=== PATIENT | female | born 1985 | race Caucasian/White ===

== ENCOUNTER 2016-08-28 12:32 | Emergency (ER) | payer OTHER ==
[~2016-08-28] VITALS: Ht 165.1 cm; Wt 65.0 kg
[~2016-08-28 12:32] MED LIST: HYDR-5688 PO; HYDR1CAP85 PO
[2016-08-28 12:34] VITALS: TEMP 37.1; Ht 165.1 cm; Wt 65.0 kg
[2016-08-28] MEDS ORDERED: AMOX875T PO (13:22)
[2016-08-28 13:55] VITALS: BP 122/87; PULSE 74; O2SAT 98
--- NOTE | 2016-08-30 17:00 | EMERGENCY ROOM VISIT NOTE ---
ED Visit Note First contact with patient: 12:41 Chief Complaint: Sinus pain, sore throat and cough. History of Present Illness: Ms. Pepper is a 30-year-old white female who ambulates into the ED accompanied by male friend complaining of a history for 1 week of increasing sinus pressure, sore throat and cough. Patient reports initially her symptoms started gradually approximately one week ago and has gradually increased in intensity. Currently she describes her sinus pain as a pressure sensation. He is located over the frontal sinuses. Her pain is constant and worsens with palpation. She rates her discomfort 4/ 10. Her pain is nonradiating. She has been taking [id number] ibuprofen and acetaminophen without relief of her discomfort. She also report she has a feeling of something dripping in the back of her throat giving her a sore throat. She describes this as a burning-like sensation. She rates this discomfort 4/10. The pain is nonradiating. Her pain worsens with swallowing. She has not identified any alleviating factors related to the pain. As previously noted and she has been using over-the- counter ibuprofen and acetaminophen without relief. Lastly she reports of a nonproductive cough that is associated with her symptoms. She also reports she has been having intermittent sensations of feeling hot and chills but has not checked her temperature. She denies sweats, skin eruptions, skin color changes, headache, dizziness, lightheadedness, recent head trauma, visual changes, hearing changes, eye drainage, ear drainage, bloody nose, voice changes, inability to swallow, painful talking, drooling, neck pain/stiffness, hemoptysis, wheezing, shortness of breath, chest pain, palpitations, previous clots, claudication, abdominal pain, nausea/vomiting. of Systems: As noted above in history of present illness. All body systems were reviewed and found to be negative as noted above. Past Medical History: Diabetes, hypertension, bronchitis, pneumonia, kidney stones, status post tonsillectomy and adenoidectomy. Current Medications: control, Vistaril, citalopram, Excedrin migraine. Allergies to Medications: Benzocaine, procaine, bupivacaine. Social History: Patient is currently employed; she feels safe in her home environment; she admits to tobacco use and denies alcohol use Physical Examination: Vital Signs: Date Time Temp Pulse Resp B/P Pulse Ox O2 Delivery O2 Flow Rate FiO2 2/25/17 13:55 74 14 122/87 98 08/28/16 12:34 37.1 76 16 117/76 100 GENERAL: 30-year-old female in moderate distress due to pain, nontoxic-appearing , afebrile and hemodynamically stable. NEUROLOGICAL: Awake, alert and oriented to person, place and time. Answering questions appropriately and following commands. Normal gait. Good hand eye coordination. No focal motor sensory deficits. SKIN: Warm, dry and pink. No soft tissue eruptions or trauma noted. HEENT: Atraumatic and normocephalic. Moderate tenderness over the frontal sinuses without erythema. Tympanic membranes are not erythematous or edematous. PERRLA. EOMI without nystagmus. Sclera white and conjunctiva pink. No drainage from naris but audible congestion. No intraoral trauma. Uvula is midline and no abscesses are seen. Posterior pharyngeal area is moderately erythematous and mildly edematous without exudative material. Airway is patent. Speech normal and clear. No lymphadenopathy. Trachea midline. No jugular venous distention. BACK: No tenderness over the bony spine. No nuchal rigidity or meningeal Ms. THORAX: Lungs sounds are clear to auscultation and equal bilaterally with symmetrical chest wall. No wheezing, rales or rhonchi. HEART: Regular rate and rhythm. No gallops, rubs or murmurs are appreciated. ABDOMEN: Flat, soft and nontender. Positive bowel sounds in all quadrants. No guarding, rigidity or organomegaly. ED Course: Patient is assessed as noted above. Rapid Strep Screen: Negative. Cultures pending. Patient is educated about tonight's findings and instructed on her treatment plan; she verbalizes understanding and agreement with this plan. Clinical Impression: Acute sinusitis. Acute pharyngitis. Disposition: Patient discharged home in stable condition accompanied by male friend; prior to departure she was reassessed and subjectively reported she was feeling the same. Plan: Patient was prescribed Augmentin 875 mg 2 times a day for 10 days; diarrhea precautions were discussed with the patient. Patient was encouraged use [id number] pseudoephedrine for congestion and follow packaging and dosing. Patient was encouraged to alternate ibuprofen and acetaminophen as needed for pain every 3 hours. Patient was encouraged to stay well hydrated. Patient was encouraged to avoid tobacco use. Patient was encouraged to follow-up with primary care provider for recheck in 3- 5 days if no better. Patient was encouraged return the ED for worsening/uncontrolled pain, worsening/ uncontrolled fevers, visual changes, vomiting or any new/concerning symptoms.
[2016-11-02] MEDS ORDERED: LEVOIUD INT UTER (09:14)
[2016-11-02] MEDS ORDERED: HYDR50CA2 PO (12:00)
[2016-11-02] MEDS ORDERED: CLX20 PO (12:00)
[2016-11-02] MEDS ORDERED: IBUP-103 PO (17:28)
== END 2016-08-28 13:57 | disposition home or self-care (01) ==
LOC: C.EDB 12:33 → C.EDD 13:57
DX: J01.90 Acute sinusitis, unspecified (principal); J02.9 Acute pharyngitis, unspecified; E11.9 Type 2 diabetes mellitus without complications; Z87.01 Personal history of pneumonia (recurrent); Z87.442 Personal history of urinary calculi; Z90.89 Acquired absence of other organs

== ENCOUNTER 2016-11-02 15:44 | Emergency (ER) | payer OTHER ==
[~2016-11-02] VITALS: Ht 165.1 cm; Wt 62.8 kg
[~2016-11-02 15:44] MED LIST changes: +CLX20 PO; -HYDR-5688 PO; +HYDR50CA2 PO
[2016-11-02 15:47] VITALS: BP 118/77; TEMP 36.5; O2SAT 98; Ht 165.1 cm; Wt 62.8 kg
[2016-11-02] MEDS ORDERED: HYDR-5688 PO ×2 (16:04→16:09)
--- NOTE | 2016-11-02 16:09 | EMERGENCY ROOM VISIT NOTE ---
History First contact with patient: 15:51 Chief Complaint: PAIN (GENERALIZED) Stated Complaint: BURSITIS History of Present Illness The patient is a 30 year old female who presents to the Emergency Room via private vehicle with complaints of "bursitis". The patient states that she has a history of bursitis, and has right shoulder pain. She states that she has been treated for this in the past by Dr. Connolly, and is to begin physical therapy. She states that she been trying to perform the range of motion exercises that she was instructed upon. She states that Tuesday she tripped and fell onto the right shoulder. She rates the pain as a 9/10 in the shoulder, and superior trapezius muscle. She denies any loss of consciousness or striking her head. Review of Systems A complete 6-point Review of Systems was discussed with the patient, with pertinent positives and negatives listed in the History of Present Illness. All remaining Review of Systems questions can be considered negative unless otherwise specified. Past Medical/Surgical History Medical Problems: (1) Anxiety State Nos (2) Cannabis Depend-Contin (3) Depress Disorder-Severe (4) Drug Withdrawal (5) Kidney stone (6) Lyme disease (7) Tobacco Use Disorder (8) Tonsillectomy and adenoidectomy (9) [place] Teeth Removal Family History Diabetes mellitus FH: heart disease FHx: cancer FHx: gallbladder disease Hypertension Kidney disease Kidney stones Social History Smoking Status: Current Every Day Smoker Alcohol Use: occasionally Marital Status: Occupation Status: employed Current/Historical Medications Scheduled Citalopram (Citalopram Hydrobromide), 20 MG PO DAILY Hydroxyzine Pamoate (Vistaril), 50 MG PO QAM Levonorgestrel (Iud) (Mirena), 20 MCG INT UTER UD Scheduled PRN [place]-Poirooxvcllcc-Zdajqfby (Excedrin Migraine), 1 TAB PO UD PRN for Migraine Hydrocodone/Acetaminophen 5MG/325MG ([place] 5MG/325MG), 1-2 TABLET PO Q6 PRN for Pain Ibuprofen Tab (Advil), 400-600 MG PO Q6H PRN for Pain Allergies Coded Allergies: Benzocaine (Verified Adverse Reaction, Intermediate, GI SYMPTOMS, 08/28/16) Bupivacaine (Verified Adverse Reaction, Intermediate, GI SYMPTOMS, 08/28/16 ) Procaine (Verified Adverse Reaction, Unknown, NOVOCAINE-GI SYMPTOMS, ) Physical Exam Vital Signs Date Time Temp Pulse Resp B/P Pulse Ox O2 Delivery O2 Flow Rate FiO2 11/02/16 15:47 36.5 20 118/77 98 Room Air Physical Exam VITAL SIGNS - Vital signs and nursing notes were reviewed. Afebrile, normotensive, and is saturating well on room air 98%. GENERAL -30-year-old female appearing her stated age who is in no acute distress. Communicates well with provider and answers questions appropriately. SKIN - Without rashes. Skin overlying the right shoulder is unremarkable. HEAD - NC/AT. NECK - Neck with FROM. Supple to palpation. No C-spine tenderness. LUNGS - Chest wall symmetric without accessory muscle use, intercostals retractions, or central cyanosis. Normal vesicular breath sounds CTA B/L. No wheezes, rales, or rhonchi appreciated. CARDIAC - RRR with S1/S2. No murmur, rubs, or gallops appreciated. MUSCULOSKELETAL: There is tenderness to palpation overlying the right shoulder and right superior trapezius muscle. There is pain with range of motion of this region. She is neurovascularly intact in right lower extremity. Medical Decision & Procedures Medical Decision Patient was seen and evaluated as above. Previous visit was reviewed, and it does appear that she's been here for previous in the past. She has a history of bursitis, and physical examination she appears to have minimal pain of the right shoulder but most of his pronounced overlying the superior trapezius muscle. I suspect that she has a history of bursitis, and has been decompensating over this past weekend while using the plastic maker, straining her right superior trapezius muscle. I do not suspect any emergent cause at this time. She respectfully declined imaging, and I agree that it is likely not of any benefit. She'll be provided with a short-term prescription for [place] , and is been educated upon worrisome symptoms which to return. She is to follow up Dr. Connolly or orthopedics as discussed. She was fitted with a right shoulder sling. She was educated upon worrisome symptoms which to return, had questions prior to discharge and was discharged home in good condition. In the evaluation and treatment of this patient, the following differential diagnoses were considered: Shoulder Contusion, Shoulder Fracture, Shoulder Dislocation, Thoracic Outlet Syndrome, Adhesive Capsulitis, Rotator Cuff Tear, Proximal Clavicle Head Fracture, Apical Pneumonia, Pneumothorax, Hemothorax, or TB. [place] Drug Monitoring Program Search Results: patient reviewed within database, no issues identified Impression Primary Impression: Right shoulder pain Additional Impression: Strain of right trapezius muscle Departure Information Dispostion Home / Self-Care Condition GOOD Prescriptions Hydrocodone/Acetaminophen 5MG/325MG ([place] 5MG/325MG) Tab 1-2 TABLET PO Q6 Y for Pain, #15 TAB For Initial Treatment Prov: Solis Chisholm PA-C 11/02/16 Referrals No Doctor, Assigned (PCP) Brice Campoverde MD Patient Instructions [facility] Additional Instructions You have been treated in the Emergency Department for Shoulder Pain. You have been prescribed NORCO to be used for pain control. This is a narcotic medication. You cannot drive or consume alcohol while on this medicine. This medicine should only be used for pain that cannot be controlled with over-the- counter pain medicines. For pain control, you can use the following pknt-enf-tdttren medicines (if >12 yo): - Regular strength (325mg/tab) Tylenol (acetaminophen) 2 tabs every 4-6 hours as needed. Do not exceed 12 tablets in a 24 hour period. Avoid taking more than 3 grams (3000 mg) of Tylenol per day. This includes any other sources of acetaminophen you may take on a regular basis. Please do not take this with the [place] tablets as it already contains Tylenol. - Regular strength (200 mg/tab) Advil (ibuprofen) 1-2 tabs every 4-6 hours as needed. Do not exceed a dose of 3200 mg per day. If this is a recent injury (<24 hrs), ice can be applied to the area of pain for the first 3 days to help decrease pain and inflammation. As we discussed please follow up with your family doctor who is currently managing your shoulder pain. Please call him first thing tomorrow morning. You have also been provided the number for orthopedic surgeon. It is recommended you also call them first thing tomorrow morning and schedule follow- up. (Dr. Campoverde) Keep the shoulder brace/sling in place until pain subsides. Continue to perform range of motion exercises several times per day to help prevent the development of a "frozen shoulder". Return to the Emergency Department if your current symptoms worsen despite treatment course outlined above, or if you develop any of the following symptoms : intractable pain despite aforementioned treatment course or new onset of numbness or tingling of the arm. Please return to the emergency department with any new/concerning symptoms. Problem Qualifiers
[2016-11-02] MEDS ORDERED: ASPI-390 PO (17:28)
[2017-04-11] MEDS ORDERED: LEVOIUD INT UTER (09:14)
[2017-04-11] MEDS ORDERED: IBUP-103 PO (17:28)
== END 2016-11-02 16:18 | disposition home or self-care (01) ==
LOC: C.EDB 15:46 → C.EDD 16:18
DX: M25.511 Pain in right shoulder (principal); S46.911A Strain of unspecified muscle, fascia and tendon at shoulder and upper arm level, right arm, initial encounter; W19.XXXA Unspecified fall, initial encounter; J45.909 Unspecified asthma, uncomplicated; Z83.3 Family history of diabetes mellitus; Z82.49 Family history of ischemic heart disease and other diseases of the circulatory system; F17.200 Nicotine dependence, unspecified, uncomplicated

== ENCOUNTER 2017-01-20 06:42 | Emergency (ER) | payer OTHER ==
[~2017-01-20] VITALS: Ht 165.1 cm; Wt 63.5 kg
[~2017-01-20 06:42] MED LIST changes: +ASPI-390 PO; +HYDR-5688 PO; -HYDR1CAP85 PO
[2017-01-20 06:47] VITALS: TEMP 36.6; Ht 165.1 cm; Wt 63.5 kg
[2017-01-20] MEDS ORDERED: DEXT1CAP9 PO (07:02)
[2017-01-20] MEDS ORDERED: METH4PAK PO (07:02)
[2017-01-20] MEDS ORDERED: AMOX875T PO (07:02)
[2017-01-20] MEDS ORDERED: KETOROLAC TROMETHAMINE 30 MG/ML VIAL IV STA (07:09)
[2017-01-20] MEDS ORDERED: PSEUDOEPHEDRINE HCL 30 MG TAB PO STA (07:09)
[2017-01-20] MEDS ORDERED: SODIUM CHLORIDE 0.9% 1000ML 1,000 ML IV STA (07:09)
[2017-01-20] MEDS ORDERED: HYDROCODONE/HOMATROPINE SYRUP 5MG/1.5MG 5ML UDP PO STA (07:09)
[2017-01-20] MEDS ORDERED: ALBUT/IPRATROP 3MG/0.5MG NEB 3 ML VIAL INH STA (07:09)
[2017-01-20 07:46] LABS: BASO % 0.1 %; BASO ABS # 0.01 K/uL (0-0.2); COMPLETE YES; EOS % 0.1 %; HEMATOCRIT 43.3 % (37-47); IG% 0.2 %; LYMPH % 8.2 %; LYMPH ABS # 1.11 K/uL (1.2-3.4); MEAN CELL VOLUME 93.7 fL (80-100); MEAN CORPUSCULAR HGB CONC 34.2 g/dl (32-36); MEAN PLATELET VOLUME 9.9 fL (7.4-10.4); MONO % 5.7 %; NEUT % 85.7 %; PLATELET COUNT 277 K/uL (130-400); RED BLOOD COUNT 4.62 M/uL (4.2-5.4); WHITE BLOOD COUNT 13.61 K/uL (4.8-10.8)
[2017-01-20 08:00] LABS: POINT OF CARE TROPONIN I < 0.030 ng/ml (0-0.045)
[2017-01-20 08:03] LABS: PREG INTERNAL NEGATIVE QC NEG CLEAR BACKGROUND; PREG INTERNAL POSITIVE QC POS CONTROL LINE
[2017-01-20 08:10] LABS: BUN/CREATININE RATIO 12.6 (10-20); CALCIUM 9.1 mg/dl (8.5-10.1); CREATININE 0.7 mg/dl (0.60-1.20); POTASSIUM 3.5 mmol/L (3.5-5.1)
[2017-01-20 08:14] LABS: CKMB/CK RATIO 1.3 (0-3.0)
--- NOTE | 2017-01-20 08:16 | DIAGNOSTIC IMAGING REPORT ---
CHEST 2 VIEWS ROUTINE CLINICAL HISTORY: 31 years-old Female presenting with EVALUATE RESPIRATORY DISTRESS.DYSPNEA. TECHNIQUE: PA and lateral views of the chest were obtained. COMPARISON: 09/03/2015. FINDINGS: Cardiomediastinal silhouette normal. Lungs and pleural spaces clear. Osseous structures and upper abdomen normal. IMPRESSION: 1. No acute cardiopulmonary disease. Electronically signed by: Dennis Llanes M.D. 01/20/2017 8:15 AM Dictated Date/Time: 01/20/2017 8:12 AM
[2017-01-20 08:39] VITALS: BP 154/66; PULSE 54; O2SAT 96
[2017-01-20] MEDS ORDERED: VNTHFA/IN INH (08:41)
[2017-01-20] MEDS ORDERED: HYDR5SYP11 PO (08:41)
--- NOTE | 2017-01-22 10:18 | EMERGENCY ROOM VISIT NOTE ---
ED Visit Note First contact with patient: 06:57 Chief Complaint: Shortness of breath and cough. History of Present Illness: Ms. Pepper is a 31-year-old white female who ambulates into the ED complaining of shortness of breath and cough. Historically patient reports she has a history of bronchitis and pneumonia. Patient reports her symptoms started on Tuesday, 4 days ago, shortly after waking with a productive cough of green and yellowish sputum and sinus congestion. That evening she was seen at the [facility] ED and was diagnosed with sinusitis. On discharged she was prescribed a Medrol Dosepak and Augmentin. She reports since being discharged her cough has worsened, her congestion has worsened and now she is short of breath and has chest tightness. Currently she is complaining of midsternal chest tightness. She rates her discomfort 5/10. Her pain is nonradiating. Her pain worsens with cough and deep inspiration. She has not identified any alleviating factors related to the pain. She has taken pvof-cum-omvmlzc cough suppressants without relief of her cough or pain. Her cough remains productive but it is now a clear sputum and she has not seen any blood. Associated with her symptoms she reports she has been having dyspnea on exertion, intermittent palpitations, continued chest ingestion, sensations of dripping in the back of her throat and difficulty sleeping. Additionally she does have an estrogen infused IUD and she does smoke tobacco. She denies fevers, chills, sweats, skin eruptions, skin color changes, headaches , dizziness, lightheadedness, sore throat, difficulty swallowing, hemoptysis, previous clots, claudication, cramping, recent surgery/inactivity/extended travel, abdominal pain, nausea, vomiting, dependent edema, calf tenderness. Review of Systems: As noted above in history of present illness. All body systems were reviewed and found to be negative as noted above. Past Medical History: As previously noted, kidney stones, status post tonsillectomy and adenoidectomy. Current Medications: As previously noted, Tequila Kwok. Allergies to Medications: Benzocaine, procaine, bupivacaine. Social History: Patient is currently employed; she feels safe in her home environment; she admits to smoking cigarettes and denies tobacco use. Physical Examination: Vital Signs: Date Time Temp Pulse Resp B/P (MAP) Pulse Ox O2 Delivery O2 Flow Rate FiO2 01/20/17 08:39 54 16 154/66 96 Room Air 01/20/17 06:47 36.6 91 18 129/82 95 Room Air GENERAL: 31-year-old female in mild distress due to symptoms, nontoxic-appearing , afebrile and hemodynamically stable. NEUROLOGICAL: Awake, alert and oriented to person, place and time. Answering questions appropriately and following commands. Normal gait. Good hand eye coordination. No focal motor sensory deficits. SKIN: Warm, dry and pink. No soft tissue eruptions or trauma noted. HEENT: Atraumatic and normocephalic. PERRLA. Sclera white and conjunctiva pink. No drainage from naris, but audible congestion. Oral cavity moist and pink. Mild drainage in the back of the throat. Pharynx is nonerythematous or edematous. Airway is patent. Speech normal. No lymphadenopathy. Trachea midline. No jugular venous distention. BACK: No tenderness over the bony spine. No CVA tenderness. THORAX: Lungs sounds are decreased in all lung burkett with intermittent inspiratory wheezing. Equal bilaterally with symmetrical chest wall. No rales or rhonchi. No increased respiratory effort or rate. Mild tenderness of the chest wall with AP and lateral compression. I do not appreciate any bony crepitus, deformity or subcutaneous air. HEART: Regular rate and rhythm. No gallops, rubs or murmurs are appreciated. ABDOMEN: Flat, soft and nontender. Positive bowel sounds in all quadrants. No guarding, rigidity or organomegaly. EXTREMITIES: Moves all extremities well on command and with purpose. All distal neurovascular statuses are intact and equal bilaterally. No calf tenderness or cords. ED Course: Patient is assessed as noted above. Patient's medication list was reviewed. Laboratory Testing: Test 01/20/17 07:35 01/20/17 07:41 Range/Units White Blood Count 13.61 4.8-10.8 K/uL Red Blood Count 4.62 4.2-5.4 M/uL Hemoglobin 14.8 12.0-16.0 g/dL Hematocrit 43.3 37-47 % Mean Corpuscular Volume 93.7 80-100 fL Mean Corpuscular Hemoglobin 32.0 25-34 pg Mean Corpuscular Hemoglobin Concent 34.2 32-36 g/dl Platelet Count 277 130-400 K/uL Mean Platelet Volume 9.9 7.4-10.4 fL Neutrophils (%) (Auto) 85.7 % Lymphocytes (%) (Auto) 8.2 % Monocytes (%) (Auto) 5.7 % Eosinophils (%) (Auto) 0.1 % Basophils (%) (Auto) 0.1 % Neutrophils # (Auto) 11.68 1.4-6.5 K/uL Lymphocytes # (Auto) 1.11 1.2-3.4 K/uL Monocytes # (Auto) 0.77 0.11-0.59 K/uL Eosinophils # (Auto) 0.01 0-0.5 K/uL Basophils # (Auto) 0.01 0-0.2 K/uL RDW Standard Deviation 44.0 36.4-46.3 fL RDW Coefficient of Variation 12.8 11.5-14.5 % Immature Granulocyte % (Auto) 0.2 % Immature Granulocyte # (Auto) 0.03 0.00-0.02 K/uL Sodium Level 140 136-145 mmol/L Potassium Level 3.5 3.5-5.1 mmol/L Chloride Level 109 98-107 mmol/L Carbon Dioxide Level 23 21-32 mmol/L Anion Gap 8.0 3-11 mmol/L Blood Urea Nitrogen 9 7-18 mg/dl Creatinine 0.70 0.60-1.20 mg/dl Est Creatinine Clear Calc Drug Dose 103.8 ml/min Estimated GFR () 132.9 Estimated GFR (Non- 114.6 BUN/Creatinine Ratio 12.6 10-20 Random Glucose 139 70-99 mg/dl Calcium Level 9.1 8.5-10.1 mg/dl Total Bilirubin 0.2 0.2-1 mg/dl Aspartate Amino Transf (AST/SGOT) 11 15-37 U/L Alanine Aminotransferase (ALT/SGPT) 20 12-78 U/L Alkaline Phosphatase 93 45-117 U/L Total Creatine Kinase 68 26-192 U/L Creatine Kinase MB 0.9 0.5-3.6 ng/ml Creatine Kinase MB Ratio 1.3 0-3.0 Total Protein 6.6 6.4-8.2 gm/dl Albumin 3.3 3.4-5.0 gm/dl Globulin 3.3 2.5-4.0 gm/dl Albumin/Globulin Ratio 1.0 0.9-2 Human Chorionic Gonadotropin, Qual NEG NEG Bedside D-Dimer 144 0-450 ng/mlFEU Bedside Troponin I < 0.030 0-0.045 ng/ml Chest X-Rays: Were read by myself and the radiologist showing no acute infiltrates, effusions or pneumothorax. Normal heart silhouette and bony anatomy. EKG: Was read by myself and reviewed with Dr. Schafer; shows sinus bradycardia with sinus arrhythmia. Ventricular rate 53 bpm. No acute ischemic changes indicating infarction or injury. This was compared to a previous from August 2015 and no acute changes were noted. Patient was hydrated with normal saline, she received an albuterol/Atrovent nebulizer breathing treatment, 60 mg a pseudoephedrine by mouth, 10 mL of Hycodan cough syrup by mouth and 30 mg of Toradol IV for pain. Patient was reassessed multiple times during her stay in the emergency department; the first reassessment after her breathing treatment show improved air movement in all burkett and all resolution of wheezing. Patient's case was reviewed with Dr. Schafer; we agreed on diagnostic approach, treatment, disposition and plan. Patient was educated about today's findings and instructed on her treatment plan ; she verbalizes understanding and agreement with this plan. Clinical Impression: Acute bronchitis. Decision-Making: Initially my differential diagnosis I considered bronchitis, exacerbation of her sinusitis, pneumonia, pulmonary embolism, costochondritis, pulmonary embolism, and other causes. Disposition: Patient discharged home in stable condition; prior to departure she was reassessed and subjectively reported she was feeling much better. Plan: Patient was encouraged to continue her current medications as prescribed. Patient was prescribed an albuterol inhaler with spacer and encouraged to use 2 puffs every 4 hours for 5 days and as needed for shortness of breath/wheezing or severe coughing episode. Patient was prescribed Hycodan cough syrup 5-10 mL every 6 hours as needed for cough; she was given appropriate narcotic precautions and her name was checked on the state database and no red flags are noted. Patient was encouraged to avoid tobacco use especially with her control. Patient was encouraged to follow-up with family physician for recheck in 3-4 days. Patient was encouraged return ED for worsening fevers, coughing up blood, uncontrolled shortness of breath or any new/concerning symptoms.
[2017-04-11] MEDS ORDERED: LEVOIUD INT UTER (09:14)
[2017-04-11] MEDS ORDERED: IBUP-103 PO (17:28)
== END 2017-01-20 08:59 | disposition home or self-care (01) ==
LOC: C.EDB 06:43 → C.EDA 08:59
DX: J20.9 Acute bronchitis, unspecified (principal); R00.1 Bradycardia, unspecified; I49.9 Cardiac arrhythmia, unspecified; F17.210 Nicotine dependence, cigarettes, uncomplicated; Z87.442 Personal history of urinary calculi

== ENCOUNTER 2017-01-24 16:08 | Emergency (ER) | payer OTHER ==
[~2017-01-24] VITALS: Ht 165.1 cm; Wt 60.5 kg
[~2017-01-24 16:08] MED LIST changes: +AMOX875T PO; -CLX20 PO; +DEXT1CAP9 PO; -HYDR-5688 PO; -HYDR50CA2 PO; +HYDR5SYP11 PO; +METH4PAK PO; +VNTHFA/IN INH
[2017-01-24 16:19] VITALS: TEMP 36.6; Ht 165.1 cm; Wt 60.5 kg
[2017-01-24] MEDS ORDERED: [UNRECOGNIZED DRUG - OTHER] PO (17:22)
[2017-01-24] MEDS ORDERED: SODIUM CHLORIDE 0.9% 1000ML 1,000 ML IV STA (17:29)
[2017-01-24] MEDS ORDERED: ALBUT/IPRATROP 3MG/0.5MG NEB 3 ML VIAL INH STA (17:42)
[2017-01-24] MEDS ORDERED: METHYLPREDNISOLONE 125 MG VIAL IV STA (17:42)
--- NOTE | 2017-01-24 17:55 | DIAGNOSTIC IMAGING REPORT ---
CHEST ONE VIEW PORTABLE CLINICAL HISTORY: Shortness of breath and cough. COMPARISON STUDY: Chest radiograph January 20, 2017. FINDINGS: The lung volumes are normal. Lungs are clear. No pneumothorax or pleural effusion is present. Cardiac size is normal. Mediastinal contours are normal. Pulmonary vascularity is normal. Nipple shadows project over each lower hemithorax. IMPRESSION: No acute cardiopulmonary findings. Electronically signed by: Sesar Hawthorne M.D. 01/24/2017 5:54 PM Dictated Date/Time: 01/24/2017 5:53 PM
[2017-01-24 18:00] LABS: BASO % 0.2 %; BASO ABS # 0.02 K/uL (0-0.2); COMPLETE YES; EOS % 0.6 %; HEMATOCRIT 44.2 % (37-47); IG% 0.4 %; LYMPH % 19.6 %; LYMPH ABS # 1.93 K/uL (1.2-3.4); MEAN CELL VOLUME 92.9 fL (80-100); MEAN CORPUSCULAR HEMOGLOBIN 31.9 pg (25-34); MEAN CORPUSCULAR HGB CONC 34.4 g/dl (32-36); MEAN PLATELET VOLUME 9.8 fL (7.4-10.4); MONO % 8.9 %; NEUT % 70.3 %; PLATELET COUNT 321 K/uL (130-400); RED BLOOD COUNT 4.76 M/uL (4.2-5.4); WHITE BLOOD COUNT 9.86 K/uL (4.8-10.8)
--- NOTE | 2017-01-24 18:02 | EMERGENCY ROOM VISIT NOTE ---
History Report prepared by Becky: Saige Pardo Under the Supervision of: Dr. Lisset Elliott M.D. First contact with patient: 17:00 Chief Complaint: RESPIRATORY PROBLEMS Stated Complaint: COUGH - CAN'T BREATH Nursing Triage Summary: Patient on Augmentin for Bronchitis and c/o worsening SOB and Cough. States she started with diarrhea today. History of Present Illness The patient is a 31 year old female who presents to the Emergency Room with complaints of a constant cough beginning 1 week ago. The patient states that she has been seen in the ED 2 times in the last week. She reports that the first time she was seen, she was diagnosed with a sinus infection and the following visit was diagnosed with bronchitis. She notes that she has been taking cough syrup, an inhaler, steroids, and has 3 days left of her antibiotics. The patient complains of chest pain and abdominal pain from coughing, body aches, and congestion. She denies any recent travel, history of blood clot, or control pill use. She notes that she has been smoking 4 cigarettes a day but usually smokes 1 pack a day. Source of History: patient Onset: 1 week ago Position: other (global) Quality: other (cough) Timing: constant Associated Symptoms: + chest pain, + abdominal pain Note: The patient complains of body aches, and congestion. She denies any recent travel, history of blood clot, or control pill use. Review of Systems See HPI for pertinent positives & negatives. A total of 10 systems reviewed and were otherwise negative. Past Medical & Surgical Medical Problems: (1) Anxiety State Nos (2) Cannabis Depend-Contin (3) Depress Disorder-Severe (4) Drug Withdrawal (5) Kidney stone (6) Lyme disease (7) Tobacco Use Disorder (8) Tonsillectomy and adenoidectomy (9) [place] Teeth Removal Family History Diabetes mellitus FH: heart disease FHx: cancer FHx: gallbladder disease Hypertension Kidney disease Kidney stones Social History Smoking Status: Current Every Day Smoker Alcohol Use: occasionally Marital Status: Occupation Status: employed Current/Historical Medications Scheduled Albuterol Hfa (Ventolin Hfa), 2 PUFFS INH Q4 Amoxicillin & Pot Clavulanate (Augmentin 875-125 mg), 1 TAB PO Q12 Azithromycin (Zithromax Z-Vikash), 0 PO UD Dextromethorphan-Phenylephrine (Vicks Dayquil Cold & Flu), 2 CAP PO Q4H Levonorgestrel (Iud) (Mirena), 20 MCG INT UTER UD Methylprednisolone (Medrol Dosepak), 1 PKT PO UD Scheduled PRN Benzonatate (Tessalon Perles), 200 MG PO Q8 PRN for Cough Ibuprofen Tab (Advil), 400-600 MG PO Q6H PRN for Pain [Vicks Cough [place]], 10 ML PO Q4 PRN for Cough Allergies Coded Allergies: Benzocaine (Verified Adverse Reaction, Intermediate, GI SYMPTOMS, 01/20/17) Bupivacaine (Verified Adverse Reaction, Intermediate, GI SYMPTOMS, 01/20/17 ) Procaine (Verified Adverse Reaction, Unknown, NOVOCAINE-GI SYMPTOMS, ) Physical Exam Vital Signs Date Time Temp Pulse Resp B/P (MAP) Pulse Ox O2 Delivery O2 Flow Rate FiO2 01/24/17 19:16 82 16 105/58 95 01/24/17 17:59 62 01/24/17 17:47 62 22 118/67 98 Room Air 01/24/17 17:26 Room Air 01/24/17 17:26 Room Air 01/24/17 16:19 36.6 81 20 123/85 95 Room Air Physical Exam Vital signs reviewed. General: Well-appearing female, in no significant distress. HEENT: No scleral icterus, PERRLA, neck supple. Atraumatic. Cardiovascular: Regular rate and rhythm, no extra sounds. Pulmonary: Clear to auscultation bilaterally, normal work of breathing. Bronchospastic cough. Abdomen: Soft, nontender, nondistended, positive bowel sounds. Musculoskeletal: Atraumatic, no peripheral edema. Neurologic: Patient awake alert and oriented x 3, full strength in all 4 extremities. Cranial nerves 2 through 12 grossly intact. Skin: Warm, dry, no rash Medical Decision & Procedures ER Provider Diagnostic Interpretation: X-ray results as stated below per interpretation by me and the radiologist: CHEST ONE VIEW PORTABLE FINDINGS: The lung volumes are normal. Lungs are clear. No pneumothorax or pleural effusion is present. Cardiac size is normal. Mediastinal contours are normal. Pulmonary vascularity is normal. Nipple shadows project over each lower hemithorax. IMPRESSION: No acute cardiopulmonary findings. Electronically signed by: Sesar Hawthorne M.D. 01/24/2017 5:54 PM Dictated Date/Time: 01/24/2017 5:53 PM Laboratory Results 01/24/17 17:38 Red Blood Count 4.76, Mean Corpuscular Volume 92.9, Mean Corpuscular Hemoglobin 31.9, Mean Corpuscular Hemoglobin Concent 34.4, Mean Platelet Volume 9.8, Neutrophils (%) (Auto) 70.3, Lymphocytes (%) (Auto) 19.6, Monocytes (%) (Auto) 8.9, Eosinophils (%) (Auto) 0.6, Basophils (%) (Auto) 0.2, Neutrophils # (Auto) 6.93, Lymphocytes # (Auto) 1.93, Monocytes # (Auto) 0.88, Eosinophils # (Auto) 0.06, Basophils # (Auto) 0.02 01/24/17 17:38 Test 01/24/17 17:38 White Blood Count 9.86 K/uL (4.8-10.8) Red Blood Count 4.76 M/uL (4.2-5.4) Hemoglobin 15.2 g/dL (12.0-16.0) Hematocrit 44.2 % (37-47) Mean Corpuscular Volume 92.9 fL (80-100) Mean Corpuscular Hemoglobin 31.9 pg (25-34) Mean Corpuscular Hemoglobin Concent 34.4 g/dl (32-36) Platelet Count 321 K/uL (130-400) Mean Platelet Volume 9.8 fL (7.4-10.4) Neutrophils (%) (Auto) 70.3 % Lymphocytes (%) (Auto) 19.6 % Monocytes (%) (Auto) 8.9 % Eosinophils (%) (Auto) 0.6 % Basophils (%) (Auto) 0.2 % Neutrophils # (Auto) 6.93 K/uL (1.4-6.5) Lymphocytes # (Auto) 1.93 K/uL (1.2-3.4) Monocytes # (Auto) 0.88 K/uL (0.11-0.59) Eosinophils # (Auto) 0.06 K/uL (0-0.5) Basophils # (Auto) 0.02 K/uL (0-0.2) RDW Standard Deviation 43.8 fL (36.4-46.3) RDW Coefficient of Variation 12.8 % (11.5-14.5) Immature Granulocyte % (Auto) 0.4 % Immature Granulocyte # (Auto) 0.04 K/uL (0.00-0.02) Anion Gap 9.0 mmol/L (3-11) Est Creatinine Clear Calc Drug Dose 90.8 ml/min Estimated GFR () 113.1 Estimated GFR (Non- 97.6 BUN/Creatinine Ratio 11.4 (10-20) Calcium Level 9.6 mg/dl (8.5-10.1) Magnesium Level 1.8 mg/dl (1.8-2.4) Total Bilirubin 0.4 mg/dl (0.2-1) Direct Bilirubin 0.1 mg/dl (0-0.2) Aspartate Amino Transf (AST/SGOT) 10 U/L (15-37) Alanine Aminotransferase (ALT/SGPT) 25 U/L (12-78) Alkaline Phosphatase 76 U/L (45-117) Total Protein 6.7 gm/dl (6.4-8.2) Albumin 3.6 gm/dl (3.4-5.0) Laboratory results per my review. Medications Administered Medications (Trade) Dose Ordered Sig/Juan Route Start Time Stop Time Status Last Admin Dose Admin Sodium Chloride 1,000 ml @ 125 mls/hr Q8H STAT IV 01/24/17 17:29 01/24/17 19:48 DC 01/24/17 17:43 125 MLS/HR Albuterol/ Ipratropium (Duoneb) 3 ml NOW STAT INH 01/24/17 17:42 01/24/17 17:44 DC 01/24/17 17:48 3 ML Methylprednisolone Sodium Succinate (Solu-Medrol IV) 125 mg NOW STAT IV 01/24/17 17:42 01/24/17 17:44 DC 01/24/17 17:49 125 MG ECG Rate (beats per minute): 56 Rhythm: sinus bradycardia, other (sinus arrythmia) Findings: no acute ischemic change, prolonged QT ED Course 1700: Past medical records reviewed. The patient was evaluated in room C11. A complete history and physical examination was performed. 1729: Sodium Chloride 1000 ml @ 125 mls/hr IV. 1742: Solu-Medrol IV 125mg IV, Duoneb 3ml INH. 1751: I reevaluated and updated the patient. 1758: Upon reevaluation, the patient appeared to have improvement of her symptoms. I discussed findings with the patient. She verbalized agreement of the treatment plan. The patient was discharged home. Medical Decision Differential diagnosis: Etiologies such as infections, reactive airway disease, pneumonia, pneumothorax , COPD, CHF, cardiac ischemia, pulmonary embolism, musculoskeletal, gastrointestinal, as well as others were entertained. This patient was evaluated and appeared to be in no significant distress. IV access was obtained and laboratory work was drawn. Chest x-ray was obtained and is clear. Patient was hydrated with normal saline solution, given a nebulizer treatment. She was given IV solumedrol. Patient was asked to use Tylenol as the for pain or fever. She will be discharged on a azithromycin. Patient was given Tessalon Perles for cough. She was instructed stop smoking. She will follow-up with her physician for reevaluation return to the ER for worsening of symptoms or any medical concerns. Medication Reconcilliation Current Medication List: was personally reviewed by me Blood Pressure Screening Patient's blood pressure: Normal blood pressure Blood pressure disposition: Did not require urgent referral Impression Primary Impression: Reactive airway disease Additional Impressions: Bronchitis Tobacco abuse Scribe Attestation The scribe's documentation has been prepared under my direction and personally reviewed by me in its entirety. I confirm that the note above accurately reflects all work, treatment, procedures, and medical decision making performed by me. Departure Information Dispostion Home / Self-Care Prescriptions Benzonatate (Tessalon Perles) 200 Mg Cap 200 MG PO Q8 Y for Cough, #30 CAP Prov: Lisset Elliott M.D. 01/24/17 Azithromycin (ZITHROMAX Z-VIKASH) 250 Mg Tab 0 PO UD, #1 PKT 2 TABS DAY 1, THEN 1 TAB DAILY FOR 4 DAYS Prov: Lisset Elliott M.D. 01/24/17 Referrals Bart Randall M.D. (PCP) Forms HOME CARE DOCUMENTATION FORM, IMPORTANT VISIT INFORMATION, WORK / SCHOOL INSTRUCTIONS Patient Instructions [facility] Additional Instructions Diagnosis: Bronchitis Tessalon Perles 200 mg every 8 hours as needed for cough. Azithromycin 500 mg on day one, 250 mg days 2 through 5. Stop smoking. Use your albuterol inhaler as needed for cough or wheezing. Tylenol 650 g every 6 hours as needed for pain or fever. Follow-up with her primary care physician this week for reevaluation and return to the ER for worsening of symptoms or any medical concerns. Problem Qualifiers
[2017-01-24 18:25] LABS: BUN/CREATININE RATIO 11.4 (10-20); CALCIUM 9.6 mg/dl (8.5-10.1); CREATININE 0.8 mg/dl (0.60-1.20); MAGNESIUM 1.8 mg/dl (1.8-2.4); POTASSIUM 3.9 mmol/L (3.5-5.1)
[2017-01-24] MEDS ORDERED: BENZ1CAP90 PO (18:48)
[2017-01-24] MEDS ORDERED: AZITTAB PO (18:48)
[2017-01-24 19:16] VITALS: BP 105/58; PULSE 82; O2SAT 95
[2017-04-11] MEDS ORDERED: LEVOIUD INT UTER (09:14)
[2017-04-11] MEDS ORDERED: IBUP-103 PO (17:28)
== END 2017-01-24 19:07 | disposition home or self-care (01) ==
LOC: C.EDB 16:09 → C.EDC 19:07
DX: J45.909 Unspecified asthma, uncomplicated (principal); J40 Bronchitis, not specified as acute or chronic; R05 Cough; R00.1 Bradycardia, unspecified; R07.9 Chest pain, unspecified; R10.9 Unspecified abdominal pain; F32.9 Major depressive disorder, single episode, unspecified; F41.9 Anxiety disorder, unspecified; Z79.899 Other long term (current) drug therapy; Z97.5 Presence of (intrauterine) contraceptive device; Z82.49 Family history of ischemic heart disease and other diseases of the circulatory system; Z83.3 Family history of diabetes mellitus; Z83.79 Family history of other diseases of the digestive system; Z84.1 Family history of disorders of kidney and ureter; F17.200 Nicotine dependence, unspecified, uncomplicated

== ENCOUNTER 2017-04-11 18:16 | Emergency (ER) | payer OTHER ==
[~2017-04-11] VITALS: Ht 165.1 cm; Wt 60.8 kg
[~2017-04-11 18:16] MED LIST changes: -ASPI-390 PO; +BENZ1CAP90 PO; -HYDR5SYP11 PO; +IBUP-103 PO; +LEVOIUD INT UTER; -VNTHFA/IN INH; +[UNRECOGNIZED DRUG - OTHER] PO
[2017-04-11 18:35] VITALS: TEMP 36.9; Ht 165.1 cm; Wt 60.8 kg
[2017-04-11] MEDS ORDERED: ONDANSETRON INJ 2 MG/ML 2 ML VIAL IV STA (19:25)
[2017-04-11] MEDS ORDERED: SODIUM CHLORIDE 0.9% 1000ML 1,000 ML IV STA (19:25)
[2017-04-11] MEDS ORDERED: MoRPHine SULFATE 4 MG/ML 1 ML CARP\\VIAL IV PRN (19:30)
[2017-04-11 19:45] LABS: URINE APPEARANCE CLEAR (CLEAR); URINE BILIRUBIN NEG (NEG); URINE COLOR YELLOW; URINE NITRITE NEG (NEG); UROBILINOGEN NEG (NEG)
[2017-04-11 19:46] LABS: BASO % 0.5 %; BASO ABS # 0.04 K/uL (0-0.2); COMPLETE YES; EOS % 1.5 %; HEMATOCRIT 42.7 % (37-47); IG% 0.2 %; LYMPH % 27.8 %; MEAN CELL VOLUME 92.6 fL (80-100); MEAN CORPUSCULAR HEMOGLOBIN 31.2 pg (25-34); MEAN CORPUSCULAR HGB CONC 33.7 g/dl (32-36); MEAN PLATELET VOLUME 9.8 fL (7.4-10.4); MONO % 8.6 %; NEUT % 61.4 %; PLATELET COUNT 278 K/uL (130-400); RED BLOOD COUNT 4.61 M/uL (4.2-5.4); WHITE BLOOD COUNT 8.26 K/uL (4.8-10.8)
[2017-04-11 19:48] LABS: MANUAL MICROSCOPIC REQUIRED? NO; REVIEW REQ? NO
[2017-04-11 20:11] LABS: BUN/CREATININE RATIO 22.3 (10-20); CALCIUM 8.6 mg/dl (8.5-10.1); CREATININE 0.7 mg/dl (0.60-1.20); POTASSIUM 3.7 mmol/L (3.5-5.1)
[2017-04-11 20:13] LABS: PREG INTERNAL NEGATIVE QC NEG CLEAR BACKGROUND; PREG INTERNAL POSITIVE QC POS CONTROL LINE
--- NOTE | 2017-04-11 20:50 | DIAGNOSTIC IMAGING REPORT ---
PELVIC ULTRASOUND, TRANSABDOMINAL AND TRANSVAGINAL HISTORY: Pelvic pain. COMPARISON: Abdominal ultrasound 02/17/2011. FINDINGS: Uterus: Unremarkable. Endometrial stripe: There is an intrauterine device which appears to be in good position. Right ovary: Normal in size and demonstrates normal color flow. A few small follicles/cysts. Left ovary: Normal in size and demonstrates normal color flow. A few small follicles/cysts. Miscellaneous:No pelvic free fluid. IMPRESSION: No significant abnormality identified within the pelvis. The intrauterine device is in good position. Electronically signed by: Kendall Peralta M.D. 04/11/2017 8:48 PM Dictated Date/Time: 04/11/2017 8:47 PM
[2017-04-11 21:31] VITALS: BP 113/68
[2017-04-11 21:36] VITALS: PULSE 62; O2SAT 98
--- NOTE | 2017-04-12 02:30 | EMERGENCY ROOM VISIT NOTE ---
ED Visit Note First contact with patient: 19:10 Chief Complaint: I am having lower abdominal pain. History of Present Illness: Ms. Pepper is a 31 year-old white female who ambulates into the ED complaining of bilateral lower quadrant abdominal pain. Historically patient reports no significant gastrointestinal disorders, gynecological disorders or abdominal/pelvic surgeries. Patient reports a gradual onset of bilateral lower quadrant abdominal pain that started 2 days ago. Since that time the pain has been constant but waxes and wanes in intensity. She describes her pain as a bandlike sensation over the lower pelvis and both the right and left quadrants. Most of her pain is mild and she describes it as an achiness sensation but intermittently she reports that becomes sharp without cause becomes severe. Her mild pain is rated 4/10 and her sharp pain is rated 7/10. Additionally she reports when the pain becomes sharp it is more focused in the right pelvis area. She believes this is one pain and there is no radiation of her discomfort. She reports taking NSAIDs with mild relief of her discomfort. Associated with her pain she reports she has been having some chills but no svetlana fevers, she has been nauseated but has not vomited, she has noted a decreased appetite. She reports initially when her pain started she felt constipated but since the pain started she has been having 3-4 episodes of watery stools. Additionally she reports her last menstrual cycle which was late last week started as normal but only lasted 2 days and her bleeding was just mild spotting. Patient denies sweats, skin eruptions, skin color changes, upper respiratory tract symptoms, shortness of breath, chest pain, rectal bleeding, black/tarry stools, urinary symptoms, hematuria, vaginal bleeding, vaginal discharge, painful intercourse, back/flank pain. Review of Systems: As noted above in history of present illness. All body systems were reviewed and found to be negative as noted above. Past Medical History: Bronchitis, pneumonia, kidney stones, anxiety, depression , Lyme's disease, status post tonsillectomy, adenoidectomy and wisdom teeth extraction. Current Medications: -control; IUD. Allergies to Medications: Benzocaine, procaine and bupivacaine. Social History: A she is currently employed; she feels safe in her home environment; she admits to tobacco use and denies alcohol use. Physical Examination: Vital Signs: Date Time Temp Pulse Resp B/P (MAP) Pulse Ox O2 Delivery O2 Flow Rate FiO2 04/11/17 21:36 62 17 98 04/11/17 21:31 113/68 04/11/17 21:21 67 19 97 04/11/17 21:06 65 19 96 04/11/17 21:01 117/64 04/11/17 21:00 67 19 97 04/11/17 20:45 53 15 96 04/11/17 20:01 121/83 04/11/17 20:00 61 21 98 04/11/17 19:45 60 13 99 04/11/17 19:31 112/75 04/11/17 19:30 63 98 Room Air 04/11/17 19:20 127/75 04/11/17 18:35 36.9 75 18 133/85 97 Room Air GENERAL: 31-year-old female in mild distress due to pain, nontoxic-appearing, afebrile and hemodynamically stable. NEUROLOGICAL: Awake, alert and oriented to person, place and time. Answering questions appropriately and following commands. Normal gait. Good hand eye coordination. SKIN: Warm, dry and pink. No soft tissue eruptions or trauma noted. HEENT: Atraumatic and normocephalic. PERRLA. Sclera white and conjunctiva pink. Oral cavity moist and pink. Pharynx is nonerythematous or edematous. Speech normal. No lymphadenopathy. Trachea midline. No jugular venous distention. BACK: No tenderness over the bony spine. No CVA tenderness. THORAX: Lungs sounds are clear to auscultation and equal bilaterally with symmetrical chest wall. No wheezing, rales or rhonchi. No crepitus, tenderness , subcutaneous air or deformities noted. HEART: Regular rate and rhythm. No gallops, rubs or murmurs are appreciated. ABDOMEN: Flat and soft with mild diffuse tenderness in the lower pelvic area. No tenderness in McBurney's point. Positive bowel sounds in all quadrants. No guarding, rigidity or organomegaly. EXTREMITIES: Moves all extremities well on command and with purpose. All distal neurovascular statuses are intact and equal bilaterally. ED Course: Patient is assessed as noted above. Laboratory Testing: Test 04/11/17 19:25 Range/Units White Blood Count 8.26 4.8-10.8 K/uL Red Blood Count 4.61 4.2-5.4 M/uL Hemoglobin 14.4 12.0-16.0 g/dL Hematocrit 42.7 37-47 % Mean Corpuscular Volume 92.6 80-100 fL Mean Corpuscular Hemoglobin 31.2 25-34 pg Mean Corpuscular Hemoglobin Concent 33.7 32-36 g/dl Platelet Count 278 130-400 K/uL Mean Platelet Volume 9.8 7.4-10.4 fL Neutrophils (%) (Auto) 61.4 % Lymphocytes (%) (Auto) 27.8 % Monocytes (%) (Auto) 8.6 % Eosinophils (%) (Auto) 1.5 % Basophils (%) (Auto) 0.5 % Neutrophils # (Auto) 5.07 1.4-6.5 K/uL Lymphocytes # (Auto) 2.30 1.2-3.4 K/uL Monocytes # (Auto) 0.71 0.11-0.59 K/uL Eosinophils # (Auto) 0.12 0-0.5 K/uL Basophils # (Auto) 0.04 0-0.2 K/uL RDW Standard Deviation 42.0 36.4-46.3 fL RDW Coefficient of Variation 12.4 11.5-14.5 % Immature Granulocyte % (Auto) 0.2 % Immature Granulocyte # (Auto) 0.02 0.00-0.02 K/uL Urine Color YELLOW Urine Appearance CLEAR CLEAR Urine pH 6.0 4.5-7.5 Urine Specific [place] 1.020 1.000-1.030 Urine Protein NEG NEG Urine Glucose (UA) NEG NEG Urine Ketones NEG NEG Urine Occult Blood NEG NEG Urine Nitrite NEG NEG Urine Bilirubin NEG NEG Urine Urobilinogen NEG NEG Urine Leukocyte Esterase NEG NEG Sodium Level 141 136-145 mmol/L Potassium Level 3.7 3.5-5.1 mmol/L Chloride Level 109 98-107 mmol/L Carbon Dioxide Level 23 21-32 mmol/L Anion Gap 9.0 3-11 mmol/L Blood Urea Nitrogen 16 7-18 mg/dl Creatinine 0.70 0.60-1.20 mg/dl Est Creatinine Clear Calc Drug Dose 103.8 ml/min Estimated GFR () 132.9 Estimated GFR (Non- 114.6 BUN/Creatinine Ratio 22.3 10-20 Random Glucose 105 70-99 mg/dl Calcium Level 8.6 8.5-10.1 mg/dl Total Bilirubin 0.4 0.2-1 mg/dl Direct Bilirubin 0.1 0-0.2 mg/dl Aspartate Amino Transf (AST/SGOT) 13 15-37 U/L Alanine Aminotransferase (ALT/SGPT) 16 12-78 U/L Alkaline Phosphatase 74 45-117 U/L Total Protein 6.4 6.4-8.2 gm/dl Albumin 3.6 3.4-5.0 gm/dl Lipase 97 73-393 U/L Human Chorionic Gonadotropin, Qual NEG NEG Pelvic Ultrasound: Was reviewed by myself and read by the radiologist showing no significant abnormalities identified within the pelvis; with good position of her IUD, normal size and demonstrating color flow to the bilateral ovaries and no free fluid in the pelvis. Patient was hydrated with normal saline and she received 4 mg of morphine IV for pain and 4 mg of Zofran IV for nausea. Patient was reassessed multiple times during her stay in the emergency department. Patient's case was reviewed with Dr. Alicia; we agreed on diagnostic approach, treatment, disposition and plan. Patient was educated about today's findings and instructed on her treatment plan ; she verbalized understanding and agreement with this plan. Clinical Impression: Bilateral pelvic pain. Decision-Making: Initially my differential diagnosis I considered ovarian torsion, ovarian cyst rupture, appendicitis, ectopic , and other causes. Disposition: Patient discharged home in stable condition accompanied by friends ; prior to departure she was reassessed and subjectively reported she was feeling better and rated her discomfort 2/10. Plan: Patient was encouraged to continue her current medications as prescribed. Patient was encouraged use [id number] Naprosyn every 12 hours as needed for pain; 1-2 tablets. Patient was encouraged to call her family doctor and her [employer] provider tomorrow and inform them of today's ED visit and request follow-up care and treatment. Patient was encouraged return ED for worsening pain, fevers, vaginal discharge, abnormal vaginal bleeding or any new/concerning symptoms.
== END 2017-04-11 21:45 | disposition home or self-care (01) ==
LOC: C.EDB 18:17 → C.EDA 21:45
DX: R10.31 Right lower quadrant pain (principal); R10.32 Left lower quadrant pain; F17.210 Nicotine dependence, cigarettes, uncomplicated; Z97.5 Presence of (intrauterine) contraceptive device

== ENCOUNTER 2017-08-31 11:00 | Emergency (ER) | payer OTHER ==
[~2017-08-31] VITALS: Ht 165.1 cm; Wt 67.4 kg
[~2017-08-31 11:00] MED LIST changes: -AMOX875T PO; -BENZ1CAP90 PO; -DEXT1CAP9 PO; +LEVO1IUD2 INT UTER; -LEVOIUD INT UTER; -METH4PAK PO; -[UNRECOGNIZED DRUG - OTHER] PO
[2017-08-31 11:05] VITALS: TEMP 36.4; Ht 165.1 cm; Wt 67.4 kg
[2017-08-31] MEDS ORDERED: PROCHLORPERAZINE 5 MG/ML 2 ML VIAL IV STA (11:33)
[2017-08-31] MEDS ORDERED: DiphenhydrAMINE HCL 50 MG/ML VIAL IV STA (11:33)
[2017-08-31] MEDS ORDERED: KETOROLAC TROMETHAMINE 30 MG/ML VIAL IV STA (11:33)
[2017-08-31] MEDS ORDERED: SODIUM CHLORIDE 0.9% 1000ML 1,000 ML IV STA (11:33)
[2017-08-31] MEDS ORDERED: DEXAMETHASONE **PF** INJ 10 MG/ML VIAL IV ONE (11:45)
[2017-08-31 12:22] LABS: BASO % 0.2 %; BASO ABS # 0.02 K/uL (0-0.2); EOS % 0.5 %; EOS ABS # 0.04 K/uL (0-0.5); HEMATOCRIT 44.9 % (37-47); HEMOGLOBIN 15.4 g/dL (12.0-16.0); IG# 0.02 K/uL (0.00-0.02); LYMPH % 16.7 %; LYMPH ABS # 1.36 K/uL (1.2-3.4); MEAN CELL VOLUME 92.4 fL (80-100); MEAN CORPUSCULAR HEMOGLOBIN 31.7 pg (25-34); MEAN CORPUSCULAR HGB CONC 34.3 g/dl (32-36); MEAN PLATELET VOLUME 9.6 fL (7.4-10.4); MONO % 6.8 %; MONO ABS # 0.55 K/uL (0.11-0.59); NEUT % 75.6 %; NEUT ABS # 6.14 K/uL (1.4-6.5); PLATELET COUNT 275 K/uL (130-400); RED CELL DISTRIBUTION WIDTH CV 12.6 % (11.5-14.5); RED CELL DISTRIBUTION WIDTH SD 42.5 fL (36.4-46.3); WHITE BLOOD COUNT 8.13 K/uL (4.8-10.8)
[2017-08-31 12:37] LABS: CALCIUM 9.1 mg/dl (8.5-10.1); CREATININE 0.68 mg/dl (0.60-1.20); POTASSIUM 3.8 mmol/L (3.5-5.1)
--- NOTE | 2017-08-31 12:51 | DIAGNOSTIC IMAGING REPORT ---
CT OF THE HEAD WITHOUT CONTRAST CLINICAL HISTORY: HEADACHE AFTER COUGHING THIS MORNING COMPARISON STUDY: Head CT and CTA of the head December 11, 2015. CT DOSE: 669.45 mGycm TECHNIQUE: Helical axial images of the head were obtained without IV contrast. Automated exposure control was utilized for the study. A dose lowering technique was utilized adhering to the principles of ALARA. FINDINGS: No acute intracranial hemorrhage, midline shift or mass effect is present. Brain volume is normal. Ventricular system is normal. The basilar cisterns are patent. There are no extra-axial collections. Shepherd-white differentiation is preserved. There are no findings to suggest acute dural sinus thrombosis or acute territorial infarct. There are no significant calvarial abnormalities. Visualized portions of the sinuses and mastoid air cells are clear. IMPRESSION: No acute intracranial findings. Electronically signed by: Sesar Hawthorne M.D. 08/31/2017 12:50 PM Dictated Date/Time: 08/31/2017 12:47 PM
--- NOTE | 2017-08-31 13:48 | EMERGENCY ROOM VISIT NOTE ---
ED Visit Note First contact with patient: 11:09 CHIEF COMPLAINT: Severe headache time 4 hours HISTORY OF PRESENT ILLNESS: Patient is a generally healthy 31-year-old white female who presents the emergency department for evaluation of a headache that started this morning. Patient reports that she was feeling well and was in her usual state of health this morning. She states that around 8:00 this morning she was pumping gas, she had a slight cough and after she coughed, she developed a very fleeting sharp pain in her left roman catholic. She then developed a associated bilateral vision disturbance which she states was like looking through frozen raindrops. She states that it lasted her about an hour, and gradually subsided and is currently gone. She then developed a bandlike headache that she states is throbbing in nature and she currently rates it an 8/ 10. She reports associated nausea, dry heaves, photo and phonophobia. She has a remote history of a headache disorder that was attributed to her control pill, she states that she has not had any severe headaches since discontinuing oral contraceptives. She did try taking Mucinex this morning. She reports that she has been sick on and off with an upper respiratory illness over the last 3 months, she has been treated with a course of antibiotics, and steroids, but has been off of these for about 6 weeks. The patient denies fever or chills recently, and there is no weakness or numbness of the extremities. There is no difficulty with balance, speech or coordination. No recent trauma to the head and no neck pain. This is not the worst headache of the life, but one of the more severe headaches. She has had neuroimaging previously, which has been normal. REVIEW OF SYSTEMS: Review of systems as per HPI. All other systems reviewed were negative. 10 systems reviewed. PMH: Electronic medical records are reviewed and summarized as above/below. See Problem List. SOCIAL HISTORY: Patient lives at home by herself. Positive tobacco use. She denies alcohol use.. PHYSICAL EXAM: Vital Signs: Reviewed Nurse's notes. General Appearance: Uncomfortable appearing 31-year-old white female who is laying in a darkened room. Eyes: Pupils equal round reactive to light, extraocular muscles are intact, photophobia precludes funduscopic exam. ENT: Oropharynx is clear, mucous membranes are moist, tympanic membranes are clear bilaterally, no sinus or dental tenderness Neck: Supple, no cervical lymphadenopathy, no meningismus Heart: Regular rate and rhythm, S1 and S2 Lungs: Clear to auscultation bilaterally, no wheezes Rales or rhonchi, no increased work of breathing Abdomen: Soft nontender nondistended. Normal active bowel sounds. No rebound. No guarding. Back: No midline tenderness to palpation. : No CVA tenderness to palpation. Skin: Warm, no diaphoresis, no rashes. Extremities: No cyanosis, clubbing, or edema Neurologic: Patient is awake alert, and oriented x 3. Cranial nerves 2-12 are grossly intact. Motor 5 out of 5 strength bilateral upper extremities and lower extremities. No gross sensory deficits. Reflexes are 2+ throughout. Normal gait. Tandem walk without difficulty. Negative Romberg and pronator drift. Finger to nose and rapidly alternating movements are intact. EMERGENCY DEPARTMENT COURSE: Patient was seen and assessed as above. Her old records were reviewed. IV lock was initiated. CBC, BMP and TSH were drawn. Urine dip and test were performed and were negative. Head CT was obtained. The patient was medicated with a liter bolus of normal saline solution, Toradol 30 mg IV, Compazine 10 mg IV, Benadryl 25 mg IV and Decadron 10 mg IV. She was reassessed, after resting comfortably and reported that her headache was a 4/10. The patient's laboratory and diagnostic imaging studies are largely unremarkable. No leukocytosis, anemia, left shift or bandemia. No electrolyte or thyroid function abnormality. Head CT is negative for any acute intracranial process. ED workup was reviewed with the patient. As stated above , she did feel improved with the IV medications and felt well enough to go home to rest. Vital signs were stable at discharge and she rated her headache a 2/ 10 at discharge. Differential includes: acute intracranial bleed, meningitis, encephalitis, mass or mass effect, sinusitis, infection, migraine, tumor, headache, temporal arteritis and carbon monoxide exposure. Medication reconciliation: I attest that I have personally reviewed the patient' s current medication list. Blood pressure screening : Patient was found to have normal blood pressure on screening and does not require follow-up. CT OF THE HEAD WITHOUT CONTRAST CLINICAL HISTORY: HEADACHE AFTER COUGHING THIS MORNING COMPARISON STUDY: Head CT and CTA of the head December 11, 2015. CT DOSE: 669.45 mGycm TECHNIQUE: Helical axial images of the head were obtained without IV contrast. Automated exposure control was utilized for the study. A dose lowering technique was utilized adhering to the principles of ALARA. FINDINGS: No acute intracranial hemorrhage, midline shift or mass effect is present. Brain volume is normal. Ventricular system is normal. The basilar cisterns are patent. There are no extra-axial collections. Shepherd-white differentiation is preserved. There are no findings to suggest acute dural sinus thrombosis or acute territorial infarct. There are no significant calvarial abnormalities. Visualized portions of the sinuses and mastoid air cells are clear. IMPRESSION: No acute intracranial findings. Problem List Medical Problems: (1) Acute bronchitis Status: Resolved (2) Acute sinusitis Status: Resolved (3) Anxiety State Nos Status: Chronic (4) Bronchitis Status: Resolved (5) Cannabis Depend-Contin Status: Resolved (6) Cervicalgia Status: Resolved (7) Depress Disorder-Severe Status: Chronic (8) Drug Withdrawal Status: Resolved (9) Kidney stone Status: Resolved (10) Lyme disease Status: Resolved (11) Pelvic pain Status: Resolved (12) Reactive airway disease Status: Resolved (13) Right shoulder pain Status: Resolved (14) Shoulder bursitis Status: Resolved (15) Sinusitis Status: Resolved (16) Strain of right trapezius muscle Status: Resolved (17) Tobacco abuse Status: Resolved (18) Tobacco dependence Status: Resolved (19) Tobacco Use Disorder Status: Chronic Surgical Problems: (1) Tonsillectomy and adenoidectomy Status: Resolved (2) [place] Teeth Removal Status: Resolved Current/Historical Medications Scheduled Levonorgestrel (Iud) (Mirena), 20 MCG INT UTER UD Scheduled PRN Ibuprofen Tab (Advil), 400-600 MG PO Q6H PRN for Pain Allergies Coded Allergies: Benzocaine (Verified Adverse Reaction, Intermediate, GI SYMPTOMS, 08/31/17) Bupivacaine (Verified Adverse Reaction, Intermediate, GI SYMPTOMS, 08/31/17 ) Procaine (Verified Adverse Reaction, Unknown, NOVOCAINE-GI SYMPTOMS, ) Vital Signs Date Time Temp Pulse Resp B/P (MAP) Pulse Ox O2 Delivery O2 Flow Rate FiO2 08/31/17 14:15 78 18 122/78 98 08/31/17 11:05 36.4 85 20 125/83 98 Room Air Laboratory Results 08/31/17 11:55 Red Blood Count 4.86, Mean Corpuscular Volume 92.4, Mean Corpuscular Hemoglobin 31.7, Mean Corpuscular Hemoglobin Concent 34.3, Mean Platelet Volume 9.6, Neutrophils (%) (Auto) 75.6, Lymphocytes (%) (Auto) 16.7, Monocytes (%) (Auto) 6.8, Eosinophils (%) (Auto) 0.5, Basophils (%) (Auto) 0.2, Neutrophils # (Auto) 6.14, Lymphocytes # (Auto) 1.36, Monocytes # (Auto) 0.55, Eosinophils # (Auto) 0.04, Basophils # (Auto) 0.02 08/31/17 11:55 Test 08/31/17 11:55 White Blood Count 8.13 K/uL (4.8-10.8) Red Blood Count 4.86 M/uL (4.2-5.4) Hemoglobin 15.4 g/dL (12.0-16.0) Hematocrit 44.9 % (37-47) Mean Corpuscular Volume 92.4 fL (80-100) Mean Corpuscular Hemoglobin 31.7 pg (25-34) Mean Corpuscular Hemoglobin Concent 34.3 g/dl (32-36) Platelet Count 275 K/uL (130-400) Mean Platelet Volume 9.6 fL (7.4-10.4) Neutrophils (%) (Auto) 75.6 % Lymphocytes (%) (Auto) 16.7 % Monocytes (%) (Auto) 6.8 % Eosinophils (%) (Auto) 0.5 % Basophils (%) (Auto) 0.2 % Neutrophils # (Auto) 6.14 K/uL (1.4-6.5) Lymphocytes # (Auto) 1.36 K/uL (1.2-3.4) Monocytes # (Auto) 0.55 K/uL (0.11-0.59) Eosinophils # (Auto) 0.04 K/uL (0-0.5) Basophils # (Auto) 0.02 K/uL (0-0.2) RDW Standard Deviation 42.5 fL (36.4-46.3) RDW Coefficient of Variation 12.6 % (11.5-14.5) Immature Granulocyte % (Auto) 0.2 % Immature Granulocyte # (Auto) 0.02 K/uL (0.00-0.02) Urine Test NEG (NEG) Anion Gap 5.0 mmol/L (3-11) Est Creatinine Clear Calc Drug Dose 106.9 ml/min Estimated GFR () 134.1 Estimated GFR (Non- 115.7 BUN/Creatinine Ratio 15.4 (10-20) Calcium Level 9.1 mg/dl (8.5-10.1) Thyroid Stimulating Hormone (TSH) 0.701 uIu/ml (0.300-4.500) Medications Administered Medications (Trade) Dose Ordered Sig/Juan Route Start Time Stop Time Status Last Admin Dose Admin Sodium Chloride 1,000 ml @ 999 mls/hr Q1H1M STAT IV 08/31/17 11:33 08/31/17 12:33 DC 08/31/17 12:11 999 MLS/HR Ketorolac Tromethamine (Toradol Inj) 30 mg NOW STAT IV 08/31/17 11:33 08/31/17 11:36 DC 08/31/17 12:12 30 MG Prochlorperazine Edisylate (Compazine Inj) 10 mg NOW STAT IV 08/31/17 11:33 08/31/17 11:36 DC 08/31/17 12:11 10 MG Diphenhydramine HCl (Benadryl Inj) 25 mg NOW STAT IV 08/31/17 11:33 08/31/17 11:36 DC 08/31/17 12:11 25 MG Dexamethasone Sodium Phosphate (Dexamethasone Inj Pf) 10 mg NOW ONCE IV 08/31/17 11:45 08/31/17 11:46 DC 08/31/17 12:12 10 MG Departure Information Impression Primary Impression: Headache Referrals Bart Randall M.D. (PCP) Patient Instructions My [facility] Additional Instructions DO NOT drive, drink alcohol, operate machinery, or perform dangerous activities today. You were given medications in the ER that can affect your ability to safely function or operate a vehicle. Rest today in a quiet, peaceful, dark environment and get a full 8-10 hrs of sleep tonight. Avoid loud noises, smoke/smoking, alcohol, bright lights, stress, or physical exertion today to minimize the chance the headache may return. Continue current medications. Ibuprofen(Motrin, Advil) may be used for fever or pain. Use 600mg every six hours as needed. Take with food. Avoid using more than 2400mg in a 24 hour period. Do not use 2400mg per day for more than three consecutive days without physician direction. Prolonged inappropriate use can lead to stomach upset or ulcers. (AND/OR) Acetaminophen(Tylenol) may be used for fever or pain. Use 1000mg every six hours as needed. Avoid using more than 3000mg in a 24 hour period. Return to the ER for passing out, worsening headache, vision problems, neck stiffness/pain, fevers, vomiting, worsening of your condition, or as needed. Follow up with your primary physician in 2-3 days for a recheck of your current condition.
[2017-08-31 14:15] VITALS: BP 122/78; PULSE 78; O2SAT 98
== END 2017-08-31 14:39 | disposition home or self-care (01) ==
LOC: C.EDB 11:02
DX: R51 Headache (principal); F41.9 Anxiety disorder, unspecified; F32.9 Major depressive disorder, single episode, unspecified; Z87.442 Personal history of urinary calculi; Z72.0 Tobacco use; Z86.19 Personal history of other infectious and parasitic diseases

== ENCOUNTER 2017-10-08 12:10 | Emergency (ER) | payer OTHER ==
[~2017-10-08] VITALS: Ht 165.1 cm; Wt 68.7 kg
[2017-10-08 12:23] VITALS: TEMP 36.3; Ht 165.1 cm; Wt 68.7 kg
[2017-10-08] MEDS ORDERED: MoRPHine SULFATE 10 MG/ML CARP/VIAL IV STA (12:34)
[2017-10-08] MEDS ORDERED: ONDANSETRON INJ 2 MG/ML 2 ML VIAL IV STA (12:34)
[2017-10-08] MEDS ORDERED: AMOX875T PO (12:54)
[2017-10-08 13:04] LABS: BASO % 0.4 %; BASO ABS # 0.03 K/uL (0-0.2); EOS % 1.3 %; EOS ABS # 0.09 K/uL (0-0.5); HEMATOCRIT 46.1 % (37-47); HEMOGLOBIN 16.1 g/dL (12.0-16.0); IG# 0.01 K/uL (0.00-0.02); LYMPH % 27.1 %; LYMPH ABS # 1.88 K/uL (1.2-3.4); MEAN CELL VOLUME 91.3 fL (80-100); MEAN CORPUSCULAR HEMOGLOBIN 31.9 pg (25-34); MEAN CORPUSCULAR HGB CONC 34.9 g/dl (32-36); MEAN PLATELET VOLUME 9.4 fL (7.4-10.4); MONO % 8.9 %; MONO ABS # 0.62 K/uL (0.11-0.59); NEUT % 62.2 %; PLATELET COUNT 264 K/uL (130-400); RED CELL DISTRIBUTION WIDTH CV 12.6 % (11.5-14.5); RED CELL DISTRIBUTION WIDTH SD 42.1 fL (36.4-46.3); WHITE BLOOD COUNT 6.93 K/uL (4.8-10.8)
--- NOTE | 2017-10-08 13:19 | DIAGNOSTIC IMAGING REPORT ---
L-SPINE MIN 4 VIEWS ROUTINE CLINICAL HISTORY: 31 years-old Female presenting with Low R back pain, Radiates to R knee. TECHNIQUE: Frontal, bilateral oblique, lateral, and coned in lateral views lumbar spine were obtained. COMPARISON: CT of abdomen pelvis from 2011. FINDINGS: No significant scoliosis. No pars defect. Normal lumbar lordosis. Vertebral bodies maintain normal height and alignment. Intervertebral disc heights preserved. No significant degenerative change. No osseous neural foraminal narrowing. No compression deformity or subluxation. Partially visualized intrauterine device. Nonobstructive bowel gas pattern. IMPRESSION: Normal lumbar spine radiographs. Electronically signed by: Dennis Llanes M.D. 10/08/2017 1:17 PM Dictated Date/Time: 10/08/2017 1:16 PM
[2017-10-08 13:21] LABS: CALCIUM 8.8 mg/dl (8.5-10.1); CREATININE 0.69 mg/dl (0.60-1.20); POTASSIUM 3.8 mmol/L (3.5-5.1)
[2017-10-08] MEDS ORDERED: CYCL5TAB PO (13:43)
[2017-10-08] MEDS ORDERED: OXYC1TAB3 PO (13:43)
[2017-10-08] MEDS ORDERED: DEXAMETHASONE INJ 10 MG in SYRINGE 0 ML IV STA (13:45)
--- NOTE | 2017-10-08 13:45 | EMERGENCY ROOM VISIT NOTE ---
History First contact with patient: 12:27 Chief Complaint: BACK PAIN Stated Complaint: SEVERE PAIN IN LOWER BACK History of Present Illness The patient is a 31 year old female who presents to the Emergency Room via private vehicle accompanied by male with complaints of "severe pain in lower back". The patient states that for the past few days she has had pain in the right low back radiating to the right gluteal region and down her right leg to the knee. She denies any injury, trauma or fall. She notes it is worse with ambulation and movement. The pain is a 9/10. There is no urinary symptoms, chance of , or abdominal pain as per patient. She notes that the pain is not getting any better. She also notes she is on antibiotics for bronchitis. Review of Systems A complete 6-point Review of Systems was discussed with the patient, with pertinent positives and negatives listed in the History of Present Illness. All remaining Review of Systems questions can be considered negative unless otherwise specified. Past Medical/Surgical History Medical Problems: (1) Acute bronchitis (2) Acute sinusitis (3) Anxiety State Nos (4) Bronchitis (5) Cannabis Depend-Contin (6) Cervicalgia (7) Depress Disorder-Severe (8) Drug Withdrawal (9) Kidney stone (10) Lyme disease (11) Pelvic pain (12) Reactive airway disease (13) Right shoulder pain (14) Shoulder bursitis (15) Sinusitis (16) Strain of right trapezius muscle (17) Tobacco abuse (18) Tobacco dependence (19) Tobacco Use Disorder Surgical Problems: (1) Tonsillectomy and adenoidectomy (2) [place] Teeth Removal Family History Diabetes mellitus FH: heart disease FHx: cancer FHx: gallbladder disease Hypertension Kidney disease Kidney stones Social History Smoking Status: Current Every Day Smoker Alcohol Use: occasionally Marital Status: Occupation Status: employed Current/Historical Medications Scheduled Amoxicillin & Pot Clavulanate (Augmentin 875-125 mg), 1 TAB PO BID Cyclobenzaprine Hcl (Flexeril), 5 MG PO TID Levonorgestrel (Iud) (Mirena), 20 MCG INT UTER UD Scheduled PRN Oxycodone Ir (Roxicodone Ir), 1-2 TAB PO Q6 PRN for Pain Physical Exam Vital Signs Date Time Temp Pulse Resp B/P (MAP) Pulse Ox O2 Delivery O2 Flow Rate FiO2 4/7/18 14:12 56 18 110/67 98 10/08/17 12:23 36.3 74 18 117/58 97 Room Air Physical Exam VITALS: Vitals are noted on the nurse's note and reviewed by myself. Vital signs stable. GENERAL: 31 year old female, in no acute distress, nondiaphoretic, well- developed well-nourished. SKIN: The skin was without rashes, erythema, edema, or bruising. Capillary refill less than 2 seconds. NECK: Supple without nuchal rigidity. No cervical spine tenderness. No paraspinous muscle tenderness. HEART: Regular rate and rhythm without murmurs gallops or rubs. LUNGS: Clear to auscultation bilaterally without wheezes, rales or rhonchi. ABDOMEN: Positive bowel sounds x 4. Normal tympanic percussion. Soft, nontender, without masses or organomegaly. Dorsey sign negative. MUSCULOSKELETAL: No muscle atrophy, erythema, or edema noted of the back. There is no tenderness over the lumbar spinous processes. There is tenderness over the paraspinous muscles of the lumbar spine, R side. There is no tenderness over the thoracic spine paraspinous muscles. There are positive lower R lumbar muscle spasms present. The patient is slow to move around with maximum tenderness with R low back tenderness. NEURO: Patient was alert and oriented to person place and time. Normal sensation to light and sharp touch. Deep tendon reflexes on appreciable likely secondary to muscle spasm. Strength 5/5 and equal in the bilateral lower extremities. Medical Decision & Procedures ER Provider Diagnostic Interpretation: L-SPINE MIN 4 VIEWS ROUTINE CLINICAL HISTORY: 31 years-old Female presenting with Low R back pain, Radiates to R knee. TECHNIQUE: Frontal, bilateral oblique, lateral, and coned in lateral views lumbar spine were obtained. COMPARISON: CT of abdomen pelvis from 2012. FINDINGS: No significant scoliosis. No pars defect. Normal lumbar lordosis. Vertebral bodies maintain normal height and alignment. Intervertebral disc heights preserved. No significant degenerative change. No osseous neural foraminal narrowing. No compression deformity or subluxation. Partially visualized intrauterine device. Nonobstructive bowel gas pattern. IMPRESSION: Normal lumbar spine radiographs. Electronically signed by: Dennis Llanes M.D. 10/08/2017 1:17 PM Dictated Date/Time: 10/08/2017 1:16 PM Laboratory Results 10/08/17 13:00 Red Blood Count 5.05, Mean Corpuscular Volume 91.3, Mean Corpuscular Hemoglobin 31.9, Mean Corpuscular Hemoglobin Concent 34.9, Mean Platelet Volume 9.4, Neutrophils (%) (Auto) 62.2, Lymphocytes (%) (Auto) 27.1, Monocytes (%) (Auto) 8.9, Eosinophils (%) (Auto) 1.3, Basophils (%) (Auto) 0.4, Neutrophils # (Auto) 4.30, Lymphocytes # (Auto) 1.88, Monocytes # (Auto) 0.62, Eosinophils # (Auto) 0.09, Basophils # (Auto) 0.03 10/08/17 13:00 Test 10/08/17 13:00 White Blood Count 6.93 K/uL (4.8-10.8) Red Blood Count 5.05 M/uL (4.2-5.4) Hemoglobin 16.1 g/dL (12.0-16.0) Hematocrit 46.1 % (37-47) Mean Corpuscular Volume 91.3 fL (80-100) Mean Corpuscular Hemoglobin 31.9 pg (25-34) Mean Corpuscular Hemoglobin Concent 34.9 g/dl (32-36) Platelet Count 264 K/uL (130-400) Mean Platelet Volume 9.4 fL (7.4-10.4) Neutrophils (%) (Auto) 62.2 % Lymphocytes (%) (Auto) 27.1 % Monocytes (%) (Auto) 8.9 % Eosinophils (%) (Auto) 1.3 % Basophils (%) (Auto) 0.4 % Neutrophils # (Auto) 4.30 K/uL (1.4-6.5) Lymphocytes # (Auto) 1.88 K/uL (1.2-3.4) Monocytes # (Auto) 0.62 K/uL (0.11-0.59) Eosinophils # (Auto) 0.09 K/uL (0-0.5) Basophils # (Auto) 0.03 K/uL (0-0.2) RDW Standard Deviation 42.1 fL (36.4-46.3) RDW Coefficient of Variation 12.6 % (11.5-14.5) Immature Granulocyte % (Auto) 0.1 % Immature Granulocyte # (Auto) 0.01 K/uL (0.00-0.02) Anion Gap 8.0 mmol/L (3-11) Est Creatinine Clear Calc Drug Dose 114.0 ml/min Estimated GFR () 133.5 Estimated GFR (Non- 115.2 BUN/Creatinine Ratio 18.1 (10-20) Calcium Level 8.8 mg/dl (8.5-10.1) Medications Administered Medications (Trade) Dose Ordered Sig/Juan Route Start Time Stop Time Status Last Admin Dose Admin Morphine Sulfate (MoRPHine SULFATE INJ) 6 mg NOW STAT IV 10/08/17 12:34 10/08/17 12:35 DC 10/08/17 12:50 6 MG Ondansetron HCl (Zofran Inj) 4 mg NOW STAT IV 10/08/17 12:34 10/08/17 12:35 DC 10/08/17 12:49 4 MG Dexamethasone Sodium Phosphate 10 mg/Syringe 2.5 ml @ 1 mls/min NOW STAT IV 10/08/17 13:45 10/08/17 13:47 DC 10/08/17 14:05 1 MLS/MIN Medical Decision Patient was seen and evaluated as above in room D7. Review was performed of nursing notes and vital signs. After obtaining a thorough history and physical examination the above work up was performed. X-ray was obtained. IV access was established. She was given morphine for pain and Zofran for nausea. She is reevaluated feeling much better. There is no concerning leukocytosis, or anemia. Hemoglobin is slightly elevated. She was educated upon this. She will be given a short prescription for oxycodone and Flexeril. She is to follow with the family doctor. I suspect she is likely experiencing a strain of the right paraspinous muscle throughout the lumbar spine as well as perhaps a slight disc bulge. No evidence of cauda equina on exam. There is is no evidence of infection. No red flags in the pens of any drug monitoring system. The patient was educated upon management, had questions answered prior to discharge, and was discharged home in good condition. In the evaluation and treatment of this patient the following differential diagnoses were entertained: Lumbar strain, fracture, dislocation, cauda equina syndrome, intra-abdominal etiology, UTI, among others. Impression Primary Impression: Strain of lumbar region Departure Information Dispostion Home / Self-Care Condition GOOD Prescriptions Cyclobenzaprine Hcl (FLEXERIL) 5 Mg Tab 5 MG PO TID for 7 Days, #21 TAB PRN Prov: Solis Chisholm PA-C 10/08/17 Oxycodone Ir (Roxicodone Ir) 5 Mg Tab 1-2 TAB PO Q6 Y for Pain, #15 TAB For Initial Treatment Prov: Solis Chisholm PA-C 10/08/17 Referrals Bart Randall M.D. (PCP) Patient Instructions My [facility] Additional Instructions You have been treated in the Emergency Department for Back Pain. You have received pain medicine in the emergency department which impairs your ability to operate a vehicle. It is illegal for you to drive after receiving these medicines. You have been prescribed Oxy IR to be used for pain control. This is a narcotic medication. You cannot drive or consume alcohol while on this medicine. This medicine should only be used for pain that cannot be controlled with over-the- counter pain medicines. You have been prescribed Flexeril (cyclobenzaprine) 1-2 tabs orally, three times per day. Do NOT exceed 30 mg (6 tabs) per day. Take your first dose at bedtime as it can make you drowsy. Always take all medications as prescribed. For pain control, you can use the following [id number] medicines: - Regular strength (325mg/tab) Tylenol (acetaminophen) 2 tabs every 4-6 hours as needed. Do not exceed 12 tablets in a 24 hour period. Avoid taking more than 3 grams (3000 mg) of Tylenol per day. This includes any other sources of acetaminophen you may take on a regular basis. - Regular strength (200 mg/tab) Advil (ibuprofen) 1-2 tabs every 4-6 hours as needed. Do not exceed a dose of 3200 mg per day. If this is an acute injury, ice can be applied to the area of pain for the first 3 days to help decrease pain and inflammation. After the first 3 days, a heating pad can be used over the area for continued soothing relief. You should schedule a follow-up appointment in 2-3 days with your Primary Care Provider for further evaluation and treatment of your back pain. Return to the Emergency Department if your current symptoms worsen despite treatment course outlined above, or if you develop any of the following symptoms : intractable pain despite aforementioned treatment course, loss of control of your bowel or bladder, numbness or tingling in your groin, or development of a fever.
[2017-10-08 14:12] VITALS: BP 110/67; PULSE 56; O2SAT 98
== END 2017-10-08 14:12 | disposition home or self-care (01) ==
LOC: C.EDB 12:12 → C.EDD 14:12
DX: S39.012A Strain of muscle, fascia and tendon of lower back, initial encounter (principal); M54.5 Low back pain; X58.XXXA Exposure to other specified factors, initial encounter; F17.210 Nicotine dependence, cigarettes, uncomplicated; F41.9 Anxiety disorder, unspecified; F32.9 Major depressive disorder, single episode, unspecified; Z86.19 Personal history of other infectious and parasitic diseases; Z82.49 Family history of ischemic heart disease and other diseases of the circulatory system; Z83.3 Family history of diabetes mellitus; Z83.79 Family history of other diseases of the digestive system

== ENCOUNTER 2018-02-15 14:45 | Emergency (ER) | payer OTHER ==
[~2018-02-15] VITALS: Ht 165.1 cm; Wt 69.1 kg
[~2018-02-15 14:45] MED LIST changes: +AMIT25TA9 PO; +CETI10TA62 PO; -IBUP-103 PO; +IBUP-1277 PO; -LEVO1IUD2 INT UTER; +LIDO1PAD2 TD; +MELO-84 PO
[2018-02-15 14:49] VITALS: TEMP 36.7; Ht 165.1 cm; Wt 69.1 kg
[2018-02-15] MEDS ORDERED: RABIES IMMUNE GLOBULIN 300 UNIT/ML INJ IM. ONE (15:15)
[2018-02-15] MEDS ORDERED: RABIES VACCINE (IMOVAX) HUMAN DIPL CELL 2.5 INTER.UNIT/ML SYR IM. ONE (15:15)
--- NOTE | 2018-02-15 15:19 | EMERGENCY ROOM VISIT NOTE ---
ED Visit Note First contact with patient: 14:54 CHIEF COMPLAINT: Need rabies shots HISTORY OF PRESENT ILLNESS: This 32-year-old female was sent here by her family physician for evaluation for rabies prophylaxis. The patient states that she was away on vacation and picked up a stray cat which bit her finger and scratched her left hand. The patient denies any signs of infection on the hand or finger. The patient's tetanus is up-to-date. REVIEW OF SYSTEMS: 6 system review was performed and was negative unless stated otherwise in history of present illness. PMH: The patient is healthy; kidney stones SOCIAL HISTORY: Patient lives alone. The patient admits to tobacco use but denies any alcohol use. PHYSICAL EXAM: Vital Signs: Were reviewed reviewed Nurse's notes. GENERAL: 32- year-old female appears in no acute distress. MENTAL Status: Alert and oriented 3. LEFT HAND: A small healed puncture wound noted on the distal aspect of the third finger. There is very faint scabbed superficial cuts on the hand without any signs of infection. EMERGENCY DEPARTMENT COURSE: The patient was given hyper Rab based on weight and Imovax IM. Patient was discharged home in stable condition. DIAGNOSIS: Post exposure rabies prophylaxis DISCHARGE INSTRUCTIONS: Today is considered day 0. Return to the ER on day 3, 7 and 14 for the remainder of the rabies vaccine series. Problem List Medical Problems: (1) Acute bronchitis Status: Resolved (2) Acute sinusitis Status: Resolved (3) Anxiety State Nos Status: Chronic (4) Bronchitis Status: Resolved (5) Cannabis Depend-Contin Status: Resolved (6) Cervicalgia Status: Resolved (7) Depress Disorder-Severe Status: Chronic (8) Drug Withdrawal Status: Resolved (9) Kidney stone Status: Resolved (10) Lyme disease Status: Resolved (11) Pelvic pain Status: Resolved (12) Reactive airway disease Status: Resolved (13) Right shoulder pain Status: Resolved (14) Shoulder bursitis Status: Resolved (15) Sinusitis Status: Resolved (16) Strain of right trapezius muscle Status: Resolved (17) Tobacco abuse Status: Resolved (18) Tobacco dependence Status: Resolved (19) Tobacco Use Disorder Status: Chronic Surgical Problems: (1) Tonsillectomy and adenoidectomy Status: Resolved (2) [place] Teeth Removal Status: Resolved Current/Historical Medications Scheduled Amitriptyline Hcl (Elavil), 25 MG PO HS Meloxicam (Mobic), 15 MG PO DAILY Scheduled PRN Cetirizine Hcl (Qc All Day Allergy), 10 MG PO DAILY PRN for Allergy Symptoms Ibuprofen (Advil), 400-600 MG PO Q6H PRN for Pain Lidocaine (Lidocaine), 1 PATCH TD QD PRN for Pain Allergies Coded Allergies: Benzocaine (Verified Adverse Reaction, Intermediate, GI SYMPTOMS, 12/06/17) Bupivacaine (Verified Adverse Reaction, Intermediate, GI SYMPTOMS, 12/06/17) Procaine (Verified Adverse Reaction, Unknown, NOVOCAINE-GI SYMPTOMS, ) Vital Signs Date Time Temp Pulse Resp B/P (MAP) Pulse Ox O2 Delivery O2 Flow Rate FiO2 02/15/18 14:49 36.7 106 16 136/87 100 Room Air Departure Information Referrals Miriam Lang PA-C (PCP) Patient Instructions My [facility]
[2018-02-15 16:44] VITALS: BP 113/75; PULSE 77; O2SAT 100
== END 2018-02-15 16:44 | disposition home or self-care (01) ==
LOC: C.EDB 14:48 → C.EDD 16:44
DX: Z20.3 Contact with and (suspected) exposure to rabies (principal); Z23 Encounter for immunization; S61.259A Open bite of unspecified finger without damage to nail, initial encounter; S60.512A Abrasion of left hand, initial encounter; W55.03XA Scratched by cat, initial encounter; W55.01XA Bitten by cat, initial encounter; Z88.8 Allergy status to other drugs, medicaments and biological substances

== ENCOUNTER 2018-02-18 06:11 | Emergency (ER) | payer OTHER ==
[~2018-02-18] VITALS: Ht 165.1 cm; Wt 69.9 kg
[2018-02-18 06:15] VITALS: TEMP 36.6; Ht 165.1 cm; Wt 69.9 kg
--- NOTE | 2018-02-18 06:20 | EMERGENCY ROOM VISIT NOTE ---
ED Visit Note First contact with patient: 06:18 CHIEF COMPLAINT: Rabies prophylaxis HISTORY OF PRESENT ILLNESS: This 32-year-old patient presents to the emergency department for their second rabies shot. The patient has not had any complications from the previous injections. They deny any other complaints. REVIEW OF SYSTEMS: A 6 system review of systems was completed with positives and pertinent negatives listed in the HPI. ALLERGIES: Procaine, reviewed MEDICATIONS: Reviewed PMH: Unchanged from previous visit.Medical Problems: (1) Acute bronchitis Status: Resolved (2) Acute sinusitis Status: Resolved (3) Anxiety State Nos Status: Chronic (4) Bronchitis Status: Resolved (5) Cannabis Depend-Contin Status: Resolved (6) Cervicalgia Status: Resolved (7) Depress Disorder-Severe Status: Chronic (8) Drug Withdrawal Status: Resolved (9) Kidney stone Status: Resolved (10) Lyme disease Status: Resolved (11) Pelvic pain Status: Resolved (12) Reactive airway disease Status: Resolved (13) Right shoulder pain Status: Resolved (14) Shoulder bursitis Status: Resolved (15) Sinusitis Status: Resolved (16) Strain of right trapezius muscle Status: Resolved (17) Tobacco abuse Status: Resolved (18) Tobacco dependence Status: Resolved (19) Tobacco Use Disorder Status: Chronic Surgical Problems: (1) Tonsillectomy and adenoidectomy Status: Resolved (2) [place] Teeth Removal Status: Resolved PHYSICAL EXAM: Vital Signs: Reviewed Nurse's notes, vital signs stable. GENERAL : Pleasant female, in no acute distress, well-developed, well-nourished. HEAD: Atraumatic, without temporal or scalp tenderness. EYES: PERRLA, EOMI, no discharge or injection. SKIN: Normal. NEUROLOGICAL: Alert and cooperative. Sensory and motor functions grossly intact. EMERGENCY DEPARTMENT COURSE: I examined the patient. The patient was given rabies vaccine. The patient was observed for 20 minutes with no reaction. The patient was discharged home in stable condition. DIAGNOSIS: Rabies prophylaxis DISCHARGE INSTRUCTIONS: Continue vaccination schedule as directed. Follow-up in days 7 and 14 for completion of the rabies series. Return for any complications. Problem List Medical Problems: (1) Acute bronchitis Status: Resolved (2) Acute sinusitis Status: Resolved (3) Anxiety State Nos Status: Chronic (4) Bronchitis Status: Resolved (5) Cannabis Depend-Contin Status: Resolved (6) Cervicalgia Status: Resolved (7) Depress Disorder-Severe Status: Chronic (8) Drug Withdrawal Status: Resolved (9) Kidney stone Status: Resolved (10) Lyme disease Status: Resolved (11) Pelvic pain Status: Resolved (12) Reactive airway disease Status: Resolved (13) Right shoulder pain Status: Resolved (14) Shoulder bursitis Status: Resolved (15) Sinusitis Status: Resolved (16) Strain of right trapezius muscle Status: Resolved (17) Tobacco abuse Status: Resolved (18) Tobacco dependence Status: Resolved (19) Tobacco Use Disorder Status: Chronic Surgical Problems: (1) Tonsillectomy and adenoidectomy Status: Resolved (2) [place] Teeth Removal Status: Resolved Current/Historical Medications Scheduled Amitriptyline Hcl (Elavil), 25 MG PO HS Meloxicam (Mobic), 15 MG PO DAILY Scheduled PRN Cetirizine Hcl (Qc All Day Allergy), 10 MG PO DAILY PRN for Allergy Symptoms Ibuprofen (Advil), 400-600 MG PO Q6H PRN for Pain Lidocaine (Lidocaine), 1 PATCH TD QD PRN for Pain Allergies Coded Allergies: Benzocaine (Verified Adverse Reaction, Intermediate, GI SYMPTOMS, 12/06/17) Bupivacaine (Verified Adverse Reaction, Intermediate, GI SYMPTOMS, 12/06/17) Procaine (Verified Adverse Reaction, Unknown, NOVOCAINE-GI SYMPTOMS, ) Vital Signs Date Time Temp Pulse Resp B/P (MAP) Pulse Ox O2 Delivery O2 Flow Rate FiO2 02/18/18 06:15 36.6 60 20 110/65 96 Room Air Departure Information Referrals Miriam Lang PA-C (PCP) Patient Instructions My [facility]
[2018-02-18] MEDS ORDERED: CYAN500T PO (06:26)
[2018-02-18] MEDS ORDERED: ASCO100061 PO (06:27)
[2018-02-18] MEDS ORDERED: MISCCAP52 PO (06:29)
[2018-02-18] MEDS ORDERED: FLUT0.15 NAE (06:30)
[2018-02-18] MEDS ORDERED: RABIES VACCINE (IMOVAX) HUMAN DIPL CELL 2.5 INTER.UNIT/ML SYR IM. ONE (06:30)
[2018-02-18 06:50] VITALS: BP 112/60; PULSE 83; O2SAT 97
== END 2018-02-18 07:06 | disposition home or self-care (01) ==
LOC: C.EDB 06:12
DX: Z20.3 Contact with and (suspected) exposure to rabies (principal); Z23 Encounter for immunization; F32.9 Major depressive disorder, single episode, unspecified; Z79.899 Other long term (current) drug therapy; Z88.8 Allergy status to other drugs, medicaments and biological substances

== ENCOUNTER 2018-02-22 12:58 | Emergency (ER) | payer OTHER ==
[~2018-02-22] VITALS: Ht 165.1 cm; Wt 68.9 kg
[~2018-02-22 12:58] MED LIST changes: +ASCO100061 PO; +CYAN500T PO; +FLUT0.15 NAE; -IBUP-1277 PO; -LIDO1PAD2 TD; -MELO-84 PO; +MISCCAP52 PO
[2018-02-22 13:07] VITALS: TEMP 37; Ht 165.1 cm; Wt 68.9 kg
--- NOTE | 2018-02-22 13:27 | EMERGENCY ROOM VISIT NOTE ---
ED Visit Note First contact with patient: 13:17 CHIEF COMPLAINT: Rabies prophylaxis HISTORY OF PRESENT ILLNESS: This 32-year-old female patient presents to the emergency department by private for their third rabies shot. The patient has not had any complications from the previous injections. They deny any other complaints. REVIEW OF SYSTEMS: A 6 system review of systems was completed with positives and pertinent negatives listed in the HPI. ALLERGIES: Reviewed in chart, see below. MEDICATIONS: Reviewed in chart, see below. PMH: Unchanged from previous visit. PHYSICAL EXAM: Vital Signs: Reviewed Nurse's notes, vital signs stable. GENERAL : Pleasant and cooperative, in no acute distress, well-developed, well- nourished. HEAD: Atraumatic, without temporal or scalp tenderness. EYES: PERRLA, EOMI, no discharge or injection. SKIN: Normal. NEUROLOGICAL: Alert and cooperative. Sensory and motor functions grossly intact. EMERGENCY DEPARTMENT COURSE: I examined the patient. The patient was given a Imovax 1ml IM. The patient was observed for 20 minutes with no reaction. She was reminded of her return visit for her final rabies vaccination. The patient was discharged home in stable condition. Problem List Medical Problems: (1) Acute bronchitis Status: Resolved (2) Acute sinusitis Status: Resolved (3) Anxiety State Nos Status: Chronic (4) Bronchitis Status: Resolved (5) Cannabis Depend-Contin Status: Resolved (6) Cervicalgia Status: Resolved (7) Depress Disorder-Severe Status: Chronic (8) Drug Withdrawal Status: Resolved (9) Kidney stone Status: Resolved (10) Lyme disease Status: Resolved (11) Pelvic pain Status: Resolved (12) Reactive airway disease Status: Resolved (13) Right shoulder pain Status: Resolved (14) Shoulder bursitis Status: Resolved (15) Sinusitis Status: Resolved (16) Strain of right trapezius muscle Status: Resolved (17) Tobacco abuse Status: Resolved (18) Tobacco dependence Status: Resolved (19) Tobacco Use Disorder Status: Chronic Surgical Problems: (1) Tonsillectomy and adenoidectomy Status: Resolved (2) [place] Teeth Removal Status: Resolved Current/Historical Medications Scheduled Amitriptyline Hcl (Elavil), 25 MG PO PM Ascorbic Acid (Ascorbic Acid), 1,000 MG PO DAILY Cyanocobalamin (Vitamin B-12), 500 MCG PO DAILY Fluticasone Propionate (Nasal) (Flonase Allergy Relief), 1 SPRAY HORACIO BID Misc Natural Products (Turmeric Curcumin), 1 CAP PO DAILY Scheduled PRN Cetirizine Hcl (Qc All Day Allergy), 10 MG PO DAILY PRN for Allergy Symptoms Allergies Coded Allergies: Benzocaine (Verified Adverse Reaction, Intermediate, GI SYMPTOMS, 12/06/17) Bupivacaine (Verified Adverse Reaction, Intermediate, GI SYMPTOMS, 12/06/17) Procaine (Verified Adverse Reaction, Unknown, NOVOCAINE-GI SYMPTOMS, ) Vital Signs Date Time Temp Pulse Resp B/P (MAP) Pulse Ox O2 Delivery O2 Flow Rate FiO2 02/22/18 14:32 76 18 116/75 96 02/22/18 13:07 37.0 94 17 122/74 98 Room Air Medications Administered Medications (Trade) Dose Ordered Sig/Juan Route Start Time Stop Time Status Last Admin Dose Admin Rabies Vaccine Human Diploid Cell (Imovax Rabies) 2.5 interunit ONCE ONCE IM. 02/22/18 13:30 02/22/18 13:31 DC 02/22/18 13:50 2.5 INTERUNIT Departure Information Impression Primary Impression: Encounter for repeat administration of rabies vaccination Dispostion Home / Self-Care Condition GOOD Referrals Miriam Lang PA-C (PCP) Patient Instructions My [facility], Rabies Additional Instructions You have received your third rabies vaccination today. Continue vaccination schedule as directed. Your next visit should be in 1 week on 03/01/2018. Return sooner for any complications.
[2018-02-22] MEDS ORDERED: RABIES VACCINE (IMOVAX) HUMAN DIPL CELL 2.5 INTER.UNIT/ML SYR IM. ONE (13:30)
[2018-02-22 14:32] VITALS: BP 116/75; PULSE 76; O2SAT 96
== END 2018-02-22 14:35 | disposition home or self-care (01) ==
LOC: C.EDB 13:00 → C.EDD 14:35
DX: Z23 Encounter for immunization (principal); Z20.3 Contact with and (suspected) exposure to rabies; F32.9 Major depressive disorder, single episode, unspecified; F41.9 Anxiety disorder, unspecified; F17.200 Nicotine dependence, unspecified, uncomplicated; Z79.899 Other long term (current) drug therapy; Z88.4 Allergy status to anesthetic agent

== ENCOUNTER 2023-10-22 19:13 | Inpatient (IN) ==
[2023-10-22 19:57] LABS: Appearance Urine Clear (Clear); Bilirubin Urine Negative (Negative); Blood Urine Negative (Negative); Color Urine Yellow; Glucose Urine UA Negative (Negative); Ketones Urine Negative (Negative); Leukocyte Esterase Urine Negative (Negative); Nitrite Urine Negative (Negative); Protein Urine Negative (Negative); Specific Gravity Urine 1.003 (1.000-1.030); Urobilinogen Urine Negative (Negative); pH Urine 6.5 (4.5-7.5)
[2023-10-22 20:00] LABS: Basophils # (auto) 0.05 K/uL (0.00-0.20); Basophils % (auto) 1.5 %; Eosinophils # (auto) 0.09 K/uL (0.00-0.50); Eosinophils % (auto) 2.7 %; Hematocrit (blood only) 43.6 % (37.0-47.0); Hemoglobin 15.1 g/dl (12.0-16.0); Immature Granulocytes # (auto) 0.01 K/uL (0.01-0.20); Immature Granulocytes % (auto) 0.3 %; Lymphocytes # (auto) 1.24 K/uL (1.20-3.40); Lymphocytes % (auto) 36.6 %; Mean Corpuscular Hemoglobin 33.3 pg (25.0-34.0); Mean Corpuscular Hgb Conc 34.6 g/dL (32.0-36.0); Mean Platelet Volume 10.3 fL (9.4-12.4); Monocytes # (auto) 0.47 K/uL (0.11-0.59); Monocytes % (auto) 13.9 %; Neutrophils # (auto) 1.53 K/uL (1.40-6.50); Platelet Count 223 K/uL (130-400); RDW Coefficient of Variation 11.6 % (11.5-14.5); RDW Standard Deviation 40.7 fL (36.4-46.3); Red Blood Count 4.54 M/uL (4.20-5.40); White Blood Count 3.39 K/ul (4.8-10.8)
[2023-10-22 20:14] LABS: Amphetamines+Metham, Urine Neg (Neg); Barbiturates, Urine Neg (Neg); Benzodiazepine, Urine Neg (Neg); Cocaine, Urine Neg (Neg); MDMA (Ecstacy), Urine Neg (Neg); Marijuana, Urine Pos (Neg); Methadone, Urine Neg (Neg); Opiate, Urine Neg (Neg); Phencyclidine, Urine Neg (Neg)
[2023-10-22 20:15] LABS: Acetaminophen < 3 ug/ml (10-30); Salicylate < 3.0 mg/dl (3.0-30)
[2023-10-22 20:19] LABS: Alanine Aminotransferase 103 U/L (7-52); Albumin Globulin Ratio 1.7 (0.9-2); Albumin Level 4.5 gm/dl (3.4-5.0); Alkaline Phosphatase 107 U/L (34-104); BUN Creatinine Ratio 9.1 (10-20); Bilirubin,Total 0.4 mg/dl (0.2-1.0); Blood Urea Nitrogen 5 mg/dl (6-23); Carbon Dioxide 22 mmol/L (21-32); Chloride 104 mmol/L (98-107); Creatinine Clr Calc Pharmacy 124.8 ml/min; Est GFR (African American) 137.9 ml/min; Globulin 2.6 gm/dl (2.5-4.0); Glucose 110 mg/dl (70-99(Fasting)); Total Protein 7.1 gm/dl (6.0-8.3)
--- OUTSIDE RECORDS SUMMARY | 2023-10-22 20:32 | External Medical Summary | Summary of Care ---
Author Name Unknown Organization [facility] Address [address] [place] [facility] [place] [facility] [place] [address] Phone [phone] Care Team Providers Care Marine Insulator Name Role Phone Familia Lowe DO Primary Care Provider Reason for Visit * Reason Comments Return Visit Pt here for return v isit Encounter Details Date Type Department Care Team (Late st Contact Info) Description 09/26/2023 11:40 AM EDT Office Visit [facility] [address] [place] [address] Familia Lowe DO [address] [place] [address] Gastro-esophageal reflux disease without esophagitis*; Need for pneumococcal vaccination; Screening for cervical cancer; Mild intermittent asthma without complication; Seasonal allergic rhinitis due to pollen; Generalized anxiety disorder; Tobacco use; Posttraumatic stress disorder; Dysuria; MDD (major depressive disorder), recurrent episode, moderate (HCC) Allergies Active Allergy Reactions Criticality Noted Date Comments Amitriptyline Rash 09/30/2021 Bee Pollen 01/01/2019 Aluminum Chloride Rash 09/30/2021 Other Allergy (See Comments) Itching 020 Black rubber Bupivacaine Hcl 08/05/2010 Montelukast Rash 01/25/2023 On face documented as of this encounter (statuses as of 09/26/2023) Medications Medication Sig Dispensed Refills Start Date End Date Status NATURAL SUPPLEMENTIndicatio ns:CBD oil at bedtime Take by mouth daily . CBD oil. Pt uses 1 dropper at bedtime. 0 Active Multiple Vitamins-Minerals (MULTIVITAMIN ADULTS) TABS Take by mouth. 0 Active Levonorgestrel 20 MCG/24HR Intrauterine Intrauterine Device (Mirena) Insert 1 Each into uterus once. 0 Active Albuterol Sulfate HFA 108 (90 Base) MCG/ACT Inhalation Aerosol SolutionIndications :Mild intermittent asthma without complication Inhale 2 Puffs by mouth every 6 hours as needed for Cough, Shortness of Breath or Wheezing. 18 g 2 11/08/2022 Active LORazepam 0.5 MG Oral Tablet (Ativan)Indications :Anxiety Take 1 Tablet by mouth daily as needed for Anxiety. 20 Tablet 0 03/01/2023 Active Additional Information Patient not taking.Reported on 09/26/2023 Propranolol HCl 10 MG Oral Tablet (Inderal)Indication s:MERRY (generalized anxiety disorder) TAKE 1 TABLET BY MOUTH TWICE DAILY 180 Tablet 1 04/18/2023 Active Ondansetron 4 MG Oral Tablet Disintegrating (Zofran) Place 1 Tablet on tongue every 8 hours as needed for Nausea or Vomiting. 180 Tablet 4 05/19/2023 Active Benzonatate 100 MG Oral Capsule Take 1 Capsule by mouth 3 times a day as needed for Cough. 30 Capsule 1 06/29/2023 Active Ventolin HFA 108 (90 Base) MCG/ACT Inhalation Aerosol Solution Inhale 2 Puffs by mouth every 4 hours as needed for Wheezing. 18 g 3 06/29/2023 Active Sucralfate 1 GM Oral Tablet (Carafate) Take 1 Tablet by mouth as needed (Gerd). 0 07/16/2023 Active Azelastine HCl 0.1 % Nasal Solution (Astelin) Administer 2 Sprays into nostril in the morning and 2 Sprays before bedtime. 90 mL 3 08/01/2023 Active Fluticasone Propionate 50 MCG/ACT Nasal Suspension (Flonase) Administer 2 Sprays into each nostril in the morning. 48 g 3 08/01/2023 Active Pregabalin 100 MG Oral Capsule (Lyrica)Indications :Fibromyalgia TAKE ONE CAPSULE BY MOUTH IN THE MORNING AND ONE AT BEDTIME 180 Capsule 0 08/08/2023 Active Omeprazole 20 MG Oral Capsule Delayed Release (PriLOSEC)Indicatio ns:Gastro-esophagea l reflux disease without esophagitis Take 1 Capsule by mouth in the morning. 90 Capsule 3 09/26/2023 Active Sulfamethoxazole-Tr imethoprim 800-160 MG Oral Tablet (Bactrim DS)Indications:Dysu marine Take 1 Tablet by mouth in the morning and 1 Tablet before bedtime. Do all this for 3 days. Until gone. 6 Tablet 0 09/26/2023 09/29/19 24 Active Fluconazole 150 MG Oral Tablet (Diflucan)Indicatio ns:Dysuria Take 1 Tablet by mouth once for 1 dose. 1 Tablet 0 09/26/2023 09/26/19 24 Active Omeprazole 20 MG Oral Capsule Delayed Release (PriLOSEC)Indicatio ns:Gastroesophageal reflux disease, unspecified whether esophagitis present Take 1 Cap by mouth daily. 90 Cap 3 02/18/2021 09/26/19 24 Discontinu ed(Refill) documented as of this encounter (statuses as of 09/26/2023) Active Problems Problem Noted Date Diagnosed Date MDD (major depressive disord er), recurrent episode, moderate 09/26/2023 Mild intermittent asthma with exacerbation 06/29 Upper respiratory tract infection 06/29/2023 Mild intermittent asthma without complication Seasonal allergic rhinitis due to pollen 023 [id number] 05/04/2022 Gastro-esophageal reflux disease without esophag itis 02/02/2022 Posttraumatic stress disorder 02/02/2022 ADVANCE DIRECTIVE INFORMATION 11/21/2020 Overview: No, Advance Directive brochure offered , patient declined. Tobacco use 11/21/2020 Chronic rhinitis 09/17/2019 Fibromyalgia 08/15/2019 Other irritable bowel syndrome 08/15/2019 Slow transit constipation 08/05/2010 Presence of intrauterine contraceptive device Generalized anxiety disorder documented as of this encounter (statuses as of 09/26/2023) Resolved Problems Problem Noted Date Diagnosed Date Resolved Date Urge incontinence of urine 02/02/2022 0 11/08/2022 Antepartum abnormal glucose tolerance of mother 05/09/2007 02/12/2011 Normal , first 04/10/2007/2 12/2007 HBPNORMAL FIRST 10/28/2005 07/25/2006 ACUTE SINUSITIS NOS 02/05/19 99 Major depressive disorder Overview: ICD-10 update of inactive term documented as of this encounter (statuses as of 09/26/2023) Immunizations Name Administration Dates Next Due HEP B - Hepatitis B (Adole/H igh Risk Ped, 11-15 yrs 11/13/2001 Hepatitis B, 0-19 yrs 02/20/2004,02/20/2004,12/0 09/2000 Pneumococcal Conjugate Vacci ne, 20-valent ([id number]) 09/26/2023 Pneumococcal Polysaccharide PPV23 (Pneumovax) 08/19/2009,08/15/2009 Seasonal Influenza, PF, 6 M & above, IM , (FluLaval or Fluzone) 07/07/2017 Seasonal Influenza, Quadriva lent, No Preserve, IM 06/07/2016 Seasonal Influenza, Split, I IV3, With Preserve, Inj 08/12/2010,08/19/2009,08/15/2009,04/26 TD - Tetanus/Diptheria (ADULT) 04/03/2003 TDAP (age 10 and older)(Boostrix) 02/02/2022 TDAP (age 11 and older)(Adacel) 08/12/2010 Varicella Vaccine (Chicken Pox) 07/04/1989 documented as of this encounter Social History Tobacco Use Types Packs/Day Years Used Date Smoking Tobacco: Every Day Cigarettes 1 24.8 Started: 1998 Smokeless Tobacco: Never Comments:age 13 Alcohol Use Standard Drinks/Week Comments Yes 4 (1 standard drink = 0.6 oz pure alcohol) occasionally, a few beers or wine a few times a week PHQ-2 Answer Date Recorded PHQ Adult Total Score 12 03/11/2023 Hunger Vital Sign Answer Date Recorded Within the past 12 months, y ou worried that your food would run out before you got the money to buy more. Never true 03/01/20 23 Within the past 12 months, t he food you bought just didn't last and you didn't have money to get more. Never true 03/01/2023 Education Answer Date Recorded What is the highest level of school you have completed or the highest degree you have received? High school graduate 03/11/2023 Sex and Gender Information Value Date Recorded Sex Assigned at Female 08/15/2019 9:02 AM EST Gender Identity Female 08/15/2019 9:02 AM EST Sexual Orientation Bisexual 03/01/2023 2: 31 PM EDT Job Start Date Occupation Industry Not on file Not on file Not on file documented as of this encounter Last Filed Vital Signs Vital Sign Reading Time Taken Comments Blood Pressure 110/80 09/26/2023 11:19 AM EDT Pulse 81 09/26/2023 11:19 AM EDT Temperature 36.2 C (97.2 F) 09/26/2023 11:19 AM E DT Respiratory Rate 16 09/26/2023 11:19 AM EDT Oxygen Saturation 97% 09/26/2023 11:19 AM EDT Inhaled Oxygen Concentration - - Weight 60 kg (132 lb 6 oz) 09/26/2023 11:19 AM E DT Height - - Body Mass Index 22.03 08/01/2023 9:55 AM EST documented in this encounter Patient Instructions * Patient Instructions* Birtt Faye LPN - 09/26/2023 11:17 AM EDT ~~PATIENT INSTRUCTIONS FOR PNEUMOCOCCAL VACCINE~~ Possible side effects of pneumococcal vaccine, (pneumonia shot), are usually mild and can include: 1. Soreness or redness at injection site 2. Low grade fever 3. Body aches You may use Tylenol/Acetaminophen as needed for these symptoms. LET YOUR DOCTOR KNOW IMMEDIATELY IF YOU HAVE DIFFICULTY BREATHING OR SWALLOWING, EXPERIENCE ITCHINGOF FEET OR HANDS, HAVE SWELLING OF EYES, FACE OR INSIDE OF NOSE. documented in this encounter Progress Notes * Britt Faye LPN - 09/26/2023 11:18 AM EDT Patient has been verbally educated on the need or importance of Cervical Cancer Screening. Patient does not want PAP today. Patient will schedule a future appointment in our office with Female PROFESSOR OF ENVIRONMENTAL SCIENCE. Follow up/Check out notes completed for front office to schedule PAP during check out. * Familia Lowe DO - 09/26/2023 11:17 AM EDT Images from the original note were not included. Assessment and Plan Gastro-esophageal reflux disease without esophagitis Ongoing gastric pain/GERD at times Using PPI PRN, advised to begin doing daily dosing for now as this should be more effective - Omeprazole 20 MG Oral Capsule Delayed Release (PriLOSEC); Take 1 Capsule by mouth in the morning. Need for pneumococcal vaccination - PNEUMOCOCCAL VACC, PCV20, IM ([id number]) Screening for cervical cancer - SERVICE PLANNER PAP SCREEN; Future Mild intermittent asthma without complication Seasonal allergic rhinitis due to pollen Generalized anxiety disorder Tobacco use Posttraumatic stress disorder Dysuria Will check urine studies today - URINALYSIS WITH MICROSCOPIC EXAM; Future - CULTURE, URINE, QUANTITATIVE History of Present Illness Daisy Pepper is a 37 year old female that presents for Return Visit (Pt here for return visit) Presents in f/u today Ongoing pain in abdomen at times Has improved since she has made dietary changes And is eating less fat, overall healthier choices Physical Exam Vitals: 09/26/23 1119 Temp: 36.2 C (97.2 F) Pulse: 81 Resp: 16 SpO2: 97% BP: 110/80 Physical Exam Constitutional: Appearance: Normal appearance. HENT: Head: Normocephalic and atraumatic. Eyes: Extraocular Movements: Extraocular movements intact. Pupils: Pupils are equal, round, and reactive to light. Cardiovascular: Rate and Rhythm: Normal rate and regular rhythm. Pulmonary: Effort: Pulmonary effort is normal. Breath sounds: Normal breath sounds. Abdominal: Tenderness: There is abdominal tenderness. Comments: Mild mid epigastric tenderness Neurological: General: No focal deficit present. Mental Status: She is alert and oriented to person, place, and time. Psychiatric: Mood and Affect: Mood normal. Behavior: Behavior normal. Wrap-Up Follow-up: Return in about 6 months (around 03/28/2024). | Check-out note: Every other with Thiede Time: Total time today was 28 minutes excluding any time spent in the performance of separately billed services. documented in this encounter Miscellaneous Notes * Addendum Note - Familia Lowe DO - 09/26/2023 11:54 AM EDTAddended by: FAMILIA LOWE on: 09/26/2023 11:54 AM Modules accepted: Orders documented in this encounter Plan of Treatment Upcoming Encounters Date Type Department Care Team (Late st Contact Info) Description 10/31/2023 11:30 AM EDT Office [place] [facility] [place] [address] [place] [address] Alejandrina Kay PA-C [address] [facility] [address] [place] [address] 11/16/2023 9:30 AM EDT Imaging [facility] 2nd Floor Cardiology, [place] [address] [place] [address] 12/06/2023 12:30 PM EDT Office Visit Gastroenterology, [facility] [address] [place] [address] [address] Alfredo Apodaca CRNP [address] [place] [address] 04/02/2024 1:00 PM EDT Office Visit [facility] [address] [place] [address] [address] Sara Blackmon CRNP [address] [place] [address] 09/25/2024 11:40 AM EDT Office Visit [facility] [address] [place] [address] [address] Familia Lowe DO [address] [place] [address] Pending Results Name Type Priority Associated Diagnoses Date /Time CULTURE, URINE, QUANTITATIVE Lab Routine Dysuria 09/26/2023 12:18 PM EDT Scheduled Orders Name Type Priority Associated Diagnoses Orde r Schedule SERVICE PLANNER PAP SCREEN Pathology Routine Screening for cervical cancer Expected: 09/26/2023, Expires: 10/26/2024 URINALYSIS WITH MICROSCOPIC EXAM Lab Routine Dysuria Expected: 09/26/2023 (Approximate), Expires: 09/25/2024 Health Maintenance Due Date Last Done Comments DISCUSS TOBACCO CESSATION (REFER TO SMARTSET #2026) 1984 HPV/Co-Test 2014 *SPIROMETRY ONCE FOR ASTHMA-ADULT 11/11/2022 COVID-19 Vaccine ( season) 2023 Influenza Vaccine (FLU shot) (#1) 2023 07/07/2017, 06/07/2016, 08/12/2010, Additional history exists Cervical Cancer Screening 09/23/2023 Pap Smear 09/23/2023 09/22/2020, 11/02, 03/03/2011, Additional history exists Depression Screening 09/25/2024 09/26/2023 DTaP,Tdap,and Td Vaccines (4 - Td or Tdap) 02/03/2032 02/02/2022, 08/12/2010, 04/03/2003 Hepatitis B Completed 02/20/2004, 02/01, 11/13/2001, Additional history exists Pneumococcal Vaccine: Pediatrics (0 to 5 Years) and At-Risk Patients (6 to 64 Years) Completed 09/26/2023, 08/19/2009, 08/15/2009 GARDASIL-HPV IMMUNIZATION SERIES Aged Out No longer eligible based on patient's age to complete this topic MENINGOCOCCAL (MENACTRA/MENVEO) Aged Out No longer eligible based on patient's age to complete this topic documented as of this encounter Medical Devices Not on filedocumented as of this encounter Procedures Procedure Name Priority Date/Time Associated Diagnosis Comments URINALYSIS, POINT OF CARE DEE 09/26/2023 11:46 AM EDT documented in this encounter Results * URINALYSIS, POINT OF CARE (09/26/2023 11:46 AM EDT) Color, Urine Yellow Light Yellow, Yellow 09/26/2023 11:56 AM EDT [facility] Clarity, Urine Clear Clear 09/26/2023 11:56 AM EDT [facility] Glucose, Urine Negative Negative mg/dL 09/26/2023 11:56 AM EDT [facility] Bilirubin, Urine Negative Negative 09/26/2023 11:56 AM EDT [facility] Ketone, Urine Negative Negative mg/dL 09/26/2023 11:56 AM EDT [facility] Specific [place], Urine 1.015 1.003 - 1.030 09/26/2023 11:56 AM EDT [facility] Blood, Urine Negative Negative 09/26/2023 11:56 AM EDT [facility] pH, Urine 7.0 5.0, 5.5, 6.0, 6.5, 7.0, 7.5 units 09/26/2023 11:56 AM EDT [facility] Protein, Urine Negative Negative mg/dL 09/26/2023 11:56 AM EDT [facility] Urobilinogen, Urine 0.2 0.2, 1.0 mg/dL 09/26/2023 11:56 AM EDT [facility] Nitrite, Urine Negative Negative 09/26/2023 11:56 AM EDT [facility] Esterase, Urine Negative Negative 09/26/2023 11:56 AM EDT [facility] Urine 09/26/2023 11:4 6 AM EDT 09/26/2023 11:56 AM EDT Familia Lowe DO LAB POINT OF CA RE TEST DOCKED DEVICE UNSOLICITED RESULTS [facility] [address] [facility] [place] [address] documented in this encounter Visit Diagnoses Diagnosis Gastro-esophageal reflux disease without esophagitis- Primary Esophageal reflux Need for pneumococcal vaccination Need for prophylactic vaccination against streptococcus pneumoniae (pneumococcus) Screening for cervical cancer Screening for malignant neoplasm of the cervix Mild intermittent asthma without complication Unspecified asthma Seasonal allergic rhinitis due to pollen Generalized anxiety disorder Tobacco use Tobacco use disorder Posttraumatic stress disorder Dysuria MDD (major depressive disorder), recurrent episode, moderate (HCC) Major depressive disorder, recurrent episode, moderate documented in this encounter Advance Directives Latest Code Status on File Code Status Date Activated Date Inactivated Comments Full Code 05/04/2022 12:19 PM 05/04/2022 7:48 PM This order reflects the patients wishes and were consensually agreed upon. Question Answer Comments Discussion of Advance Directives occurred with: Patient Care Teams Marine Insulator Relationship Specialty Start Date End Date Familia Lowe DO [address] [place] [address] PCP - General Family Medicine 09/05/19 documented as of this encounter"
--- OUTSIDE RECORDS SUMMARY | 2023-10-22 20:32 | External Medical Summary | Summary of Care ---
Author Name Unknown Organization [facility] Address [address] [facility] [place] [address] Phone [phone] Care Team Providers Care Servicer Travel Trailers Name Role Phone Familia Lowe DO Primary Care Provider Reason for Visit * Reason Comments Return Visit Pt here for return v isit Encounter Details Date Type Department Care Team (Late st Contact Info) Description 09/26/2023 11:40 AM EDT Office Visit [facility] [address] [place] [address] Familia Lowe DO [address] [place] [address] Gastro-esophageal reflux disease without esophagitis*; Need for [...] Seasonal allergic rhinitis due to pollen 023 [id number] 05/04/2022 Gastro-esophageal reflux disease without esophag itis [...] 02/20/2004,02/20/2004,12/0 09/2000 Pneumococcal Conjugate Vacci ne, 20-valent ([id number]) 09/26/2023 Pneumococcal Polysaccharide PPV23 (Pneumovax) 08/19/2009,08/15/2009 Seasonal [...] this encounter Patient Instructions * Patient Instructions* Britt Faye LPN - 09/26/2023 11:17 AM EDT [...] future appointment in our office with Female CAGE LOADER. Follow up/Check out notes completed for front [...] pneumococcal vaccination - PNEUMOCOCCAL VACC, PCV20, IM ([id number]) Screening for cervical cancer - PLUCK TRIMMER PAP SCREEN; Future Mild intermittent asthma without [...] encounter Miscellaneous Notes * Addendum Note - Fmailia Lowe DO - 09/26/2023 11:54 AM EDTAddended by: FAMILIA LOWE on: 09/26/2023 11:54 AM Modules accepted: Orders documented in this encounter Plan of Treatment Upcoming Encounters Date Type Department Care Team (Late st Contact Info) Description 10/31/2023 11:30 AM EDT Office Visit Allergy/Immunology [address] [place] [address] [place] [address] Alejandrina Kay PA-C [address] [facility] [place] [address] 11/16/2023 9:30 AM EDT Imaging [facility] 2nd Floor Cardiology, [place] [address] [facility] [place] [address] 12/06/2023 12:30 PM EDT [facility] [place] [address] Alfredo Apodaca CRNP [address] [place] [address] Scheduled Orders Name Type Priority Associated Diagnoses Orde r Schedule PLUCK TRIMMER PAP SCREEN Pathology Routine Screening for cervical cancer Expected: 09/26/2023, Expires: 10/26/2024 URINALYSIS WITH MICROSCOPIC EXAM Lab Routine Dysuria Expected: 09/26/2023 (Approximate), Expires: 09/25/2024 CULTURE, URINE, QUANTITATIVE Lab Routine Dysuria Ordered: 09/26/2023 Health Maintenance Due Date Last Done Comments DISCUSS TOBACCO CESSATION (REFER TO SMARTSET #3291) 1984 HPV/Co-Test 2014 *SPIROMETRY ONCE FOR ASTHMA-ADULT [...] Not on filedocumented as of this encounter Visit Diagnoses Diagnosis Gastro-esophageal reflux [...] Advance Directives occurred with: Patient Care Teams Servicer Travel Trailers Relationship Specialty Start Date End Date Familia Lowe DO [address] [place] [address] PCP - General Family Medicine 09/05/19 documented as of this encounter"
--- OUTSIDE RECORDS SUMMARY | 2023-10-22 20:32 | External Medical Summary | Summary of Care ---
Author Name Unknown Organization [facility] Address [address] [place] [address] Phone [phone] Care Team Providers Care Stainless Steel Finisher Name Role Phone Kishor Lowe DO Primary Care Provider Reason for Visit * Reason Onset Date Comments Test Results 10/05/2023 Encounter Details Date Type Department Care Team (Late st Contact Info) Description 10/05/2023 Telephone Family Practice [facility] [address] [place] [address] Kishor Lowe DO [address] [place] [address] Test Results Allergies Active Allergy Reactions Criticality Noted Date Comments Amitriptyline Rash 09/30/2021 Bee Pollen 01/01/2019 Aluminum Chloride Rash 09/30/2021 Other Allergy (See Comments) Itching 020 Black rubber Bupivacaine Hcl 08/05/2010 Montelukast Rash 01/25/2023 On face documented as of this encounter (statuses as of 10/14/2023) Medications Medication Sig Dispensed Refills Start Date End Date Status NATURAL SUPPLEMENTIndication s:CBD oil at bedtime Take by mouth daily . CBD oil. Pt uses 1 dropper at bedtime. 0 Active Multiple Vitamins-Minerals (MULTIVITAMIN ADULTS) TABS Take by mouth. 0 Active Levonorgestrel 20 MCG/24HR Intrauterine Intrauterine Device (Mirena) Insert 1 Each into uterus once. 0 Active Albuterol Sulfate HFA 108 (90 Base) MCG/ACT Inhalation Aerosol SolutionIndications: Mild intermittent asthma without complication Inhale 2 Puffs by mouth every 6 hours as needed for Cough, Shortness of Breath or Wheezing. 18 g 2 11/08/2022 Active LORazepam 0.5 MG Oral Tablet (Ativan)Indications: Anxiety Take 1 Tablet by mouth daily as needed for Anxiety. 20 Tablet 0 03/01/2023 Active Propranolol HCl 10 MG Oral Tablet (Inderal)Indications :MERRY (generalized anxiety disorder) TAKE 1 TABLET BY [...] 08/01/2023 Active Pregabalin 100 MG Oral Capsule (Lyrica)Indications: Fibromyalgia TAKE ONE CAPSULE BY MOUTH IN THE MORNING AND ONE AT BEDTIME 180 Capsule 0 08/08/2023 Active Omeprazole 20 MG Oral Capsule Delayed Release (PriLOSEC)Indication s:Gastro-esophageal reflux disease without esophagitis Take 1 Capsule by mouth in the morning. 90 Capsule 3 09/26/2023 Active documented as of this encounter (statuses as of 10/14/2023) Active Problems Problem Noted Date Diagnosed Date MDD (major depressive disord er), recurrent episode, moderate 09/26/2023 Mild intermittent asthma with exacerbation 06/29 Upper respiratory tract infection 06/29/2023 Mild intermittent asthma without complication Seasonal allergic rhinitis due to pollen 023 [id number] 05/04/2022 Gastro-esophageal reflux disease without esophag itis 02/02/2022 Posttraumatic stress disorder 02/02/2022 ADVANCE DIRECTIVE INFORMATION 11/21/2020 Overview: No, Advance Directive brochure offered , patient declined. Tobacco use 11/21/2020 Chronic rhinitis 09/17/2019 Fibromyalgia 08/15/2019 Other irritable bowel syndrome 08/15/2019 Slow transit constipation 08/05/2010 Presence of intrauterine contraceptive device Generalized anxiety disorder documented as of this encounter (statuses as of 10/14/2023) Resolved Problems Problem Noted Date Diagnosed Date Resolved Date Urge incontinence of urine 02/02/2022 0 11/08/2022 Antepartum abnormal glucose tolerance of mother 05/09/2007 02/12/2011 Normal , first 04/10/200708/05 HBPNORMAL FIRST 10/28/2005 07/25/2006 ACUTE SINUSITIS NOS 02/05/19 99 Major depressive disorder Overview: ICD-10 update of inactive term documented as of this encounter (statuses as of 10/14/2023) Immunizations Name Administration Dates Next Due Pneumococcal Conjugate Vacci ne, 20-valent ([id number]) 09/26/2023 Pneumococcal Polysaccharide PPV23 (Pneumovax) 08/19/2009,08/15/2009 Seasonal Influenza, PF, 6 M & above, IM , (FluLaval or Fluzone) 07/07/2017 Seasonal Influenza, Quadriva lent, No Preserve, IM 06/07/2016 Seasonal Influenza, Split, I IV3, With Preserve, Inj 08/12/2010,08/19/2009,08/15/2009,04/26 TD - Tetanus/Diptheria (ADULT) 04/03/2003 TDAP (age 10 and older)(Boostrix) 02/02/2022 TDAP (age 11 and older)(Adacel) 08/12/2010 documented as of this encounter Social History Tobacco Use Types Packs/Day Years Used Date Smoking Tobacco: Every Day Cigarettes 1 24.9 Started: 1998 Smokeless Tobacco: Never Comments:age 13 Alcohol Use Standard Drinks/Week Comments Yes 4 (1 standard drink = 0.6 oz pure alcohol) occasionally, a few beers or wine a few times a week PHQ-2 Answer Date Recorded PHQ Adult Total Score 5 09/26/2023 Hunger Vital Sign Answer Date Recorded Within [...] on file documented as of this encounter Miscellaneous Notes * Telephone Encounter - Kishor Lowe DO - 10/13/2023 10:15 AM EDT Urine was normal * Telephone Encounter - Pauline Naqvi OSA - 10/05/2023 9:55 AM EDT Who is Requesting Test Results: pt Primary Care Provider : Kishor Lowe DO Tests Results Requested : urine test from Date of Test : 09/26/2023 Location of Test: Ordering Provider: Patient has been made aware that the turnaround time for test results are typically as follows: Laboratory results = within 2-3 days ([facility]), 3-5 days (Non[facility], ie. [facility]) Urine Cultures = within 2-3 days depending on growth within the culture Pathology results (biopsy results/PAP) = 1-2 weeks Radiology results = about 1 week Cologuard results = within 2 weeks from the shipment date COVID testing = about 24 hours documented in this encounter Plan of Treatment Upcoming Encounters Date Type Department Care Team (Late st Contact Info) Description 10/31/2023 11:30 AM EDT Office Visit Allergy/Immunology [facility] [place] [address] [facility] [place] [address] Alejandrina Kay PA-C [address] [facility] [place] [address] 11/16/2023 9:30 AM EDT [facility] [address] [place] [address] 11/25/2023 1:00 PM EDT Office Visit [facility] [address] [place] [address] Sara Blackmon CRNP [address] [place] [address] 04/02/2024 1:00 PM EDT Office Visit [facility] [address] [place] [address] Sara Blackmon CRNP [address] [place] [address] 09/25/2024 11:40 AM EDT Office Visit [facility] [address] [place] [address] Kishor Lowe DO [address] [place] [address] Health Maintenance Due Date Last Done Comments DISCUSS TOBACCO CESSATION (REFER TO SMARTSET #5567) 1984 HPV/Co-Test 2014 *SPIROMETRY ONCE FOR ASTHMA-ADULT 11/11/2022 COVID-19 Vaccine (2022-24 season) 2023 Cervical Cancer Screening 09/23/2023 Pap Smear 09/23/2023 09/22/2020, 11/02, 03/03/2011, Additional history exists Influenza Vaccine (FLU shot) (Season Ended) 2024 07/07/2017, 06/07/2016, 08/12/2010, Additional history exists DTaP,Tdap,and Td Vaccines (4 - Td or [...] Not on filedocumented as of this encounter Advance Directives Latest Code Status on File Code Status Date Activated Date Inactivated Comments Full Code 05/04/2022 12:19 PM 05/04/2022 7:48 PM This order reflects the patients wishes and were consensually agreed upon. Question Answer Comments Discussion of Advance Directives occurred with: Patient Care Teams Stainless Steel Finisher Relationship Specialty Start Date End Date Kishor Lowe DO [address] [place] [address] PCP - General Family Medicine 09/05/19 documented as of this encounter
--- OUTSIDE RECORDS SUMMARY | 2023-10-22 20:32 | External Medical Summary | Summary of Care ---
Author Name Unknown Organization [facility] Address [address] [facility] [place] [address] Phone [phone] Care Team Providers Care Deputy Director Of Nursing Name Role Phone Familia Lowe DO Primary Care Provider Reason for Visit * Reason Comments Return Visit Pt here for return v isit Encounter Details Date Type Department Care Team (Late st Contact Info) Description 09/26/2023 11:40 AM EDT Office Visit [facility] [address] [place] [address] Familia Lowe DO [address] [place] [address] Gastro-esophageal reflux disease without esophagitis*; Need for [...] Seasonal allergic rhinitis due to pollen 023 [id number] 05/04/2022 Gastro-esophageal reflux disease without esophag itis [...] 02/20/2004,02/20/2004,12/0 09/2000 Pneumococcal Conjugate Vacci ne, 20-valent ([id number]) 09/26/2023 Pneumococcal Polysaccharide PPV23 (Pneumovax) 08/19/2009,08/15/2009 Seasonal [...] future appointment in our office with Female FOOD SELECTOR. Follow up/Check out notes completed for front [...] pneumococcal vaccination - PNEUMOCOCCAL VACC, PCV20, IM ([id number]) Screening for cervical cancer - BEEF PUSHER PAP SCREEN; Future Mild intermittent asthma without [...] 10/31/2023 11:30 AM EDT [facility] [place] [address] [place] [address] Alejandrina Kay PA-C [address] [facility] [place] [address] 11/16/2023 9:30 AM EDT Imaging [facility] 2nd Floor Cardiology, [place] [address] [place] [address] 12/06/2023 12:30 PM EDT Office Visit Gastroenterology, [facility] [address] [place] [address] [address] Alfredo Apodaca CRNP [address] [place] [address] 04/02/2024 1:00 PM EDT Office Visit [facility] [address] [place] [address] Sara Blackmon CRNP [address] [place] [address] 09/25/2024 11:40 AM EDT Office Visit [facility] [address] [place] [address] Familia Lowe DO [address] [place] [address] Scheduled Orders Name Type Priority Associated Diagnoses Orde r Schedule BEEF PUSHER PAP SCREEN Pathology Routine Screening for cervical cancer Expected: 09/26/2023, Expires: 10/26/2024 URINALYSIS WITH MICROSCOPIC EXAM Lab Routine Dysuria Expected: 09/26/2023 (Approximate), Expires: 09/25/2024 CULTURE, URINE, QUANTITATIVE Lab Routine Dysuria Ordered: 09/26/2023 Health Maintenance Due Date Last Done Comments DISCUSS TOBACCO CESSATION (REFER TO SMARTSET #6937) 1984 HPV/Co-Test 2014 *SPIROMETRY ONCE FOR ASTHMA-ADULT [...] AM EDT [facility] [place] [facility] Specific [place], Urine 1.015 1.003 - 1.030 09/26/2023 11:56 [...] UNSOLICITED RESULTS [facility] [place] [facility] [place] [address] documented in this encounter Visit Diagnoses [...] Advance Directives occurred with: Patient Care Teams Deputy Director Of Nursing Relationship Specialty Start Date End Date Familia Lowe DO [address] [place] [address] PCP - General Family Medicine 09/05/19 documented as of this encounter"
--- OUTSIDE RECORDS SUMMARY | 2023-10-22 20:32 | External Medical Summary | Summary of Care ---
Author Name Unknown Organization [facility] Address [address] [facility] [place] [address] Phone [phone] Care Team Providers Care Quality Assurance Test Program Manager Name Role Phone Kishor Lowe Primary Care Provider Reason for Visit * Reason Comments Follow Up Pt states she is devan lying for partial disability in November, needs a note for them Encounter Details Date Type Department Care Team (Late st Contact Info) Description 10/14/2023 12:00 PM EDT Office Visit Family Practice [facility] [address] [place] [address] Sara Blackmon CRNP [address] [place] [address] Fibromyalgia*; Posttraumatic stress disorder; Generalized anxiety disorder; MDD (major depressive disorder), recurrent episode, moderate (HCC); MERRY (generalized anxiety disorder) Allergies Active Allergy Reactions Criticality Noted Date Comments Amitriptyline Rash 09/30/2021 Bee Pollen 01/01/2019 Aluminum Chloride Rash 09/30/2021 Other Allergy (See Comments) Itching 020 Black rubber Bupivacaine Hcl 08/05/2010 Montelukast Rash 01/25/2023 On face documented as of this encounter (statuses as of 10/22/2023) Medications Medication Sig Dispensed Refills Start Date [...] as of this encounter (statuses as of 10/22/2023) Active Problems Problem Noted Date Diagnosed Date MDD (major depressive disord er), recurrent episode, moderate 09/26/2023 Mild intermittent asthma with exacerbation 06/29 Upper respiratory tract infection 06/29/2023 Mild intermittent asthma without complication Seasonal allergic rhinitis due to pollen 023 [id number] 05/04/2022 Gastro-esophageal reflux disease without esophag itis 02/02/2022 Posttraumatic stress disorder 02/02/2022 ADVANCE DIRECTIVE INFORMATION 11/21/2020 Overview: No, Advance Directive brochure offered , patient declined. Tobacco use 11/21/2020 Chronic rhinitis 09/17/2019 Fibromyalgia 08/15/2019 Other irritable bowel syndrome 08/15/2019 Slow transit constipation 08/05/2010 Presence of intrauterine contraceptive device Generalized anxiety disorder documented as of this encounter (statuses as of 10/22/2023) Resolved Problems Problem Noted Date Diagnosed Date Resolved Date Urge incontinence of urine 02/02/2022 0 11/08/2022 Antepartum abnormal glucose tolerance of mother 05/09/2007 02/12/2011 Normal , first 04/10/200708/05 HBPNORMAL FIRST 10/28/2005 07/25/2006 ACUTE SINUSITIS NOS 02/05/19 99 Major depressive disorder Overview: ICD-10 update of inactive term documented as of this encounter (statuses as of 10/22/2023) Immunizations Name Administration Dates Next Due Pneumococcal Conjugate Vacci ne, 20-valent ([id number]) 09/26/2023 Pneumococcal Polysaccharide PPV23 (Pneumovax) 08/19/2009,08/15/2009 Seasonal [...] Sign Reading Time Taken Comments Blood Pressure 108/78 10/14/2023 11:39 AM EDT Pulse 78 10/14/2023 11:39 AM EDT Temperature 36 C (96.8 F) 10/14/2023 11:39 AM EDT Respiratory Rate 18 10/14/2023 11:39 AM EDT Oxygen Saturation 95% 10/14/2023 11:39 AM EDT Inhaled Oxygen Concentration - - Weight 59 kg (130 lb) 10/14/2023 11:39 AM EDT Height 165.1 cm (5' 5") 10/14/2023 11:39 AM EDT Body Mass Index 21.63 10/14/2023 11:39 AM EDT documented in this encounter Progress Notes * Sara Blackmon CRNP - 10/14/2023 11:43 AM EDT Images from the original note were not included. History of Present Illness Daisy Pepper is a 37 year old female that presents for Follow Up (Pt states she is applying for partial disability in November, needs a note for them ) HPI Here to discuss disability application. Over the last several months has had a lot of missed work due to her fibromyalgia and associated IBS. States she's been sent home from work twice this week forGI issues which she attributes to her fibro -- "when my fibro flares my IBS flares" Has reduced hours at work but still having to call out or being sent home and trying to get short-term disability through SSI -- has appointment on 11/14 with them but no documents yet for completion today. Notes she also has PTSD and anxiety -- used to follow with [facility] but "didn't do well on antidepressants". Reports they worsened anxiety and caused some auditory side effects ("whooshing sound in ear 24/01") so she stopped following with them. Was referred to our psychology department about 6 months ago. Not sure if eligible FMLA. Works at [email or web address]. Outpatient Medications Marked as Taking for the 10/14/23 encounter (Office Visit) with Sara Blackmon CRNP Medication Sig Omeprazole 20 MG Oral Capsule Delayed Release (PriLOSEC) Take 1 Capsule by mouth in the morning. Pregabalin 100 MG Oral Capsule (Lyrica) TAKE ONE CAPSULE BY MOUTH IN THE MORNING AND ONE AT BEDTIME Azelastine HCl 0.1 % Nasal Solution (Astelin) Administer 2 Sprays into nostril in the morning and 2Sprays before bedtime. Fluticasone Propionate 50 MCG/ACT Nasal Suspension (Flonase) Administer 2 Sprays into each nostril in the morning. Sucralfate 1 GM Oral Tablet (Carafate) Take 1 Tablet by mouth as needed (Gerd). Benzonatate 100 MG Oral Capsule Take 1 Capsule by mouth 3 times a day as needed for Cough. Ventolin HFA 108 (90 Base) MCG/ACT Inhalation Aerosol Solution Inhale 2 Puffs by mouth every 4 hours as needed for Wheezing. Ondansetron 4 MG Oral Tablet Disintegrating (Zofran) Place 1 Tablet on tongue every 8 hours as needed for Nausea or Vomiting. Propranolol HCl 10 MG Oral Tablet (Inderal) TAKE 1 TABLET BY MOUTH TWICE DAILY LORazepam 0.5 MG Oral Tablet (Ativan) Take 1 Tablet by mouth daily as needed for Anxiety. Albuterol Sulfate HFA 108 (90 Base) MCG/ACT Inhalation Aerosol Solution Inhale 2 Puffs by mouth every 6 hours as needed for Cough, Shortness of Breath or Wheezing. Levonorgestrel 20 MCG/24HR Intrauterine Intrauterine Device (Mirena) Insert 1 Each into uterus once. Multiple Vitamins-Minerals (MULTIVITAMIN ADULTS) TABS Take by mouth. NATURAL SUPPLEMENT Take by mouth daily . CBD oil. Pt uses 1 dropper at bedtime. Physical Exam Vitals: 10/14/23 1139 Temp: 36 C (96.8 F) Pulse: 78 Resp: 18 SpO2: 95% BP: 108/78 BMI: 21.63 Physical Exam Vitals reviewed. Constitutional: Appearance: Normal appearance. HENT: Head: Normocephalic and atraumatic. Nose: Nose normal. Mouth/Throat: Mouth: Mucous membranes are moist. Eyes: Extraocular Movements: Extraocular movements intact. Conjunctiva/sclera: Conjunctivae normal. Pupils: Pupils are equal, round, and reactive to light. Cardiovascular: Rate and Rhythm: Normal rate and regular rhythm. Heart sounds: Normal heart sounds. Pulmonary: Effort: Pulmonary effort is normal. Breath sounds: Normal breath sounds. Abdominal: General: Bowel sounds are normal. Palpations: Abdomen is soft. Musculoskeletal: Cervical back: Neck supple. Right lower leg: No edema. Left lower leg: No edema. Lymphadenopathy: Cervical: No cervical adenopathy. Skin: General: Skin is warm and dry. Capillary Refill: Capillary refill takes less than 2 seconds. Neurological: Mental Status: She is alert and oriented to person, place, and time. Psychiatric: Behavior: Behavior normal. Thought Content: Thought content normal. Assessment and Plan Fibromyalgia On lyrica Will return with any forms needed in about 6 weeks Reviewed prior treatments and specialty consultations Posttraumatic stress disorder On and off treatment over last several years including with psychiatry Generalized anxiety disorder MDD (major depressive disorder), recurrent episode, moderate (HCC) MERRY (generalized anxiety disorder) Wrap-Up Follow-up: Return in about 6 weeks (around 11/25/2023). | Check-out note: Please schedule 6 week follow up for disability forms/SSI Time: I spent a total of 20-29 minutes (exact time 20 mins) on the date of service in preparation, delivery, and documentation of the care provided to Daisy Pepper excluding any time spent in the performance of separately billed services. documented in this encounter Nursing Notes * Violette Waller LPN - 10/14/2023 11:39 AM EDT The patient has been properly identified by confirmation of name and date of . Chief Complaint Patient presents with Follow Up Pt states she is applying for partial disability in November, needs a note for them documented in this encounter Plan of Treatment Upcoming Encounters Date Type Department Care Team (Late st Contact Info) Description 10/31/2023 11:30 AM EDT Office Visit Allergy/Immunology [facility] [place] [address] [facility] [place] [address] Alejandrina Kay PA-C [address] [facility] [place] [address] 11/16/2023 9:30 AM EDT Imaging [facility] 2nd Floor Cardiology, [place] [address] [place] [address] 11/25/2023 1:00 PM EDT Office [facility] [address] [place] [address] Sara Blackmon CRNP [address] [place] [address] 04/02/2024 1:00 PM EDT Office [facility] [address] [place] [address] Sara Blackmon CRNP [address] [place] [address] 09/25/2024 11:40 AM EDT Office Visit [facility] [address] [place] [address] Kishor Lowe DO [address] [place] [address] Health Maintenance Due Date Last Done Comments DISCUSS TOBACCO CESSATION (REFER TO SMARTSET #2972) 1984 HPV/Co-Test 2014 *SPIROMETRY ONCE FOR ASTHMA-ADULT 11/11/2022 COVID-19 Vaccine ( season) 2023 Cervical Cancer Screening 09/23/2023 Pap [...] as of this encounter Visit Diagnoses Diagnosis Fibromyalgia- Primary Mylagia and myositis, unspecified Posttraumatic stress disorder Generalized anxiety disorder MDD (major depressive disorder), recurrent episode, moderate (HCC) Major depressive disorder, recurrent episode, moderate MERRY (generalized anxiety disorder) Generalized anxiety disorder documented in this encounter Advance Directives Latest Code Status on File Code Status Date Activated Date Inactivated Comments Full Code 05/04/2022 12:19 PM 05/04/2022 7:48 PM This order reflects the patients wishes and were consensually agreed upon. Question Answer Comments Discussion of Advance Directives occurred with: Patient Care Teams Quality Assurance Test Program Manager Relationship Specialty Start Date End Date Kishor Lowe DO [address] [place] [address] PCP - General Family Medicine 09/05/19 documented as of this encounter
--- OUTSIDE RECORDS SUMMARY | 2023-10-22 20:32 | External Medical Summary | Summary of Care ---
Author Name Unknown Organization [facility] Address [address] [place] [facility] [place] [place] [address] Phone [phone] Care Team Providers Care Varnish Blender Name Role Phone Kishor Lowe DO Primary Care Provider Reason for Visit * Reason Onset Date Comments Advice 10/05/2023 Encounter Details Date Type Department Care Team (Late st Contact Info) Description 10/05/2023 Telephone Family Practice [facility] [address] [place] [address] Kishor Lowe DO [address] [place] [address] Advice Allergies Active Allergy Reactions Criticality Noted Date [...] Seasonal allergic rhinitis due to pollen 023 [id number] 05/04/2022 Gastro-esophageal reflux disease without esophag itis [...] Next Due Pneumococcal Conjugate Vacci ne, 20-valent ([id number]) 09/26/2023 Pneumococcal Polysaccharide PPV23 (Pneumovax) 08/19/2009,08/15/2009 Seasonal [...] encounter Miscellaneous Notes * Telephone Encounter - Solis Roberts OSA - 10/14/2023 10:16 AM EDT Pt scheduled acute office visit to discuss this with Sara Blackmon. ELIEZER * Telephone Encounter - Solis Roberts OSA - 10/13/2023 12:19 PM EDT Attempted to call pt with message and to schedule, no answer and no VM. Will attempt later * Telephone Encounter - Kishor oLwe DO - 10/13/2023 10:16 AM EDT This is likely something that would require an appointment to discuss and fill out As it takes quite a bit of discussion Her dx don't typically require a patient take a day off per week But that can be discussed in person * Telephone Encounter - Candice Coronel LPN - 10/12/2023 4:30 PM EDT Called pt for more information. Needs notes saying that she has been out of work at least 1 day a week due to Fibromyalgia, PTSD, GI issues. Called out this week due to GI issues as an example, and was sent home early yesterday dueto stomach. Once they have this letter, then filing can happen and disability papers will come to Dr. Lowe. * Telephone Encounter - Pauline Naqvi OSA - 10/05/2023 9:57 AM EDT Pt calling is filling for disability an needs a note or letting them know of all her disabilities an that due to them she misses work sometimes as well please call pt once done or with any questions documented in this encounter Plan of Treatment Upcoming Encounters Date Type Department Care Team (Late st Contact Info) Description 10/31/2023 11:30 AM EDT Office Visit Allergy/Immunology [facility] [place] [address] [facility] [place] [address] Alejandrina Kay PA-C [address] [facility] [place] [address] 11/16/2023 9:30 AM EDT Imaging [facility] 2nd Floor Cardiology, [place] [address] [facility] [place] [address] 11/25/2023 1:00 PM EDT Office Visit [facility] [address] [facility] [place] [address] Sara Blackmon CRNP 132 [facility] [place] [address] 04/02/2024 1:00 PM EDT Office Visit [facility] [address] [place] [address] Sara Blackmon CRNP [address] [place] [address] 09/25/2024 11:40 AM EDT Office Visit Family Practice [facility] [address] [place] [address] Kishor Lowe DO [address] [place] [address] Health Maintenance Due Date Last Done Comments DISCUSS TOBACCO CESSATION (REFER TO SMARTSET #329) 1984 HPV/Co-Test 2014 *SPIROMETRY ONCE FOR ASTHMA-ADULT [...] Advance Directives occurred with: Patient Care Teams Varnish Blender Relationship Specialty Start Date End Date Kishor Lowe DO [address] [place] [address] PCP - General Family Medicine 09/05/19 documented as of this encounter
--- OUTSIDE RECORDS SUMMARY | 2023-10-22 20:32 | External Medical Summary | Summary of Care ---
Author Name Unknown Organization [facility] Address [address] [place] [facility] [place] [address] Phone [phone] Care Team Providers Care Mail Inserter Name Role Phone Familia Lowe DO Primary Care Provider Reason for Visit * Reason Comments Return Visit Pt here for return v isit Encounter Details Date Type Department Care Team (Late st Contact Info) Description 09/26/2023 11:40 AM EDT Office Visit [facility] [address] [place] [address] Familia Lowe DO [address] [place] [address] Gastro-esophageal reflux disease without esophagitis*; Need for [...] Seasonal allergic rhinitis due to pollen 023 [id number] 05/04/2022 Gastro-esophageal reflux disease without esophag itis [...] 02/20/2004,02/20/2004,12/0 09/2000 Pneumococcal Conjugate Vacci ne, 20-valent ([id number]) 09/26/2023 Pneumococcal Polysaccharide PPV23 (Pneumovax) 08/19/2009,08/15/2009 Seasonal [...] future appointment in our office with Female CASER [place]. Follow up/Check out notes completed for front [...] pneumococcal vaccination - PNEUMOCOCCAL VACC, PCV20, IM ([id number]) Screening for cervical cancer - INSTRUCTIONAL SPECIALIST PAP SCREEN; Future Mild intermittent asthma without [...] 10/31/2023 11:30 AM EDT Office Visit [facility] [place] [address] [place] [address] Alejandrina Kay PA-C [address] [facility] [place] [address] 11/16/2023 9:30 AM EDT Imaging [facility] 2nd Floor Cardiology, [place] [address] [place] [address] 12/06/2023 12:30 PM EDT Office Visit Gastroenterology, [facility] [address] [place] [address] Alfredo Apodaca CRNP [address] [place] [address] 04/02/2024 1:00 PM EDT Office Visit [facility] [address] [place] [address] Sara Blackmon CRNP [address] [place] [address] 09/25/2024 11:40 AM EDT Office Visit [facility] [address] [place] [address] Familia Lowe DO [address] [place] [address] Pending Results Name Type Priority Associated Diagnoses Date /Time URINALYSIS WITH MICROSCOPIC EXAM Lab Routine Dysuria 09/26/2023 12:19 PM EDT CULTURE, URINE, QUANTITATIVE Lab Routine Dysuria 09/26/2023 12:18 PM EDT Scheduled Orders Name Type Priority Associated Diagnoses Orde r Schedule INSTRUCTIONAL SPECIALIST PAP SCREEN Pathology Routine Screening for cervical cancer Expected: 09/26/2023, Expires: 10/26/2024 URINALYSIS WITH MICROSCOPIC EXAM Lab Routine Dysuria Expected: 09/26/2023 (Approximate), Expires: 09/25/2024 Health Maintenance Due Date Last Done Comments DISCUSS TOBACCO CESSATION (REFER TO SMARTSET #2837) 1984 HPV/Co-Test 2014 *SPIROMETRY ONCE FOR ASTHMA-ADULT [...] mg/dL 09/26/2023 11:56 AM EDT [facility] Specific [place], Urine 1.015 1.003 - 1.030 09/26/2023 11:56 [...] UNSOLICITED RESULTS [facility] [place] [address] documented in this encounter Visit Diagnoses Diagnosis [...] Advance Directives occurred with: Patient Care Teams Mail Inserter Relationship Specialty Start Date End Date Familia Lowe DO [address] [place] [address] PCP - General Family Medicine 09/05/19 documented as of this encounter"
[2023-10-22 20:33] LABS: Thyroid Stimulating Hormone 1.517 uIu/ml (0.300-4.500)
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
--- OUTSIDE RECORDS SUMMARY | 2023-10-22 20:33 | External Medical Summary | Summary of Care ---
Author Name Unknown Organization [facility] Address [address] [place] [address] Phone [phone] Care Team Providers Care Application Security Specialist Name Role Phone Jack Lowevor Sarah Primary Care Provider Reason for Visit * Reason Comments Upper Respiratory Infection Since , then better, and now sinus pressure, pain, sore throat, ear pain. Chest congestion. No fever. Encounter Details Date Type Department Care Team (Late st Contact Info) Description 07/29/2023 11:00 AM EST Office Visit [facility] [address] [place] [address] Dewey Hurst MD [address] [place] [address] Bronchitis, complicated* Allergies Active Allergy Reactions Criticality Noted Date Comments Amitriptyline Rash 09/30/2021 Azelastine 03/16/2022 Rash above eyelid R side, becomes worse as uses Bee Pollen 01/01/2019 Aluminum Chloride Rash 09/30/2021 Other Allergy (See Comments) Itching 020 Black rubber Bupivacaine Hcl 08/05/2010 Montelukast Rash 01/25/2023 On face documented as of this encounter (statuses as of 07/29/2023) Medications Medication Sig Dispensed Refills Start Date [...] 20 MG Oral Capsule Delayed Release (PriLOSEC)Indication s:Gastroesophageal reflux disease, unspecified whether esophagitis present Take 1 Cap by mouth daily. 90 Cap 3 02/18/2021 Active Additional Information Patient taking differently:20 mg Oral Daily(AM),As needed, Reported on 02/24/2023 Budesonide 32 MCG/ACT Nasal SuspensionIndication s:Bilateral acute otitis media,Acute recurrent pansinusitis Administer 2 Sprays into each nostril in the morning. 5 mL 1 07/10/2022 Active Albuterol Sulfate HFA 108 (90 Base) MCG/ACT Inhalation Aerosol SolutionIndications: Mild intermittent asthma without complication Inhale 2 Puffs by mouth every 6 hours as needed for Cough, Shortness of Breath or Wheezing. 18 g 2 11/08/2022 Active LORazepam 0.5 MG Oral Tablet (Ativan)Indications: Anxiety Take 1 Tablet by mouth daily as needed for Anxiety. 20 Tablet 0 03/01/2023 Active Pregabalin 100 MG Oral Capsule (Lyrica)Indications: Fibromyalgia TAKE 1 CAPSULE BY MOUTH TWICE DAILY every morning and before bedtime 180 Capsule 0 04/07/2023 Active Propranolol HCl 10 MG Oral Tablet [...] for Wheezing. 18 g 3 06/29/2023 Active predniSONE 20 MG Oral Tablet (Deltasone)Indicatio ns:Bronchitis, complicated Take 2 Tablets by mouth in the morning for 5 days. 10 Tablet 0 07/29/2023 Active documented as of this encounter (statuses as of 07/29/2023) Active Problems Problem Noted Date Diagnosed Date Mild intermittent asthma with exacerbation 06/29 Upper respiratory tract infection 06/29/2023 Mild intermittent asthma without complication Seasonal allergic rhinitis due to pollen 023 Vpggicx-ub-lrd 05/04/2022 Gastro-esophageal reflux disease without esophag itis 02/02/2022 Posttraumatic stress disorder 02/02/2022 ADVANCE DIRECTIVE INFORMATION 11/21/2020 Overview: No, Advance Directive brochure offered , patient declined. Tobacco use 11/21/2020 Chronic rhinitis 09/17/2019 Fibromyalgia 08/15/2019 Other irritable bowel syndrome 08/15/2019 Slow transit constipation 08/05/2010 Presence of intrauterine contraceptive device Generalized anxiety disorder documented as of this encounter (statuses as of 07/29/2023) Resolved Problems Problem Noted Date Diagnosed Date Resolved Date Urge incontinence of urine 02/02/2022 0 11/08/2022 Antepartum abnormal glucose tolerance of mother 05/09/2007 02/12/2011 Normal , first 04/10/200708/05 HBPNORMAL FIRST 10/28/2005 07/25/2006 ACUTE SINUSITIS NOS 02/05/19 99 Major depressive disorder Overview: ICD-10 update of inactive term documented as of this encounter (statuses as of 07/29/2023) Immunizations Name Administration Dates Next Due Pneumococcal [...] 1 17 Started: 1998 Smokeless Tobacco: Never Comments:age 13 [...] Reading Time Taken Comments Blood Pressure 110/80 07/29/2023 11:17 AM EST Pulse 74 07/29/2023 11:17 AM EST Temperature 36.2 C (97.1 F) 07/29/2023 11:[address] Respiratory Rate - - Oxygen Saturation 97% 07/29/2023 11:17 AM EST Inhaled Oxygen Concentration - - Weight - - Height - - Body Mass Index - - documented in this encounter Progress Notes * Dewey Hurst MD - 07/29/2023 11:48 AM EST Subjective: Daisy Pepper is a 37 year old female. Chief Complaint Patient presents with Upper Respiratory Infection Since Jun. Covid, then better, and now sinus pressure, pain, sore throat, ear pain. Chest congestion. No fever. HPI: 37-year-old (she has Mirena) is seen today with respiratory symptoms. She had documented COVIDin mid June. She recover from that after about 2 weeks and had a couple days feeling better andthen developed another respiratory infection. Ultimately was seen [place] [facility] and given a Z-Vikash and prednisone short course. She recovered from that bronchitis and felt pretty close to her baseline for a little over week but now again beginning yesterday has Um developed cough sinus congestion bilateral ear pain and some sore throat. She notes that she is blowing discolored junky stuff out of her nose. She has noted some occasional wheezing. She has an albuterol inhaler Patient Active Problem List Diagnosis Code ADVANCE DIRECTIVE INFORMATION Presence of intrauterine contraceptive device Z97.5 Generalized anxiety disorder F41.1 Slow transit constipation K59.01 Fibromyalgia M79.7 Other irritable bowel syndrome K58.8 Chronic rhinitis J31.0 Tobacco use Z72.0 Gastro-esophageal reflux disease without esophagitis K21.9 Posttraumatic stress disorder F43.10 Wyafyxs-pd-njd K60.3 Mild intermittent asthma without complication J45.20 Seasonal allergic rhinitis due to pollen J30.1 Mild intermittent asthma with exacerbation J45.21 Upper respiratory tract infection J06.9 Current Outpatient Medications Medication Sig Dispense Refill [...] as needed for Cough. 30 Capsule 1 Ventolin HFA 108 (90 Base) MCG/ACT Inhalation Aerosol Solution Inhale 2 Puffs by mouth every 4 hours as needed for Wheezing. 18 g 3 No current facility-administered medications for this visit. Review of patient's allergies indicates: Allergen Reactions Amitriptyline Rash Azelastine Rash above eyelid R side, becomes worse as uses Bee Pollen Drysol [Aluminum Chloride] Rash Other Allergy (See Comments) Itching Black rubber Sensorcaine [Bupivacaine Hcl] Singulair [Montelukast] Rash On face Objective: BP 110/80 | Pulse 74 | Temp 36.2 C (97.1 F) (Temporal Artery) | SpO2 97% Physical Exam: CONST: alert, pleasant, no acute distress HEAD: normocephalic, atraumatic NECK: supple, soft, no adenopathy EARS: canals normal, TMs normal NARES: clear Eyes - PERRLA, EOM'I OROPHARYNX: clear, mild diffuse erythema over the posterior pharynx. Uvula in midline CV: regular rate and rhythm, no murmur CHEST: clear to auscultation bilaterally, no rales or wheezing ABD: soft, non tender, non distended, no masses or hepatosplenomegaly ASSESSMENT/PLAN: Probable early bronchitis-prednisone 20 mg, 2 tablets daily for 5 days. Encouraged her to use albuterol. Rest fluids. Dewey Hurst MD documented in this encounter Plan of Treatment Upcoming Encounters Date Type Department Care Team (Late st Contact Info) Description 08/01/2023 10:00 AM EST Office Visit Allergy/Immunology [place] [facility] [place] [address] [place] [address] Vivek Vega MD [address] [place] [address] 08/06/2023 10:45 AM EST Imaging Radiology [facility] 1st [facility] [place] [address] [facility] [place] [address] 09/26/2023 11:40 AM EDT Office Visit Family Practice [facility] [address] [facility] [place] [address] Kishor Lowe DO [address] [place] [address] Health Maintenance Due Date Last Done Comments DISCUSS TOBACCO CESSATION (REFER TO SMARTSET #0351) 1984 COVID-19 Vaccine (#1) 05/29/1985 Pneumococcal Vaccine: [...] as of this encounter Visit Diagnoses Diagnosis Bronchitis, complicated- Primary Bronchitis, not specified as acute or chronic documented in this encounter Advance Directives Latest Code Status on File Code Status Date Activated Date Inactivated Comments Full Code 05/04/2022 12:19 PM 05/04/2022 7:48 PM This order reflects the patients wishes and were consensually agreed upon. Question Answer Comments Discussion of Advance Directives occurred with: Patient Care Teams Application Security Specialist Relationship Specialty Start Date End Date Kishor Lowe DO [address] [place] [address] PCP - General Family Medicine 09/05/19 documented as of this encounter"
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
--- OUTSIDE RECORDS SUMMARY | 2023-10-22 20:33 | External Medical Summary | Summary of Care ---
Author Name Unknown Organization [facility] Address [address] [place] [place] [address] Phone [phone] Care Team Providers Care Site Interpreter Name Role Phone Kishor Lowe DO Primary Care Provider Reason for Visit * Reason Onset Date Comments Advice 09/15/2023 Red flag Encounter Details Date Type Department Care Team (Late st Contact Info) Description 09/15/2023 Telephone Family Practice [facility] [address] [place] [address] Kishor Lowe DO [address] [place] [address] Advice (Red flag ) Allergies Active Allergy Reactions Criticality Noted Date Comments Amitriptyline Rash 09/30/2021 Bee Pollen 01/01/2019 Aluminum Chloride Rash 09/30/2021 Other Allergy (See Comments) Itching 020 Black rubber Bupivacaine Hcl 08/05/2010 Montelukast Rash 01/25/2023 On face documented as of this encounter (statuses as of 09/15/2023) Medications Medication Sig Dispensed Refills Start Date [...] Sucralfate 1 GM Oral Tablet (Carafate) 0 07/16/2023 Active Azelastine HCl 0.1 % [...] AT BEDTIME 180 Capsule 0 08/08/2023 Active documented as of this encounter (statuses as of 09/15/2023) Active Problems Problem Noted Date Diagnosed Date Mild intermittent asthma with exacerbation 06/29 Upper respiratory tract infection 06/29/2023 Mild intermittent asthma without complication Seasonal allergic rhinitis due to pollen 023 Hbvyvac-xf-fic 05/04/2022 Gastro-esophageal reflux disease without esophag itis 02/02/2022 Posttraumatic stress disorder 02/02/2022 ADVANCE DIRECTIVE INFORMATION 11/21/2020 Overview: No, Advance Directive brochure offered , patient declined. Tobacco use 11/21/2020 Chronic rhinitis 09/17/2019 Fibromyalgia 08/15/2019 Other irritable bowel syndrome 08/15/2019 Slow transit constipation 08/05/2010 Presence of intrauterine contraceptive device Generalized anxiety disorder documented as of this encounter (statuses as of 09/15/2023) Resolved Problems Problem Noted Date Diagnosed Date Resolved Date Urge incontinence of urine 02/02/2022 0 11/08/2022 Antepartum abnormal glucose tolerance of mother 05/09/2007 02/12/2011 Normal , first 04/10/200708/05 HBPNORMAL FIRST 10/28/2005 07/25/2006 ACUTE SINUSITIS NOS 02/05/19 99 Major depressive disorder Overview: ICD-10 update of inactive term documented as of this encounter (statuses as of 09/15/2023) Immunizations Name Administration Dates Next Due Pneumococcal [...] encounter Miscellaneous Notes * Telephone Encounter - Alecia Majano RN - 09/15/2023 10:11 AM EDT Patient spoke with RN this morning at 0930, was [place] [facility] and verbalized understanding * Telephone Encounter - Diana Steve OSA - 09/15/2023 10:04 AM EDT What is the reason for call? Dizzy/ shaking, back pain, What Clinic is the patient trying to reach? [facility] Clinic: Myra Cobb - Call Type: Red Flag- route the telephone encounter as routine to poultry trimmer p [phone] Call was routed "routine" to the [facility] nurse triage basket (p [phone]). [phone] call back number documented in this encounter Plan of Treatment Upcoming Encounters Date Type Department Care Team (Late st Contact Info) Description 09/26/2023 11:40 AM EDT Office Visit Family [address] [place] [address] Kishor Lowe DO [address] [place] [address] 10/31/2023 11:30 AM EDT Office Visit [facility] [address] [place] [address] Alejandrina Kay PA-C [address] [place] [address] 11/16/2023 9:30 AM EDT Imaging [facility] 2nd Floor Cardiology, [place] [address] [place] [address] 12/06/2023 12:30 PM EDT Office Visit Gastroenterology, [facility] [address] [place] [address] Alfredo Apodaca CRNP [address] [place] [address] Health Maintenance Due Date Last Done Comments DISCUSS TOBACCO CESSATION (REFER TO SMARTSET #6902) 1984 Pneumococcal Vaccine: Pediatrics (0 to 5 Years) and At-Risk Patients (6 to 64 Years) (2 of 2 - PCV) 08/19/2010 08/19/2009, 08/15/2009 HPV/Co-Test 2014 *SPIROMETRY ONCE FOR ASTHMA-ADULT 11/11/2022 COVID-19 Vaccine ( - 2022- season) 2023 Influenza Vaccine (FLU shot) (#1) [...] Advance Directives occurred with: Patient Care Teams Site Interpreter Relationship Specialty Start Date End Date Kishor Lowe DO [address] [place] [address] PCP - General Family Medicine 09/05/19 documented as of this encounter
--- OUTSIDE RECORDS SUMMARY | 2023-10-22 20:33 | External Medical Summary ---
Author Name Unknown Address Unknown Organization [facility] [address] [place] [address] Laboratory Report Ordering Provider Test Date Status [place] 09/26/2023 12:19:45 Final Observation Date Value Abnormality Reference (Units ) Status Color of Urine by Auto 09/26/2023 12:19:45 Yellow Light Yellow, Yellow, Dark Yellow Final Clarity, Urine 09/26/2023 12:19:45 Clear Clear Final Glucose [Mass/volume] in Urine by Automated test strip 09/26/2023 12:19:45 Negative Negative (mg/dL) Final Bilirubin.total [Presence] in Urine by Automated test strip 09/26/2023 12:19:45 Negative Negative Final Ketones [Mass/volume] in Urine by Automated test strip 09/26/2023 12:19:45 Negative Negative (mg/dL) Final Specific gravity, Urine 09/26/2023 12:19:45 1.015 1.003-1.030 Final Hemoglobin [Presence] in Urine by Automated test strip 09/26/2023 12:19:45 Negative Negative Final pH, Urine 09/26/2023 12:19:45 7.5 5.0-7.5 (Units) Final Protein [Mass/volume] in Urine by Automated test strip 09/26/2023 12:19:45 Negative Negative (mg/dL) Final Urobilinogen [Mass/volume] in Urine by Automated test strip 09/26/2023 12:19:45 0.2 0.2, 1.0 (mg/dL) Final Nitrite [Presence] in Urine by Automated test strip 09/26/2023 12:19:45 Negative Negative Final Leukocyte esterase [Presence] in Urine by Automated test strip 09/26/2023 12:19:45 Negative Negative Final RBC, Urine 09/26/2023 12:19:45 0-2 0-2 (/HPF) Final WBC, Urine 09/26/2023 12:19:45 0-2 0-2 (/HPF) Final Bacteria [#/area] in Urine sediment by Microscopy high power field 09/26/2023 12:19:45 0-25 0-25 (/HPF) Final Performing Location [facility] [address] [facility] [address]
--- OUTSIDE RECORDS SUMMARY | 2023-10-22 20:33 | External Medical Summary | Summary of Care ---
Author Name Unknown Organization [facility] Address [address] [place] [address] Phone [phone] Care Team Providers Care Gunner Mate Name Role Phone Familia Lowe DO Primary Care Provider Reason for Visit * Reason Comments eRx-Medication Refill Encounter Details Date Type Department Care Team (Late st Contact Info) Description 08/04/2023 Refill Family Practice [facility] [address] [place] [address] Familia Lowe DO [address] [place] [address] Fibromyalgia Allergies Active Allergy Reactions Criticality Noted Date Comments Amitriptyline Rash 09/30/2021 Bee Pollen 01/01/2019 Aluminum Chloride Rash 09/30/2021 Other Allergy (See Comments) Itching 020 Black rubber Bupivacaine Hcl 08/05/2010 Montelukast Rash 01/25/2023 On face documented as of this encounter (statuses as of 08/08/2023) Medications Medication Sig Dispensed Refills Start Date [...] for Anxiety. 20 Tablet 0 3 Active Propranolol HCl 10 MG [...] for Wheezing. 18 g 3 3 Active Sucralfate 1 GM Oral Tablet (Carafate) 0 4 Active Azelastine HCl 0.1 % Nasal Solution (Astelin) Administer 2 Sprays into nostril in the morning and 2 Sprays before bedtime. 90 mL 3 4 Active Fluticasone Propionate 50 MCG/ACT Nasal Suspension (Flonase) Administer 2 Sprays into each nostril in the morning. 48 g 3 4 Active Pregabalin 100 MG Oral Capsule (Lyrica)Indications :Fibromyalgia TAKE ONE CAPSULE BY MOUTH IN THE MORNING AND ONE AT BEDTIME 180 Capsule 0 4 Active Pregabalin 100 MG Oral Capsule (Lyrica)Indications :Fibromyalgia TAKE 1 CAPSULE BY MOUTH TWICE DAILY every morning and before bedtime 180 Capsule 0 3 08/08/19 24 Discontinued documented as of this encounter (statuses as of 08/08/2023) Active Problems Problem Noted Date Diagnosed Date Mild intermittent asthma with exacerbation 06/29 Upper respiratory tract infection 06/29/2023 Mild intermittent asthma without complication Seasonal allergic rhinitis due to pollen 023 [id number] 05/04/2022 Gastro-esophageal reflux disease without esophag itis 02/02/2022 Posttraumatic stress disorder 02/02/2022 ADVANCE DIRECTIVE INFORMATION 11/21/2020 Overview: No, Advance Directive brochure offered , patient declined. Tobacco use 11/21/2020 Chronic rhinitis 09/17/2019 Fibromyalgia 08/15/2019 Other irritable bowel syndrome 08/15/2019 Slow transit constipation 08/05/2010 Presence of intrauterine contraceptive device Generalized anxiety disorder documented as of this encounter (statuses as of 08/08/2023) Resolved Problems Problem Noted Date Diagnosed Date Resolved Date Urge incontinence of urine 02/02/2022 0 11/08/2022 Antepartum abnormal glucose tolerance of mother 05/09/2007 02/12/2011 Normal , first 04/10/200708/05 HBPNORMAL FIRST 10/28/2005 07/25/2006 ACUTE SINUSITIS NOS 02/05/19 99 Major depressive disorder Overview: ICD-10 update of inactive term documented as of this encounter (statuses as of 08/08/2023) Immunizations Name Administration Dates Next Due Pneumococcal [...] encounter Miscellaneous Notes * Telephone Encounter - Familia Lowe DO - 08/08/2023 9:59 AM EST Signed Prescriptions: Disp Refills Pregabalin 100 MG Oral Capsule (Lyrica) 180 Ca*0 Sig: TAKE ONE CAPSULE BY MOUTH IN THE MORNING AND ONE AT BEDTIME Authorizing Provider: FAMILIA LOWE * Telephone Encounter - Candido, [facility] - 08/06/2023 1:00 PM EST Pending Prescriptions: Disp Refills Pregabalin 100 MG Oral Capsule [Pharmacy M*180 Ca*0 Sig: TAKE ONE CAPSULE BY MOUTH IN THE MORNING AND ONE AT BEDTIME * Telephone Encounter - Maria Del Carmen Bernal [facility] - 08/05/2023 10:46 AM EST Pending Prescriptions: Disp Refills Pregabalin 100 MG Oral Capsule [Pharmacy M*180 Ca*0 Sig: TAKE ONE CAPSULE BY MOUTH IN THE MORNING AND ONE AT BEDTIME * [facility] - [facility]44 AM EST I have reviewed the patients controlled substance dispensing history in the Prescription Drug Monitoring Program in compliance with the [facility] regulations before prescribing a controlled substance. PDMP checked on 08/05/2023. Pending Prescriptions: Disp Refills Pregabalin 100 MG Oral Capsule (Lyrica) [*180 Ca*0 Sig: TAKE ONE CAPSULE BY MOUTH IN THE MORNING AND ONE AT BEDTIME Last Visit: 06/29/2023 (in office), 09/11/2021 (telemedicine) Next Visit: 09/26/2023 Date medication was last filled: 04/20/23 Date medication is due for refill: 07/18/23 Pharmacy: [id number] [id number] [place] Is this request for a controlled substance? Yes and Urine Drug Screen Not completed Toxicology results: No results found for this or any previous visit. Please approve if appropriate. Thank You Maria Del Carmen Bernal, PharmD Clinical Pharmacist [facility] [phone] / [phone] 08/05/2023, 10:45 AM documented in this encounter Plan of Treatment Upcoming Encounters Date Type Department Care Team (Late st Contact Info) Description 09/26/2023 11:40 AM EDT Office Visit Family Practice [facility] [address] [place] [address] Familia Lowe DO [address] [place] [address] 10/31/2023 11:30 AM EDT Office Visit Allergy/Immunology [facility] [address] [place] [address] Alejandrina Kay PA-C [address] [place] [address] Health Maintenance Due Date Last Done Comments DISCUSS TOBACCO CESSATION (REFER TO SMARTSET #8514) 1984 COVID-19 Vaccine (#1) 05/29/1985 Pneumococcal Vaccine: [...] as of this encounter Visit Diagnoses Diagnosis Fibromyalgia Mylagia and myositis, unspecified documented in this encounter Advance Directives Latest Code Status on File Code Status Date Activated Date Inactivated Comments Full Code 05/04/2022 12:19 PM 05/04/2022 7:48 PM This order reflects the patients wishes and were consensually agreed upon. Question Answer Comments Discussion of Advance Directives occurred with: Patient Care Teams Gunner Mate Relationship Specialty Start Date End Date Familia Lowe DO [address] [place] [address] PCP - General Family Medicine 09/05/19 documented as of this encounter
--- OUTSIDE RECORDS SUMMARY | 2023-10-22 20:33 | External Medical Summary ---
Author Name Unknown Address Unknown Organization [id number]:[facility] [place] - [address] [place] [address] Laboratory Report Ordering Provider Test Date Status [place] BAR[place] 09/26/2023 12:18:17 Final Observation Date Value Abnormality Reference (Units) Status Bacteria identified in Specimen by Culture 09/26/2023 12:18:17 No significant growth Final Test: Culture, Urine, Quant itative
Specimen Source: Urine, Clean Catch
Specimen Type: Urine
Specimen Date: 09/26/2023 12:18 PM
Result Date: 09/27/2023 11:12 AM
Result Status: Final result
Resulting Lab: [facility] [place]
[address]
[place] [id number]

CULTURE

No significant growth

null Performing Location [facility] [place] - [address] [place] [id number]
--- OUTSIDE RECORDS SUMMARY | 2023-10-22 20:33 | External Medical Summary | Summary of Care ---
Author Name Unknown Organization [facility] Address [address] [place] [facility] [place] [place] [address] Phone [phone] Care Team Providers Care Erp Manager Name Role Phone Kishor Lowe Primary Care Provider Reason for Visit * Reason Onset Date Comments Appointment 08/05/2023 Encounter Details Date Type Department Care Team (Late st Contact Info) Description 08/05/2023 Telephone Radiology [address] [facility] [place] [id number] Sofya Butts TECH Appointment Allergies Active Allergy Reactions Criticality Noted Date Comments Amitriptyline Rash 09/30/2021 Bee Pollen 01/01/2019 Aluminum Chloride Rash 09/30/2021 Other Allergy (See Comments) Itching 020 Black rubber Bupivacaine Hcl 08/05/2010 Montelukast Rash 01/25/2023 On face documented as of this encounter (statuses as of 08/05/2023) Medications Medication Sig Dispensed Refills Start Date [...] the morning. 48 g 3 08/01/2023 Active documented as of this encounter (statuses as of 08/05/2023) Active Problems Problem Noted Date Diagnosed Date Mild intermittent asthma with exacerbation 06/29 Upper respiratory tract infection 06/29/2023 Mild intermittent asthma without complication Seasonal allergic rhinitis due to pollen 023 [id number] 05/04/2022 Gastro-esophageal reflux disease without esophag itis 02/02/2022 Posttraumatic stress disorder 02/02/2022 ADVANCE DIRECTIVE INFORMATION 11/21/2020 Overview: No, Advance Directive brochure offered , patient declined. Tobacco use 11/21/2020 Chronic rhinitis 09/17/2019 Fibromyalgia 08/15/2019 Other irritable bowel syndrome 08/15/2019 Slow transit constipation 08/05/2010 Presence of intrauterine contraceptive device Generalized anxiety disorder documented as of this encounter (statuses as of 08/05/2023) Resolved Problems Problem Noted Date Diagnosed Date Resolved Date Urge incontinence of urine 02/02/2022 0 11/08/2022 Antepartum abnormal glucose tolerance of mother 05/09/2007 02/12/2011 Normal , first 04/10/200708/05 HBPNORMAL FIRST 10/28/2005 07/25/2006 ACUTE SINUSITIS NOS 02/05/19 99 Major depressive disorder Overview: ICD-10 update of inactive term documented as of this encounter (statuses as of 08/05/2023) Immunizations Name Administration Dates Next Due Pneumococcal [...] encounter Miscellaneous Notes * Telephone Encounter - Sofya Butts TECH - 08/05/2023 12:36 PM EST Name: Daisy Pepper Do you have any of the following: Pacemaker, stents, heart valves, aneurysm clips? No Have you ever worked with metal or have you ever gotten metal in your eyes? No Have you had a colonoscopy in the last 30 days? No On dialysis? No Do you have any dermals or body piercing's? No or ? no Do you wear an insulin pump or diabetic monitor? No No new tattoos MAI Monk documented in this encounter Plan of Treatment Upcoming Encounters Date Type Department Care Team (Late st Contact Info) Description 08/06/2023 10:45 AM EST Imaging Radiology [address] [place] [address] 09/26/2023 11:40 AM EDT Office Visit Family Practice [facility] [address] [place] [address] Kishor Lowe, [address] [place] [address] 10/31/2023 11:30 AM EDT Office Visit Allergy/Immunology [facility] [place] [address] [facility] [place] [address] Alejandrina Kay PA-C [address] [place] [address] Health Maintenance Due Date Last Done Comments DISCUSS TOBACCO CESSATION (REFER TO SMARTSET #3539) 1985 COVID-19 Vaccine (#1) 05/29/1985 Pneumococcal Vaccine: [...] Advance Directives occurred with: Patient Care Teams Erp Manager Relationship Specialty Start Date End Date Kishor Lowe DO [address] [place] [address] PCP - General Family Medicine 09/05/19 documented as of this encounter
--- OUTSIDE RECORDS SUMMARY | 2023-10-22 20:33 | External Medical Summary ---
Author Name Unknown Address Unknown Organization K0G:[facility] [address] - [address] [place] [address] Laboratory Report Ordering Provider Test Date Status [place] BARBOSA 09/26/2023 11:46:00 Final Observation Date Value Abnormality Reference (Units ) Status Color of Urine by Auto 09/26/2023 11:46:00 Yellow Light Yellow, Yellow Final Clarity, Urine 09/26/2023 11:46:00 Clear Clear Final Glucose [Mass/volume] in Urine by Automated test strip 09/26/2023 11:46:00 Negative Negative (mg/dL) Final Bilirubin.total [Presence] in Urine by Automated test strip 09/26/2023 11:46:00 Negative Negative Final Ketones [Mass/volume] in Urine by Automated test strip 09/26/2023 11:46:00 Negative Negative (mg/dL) Final Specific gravity, Urine 09/26/2023 11:46:00 1.015 1.003-1.030 Final Hemoglobin [Presence] in Urine by Automated test strip 09/26/2023 11:46:00 Negative Negative Final pH, Urine 09/26/2023 11:46:00 7.0 5.0, 5.5, 6.0, 6.5, 7.0, 7.5 (units) Final Protein [Mass/volume] in Urine by Automated test strip 09/26/2023 11:46:00 Negative Negative (mg/dL) Final Urobilinogen, Urine 09/26/2023 11:46:00 0.2 0.2, 1.0 (mg/dL) Final Nitrite [Presence] in Urine by Automated test strip 09/26/2023 11:46:00 Negative Negative Final Leukocyte esterase [Presence] in Urine by Automated test strip 09/26/2023 11:46:00 Negative Negative Final Performing Location [facility] [employer] [address] - [address] [place] [id number]
--- OUTSIDE RECORDS SUMMARY | 2023-10-22 20:33 | External Medical Summary | Summary of Care ---
Author Name Unknown Organization [facility] Address [address] [place] [facility] [place] [address] Phone [phone] Care Team Providers Care Race Car Driver Name Role Phone Kishor Lowe DO Primary Care Provider Reason for Visit * Reason Comments Return Visit Pt here for return v isit Encounter Details Date Type Department Care Team (Late st Contact Info) Description 09/26/2023 11:40 AM EDT Office Visit [facility] [address] [place] [address] Kishor Lowe DO [address] [place] [address] Gastro-esophageal reflux disease without esophagitis*; Need for [...] 6 Tablet 0 09/26/2023 09/29/19 24 Active Omeprazole 20 MG Oral Capsule [...] Seasonal allergic rhinitis due to pollen 023 [id number] 05/04/2022 Gastro-esophageal reflux disease without esophag itis [...] 11-15 yrs 11/13/2001 Hepatitis B, 0-19 yrs 02/20/2004,02/20/2004,12/09/2000 Pneumococcal Conjugate Vacci ne, 20-valent ([id number]) 09/26/2023 Pneumococcal Polysaccharide PPV23 (Pneumovax) 08/19/2009,08/15/2009 Seasonal [...] future appointment in our office with Female CLINIC LEAD. Follow up/Check out notes completed for front office to schedule PAP during check out. * Kishor Lowe DO - 09/26/2023 11:17 AM EDT [...] pneumococcal vaccination - PNEUMOCOCCAL VACC, PCV20, IM ([id number]) Screening for cervical cancer - GEOTHERMAL HVAC TECHNICIAN PAP SCREEN; Future Mild intermittent asthma without [...] separately billed services. documented in this encounter Plan of Treatment Upcoming Encounters Date Type Department Care Team (Late st Contact Info) Description 10/31/2023 11:30 AM EDT Office Visit Allergy/Immunology [facility] [address] [place] [address] Alejandrina Kay PA-C [address] [place] [address] 11/16/2023 9:30 AM EDT Imaging [facility] 2nd Floor Cardiology, [place] [address] [place] [address] 12/06/2023 12:30 PM EDT Office Visit Gastroenterology, [facility] [address] [place] [address] Alfredo Apodaca CRNP [address] [facility] [place] [address] Scheduled Orders Name Type Priority Associated Diagnoses Orde r Schedule GEOTHERMAL HVAC TECHNICIAN PAP SCREEN Pathology Routine Screening for cervical [...] Advance Directives occurred with: Patient Care Teams Race Car Driver Relationship Specialty Start Date End Date Kishor Lowe DO [address] [place] [address] PCP - General Family Medicine 09/05/19 documented as of this encounter"
--- NOTE | 2023-10-22 20:46 | Emergency Department Note ---
Impression & Plan Alcoholic intoxication, Alcohol withdrawal syndrome ED Provider Note Provider: Rohan Schmid MD DATE OF SERVICE: 10/22/2023 CHIEF COMPLAINT: Alcohol abuse HISTORY OF PRESENT ILLNESS: Patient is a 37-year-old female history of alcohol abuse presenting with friend today reporting issue with alcohol particular the past year or so. 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 Denies history of withdrawal seizures or hallucinations. Has not been to rehab for alcohol before. Denies any bloody vomiting. Does get somewhat nauseous and again shaky. States again previously when this happened she would take a drink. Is willing for rehab now and states she knows she needs to change her trajectory with the alcohol use is going to hurt her in the long-term. Believe she would be okay with rehab if needed. States he needs help to get off the alcohol usage. Last drink was around 4:00 with beer earlier today. Denies any pain or trauma. Has a history of GERD. States he has not been eating that well but drinking a fair amount of Gatorade. PAST MEDICAL HISTORY: As noted above MEDICATIONS: Reviewed home medications SOCIAL HISTORY: Heavy alcohol usage with beer PHYSICAL EXAM: GENERAL: alert and oriented in no acute distress on stretcher, somewhat tearful at times and anxious Head: normocephalic and atraumatic EYES: No injection, purulent discharge or icterus. EOMI. NECK: Trachea midline. Supple. ENT: Mucous membranes pink and moist. LUNGS: Airway patent. No retractions or tachypnea HEART: Regular rate and rhythm. No chest wall tenderness ABDOMEN: Soft and non-tender, without guarding or rebound. SKIN: Acyanotic, warm, dry, without rashes EXTREMITIES: Without swelling, tenderness or deformity NEUROLOGICAL: No focal deficits moving all extremities. No aphasia. No facial droop or slurred speech. Ambulatory. No significant tremor at this time. EK bpm. Normal sinus rhythm. No PVC or PAC. No acute ST segment elevation or depression with a QTc of 430 CONTINUOUS CARDIAC MONITORING: was ordered and showed a heart rate of 70s-90s bpm in normal sinus rhythm Patient's laboratory studies and imaging reviewed. Differential includes Alcohol intoxication, toxicologic, infection, hypoglycemia, electrolyte abnormalities, cardiac sources, intracerebral event, neurologic, trauma, as well as other pathologies. IMPRESSION/MEDICAL DECISION MAKING: Patient history of alcohol abuse and states she needs help to quit. Denies a history of seizures in the past. Has not been to rehab before but seems amenable at this time. Obtained from triage. Urinalysis negative. No significant thrombocytopenia or anemia but a mild leukopenia. Denies infectious symptoms at this time. Is a bit nauseous and states he does have some GERD. Will do some Pepcid and Protonix as well as Zofran. Has chronic abdominal issues and Zofran sometimes at home. Denies significant abdominal pain however. Blood work here without significant renal dysfunction with some mild transaminitis but a normal bilirubin. Alcohol level elevated here at 217. No severe electrolyte abnormalities noted. Will give a little Ativan to help with her anxiety at this point. Not having hallucinations at this time. Will reach out to the hospitalist team to see if we can admit her for medical help with her alcohol withdrawal. Banana bag and minerals ordered as well. DIAGNOSIS: Alcohol abuse and alcohol intoxication DISPOSITION: Hospitalist will evaluate Patient was agreeable with this plan. Past Med/Surg History Medical History (Updated 10/22/23 @ 21:02 by Rohan Schmid M.D.) Low back pain Acute neck pain Fall Fibromyalgia Acute bronchitis Bronchitis Shoulder bursitis Cervicalgia Sinusitis Lyme disease Family History Other Family history non-contributory Social History Smoking Status: Current every day smoker Tobacco Type: Cigarettes Cigarettes Per Day: 20; Hx Alcohol Use: Yes Alcohol type: beer Hx Substance Use: Yes Last Used Substance: Just Prior to Arrival Substance Use Type Other:: hx of meth and heroin use Preferred Language: Swiss Communication Ability: Effective Shadowgraph Scale Operator Required: No Beliefs That Will Affect Care: None marital status: Current Living Situation: Significant Other current occupational status: employed Other Information That Helps Us Care for You: No Feels Safe at Home: Yes Safety Concerns: Feels Safe At This Time Allergies Allergies Allergy/AdvReac Type Severity Reaction Status Date / Time amitriptyline Allergy Rash Verified 10/22/23 20:53 bee venom protein (honey bee) Allergy Unknown Verified 10/22/23 20:53 benzocaine AdvReac Intermediate GI SYMPTOMS Verified 10/22/23 20:53 bupivacaine AdvReac Intermediate GI SYMPTOMS Verified 10/22/23 20:53 procaine AdvReac Unknown GI SYMPTOMS Verified 10/22/23 20:53 Home Meds Home Medications Medication Instructions Recorded Confirmed cannabidiol 100 mg/mL oral solution 1 mg PO DIRECTED PRN .pain/anx 12/25/19 10/22/23 pregabalin 100 mg capsule (Lyrica) 100 mg PO AMHS 12/25/19 10/22/23 propranolol 10 mg tablet 10 mg PO BID 01/28/21 10/22/23 albuterol sulfate 90 mcg/actuation 2 puff inhalation Q6H PRN 02/25/23 10/22/23 aerosol inhaler WHEEZING/SOB azelastine 137 mcg (0.1 %) nasal 2 spray intranasal AMHS 10/22/23 10/22/23 spray aerosol benzonatate 100 mg capsule 100 mg PO TID PRN Cough 10/22/23 10/22/23 fluticasone propionate 50 2 spray intranasal QAM 10/22/23 10/22/23 mcg/actuation nasal spray,suspension levonorgestrel 21 mcg/24 hours (8 0 mcg intrauterine DIRECTED 10/22/23 10/22/23 yrs) 52 mg intrauterine device (Mirena) multivitamin 1 tab PO DAILY 10/22/23 10/22/23 sucralfate 100 mg/mL oral 10 ml PO QID PRN Acid Reflux 10/22/23 10/22/23 suspension (Carafate) Previous Rx's Medication Instructions Recorded ondansetron 4 mg disintegrating 4 mg PO Q6H PRN nausea and 01/03/23 tablet vomiting #20 tabs Results & Data (ED) Vital Signs Vital Signs - 24 hr 10/22/23 19:16 10/22/23 19:52 10/22/23 19:53 Temperature 37 C Temperature Source Temporal Artery Scan Pulse Rate 96 H 66 Pulse Rate from SpO2 Sensor 66 Pulse Rhythm Regular Pulse Strength Normal Respiratory Rate 19 14 Respiratory Effort / Characteristics Non-Labored Spontaneous Respiratory Depth Normal Respiratory Pattern Regular Blood Pressure 127/84 127/78 Blood Pressure Mean 98 91 Blood Pressure Position Sitting Pulse Oximetry 98 99 Oxygen Delivery Method Room Air Sepsis Recent Fever Within 48 Hours No Sepsis New/Unexplained Change in Mental Status N/A Sepsis Action Taken by Nursing No Action Required 10/22/23 19:53 10/22/23 20:00 10/22/23 20:00 Temperature Temperature Source Pulse Rate 73 81 Pulse Rate from SpO2 Sensor 74 80 Pulse Rhythm Pulse Strength Respiratory Rate 14 16 Respiratory Effort / Characteristics Respiratory Depth Respiratory Pattern Blood Pressure 119/88 Blood Pressure Mean 101 Blood Pressure Position Pulse Oximetry 99 95 Oxygen Delivery Method Room Air Sepsis Recent Fever Within 48 Hours Sepsis New/Unexplained Change in Mental Status Sepsis Action Taken by Nursing 10/22/23 20:07 10/22/23 20:27 10/22/23 20:31 Temperature 36.8 C Temperature Source Oral Pulse Rate 79 90 Pulse Rate from SpO2 Sensor Pulse Rhythm Pulse Strength Respiratory Rate Respiratory Effort / Characteristics Respiratory Depth Respiratory Pattern Blood Pressure Blood Pressure Mean Blood Pressure Position Pulse Oximetry Oxygen Delivery Method Sepsis Recent Fever Within 48 Hours Sepsis New/Unexplained Change in Mental Status Sepsis Action Taken by Nursing 10/22/23 20:32 10/22/23 20:32 10/22/23 21:00 Temperature Temperature Source Pulse Rate 76 Pulse Rate from SpO2 Sensor 76 Pulse Rhythm Pulse Strength Respiratory Rate 20 Respiratory Effort / Characteristics Respiratory Depth Respiratory Pattern Blood Pressure 124/82 125/90 Blood Pressure Mean 87 95 Blood Pressure Position Pulse Oximetry 98 Oxygen Delivery Method Sepsis Recent Fever Within 48 Hours Sepsis New/Unexplained Change in Mental Status Sepsis Action Taken by Nursing 10/22/23 21:00 10/22/23 21:30 10/22/23 21:30 Temperature Temperature Source Pulse Rate 76 77 Pulse Rate from SpO2 Sensor 73 78 Pulse Rhythm Pulse Strength Respiratory Rate 19 14 Respiratory Effort / Characteristics Respiratory Depth Respiratory Pattern Blood Pressure 121/76 Blood Pressure Mean 92 Blood Pressure Position Pulse Oximetry 97 97 Oxygen Delivery Method Sepsis Recent Fever Within 48 Hours Sepsis New/Unexplained Change in Mental Status Sepsis Action Taken by Nursing 10/22/23 22:00 10/22/23 22:00 Temperature Temperature Source Pulse Rate 87 Pulse Rate from SpO2 Sensor 85 Pulse Rhythm Pulse Strength Respiratory Rate 21 Respiratory Effort / Characteristics Respiratory Depth Respiratory Pattern Blood Pressure 113/86 Blood Pressure Mean 91 Blood Pressure Position Pulse Oximetry 97 Oxygen Delivery Method Room Air Sepsis Recent Fever Within 48 Hours Sepsis New/Unexplained Change in Mental Status Sepsis Action Taken by Nursing Laboratory Data 10/22/23 19:40 10/22/23 20:31 Lab Results 10/22/23 10/22/23 Range/Units 19:40 20:31 WBC 3.39 L (4.8-10.8) K/ul RBC 4.54 (4.20-5.40) M/uL Hgb 15.1 (12.0-16.0) g/dl Hct 43.6 (37.0-47.0) % MCV 96.0 (80.0-100.0) fL MCH 33.3 (25.0-34.0) pg MCHC 34.6 (32.0-36.0) g/dL RDW Std Deviation 40.7 (36.4-46.3) fL RDW Coeff of Kofi 11.6 (11.5-14.5) % Plt Count 223 (130-400) K/uL MPV 10.3 (9.4-12.4) fL Immature Gran % (Auto) 0.3 % Neut % (Auto) 45.0 % Lymph % (Auto) 36.6 % [place] % (Auto) 13.9 % Eos % (Auto) 2.7 % Baso % (Auto) 1.5 % Neut # (Auto) 1.53 (1.40-6.50) K/uL Lymph # (Auto) 1.24 (1.20-3.40) K/uL [place] # (Auto) 0.47 (0.11-0.59) K/uL Eos # (Auto) 0.09 (0.00-0.50) K/uL Baso # (Auto) 0.05 (0.00-0.20) K/uL Immature Gran # (Auto) 0.01 (0.01-0.20) K/uL PT Cancelled INR Cancelled Sodium TNP 138 Potassium TNP 4.1 Chloride 104 (98-107) mmol/L Carbon Dioxide 22 (21-32) mmol/L Anion Gap TNP BUN 5 L (6-23) mg/dl Creatinine 0.55 L (0.6-1.2) mg/dl Est Cr Clr Drug Dosing 124.8 ml/min Est GFR ( Amer) 137.9 ml/min Est GFR (Non-Af Amer) 119.0 ml/min BUN/Creatinine Ratio 9.1 L (10-20) Glucose 110 H (70-99(Fasting)) mg/dl Estimat Average Glucose 111 mg/dl Hemoglobin A1c 5.5 (4.5-5.6) % Calcium 9.0 (8.6-10.3) mg/dl Magnesium 2.0 (1.7-2.4) mg/dl Total Bilirubin 0.4 (0.2-1.0) mg/dl AST TNP 138 H ALT 103 H (7-52) U/L Alkaline Phosphatase 107 H (34-104) U/L Total Protein 7.1 (6.0-8.3) gm/dl Albumin 4.5 (3.4-5.0) gm/dl Globulin 2.6 (2.5-4.0) gm/dl Albumin/Globulin Ratio 1.7 (0.9-2) Lipase 29 (11-82) U/L TSH 1.517 (0.300-4.500) uIu/ml HCG, Qual Negative (Negative) Urine Color Yellow Urine Appearance Clear (Clear) Urine pH 6.5 (4.5-7.5) Ur Specific [place] 1.003 (1.000-1.030) Urine Protein Negative (Negative) Urine Glucose (UA) Negative (Negative) Urine Ketones Negative (Negative) Urine Blood Negative (Negative) Urine Nitrite Negative (Negative) Urine Bilirubin Negative (Negative) Urine Urobilinogen Negative (Negative) Ur Leukocyte Esterase Negative (Negative) Salicylates < 3.0 L (3.0-30) mg/dl Urine Opiates Screen Neg (Neg) Ur Methadone, Qual Neg (Neg) Acetaminophen < 3 L (10-30) ug/ml Urine Barbiturates Neg (Neg) Ur Phencyclidine (PCP) Neg (Neg) U Amphetamin/Meth Scrn Neg (Neg) MDMA (Ecstasy) Screen Neg (Neg) U Benzodiazepines Scrn Neg (Neg) Ur Cocaine Metabolite Neg (Neg) U Marijuana (THC) Screen Pos H (Neg) Ethyl Alcohol mg/dL 217.0 H (<10.0) mg/dl Administered Medications Promethazine HCl 6.25 mg/ (Sodium Chloride) 50.25 mls @ 201 mls/hr IV Q6H PRN PRN Reason: Nausea And Vomiting Stop: 11/21/23 22:19 Last Admin: 10/23/23 01:18 Dose: 201 mls/hr Documented By: Infusion: 10/23/23 01:18 Dose: Infused Documented By: Admin: 10/23/23 01:16 Dose: 201 mls/hr Documented By: Lorazepam (Lorazepam 0.5 Mg Tab) 0.5 mg PO TID PRN PRN Reason: Anxiety Stop: 11/21/23 22:17 Last Admin: 10/23/23 01:17 Dose: 0.5 mg Documented By: Admin: 10/23/23 01:16 Dose: 0.5 mg Documented By: MG Discontinued Medications Gabapentin (Gabapentin 600 Mg Tab) 1,200 mg PO NOW ONE Stop: 10/22/23 22:46 Last Admin: 10/22/23 22:47 Dose: 1,200 mg Documented By: VANDA Multivitamins 10 ml/ Thiamine HCl 100 mg/ Folic Acid 1 mg/Sodium Chloride 1,011.2 mls @ 500 mls/hr IV .Q2H2M ONE Stop: 10/22/23 22:39 Last Infusion: 10/23/23 00:14 Dose: Infused Documented By: Admin: 10/22/23 21:56 Dose: 500 mls/hr Documented By: VANDA Famotidine (Pepcid 20mg Iv Push) 20 mg in 5 mls @ 2.5 mls/min IV NOW STA Stop: 10/22/23 20:42 Last Admin: 10/22/23 20:52 Dose: 2.5 mls/min Documented By: VANDA Pantoprazole Sodium 40 mg/ (Syringe) 10 mls @ 5 mls/min IV NOW ONE Stop: 10/22/23 20:42 Last Admin: 10/22/23 21:54 Dose: 5 mls/min Documented By: VANDA Lorazepam (Lorazepam 1 Mg/1 Ml Syr Ed Inj Use) 1 mg IV ONE STA Stop: 10/22/23 20:39 Last Admin: 10/22/23 20:52 Dose: 1 mg Documented By: VANDA Nicotine (Nicotine 21 Mg/24 Hr Tdsy) 1 patch TD NOW STA Stop: 10/22/23 22:32 Last Admin: 10/22/23 22:46 Dose: 1 patch Documented By: VANDA Ondansetron HCl (Ondansetron Inj 2 Mg/Ml 2 Ml Vial) 4 mg IV NOW STA Stop: 10/22/23 20:42 Last Admin: 10/22/23 20:52 Dose: 4 mg Documented By: VANDA Discharge Plan Visit Data Chief Complaint: Detox Request Stated Complaint: ALCOHOL DETOX ED Provider: Rohan Schmid Discharge Problem: Alcoholic intoxication, Alcohol withdrawal syndrome Patient Disposition: Admitted As Inpatient Discharge Instructions Interventions: ED Discharge Assessment Last Done: 10/23/23 00:13
[2023-10-22] MEDS: LORazepam 1 MG/1 ML SYR ED Inj Use IV STA (20:52)
[2023-10-22] MEDS: ONDANSETRON INJ 2 MG/ML 2 ML VIAL IV STA (20:52)
[2023-10-22] MEDS: FAMOTIDINE 20MG IV PUSH 20 MG/5 ML SYR IV STA (20:52)
[2023-10-22 21:08] LABS: Potassium 4.1 mmol/L (3.5-5.1); Pregnancy Test, Serum Negative (Negative)
[2023-10-22 21:51] LABS: Estimated Average Glucose 111 mg/dl; Hemoglobin A1C 5.5 % (4.5-5.6)
[2023-10-22] MEDS: PANTOprazole 40 MG in SYRINGE 0 ML IV ONE (21:54)
[2023-10-22] MEDS: MULTI-VITAMIN INFUSION 10 ML, THIAMINE HCL 100 MG, FOLIC ACID 1 MG in SODIUM CHLORIDE 0... IV ONE (21:56)
--- NOTE | 2023-10-22 22:09 | History & Physical Report ---
Date of Service October 22, 2023 Assessment & Plan (1) Alcohol withdrawal syndrome: Plan: Alcoholic hepatitis, fatty liver and outpatient imaging, likely good prognosis Maddrey's DF score given normal PT hx fibromyalgia/anxiety/mood disorder Hyperglycemia rule out DM ongoing tobacco abuse Medical telemetry KARRIE S, DT precautions Gabapentin taper (Patient agreeable to pharmacy recommendation to hold home Lyrica while on gabapentin taper to decrease [employer] side effects with concomitant administration.) Nicotine patch DVT prophylaxis. Lovenox subcu Full code Patient friend requesting updates providers. Ms. Dacia Melvin, contact #[phone] Text document was generated using [facility] voice recognition software. It may contain grammatical or spelling errors. Kindly contact undersigned for clarification of any documentation item in question. History of Present Illness Chief Complaint: Alcohol withdrawal Primary Care Provider: Kishor Lowe DO History obtained from patient, family, and records. Medical history significant for fatty liver disease, IBS, fibromyalgia, anxiety/mood disorder, ongoing alcohol/tobacco abuse. Patient has been thinking about putting alcohol the last few weeks. She attempted to quit cold turkey today. Subsequent nausea and emesis without headache or abdominal pain. Palpitations and shakiness. No seizures. No previous alcohol detox attempts. Patient brought to ER by her friend because she does not think she be able to detox at home by herself. 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 Allergies Allergy/AdvReac Type Severity Reaction Status Date / Time amitriptyline Allergy Rash Verified 10/22/23 20:53 bee venom protein (honey bee) Allergy Unknown Verified 10/22/23 20:53 benzocaine AdvReac Intermediate GI SYMPTOMS Verified 10/22/23 20:53 bupivacaine AdvReac Intermediate GI SYMPTOMS Verified 10/22/23 20:53 procaine AdvReac Unknown GI SYMPTOMS Verified 10/22/23 20:53 Home Medications Medication Instructions Recorded Confirmed Type cannabidiol 100 mg/mL oral solution 1 mg PO DIRECTED PRN .pain/anx 12/25/19 10/22/23 History pregabalin 100 mg capsule (Lyrica) 100 mg PO AMHS 12/25/19 10/22/23 History propranolol 10 mg tablet 10 mg PO BID 01/28/21 10/22/23 History ondansetron 4 mg disintegrating 4 mg PO Q6H PRN nausea and 01/03/23 10/22/23 Rx tablet vomiting #20 tabs albuterol sulfate 90 mcg/actuation 2 puff inhalation Q6H PRN 02/25/23 10/22/23 History aerosol inhaler WHEEZING/SOB azelastine 137 mcg (0.1 %) nasal 2 spray intranasal AMHS 10/22/23 10/22/23 History spray aerosol benzonatate 100 mg capsule 100 mg PO TID PRN Cough 10/22/23 10/22/23 History fluticasone propionate 50 2 spray intranasal QAM 10/22/23 10/22/23 History mcg/actuation nasal spray,suspension levonorgestrel 21 mcg/24 hours (8 0 mcg intrauterine DIRECTED 10/22/23 10/22/23 History yrs) 52 mg intrauterine device (Mirena) multivitamin 1 tab PO DAILY 10/22/23 10/22/23 History sucralfate 100 mg/mL oral 10 ml PO QID PRN Acid Reflux 10/22/23 10/22/23 History suspension (Carafate) Past Med/Surg History Medical History (Updated 10/22/23 @ 21:02 by Rohan Schmid M.D.) Low back pain Acute neck pain Fall Fibromyalgia Acute bronchitis Bronchitis Shoulder bursitis Cervicalgia Sinusitis Lyme disease Family History Other Family history non-contributory Social History Smoking Status: Current every day smoker Tobacco Type: Cigarettes Cigarettes Per Day: 20; Hx Alcohol Use: Yes Alcohol type: beer Hx Substance Use: Yes Last Used Substance: Just Prior to Arrival Substance Use Type Other:: hx of meth and heroin use Preferred Language: Icelandic Communication Ability: Effective Vat Tender Required: No Beliefs That Will Affect Care: None marital status: Current Living Situation: Significant Other current occupational status: employed Other Information That Helps Us Care for You: No Feels Safe at Home: Yes Safety Concerns: Feels Safe At This Time Review of Systems Review of Systems: As per HPI, all other systems reviewed and negative Physical Exam Physical Exam: GENERAL: Slightly anxious, looks older than stated age,, no respiratory distress SKIN: Normal color, warm HEENT: [place] palpebral conjunctivae, no ptosis, dry buccal mucosa NECK : Supple, no tenderness CHEST : CTA, no tenderness HEART : RRR, no obvious murmurs ABDOMEN: Some distention, nontender EXTREMITIES : No LE swelling/tenderness, no other conspicuous deformities noted NEUROLOGIC : Coherent, no facial asymmetry, no other gross focality Results & Data Results & Data Vital Signs (Past 12 Hours) Vital Signs Temp Pulse Resp BP Pulse Ox O2 Del Method 10/22/23 20:27 36.8 C 10/22/23 20:07 79 10/22/23 20:00 119/88 10/22/23 20:00 81 16 95 Room Air 10/22/23 19:53 73 14 99 10/22/23 19:53 127/78 10/22/23 19:52 66 14 99 10/22/23 19:16 37 C 96 H 19 127/84 98 Room Air Laboratory Results Laboratory Results WBC 3.39 K/ul (4.8-10.8) L 10/22/23 19:40 RBC 4.54 M/uL (4.20-5.40) 10/22/23 19:40 Hgb 15.1 g/dl (12.0-16.0) 10/22/23 19:40 Hct 43.6 % (37.0-47.0) 10/22/23 19:40 MCV 96.0 fL (80.0-100.0) 10/22/23 19:40 MCH 33.3 pg (25.0-34.0) 10/22/23 19:40 MCHC 34.6 g/dL (32.0-36.0) 10/22/23 19:40 RDW Std Deviation 40.7 fL (36.4-46.3) 10/22/23 19:40 RDW Coeff of Kofi 11.6 % (11.5-14.5) 10/22/23 19:40 Plt Count 223 K/uL (130-400) 10/22/23 19:40 MPV 10.3 fL (9.4-12.4) 10/22/23 19:40 Immature Gran % (Auto) 0.3 % 10/22/23 19:40 Neut % (Auto) 45.0 % 10/22/23 19:40 Lymph % (Auto) 36.6 % 10/22/23 19:40 [place] % (Auto) 13.9 % 10/22/23 19:40 Eos % (Auto) 2.7 % 10/22/23 19:40 Baso % (Auto) 1.5 % 10/22/23 19:40 Neut # (Auto) 1.53 K/uL (1.40-6.50) 10/22/23 19:40 Lymph # (Auto) 1.24 K/uL (1.20-3.40) 10/22/23 19:40 [place] # (Auto) 0.47 K/uL (0.11-0.59) 10/22/23 19:40 Eos # (Auto) 0.09 K/uL (0.00-0.50) 10/22/23 19:40 Baso # (Auto) 0.05 K/uL (0.00-0.20) 10/22/23 19:40 Immature Gran # (Auto) 0.01 K/uL (0.01-0.20) 10/22/23 19:40 PT Cancelled 10/22/23 19:40 INR Cancelled 10/22/23 19:40 Sodium 138 mmol/L (136-145) 10/22/23 20:31 Potassium 4.1 mmol/L (3.5-5.1) 10/22/23 20:31 Chloride 104 mmol/L (98-107) 10/22/23 19:40 Carbon Dioxide 22 mmol/L (21-32) 10/22/23 19:40 Anion Gap TNP 10/22/23 19:40 BUN 5 mg/dl (6-23) L 10/22/23 19:40 Creatinine 0.55 mg/dl (0.6-1.2) L 10/22/23 19:40 Est Cr Clr Drug Dosing 124.8 ml/min 10/22/23 19:40 Est GFR ( Amer) 137.9 ml/min 10/22/23 19:40 Est GFR (Non-Af Amer) 119.0 ml/min 10/22/23 19:40 BUN/Creatinine Ratio 9.1 (10-20) L 10/22/23 19:40 Glucose 110 mg/dl (70-99(Fasting)) H 10/22/23 19:40 Estimat Average Glucose 111 mg/dl 10/22/23 19:40 Hemoglobin A1c 5.5 % (4.5-5.6) 10/22/23 19:40 Calcium 9.0 mg/dl (8.6-10.3) 10/22/23 19:40 Magnesium 2.0 mg/dl (1.7-2.4) 10/22/23 20:31 Total Bilirubin 0.4 mg/dl (0.2-1.0) 10/22/23 19:40 AST 138 U/L (13-39) H 10/22/23 20:31 ALT 103 U/L (7-52) H 10/22/23 19:40 Alkaline Phosphatase 107 U/L (34-104) H 10/22/23 19:40 Total Protein 7.1 gm/dl (6.0-8.3) 10/22/23 19:40 Albumin 4.5 gm/dl (3.4-5.0) 10/22/23:40 Globulin 2.6 gm/dl (2.5-4.0) 10/22/23 19:40 Albumin/Globulin Ratio 1.7 (0.9-2) 10/22/23 19:40 Lipase 29 U/L (11-82) 10/22/23 20:31 TSH 1.517 uIu/ml (0.300-4.500) 10/22/23 19:40 HCG, Qual Negative (Negative) 10/22/23 20:31 Urine Color Yellow 10/22/23 19:40 Urine Appearance Clear (Clear) 10/22/23 19:40 Urine pH 6.5 (4.5-7.5) 10/22/23 19:40 Ur Specific [place] 1.003 (1.000-1.030) 10/22/23 19:40 Urine Protein Negative (Negative) 10/22/23 19:40 Urine Glucose (UA) Negative (Negative) 10/22/23:40 Urine Ketones Negative (Negative) 10/22/23 19:40 Urine Blood Negative (Negative) 10/22/23 19:40 Urine Nitrite Negative (Negative) 10/22/23 19:40 Urine Bilirubin Negative (Negative) 10/22/23 19:40 Urine Urobilinogen Negative (Negative) 04/20/24 19:40 Ur Leukocyte Esterase Negative (Negative) 10/22/23 19:40 Salicylates < 3.0 mg/dl (3.0-30) L 10/22/23 19:40 Urine Opiates Screen Neg (Neg) 10/22/23 19:40 Ur Methadone, Qual Neg (Neg) 10/22/23 19:40 Acetaminophen < 3 ug/ml (10-30) L 10/22/23 19:40 Urine Barbiturates Neg (Neg) 10/22/23 19:40 Ur Phencyclidine (PCP) Neg (Neg) 10/22/23 19:40 U Amphetamin/Meth Scrn Neg (Neg) 10/22/23 19:40 MDMA (Ecstasy) Screen Neg (Neg) 10/22/23 19:40 U Benzodiazepines Scrn Neg (Neg) 10/22/23 19:40 Ur Cocaine Metabolite Neg (Neg) 10/22/23 19:40 U Marijuana (THC) Screen Pos (Neg) H 10/22/23 19:40 Ethyl Alcohol mg/dL 217.0 mg/dl (<10.0) H 10/22/23 19:40 Diagnostic Findings EKG as per my interpretation : Rate 85, NSR, normal axis, no ischemia
[2023-10-22] MEDS ORDERED: LORazepam 2 MG in SYRINGE 1 ML IV PRN (22:18)
[2023-10-22] MEDS ORDERED: LORazepam 1 MG in SYRINGE 0.5 ML IV PRN (22:18)
[2023-10-22] MEDS ORDERED: LORazepam 3 MG in SYRINGE 1.5 ML IV PRN (22:18)
[2023-10-22] MEDS ORDERED: Ativan IV Alcohol Withdrawal--Active Protocol IV PRN (22:18)
[2023-10-22] MEDS ORDERED: GABAPENTIN 1200MG ALCOHOL WITHDRAWAL LOAD PO STA (22:18)
[2023-10-22] MEDS: NICOTINE 21 MG/24 HR TDSY TD STA (22:46)
[2023-10-22] MEDS: GABAPENTIN 600 MG TAB PO ONE (22:47)
[2023-10-22 23:36] LABS: Prothrombin Time 10.8 Seconds (9.0-12.0)
[2023-10-23] MEDS ORDERED: SUCRALFATE 1 GM/10 ML UDC PO PRN (00:50)
[2023-10-23] MEDS: PROMETHAZINE HCL 6.25 MG in SODIUM CHLORIDE 0.9% 50 ML IV PRN (01:16)
[2023-10-23] MEDS: LORazepam 0.5 MG TAB PO PRN (01:16)
[2023-10-23] MEDS: PROPRANOLOL HCL 10 MG TAB PO SCH (01:34)
[2023-10-23] MEDS: PREGABALIN 100 MG CAP PO SCH (01:41)
[2023-10-23] MEDS: GABAPENTIN 600 MG TAB PO SCH ×3 (06:09→19:25)
[2023-10-23 07:12] LABS: Basophils # (auto) 0.06 K/uL (0.00-0.20); Basophils % (auto) 1.6 %; Eosinophils # (auto) 0.12 K/uL (0.00-0.50); Eosinophils % (auto) 3.1 %; Hematocrit (blood only) 42.5 % (37.0-47.0); Hemoglobin 14.4 g/dl (12.0-16.0); Immature Granulocytes # (auto) 0.01 K/uL (0.01-0.20); Immature Granulocytes % (auto) 0.3 %; Lymphocytes # (auto) 1.27 K/uL (1.20-3.40); Lymphocytes % (auto) 33.2 %; Mean Corpuscular Hemoglobin 32.5 pg (25.0-34.0); Mean Corpuscular Hgb Conc 33.9 g/dL (32.0-36.0); Mean Corpuscular Volume 95.9 fL (80.0-100.0); Mean Platelet Volume 9.9 fL (9.4-12.4); Monocytes # (auto) 0.47 K/uL (0.11-0.59); Monocytes % (auto) 12.3 %; Neutrophils % (auto) 49.5 %; Platelet Count 194 K/uL (130-400); RDW Coefficient of Variation 11.5 % (11.5-14.5); RDW Standard Deviation 40.9 fL (36.4-46.3); Red Blood Count 4.43 M/uL (4.20-5.40); White Blood Count 3.83 K/ul (4.8-10.8)
[2023-10-23 07:15] LABS: Albumin Globulin Ratio 1.8 (0.9-2); Albumin Level 3.8 gm/dl (3.4-5.0); Bilirubin,Total 0.5 mg/dl (0.2-1.0); Calcium 8.8 mg/dl (8.6-10.3); Creatinine Clr Calc Pharmacy 114.4 ml/min; Est GFR (Non-African American) 115.6 ml/min; Globulin 2.1 gm/dl (2.5-4.0); Potassium 4.1 mmol/L (3.5-5.1); Total Protein 5.9 gm/dl (6.0-8.3)
[2023-10-23] MEDS: oxyCODONE HCL IR 5 MG TAB (IMMEDIATE RELEASE) PO PRN (07:42)
[2023-10-23] MEDS: MULTIVITAMIN TAB PO SCH (08:25)
[2023-10-23] MEDS: THIAMINE HCL 100 MG TAB PO SCH (08:25)
[2023-10-23] MEDS: FOLIC ACID 1 MG TAB PO SCH (08:25)
[2023-10-23] MEDS: AZELASTINE HCL 0.1% NASAL 200 SPRAYS/27,400 MCG BTL SCH (08:27)
[2023-10-23] MEDS: FLUTICASONE PROPIONATE NA SPR 16 GM BTL SCH (08:27)
[2023-10-23] MEDS: ENOXAPARIN INJ 40 MG/0.4 ML SYR SQ SCH (08:28)
[2023-10-23] MEDS ORDERED: CEROVITE ADV FORMULA TAB PO SCH (09:00)
[2023-10-23] MEDS: ACETAMINOPHEN 500 MG TAB PO PRN (15:06)
--- NOTE | 2023-10-23 15:36 | Hospitalist Progress Note ---
Date of Service October 23, 2023 Assessment & Plan (1) Alcohol withdrawal syndrome: (2) Alcohol abuse: (3) Elevated LFTs: (4) Tobacco abuse: (5) Fibromyalgia: (6) History of posttraumatic stress disorder (PTSD): Plan 37-year-old female with history of alcohol abuse, tobacco abuse, PTSD, medical marijuana use who presented to ED for detox from alcohol withdrawal Alcohol abuse with alcohol withdrawal-uncomplicated so far. Ethanol level elevated at 217. Continue KARRIE protocol with gabapentin taper with IV given as needed. Also on folate, multivitamin and thiamine. She does not want to go to alcohol rehab but would like to follow as outpatient. Elevated LFT-transaminitis consistent with alcohol use. Recheck in a.m. History of PTSD and fibromyalgia Tobacco abuse-recommended quitting. Continue NicoDerm patch DVT prophylaxis-subcu Lovenox Disposition-MedSurg with telemetry. On alcohol withdrawal protocol with gabapentin taper Updated family at bedside Time spent-approximately 5 minutes Admission and Anticipated Discharge Date Admission Date: October 22, 2023 Subjective Patient was seen and examined at bedside in presence of her significant other. Feeling better since admission. Asking for regular diet. No fever, chills, chest pain or shortness of breath nausea. No vomiting or abdominal pain. States she had been drinking for 2 days but she started heavily since last August 14 months ago after her son's accident. She drinks liquor beer, last drink was 4 PM yesterday. She had never been to any alcohol rehab before considering want to be going either. Review of Systems Review of Systems: All systems reviewed & are unremarkable except as noted in Subjective Physical Exam Physical Exam: General: Lying comfortably in bed, not in distress, on room air HEENT: EOMI, LAISHA, MMM Chest: Clear breath sounds bilaterally, no wheezes or crackles CVS: Regular rate and rhythm, normal heart sounds, no murmur Abdomen: Soft, non tender, not distended, normal bowel sounds Neuro: Awake, alert, oriented, conversing well, non focal. No tremors Extremities: No cyanosis, clubbing or edema Results & Data Results & Data Vital Signs (Past 12 Hours) Vital Signs Temp Pulse Pulse Resp BP Pulse Ox O2 Del Method 10/23/23 12:15 36.8 C 63 16 128/86 95 Room Air 10/23/23 08:00 83 10/23/23 07:58 36.9 C 112 H 16 131/91 96 Room Air 10/23/23 03:41 37.2 C 76 16 120/83 90 Room Air Laboratory Results Short CBC 10/22/23 10/23/23 Range/Units 19:40 06:35 WBC 3.39 L 3.83 L (4.8-10.8) K/ul Hgb 15.1 14.4 (12.0-16.0) g/dl Hct 43.6 42.5 (37.0-47.0) % Plt Count 223 194 (130-400) K/uL BMP 10/22/23 10/22/23 10/23/23 19:40 20:31 06:35 Sodium TNP 138 140 Potassium TNP 4.1 4.1 Chloride 104 108 H Carbon Dioxide 22 26 BUN 5 L 6 Creatinine 0.55 L 0.60 Glucose 110 H 95 Calcium 9.0 8.8 Liver Function 10/22/23 10/22/23 10/23/23 Range/Units 19:40 20:31 06:35 Total Bilirubin 0.4 0.5 (0.2-1.0) mg/dl AST TNP 138 H 139 H ALT 103 H 87 H (7-52) U/L Alkaline Phosphatase 107 H 94 (34-104) U/L Albumin 4.5 3.8 (3.4-5.0) gm/dl Urine 10/22/23 Range/Units 19:40 Urine Color Yellow Urine Appearance Clear (Clear) Urine pH 6.5 (4.5-7.5) Ur Specific [place] 1.003 (1.000-1.030) Urine Protein Negative (Negative) Urine Glucose (UA) Negative (Negative)
[2023-10-23] MEDS: NICOTINE 21 MG/24 HR TDSY TD SCH (19:24)
--- NOTE | 2023-10-23 23:03 | Electrocardiogram Report ---
Test Reason : Blood Pressure : / mmHG Vent. Rate : 084 BPM Atrial Rate : 084 BPM P-R Int : 152 ms QRS Dur : 090 ms QT Int : 364 ms P-R-T Axes : 055 076 061 degrees QTc Int : 430 ms Normal sinus rhythm Normal ECG When compared with ECG of 25-FEB-2023 12:07, Nonspecific T wave abnormality no longer evident in Lateral leads Confirmed by Lebron Chandra ([id number]) on 10/23/2023 11:02:55 PM Referred By: REFERRED SELF Confirmed By:Lebron Chandra
[2023-10-24 06:53] LABS: Hematocrit (blood only) 46.4 % (37.0-47.0); Hemoglobin 15.6 g/dl (12.0-16.0); Mean Corpuscular Hemoglobin 32.4 pg (25.0-34.0); Mean Corpuscular Hgb Conc 33.6 g/dL (32.0-36.0); Mean Corpuscular Volume 96.3 fL (80.0-100.0); Mean Platelet Volume 10.2 fL (9.4-12.4); Platelet Count 203 K/uL (130-400); RDW Coefficient of Variation 11.3 % (11.5-14.5); Red Blood Count 4.82 M/uL (4.20-5.40); White Blood Count 3.91 K/ul (4.8-10.8)
[2023-10-24 07:18] LABS: Albumin Globulin Ratio 1.8 (0.9-2); BUN Creatinine Ratio 13.8 (10-20); Bilirubin,Total 0.9 mg/dl (0.2-1.0); Calcium 9.5 mg/dl (8.6-10.3); Creatinine Clr Calc Pharmacy 118.3 ml/min; Est GFR (African American) 135.5 ml/min; Est GFR (Non-African American) 116.9 ml/min; Globulin 2.2 gm/dl (2.5-4.0); Phosphorus 3.8 mg/dl (2.5-4.9); Potassium 3.9 mmol/L (3.5-5.1); Total Protein 6.2 gm/dl (6.0-8.3)
--- NOTE | 2023-10-24 10:57 | Hospitalist Progress Note ---
Date of Service October 24, 2023 Assessment & Plan (1) Alcohol withdrawal syndrome: (2) Alcohol abuse: (3) Elevated LFTs: (4) Tobacco abuse: (5) Fibromyalgia: (6) History of posttraumatic stress disorder (PTSD): Plan 37-year-old female with history of alcohol abuse, tobacco abuse, PTSD, medical marijuana use who presented to ED for detox from alcohol withdrawal Alcohol abuse with alcohol withdrawal-uncomplicated so far. Ethanol level elevated at 217. Continue KARRIE protocol with gabapentin taper with IV given as needed. Also on folate, multivitamin and thiamine. She does not want to go to alcohol rehab but would like to follow as outpatient. Elevated LFT-transaminitis consistent with alcohol use. Recheck in a.m. History of PTSD and fibromyalgia Tobacco abuse-recommended quitting. Continue NicoDerm patch DVT prophylaxis-subcu Lovenox Disposition-MedSur with telemetry. On alcohol withdrawal protocol with gabapentin taper Time spent-approximately 35 minutes Admission and Anticipated Discharge Date Admission Date: October 22, 2023 Subjective Patient was seen and examined at bedside. Feeling better. Ambulating to the bathroom. States some dizziness when ambulating. No fever, chills, chest pain nonstressful nausea or vomiting. Tolerating diet well. No bowel movement since admission Review of Systems Review of Systems: All systems reviewed & are unremarkable except as noted in Subjective Physical Exam Physical Exam: General: Lying comfortably in bed, not in distress, on room air HEENT: EOMI, LAISHA, MMM Chest: Clear breath sounds bilaterally, no wheezes or crackles CVS: Regular rate and rhythm, normal heart sounds, no murmur Abdomen: Soft, non tender, not distended, normal bowel sounds Neuro: Awake, alert, oriented, conversing well, non focal. No tremors Extremities: No cyanosis, clubbing or edema Results & Data Results & Data Vital Signs (Past 12 Hours) Vital Signs Temp Pulse Pulse Resp BP Pulse Ox O2 Del Method 10/24/23 10:51 64 16 142/95 H 97 Room Air 10/24/23 07:41 36.4 C L 53 L 16 141/95 H 97 Room Air 10/24/23 04:14 36.6 C 64 16 129/92 97 Room Air 10/23/23 23:41 67 10/23/23 23:07 36.5 C 71 18 136/88 97 Room Air Laboratory Results Short CBC 10/24/23 Range/Units 05:42 WBC 3.91 L (4.8-10.8) K/ul Hgb 15.6 (12.0-16.0) g/dl Hct 46.4 (37.0-47.0) % Plt Count 203 (130-400) K/uL BMP 10/24/23 05:42 Sodium 138 Potassium 3.9 Chloride 104 Carbon Dioxide 26 BUN 8 Creatinine 0.58 L Glucose 94 Calcium 9.5 Liver Function 10/24/23 Range/Units 05:42 Total Bilirubin 0.9 (0.2-1.0) mg/dl AST 128 H (13-39) U/L ALT 85 H (7-52) U/L Alkaline Phosphatase 96 (34-104) U/L Albumin 4.0 (3.4-5.0) gm/dl
[2023-10-24] MEDS: GABAPENTIN 600 MG TAB PO SCH (21:24)
--- NOTE | 2023-10-25 11:14 | Hospitalist Progress Note ---
Date of Service October 25, 2023 Assessment & Plan (1) Alcohol withdrawal syndrome: (2) Alcohol abuse: (3) Elevated LFTs: (4) Tobacco abuse: (5) Fibromyalgia: (6) History of posttraumatic stress disorder (PTSD): Plan 37-year-old female with history of alcohol abuse, tobacco abuse, PTSD, medical marijuana use who presented to ED for detox from alcohol withdrawal Alcohol abuse with alcohol withdrawal-uncomplicated so far. Ethanol level elevated at 217. Continue KARRIE protocol with gabapentin taper with IV given as needed. Also on folate, multivitamin and thiamine. She does not want to go to alcohol rehab but would like to follow as outpatient. Elevated LFT-transaminitis consistent with alcohol use. Recheck in a.m. History of PTSD and fibromyalgia Tobacco abuse-recommended quitting. Continue NicoDerm patch Diarrhea- will manage conservatively. If persistent, check GI panel. DVT prophylaxis-subcu Lovenox Disposition- Anticipate discharge home tomorrow after completion of gabapentin taper. Time spent-approximately 35 minutes Admission and Anticipated Discharge Date Admission Date: October 22, 2023 Subjective Patient was seen and examined at bedside. States she had a rough night. Had multiple runs of diarrhea since 1 am till 5 pm; also had an episode of emesis. no blood. some abd cramps. No fever, chills, CP, SOB. Review of Systems Review of Systems: All systems reviewed & are unremarkable except as noted in Subjective Physical Exam Physical Exam: General: Lying comfortably in bed, not in distress, on room air HEENT: EOMI, LAISHA, MMM Chest: Clear breath sounds bilaterally, no wheezes or crackles CVS: Regular rate and rhythm, normal heart sounds, no murmur Abdomen: Soft, non tender, not distended, normal bowel sounds Neuro: Awake, alert, oriented, conversing well, non focal. No tremors Extremities: No cyanosis, clubbing or edema Results & Data Results & Data Vital Signs (Past 12 Hours) Vital Signs Temp Pulse Pulse Resp BP Pulse Ox O2 Del Method 10/25/23 08:00 68 10/25/23 07:41 36.7 C 60 18 122/91 95 Room Air 10/25/23 03:45 36.4 C L 67 16 111/79 98 Room Air 10/24/23 23:40 36.5 C 69 16 125/85 97 Room Air
[2023-10-25] MEDS: D5W AND 1/2NSS 1,000 ML IV SCH (11:42)
[2023-10-26 07:24] LABS: Hematocrit (blood only) 42.1 % (37.0-47.0); Hemoglobin 14.5 g/dl (12.0-16.0); Mean Corpuscular Hgb Conc 34.4 g/dL (32.0-36.0); Mean Corpuscular Volume 95.7 fL (80.0-100.0); Mean Platelet Volume 9.7 fL (9.4-12.4); Platelet Count 185 K/uL (130-400); RDW Coefficient of Variation 11.2 % (11.5-14.5); RDW Standard Deviation 39.5 fL (36.4-46.3); White Blood Count 4.73 K/ul (4.8-10.8)
[2023-10-26 07:45] LABS: Est GFR (African American) 136.3 ml/min; Potassium 3.6 mmol/L (3.5-5.1)
[2023-10-26 07:46] LABS: BUN Creatinine Ratio 8.8 (10-20); Creatinine Clr Calc Pharmacy 120.4 ml/min; Est GFR (Non-African American) 117.6 ml/min; Magnesium 1.8 mg/dl (1.7-2.4)
--- NOTE | 2023-10-26 10:26 | Discharge Summary ---
Discharge Summary Date of Service October 26, 2023 Notes For Next Care Provider Repeat labs in 1 week: CMP Encouraged continue cessation to allow liver to "heal" Medication Changes From Visit no medication changes, completed gabapentin taper Admission HPI Per Admitting Provider History obtained from patient, family, and records. Medical history significant for fatty liver disease, IBS, fibromyalgia, anxiety/mood disorder, ongoing alcohol/tobacco abuse. Patient has been thinking about putting alcohol the last few weeks. She attempted to quit cold turkey today. Subsequent nausea and emesis without headache or abdominal pain. Palpitations and shakiness. No seizures. No previous alcohol detox attempts. Patient brought to ER by her friend because she does not think she be able to detox at home by herself. 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 Admission Exam Per Admitting Provider GENERAL: Slightly anxious, looks older than stated age,, no respiratory distress SKIN: Normal color, warm HEENT: Soldier palpebral conjunctivae, no ptosis, dry buccal mucosa NECK : Supple, no tenderness CHEST : CTA, no tenderness HEART : RRR, no obvious murmurs ABDOMEN: Some distention, nontender EXTREMITIES : No LE swelling/tenderness, no other conspicuous deformities noted NEUROLOGIC : Coherent, no facial asymmetry, no other gross focality Principal Dx & Hospital Course #1 = Principal Diagnosis (1) Alcohol withdrawal syndrome: (2) Alcohol abuse: (3) Elevated LFTs: (4) Tobacco abuse: (5) Fibromyalgia: (6) History of posttraumatic stress disorder (PTSD): Plan Ms Pepper is a 37-year-old female with history of alcohol abuse, tobacco abuse, PTSD, medical marijuana use who presented to ED for detox from alcohol with drawal on 10/21. Patients course uncomplicated and she completed gabepentin taper. #Alcohol abuse with alcohol withdrawal-uncomplicated so far. Ethanol level elevated at 217. Completed gabapentin taper, eager to go home. She does not want to go to alcohol rehab but would like to follow as outpatient. #Elevated LFT-transaminitis consistent with alcohol use. Down trended. Follow up as an OP #History of PTSD and fibromyalgia: contiue home regimen #Tobacco abuse-recommended quitting, patient does not wish to quit at this time #Diarrhea- will manage conservatively. improved On day of discharge, patient eager to get home. Denies any acute concerns. Patient has resources for addiction recovery at bedside. Spent 20 minutes engaging in cessation discussions and offering encouragement towards abstinence. Discharge Exam Constitutional WD/WN, vitals as above Respiratory normal respiratory effort, lungs clear to auscultation Cardiovascular RRR, no murmur, no edema Updated Medication List Medication Instructions Recorded Confirmed Type cannabidiol 100 mg/mL oral solution 1 mg PO DIRECTED PRN .pain/anx 12/25/19 10/22/23 History pregabalin 100 mg capsule (Lyrica) 100 mg PO AMHS 12/25/19 10/22/23 History propranolol 10 mg tablet 10 mg PO BID 01/28/21 10/22/23 History ondansetron 4 mg disintegrating 4 mg PO Q6H PRN nausea and 01/03/23 10/22/23 Rx tablet vomiting #20 tabs albuterol sulfate 90 mcg/actuation 2 puff inhalation Q6H PRN 02/25/23 10/22/23 History aerosol inhaler WHEEZING/SOB azelastine 137 mcg (0.1 %) nasal 2 spray intranasal AMHS 10/22/23 10/22/23 History spray aerosol benzonatate 100 mg capsule 100 mg PO TID PRN Cough 10/22/23 10/22/23 History fluticasone propionate 50 2 spray intranasal QAM 10/22/23 10/22/23 History mcg/actuation nasal spray,suspension levonorgestrel 21 mcg/24 hours (8 0 mcg intrauterine DIRECTED 10/22/23 10/22/23 History yrs) 52 mg intrauterine device (Mirena) multivitamin 1 tab PO DAILY 10/22/23 10/22/23 History sucralfate 100 mg/mL oral 10 ml PO QID PRN Acid Reflux 10/22/23 10/22/23 History suspension (Carafate) Hospital Stay Data Consultations 10/22/23 20:53 ED Decision to Admit Stat Pending Results Patient Have Any Pending Studies at Discharge: No Discharge Instructions Given to Patient (Per Discharging Provider) You were admitted for alcohol withdrawal and completed a gabapentin taper successfully. It is encouraged you continue abstinence from alcohol and attempt smoking cessation If you do wish for more resources, please continue to discuss with your PCP, as well as utilize the materials given during your admission. Total Time Total Time Spent Total Time Spent (In Minutes): 45
[2023-10-27 09:42] LABS: Marijuana Quant, GCMS Urine 377 ng/mL (<5)
== END 2023-10-26 11:18 | disposition home or self-care (01) | DRG 897 ==
LOC: ED 19:13 → 2N 22:10 → SUATTDRO 22:10 → 2N 10-23 00:13

== ENCOUNTER 2024-04-02 11:38 | Inpatient (IN) ==
[2024-04-02 12:11] LABS: Basophils # (auto) 0.07 K/uL (0.00-0.20); Eosinophils # (auto) 0.09 K/uL (0.00-0.50); Eosinophils % (auto) 1.3 %; Hematocrit (blood only) 41.3 % (37.0-47.0); Hemoglobin 15.3 g/dl (12.0-16.0); Immature Granulocytes # (auto) 0.02 K/uL (0.01-0.20); Immature Granulocytes % (auto) 0.3 %; Lymphocytes # (auto) 1.69 K/uL (1.20-3.40); Lymphocytes % (auto) 24.2 %; Mean Corpuscular Hemoglobin 34.3 pg (25.0-34.0); Mean Corpuscular Volume 92.6 fL (80.0-100.0); Mean Platelet Volume 9.4 fL (9.4-12.4); Monocytes # (auto) 0.65 K/uL (0.11-0.59); Monocytes % (auto) 9.3 %; Neutrophils # (auto) 4.45 K/uL (1.40-6.50); Neutrophils % (auto) 63.9 %; Platelet Count 285 K/uL (130-400); RDW Standard Deviation 43.7 fL (36.4-46.3); Red Blood Count 4.46 M/uL (4.20-5.40); White Blood Count 6.97 K/ul (4.8-10.8)
[2024-04-02 12:28] LABS: Albumin Globulin Ratio 1.8 (0.9-2); Albumin Level 4.4 gm/dl (3.4-5.0); BUN Creatinine Ratio 8.3 (10-20); Bilirubin,Total 1.3 mg/dl (0.2-1.0); Calcium 9.2 mg/dl (8.6-10.3); Creatinine Clr Calc Pharmacy 130.4 ml/min; Est GFR (African American) 143.2 ml/min; Est GFR (Non-African American) 123.6 ml/min; Globulin 2.4 gm/dl (2.5-4.0); Potassium 2.8 mmol/L (3.5-5.1); Total Protein 6.8 gm/dl (6.0-8.3)
[2024-04-02 12:43] LABS: Thyroid Stimulating Hormone 1.957 uIu/ml (0.300-4.500)
[2024-04-02] MEDS: POTASSIUM CHLORIDE CRTAB 20 MEQ TABCR PO STA ×2 (13:43→18:39)
[2024-04-02 13:48] LABS: Acetaminophen < 3 ug/ml (10-30); Salicylate < 3.0 mg/dl (3.0-30)
[2024-04-02] MEDS: ONDANSETRON INJ 2 MG/ML 2 ML VIAL IV STA (13:48)
[2024-04-02] MEDS: POTASSIUM CHLORIDE / WTR 10 MEQ/100 ML PLCT IV SCH (13:48)
[2024-04-02] MEDS: MAGNESIUM SULFATE / D5W 1 GM/100 ML BAG IV SCH (13:56)
[2024-04-02 13:59] LABS: Appearance Urine Clear (Clear); Bilirubin Urine Negative (Negative); Blood Urine Negative (Negative); Color Urine Yellow; Glucose Urine UA Negative (Negative); Ketones Urine Negative (Negative); Leukocyte Esterase Urine Negative (Negative); Nitrite Urine Negative (Negative); Protein Urine Negative (Negative); Specific Gravity Urine 1.003 (1.000-1.030); Urobilinogen Urine Negative (Negative)
--- NOTE | 2024-04-02 14:06 | History & Physical Report ---
Date of Service April 02, 2024 Assessment & Plan (1) Alcohol abuse: (2) Elevated LFTs: (3) History of posttraumatic stress disorder (PTSD): (4) Fibromyalgia: (5) Tobacco abuse: Plan: ETOH Abuse Alcohol intoxication and detox request Elevated LFTs -Admit to med tele - Etoh 342 on arrival - Elevated LFTs include Tbili 1.3, AST 229, ALT 59, Alk phos 197 are consistent with etoh abuse. Would recommend follow up with GI. - AWAS protocol - Librium taper, will allow her to have ativan 0.25 mg PO now - Seizure precautions, fall precautions - EKG reviewed without acute findings - Ultimately would benefit from inpatient rehab however does not want to participate in such, she is agreeable to outpatient thereapy and is willing to go to [facility], and has a case loader operator as outpatient who is helping her get this set up. PTSD Fibromyalgia - home meds of lyrica ordered, will give 1 x dose of toradol IV now. - Does not follow with psych as outpatient, will offer psych consult here. Tobacco abuse Marijuana Use - Cessation encouraged at bedside, smokes 1.5 ppd, nicotine patch ordered - smokes marijuana daily for PTSD and anxiety, has medical marijuana card. Denies other ilicit drug use. Tox screen pending DVT ppx: ambulatory Lines: PIV x 1 CODE: FULL Diet: Regular as tolerated Dispo: From home, likely to remain in the hospital x 1-2 days A total of 75 minutes were spent with greater than 50% of that time face to face with the patient, personally reviewing all current laboratories, imaging studies, past medication reconciliation, outpatient chart review, and discussion with specialists to collaborate care for the patient with attending. Please see attending documentation for corrections and/or additions. History of Present Illness Chief Complaint: Detox Primary Care Provider: Kishor Lowe DO This is a 38 yo F with PMHx of fatty liver disease, IBS, fibromyalgia, anxiety/mood disorder, ongoing alcohol and tobacco abuse. Pt reports drinking 1 5th of whiskey per day, last drink was sometime early this morning. Upon presentation to the ER her alcohol level was 342. She is awake and conversive at present with the ER staff. Pt has previously been admitted for withdrawal from alcohol earlier this year in end of October, where she was treated with a gabapentin taper and did not have interest in alcohol rehab at that time. Today she states that she was drinking half to 1 full fifth of whiskey, fireball every day. Her last drink was this morning around 10 AM. She reports that her last period of sobriety was mid November, 5 weeks after her previous discharge. 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 Her support system includes mom, dad, boyfriend. She also notes that she does not want her boyfriend to know that she is currently admitted. She has a material handling equipment stevedore who plans to help her with assistance to [facility] after her inpatient hospital stay. She smokes 1.5 packs of cigarettes per day. Patient denies illicit drug use, but does admit to smoking marijuana at least once daily with medical marijuana card. She has been using Ativan from a prescription she was given over 1 year ago to help combat her anxiety/PTSD symptoms. Patient also complains of bilateral lower back pain today, denies any known injury or trauma to this area. Surgical Hx: Anal fistula surgery, dental surgery, tonsillectomy/adenectomy, DNC Family History : Colon cancer, mood disorder, DM Personal/Social history : 1- 1.5 pack daily, alcohol abuse, methods examiner/plastics and composites inspector Allergies Allergy/AdvReac Type Severity Reaction Status Date / Time amitriptyline Allergy Rash Verified 10/22/23 20:53 bee venom protein (honey bee) Allergy Unknown Verified 10/22/23 20:53 benzocaine AdvReac Intermediate GI SYMPTOMS Verified 10/22/23 20:53 bupivacaine AdvReac Intermediate GI SYMPTOMS Verified 10/22/23 20:53 procaine AdvReac Unknown GI SYMPTOMS Verified 10/22/23 20:53 Home Medications Medication Instructions Recorded Confirmed Type pregabalin 100 mg capsule (Lyrica) 100 mg PO AMHS 12/25/19 04/02/24 History propranolol 10 mg tablet 10 mg PO BID 01/28/21 04/02/24 History levonorgestrel 21 mcg/24 hr (up to 0 mcg intrauterine DIRECTED 10/22/23 04/02/24 History 8 years) 52 mg intrauterine device (Mirena) lorazepam 0.5 mg PO DIRECTED 04/02/24 04/02/24 History Past Med/Surg History Problem List (Updated 04/02/24 @ 00:07 by Background Daemon) Alcohol abuse (Acute) History of posttraumatic stress disorder (PTSD) Alcohol withdrawal syndrome (Acute) Alcoholic intoxication (Acute) Fibromyalgia (Acute) Medical History (Updated 04/02/24 @ 00:07 by Background Daemon) Elevated LFTs Tobacco abuse Low back pain Acute neck pain Fall Family History Other Family history non-contributory Social History Smoking Status: Current every day smoker Tobacco Type: Cigarettes Cigarettes Per Day: 20; Hx Alcohol Use: Yes Alcohol type: beer Hx Substance Use: Yes Last Used Substance: Just Prior to Arrival Substance Use Type Other:: hx of meth and heroin use Preferred Language: Citizen Of [place] Communication Ability: Effective Telecom Coordinator Required: No Beliefs That Will Affect Care: None marital status: Current Living Situation: Significant Other current occupational status: employed Feels Safe at Home: Yes Assistive Devices: None Review of Systems Review of Systems: Constitutional: No fever, +sweats, chills and shaking Eyes: No diplopia, no worsening or blurred vision ENT: normal hearing, no trouble swallowing Respiratory: No cough, sputum, dyspnea at rest or on exertion Cardiovascular: No chest pain, tightness, + palpitations Abdomen: No pain, + nausea, +vomiting, +diarrhea, no constipation Musculoskeletal: No joint pain, calf pain, swelling Neurologic: No weakness, numbness/tingling, or balance problems Psychiatric: No anxiety or depression Skin: No rash or itch Physical Exam Physical Exam: General: awake, alert, no apparent distress, + thin, white female Head: Normocephalic, atraumatic ENT: PERRL, EOMI, no pharyngeal exudate, mucous membranes moist Chest: Clear to auscultation, on room air, no adventitious breath sounds Cardiac: Regular rate and rhythm, no murmur, no JVD, normal peripheral pulses, good capillary refill Abdominal: NABS x 4 quadrants, soft, nondistended, nontender to palpation, no rebound or guarding Back: no area of ecchymosis, tender over the bilateral lower sides of spine around L1-2. Extremities: Normal inspection, no peripheral edema or erythema, calfs nontender to palpation Psych: Anxious mood and tearful affect at times Neuro: AAO x 3, strength intact bilaterally and rated 5/5, no motor deficits, speech is clear, no peripheral sensory deficits Results & Data Results & Data Vital Signs (Past 12 Hours) Vital Signs Temp Pulse Pulse Resp BP BP Pulse Ox 04/02/24 13:00 82 04/02/24 13:00 77 20 120/86 91 04/02/24 12:58 93 04/02/24 11:39 36.6 C 101 H 18 109/77 94 O2 Del Method O2 Flow Rate 04/02/24 13:00 04/02/24 13:00 Room Air 04/02/24 12:58 Room Air 0 04/02/24 11:39 Room Air Laboratory Results 04/02/24 04/02/24 13:37 11:49 WBC 6.97 RBC 4.46 Hgb 15.3 Hct 41.3 MCV 92.6 MCH 34.3 H MCHC 37.0 H RDW Std Deviation 43.7 RDW Coeff of Kofi 13.0 Plt Count 285 MPV 9.4 Immature Gran % (Auto) 0.3 Neut % (Auto) 63.9 Lymph % (Auto) 24.2 [place] % (Auto) 9.3 Eos % (Auto) 1.3 Baso % (Auto) 1.0 Neut # (Auto) 4.45 Lymph # (Auto) 1.69 [place] # (Auto) 0.65 H Eos # (Auto) 0.09 Baso # (Auto) 0.07 Immature Gran # (Auto) 0.02 Sodium 139 Potassium 2.8 L Chloride 99 Carbon Dioxide 28 Anion Gap 12 H BUN 4 L Creatinine 0.48 L Est Cr Clr Drug Dosing 130.4 Est GFR ( Amer) 143.2 Est GFR (Non-Af Amer) 123.6 BUN/Creatinine Ratio 8.3 L Glucose 101 H Calcium 9.2 Magnesium 1.8 Total Bilirubin 1.3 H AST 229 H ALT 59 H Alkaline Phosphatase 197 H Total Protein 6.8 Albumin 4.4 Globulin 2.4 L Albumin/Globulin Ratio 1.8 TSH 1.957 Urine Color Yellow Urine Appearance Clear Urine pH 7.0 Ur Specific [place] 1.003 Urine Protein Negative Urine Glucose (UA) Negative Urine Ketones Negative Urine Blood Negative Urine Nitrite Negative Urine Bilirubin Negative Urine Urobilinogen Negative Ur Leukocyte Esterase Negative Salicylates < 3.0 L Urine Opiates Screen Neg Ur Methadone, Qual Neg Urine Fentanyl Screen Neg Acetaminophen < 3 L Urine Barbiturates Neg Ur Phencyclidine (PCP) Neg U Amphetamin/Meth Scrn Neg MDMA (Ecstasy) Screen Neg U Benzodiazepines Scrn Neg Ur Cocaine Metabolite Neg U Marijuana (THC) Screen Pos H Ethyl Alcohol mg/dL 324.2 H Code Status & VTE Plan Code Status Full code - discussed with pt at bedside Supervising Physician Co-Signing Physician Notes Pt seen and examined in the ED with nursing. A total of 16 minutes was spent in coordinating care for this patient. I agree with the assessment and plan per the ANAYA.
[2024-04-02 14:25] LABS: Magnesium 1.8 mg/dl (1.7-2.4)
[2024-04-02 14:27] LABS: Amphetamines+Metham, Urine Neg (Neg); Barbiturates, Urine Neg (Neg); Benzodiazepine, Urine Neg (Neg); Cocaine, Urine Neg (Neg); Fentanyl, Urine Neg (Neg); MDMA (Ecstacy), Urine Neg (Neg); Marijuana, Urine Pos (Neg); Methadone, Urine Neg (Neg); Opiate, Urine Neg (Neg); Phencyclidine, Urine Neg (Neg)
[2024-04-02] MEDS: NICOTINE 21 MG/24 HR TDSY TD SCH (14:46)
[2024-04-02] MEDS: KETOROLAC TROMETHAMINE 15 MG/ML VIAL IV ONE (14:59)
[2024-04-02] MEDS: LORazepam 0.5 MG TAB PO STA (15:00)
--- NOTE | 2024-04-02 16:17 | Emergency Department Note ---
Impression & Plan Alcoholic intoxication, Alcohol withdrawal ED Provider Note NAME: PARESH CALDERON AGE: 38 SEX: F : 1985 ARRIVES VIA: Walk-In INFORMANT: Patient, ED PROVIDER(S): Keke Quinn MD CHIEF COMPLAINT: Alcohol detox HPI: This is a 38-year-old female sent for alcohol detox. Patient states that she has drank 1 L of whiskey per day for the past 2 weeks. She states she is attempting to get sober but fell off the wagon. She notes request of detox as she does get shaky when she stops drinking. She otherwise has not had any previous alcohol withdrawal seizures or hallucinations. She notes she last drink this morning, numerous shots of whiskey. ROS: See above HPI for pertinent positives & negatives. A total of 10 systems reviewed and were otherwise negative. PAST MEDICAL HISTORY: See Below PAST SURGICAL HISTORY: See Below FAMILY HISTORY: See Below SOCIAL HISTORY: See Below HOME MEDICATIONS: See Below ALLERGIES: See Below VITALS: See Below PHYSICAL EXAMINATION: General: Tearful, Head: Normocephalic and atraumatic Eyes: Normal inspection, extraocular muscles intact Ear, nose, throat: Normal external exam Neck: Normal range of motion Respiratory: lungs clear to auscultation bilaterally Cardiovascular: Regular rate/rhythm, no murmur GI: soft, nontender, no guarding or rebound,negative Dorsey sign Extremities: nontender, moves all extremities Neuro: The patient awake and alert, appropriately conversive, no focal deficits, symmetric faces Skin: Warm, dry, and intact MEDICAL DECISION MAKING: This is a 38-year-old female presenting for alcohol detox. Patient does drink significant has a whiskey per day for the past 2 weeks. Consider patient would require detox due to this amount of drinking. She has an alcohol level 324 and is awake, alert and does not appear intoxicated clinically. This does appear consistent with patient's extensive alcohol use. Would be concerned patient was sent home without clear detox plan. Will admit for further workup. -Otherwise patient is hypokalemic, will replete potassium as well as magnesium at this time. -Discussed care with [facility] for admission. Differential diagnosis: Alcohol detox, alcohol withdrawal ER treatment provided: See below Diagnostics interpreted by me: ECG: None Cardiac Monitoring: An order was placed for continuous cardiac monitoring. The monitor shows a rate of 90 with sinus rhythm. Laboratory studies: As stated above and show below. Imaging studies: See below. Past Med/Surg History Problem List (Updated 04/03/24 @ 22:34 by Keke Quinn MD) Alcohol withdrawal (Acute) Alcohol abuse (Acute) History of posttraumatic stress disorder (PTSD) Alcohol withdrawal syndrome (Acute) Alcoholic intoxication (Acute) Fibromyalgia (Acute) Medical History (Updated 04/03/24 @ 22:34 by Keke Quinn MD) Elevated LFTs Tobacco abuse Low back pain Acute neck pain Fall Family History Other Family history non-contributory Social History Smoking Status: Current every day smoker Tobacco Type: Cigarettes Cigarettes Per Day: 20; Second Hand Exposure: No; Do You Dip or Chew Tobacco: No; Tobacco Cessation Education Requested by Patient: No Hx Alcohol Use: Yes Alcohol type: hard liquor Hx Substance Use: Yes Last Used Substance: Just Prior to Arrival Substance Use Type Other:: hx of meth and heroin use Preferred Language: Slovak Communication Ability: Effective Anodiser Required: No Beliefs That Will Affect Care: None marital status: Current Living Situation: Significant Other Current Living Situation Comment: lives with boyfriend and pets current occupational status: employed Other Information That Helps Us Care for You: No Feels Safe at Home: Yes Safety Concerns: Feels Safe At This Time Assistive Devices: Hospital Bed Allergies Allergies Allergy/AdvReac Type Severity Reaction Status Date / Time amitriptyline Allergy Rash Verified 10/22/23 20:53 bee venom protein (honey bee) Allergy Unknown Verified 10/22/23 20:53 benzocaine AdvReac Intermediate GI SYMPTOMS Verified 10/22/23 20:53 bupivacaine AdvReac Intermediate GI SYMPTOMS Verified 10/22/23 20:53 procaine AdvReac Unknown GI SYMPTOMS Verified 10/22/23 20:53 Home Meds Home Medications Medication Instructions Recorded Confirmed pregabalin 100 mg capsule (Lyrica) 100 mg PO [facility] 12/25/19 04/02/24 propranolol 10 mg tablet 10 mg PO BID 01/28/21 04/02/24 levonorgestrel 21 mcg/24 hr (up to 0 mcg intrauterine DIRECTED 10/22/23 04/02/24 8 years) 52 mg intrauterine device (Mirena) lorazepam 0.5 mg PO DIRECTED 04/02/24 04/02/24 Results & Data (ED) Vital Signs Vital Signs - 24 hr 04/02/24 11:39 04/02/24 12:58 04/02/24 13:00 Temperature 36.6 C Temperature Source Temporal Artery Scan Pulse Rate 101 H Pulse Rate [Apical] Pulse Rate [Right Finger] 77 Pulse Rhythm Regular Pulse Rhythm [Apical] Pulse Strength Normal Respiratory Rate 18 20 Respiratory Effort / Characteristics Non-Labored Non-Labored Spontaneous Respiratory Depth Normal Respiratory Pattern Regular Blood Pressure 109/77 Blood Pressure [Left Arm] 120/86 Blood Pressure Mean 87 Blood Pressure Mean [Left Arm] 97 Blood Pressure Position Sitting Blood Pressure Position [Left Arm] Lying Pulse Oximetry 94 93 91 Oxygen Delivery Method Room Air Room Air Room Air Oxygen Flow Rate 0 Sepsis New/Unexplained Change in Mental Status No Sepsis Action Taken by Nursing No Action Required 04/02/24 13:00 04/02/24 14:20 04/02/24 15:18 Temperature 36.7 C Temperature Source Oral Pulse Rate 82 Pulse Rate [Apical] 82 Pulse Rate [Right Finger] 90 Pulse Rhythm Pulse Rhythm [Apical] Regular Pulse Strength Respiratory Rate 16 18 Respiratory Effort / Characteristics Non-Labored Spontaneous Non-Labored Spontaneous Respiratory Depth Normal Respiratory Pattern Regular Blood Pressure Blood Pressure [Left Arm] 105/73 112/74 Blood Pressure Mean Blood Pressure Mean [Left Arm] 83 86 Blood Pressure Position Blood Pressure Position [Left Arm] Lying Pulse Oximetry 92 94 Oxygen Delivery Method Room Air Room Air Oxygen Flow Rate Sepsis New/Unexplained Change in Mental Status Sepsis Action Taken by Nursing Laboratory Data 04/02/24 11:49 04/03/24 05:57 Lab Results 04/02/24 04/02/24 Range/Units 11:49 13:37 WBC 6.97 (4.8-10.8) K/ul RBC 4.46 (4.20-5.40) M/uL Hgb 15.3 (12.0-16.0) g/dl Hct 41.3 (37.0-47.0) % MCV 92.6 (80.0-100.0) fL MCH 34.3 H (25.0-34.0) pg MCHC 37.0 H (32.0-36.0) g/dL RDW Std Deviation 43.7 (36.4-46.3) fL RDW Coeff of Kofi 13.0 (11.5-14.5) % Plt Count 285 (130-400) K/uL MPV 9.4 (9.4-12.4) fL Immature Gran % (Auto) 0.3 % Neut % (Auto) 63.9 % Lymph % (Auto) 24.2 % [place] % (Auto) 9.3 % Eos % (Auto) 1.3 % Baso % (Auto) 1.0 % Neut # (Auto) 4.45 (1.40-6.50) K/uL Lymph # (Auto) 1.69 (1.20-3.40) K/uL [place] # (Auto) 0.65 H (0.11-0.59) K/uL Eos # (Auto) 0.09 (0.00-0.50) K/uL Baso # (Auto) 0.07 (0.00-0.20) K/uL Immature Gran # (Auto) 0.02 (0.01-0.20) K/uL Sodium 139 (136-145) mmol/L Potassium 2.8 L (3.5-5.1) mmol/L Chloride 99 (98-107) mmol/L Carbon Dioxide 28 (21-32) mmol/L Anion Gap 12 H (3-11) BUN 4 L (6-23) mg/dl Creatinine 0.48 L (0.6-1.2) mg/dl Est Cr Clr Drug Dosing 130.4 ml/min Est GFR ( Amer) 143.2 ml/min Est GFR (Non-Af Amer) 123.6 ml/min BUN/Creatinine Ratio 8.3 L (10-20) Glucose 101 H (70-99(Fasting)) mg/dl Calcium 9.2 (8.6-10.3) mg/dl Magnesium 1.8 (1.7-2.4) mg/dl Total Bilirubin 1.3 H (0.2-1.0) mg/dl AST 229 H (13-39) U/L ALT 59 H (7-52) U/L Alkaline Phosphatase 197 H (34-104) U/L Total Protein 6.8 (6.0-8.3) gm/dl Albumin 4.4 (3.4-5.0) gm/dl Globulin 2.4 L (2.5-4.0) gm/dl Albumin/Globulin Ratio 1.8 (0.9-2) TSH 1.957 (0.300-4.500) uIu/ml Urine Color Yellow Urine Appearance Clear (Clear) Urine pH 7.0 (4.5-7.5) Ur Specific Taylor 1.003 (1.000-1.030) Urine Protein Negative (Negative) Urine Glucose (UA) Negative (Negative) Urine Ketones Negative (Negative) Urine Blood Negative (Negative) Urine Nitrite Negative (Negative) Urine Bilirubin Negative (Negative) Urine Urobilinogen Negative (Negative) Ur Leukocyte Esterase Negative (Negative) Salicylates < 3.0 L (3.0-30) mg/dl Urine Opiates Screen Neg (Neg) Ur Methadone, Qual Neg (Neg) Urine Fentanyl Screen Neg (Neg) Acetaminophen < 3 L (10-30) ug/ml Urine Barbiturates Neg (Neg) Ur Phencyclidine (PCP) Neg (Neg) U Amphetamin/Meth Scrn Neg (Neg) MDMA (Ecstasy) Screen Neg (Neg) U Benzodiazepines Scrn Neg (Neg) Ur Cocaine Metabolite Neg (Neg) U Marijuana (THC) Screen Pos H (Neg) Ethyl Alcohol mg/dL 324.2 H (<10.0) mg/dl Administered Medications Acetaminophen (Acetaminophen 325 Mg Tab) 650 mg PO Q4H PRN PRN Reason: Moderate Pain (Scale 4, 5, 6) Stop: 05/02/24 18:10 Last Admin: 04/03/24 05:52 Dose: 650 mg Documented By: AEChioma Chlordiazepoxide HCl (Chlordiazepoxide Hcl 25 Mg Cap) 50 mg PO Q8H [facility] Stop: 04/04/24 12:16 Last Admin: 04/03/24 20:34 Dose: 50 mg Documented By: CHRISTEN Folic Acid (Folic Acid 1 Mg Tab) [facility] Stop: 05/03/24 08:59 Last Admin: 04/03/24 09:39 Dose: 1 mg Documented By: ROBEL Prochlorperazine 10 mg/ (Syringe) 10 mls @ 5 mls/min IV Q6H PRN PRN Reason: Nausea And Vomiting Stop: 05/02/24 16:10 Last Admin: 04/02/24 18:39 Dose: 5 mls/min Documented By: [id number] Lorazepam (Lorazepam 2 Mg/1 Ml Vial) 1 mg IV UD PRN; Protocol PRN Reason: EtOH Withdrawal AWSS Score 6,7 Stop: 05/02/24 22:02 Last Admin: 04/03/24 20:35 Dose: 1 mg Documented By: Admin: 04/03/24 14:37 Dose: 1 mg Documented By: Admin: 04/02/24 22:59 Dose: 1 mg Documented By: BENITO Miscellaneous (Remove Nicoderm Patch) 1 each N/A DAILY@0859 [facility] Stop: 05/03/24 08:58 Last Admin: 04/03/24 09:43 Dose: 1 each Documented By: ROBEL Nicotine (Nicotine 21 Mg/24 Hr Tdsy) 1 patch TD [facility] Stop: 05/02/24 14:44 Last Admin: 04/03/24 10:50 Dose: 1 patch Documented By: Admin: 04/02/24 14:46 Dose: 1 patch Documented By: MAHAD Pregabalin (Pregabalin 100 Mg Cap) 100 mg PO [facility] Stop: 05/02/24 20:59 Last Admin: 04/03/24 20:33 Dose: 100 mg Documented By: Admin: 04/03/24 09:41 Dose: 100 mg Documented By: Admin: 04/02/24 21:12 Dose: 100 mg Documented By: BENITO Propranolol HCl (Propranolol Hcl 10 Mg Tab) 10 mg PO BID [facility] Stop: 05/02/24 20:59 Last Admin: 04/03/24 21:03 Dose: 10 mg Documented By: Admin: 04/03/24 09:39 Dose: 10 mg Documented By: Admin: 04/02/24 21:12 Dose: 10 mg Documented By: BENITO Thiamine HCl (Thiamine Hcl 100 Mg Tab) 100 mg PO [facility] Stop: 05/03/24 08:59 Last Admin: 04/03/24 09:39 Dose: 100 mg Documented By: ROBEL Discontinued Medications Chlordiazepoxide HCl (Chlordiazepoxide Hcl 25 Mg Cap) 50 mg PO Q6H [facility] Stop: 04/03/24 12:12 Last Admin: 04/03/24 12:21 Dose: 50 mg Documented By: Admin: 04/03/24 05:53 Dose: 50 mg Documented By: Admin: 04/03/24 00:16 Dose: 50 mg Documented By: Admin: 04/02/24 18:40 Dose: 50 mg Documented By: [id number] Potassium Chloride (K Lasha / Wtr) 10 meq in 100 mls @ 100 mls/hr IV Q1H [facility] Stop: 04/02/24 15:44 Last Infusion: 04/02/24 16:13 Dose: Infused Documented By: Admin: 04/02/24 15:06 Dose: 100 mls/hr Documented By: Infusion: 04/02/24 14:48 Dose: Infused Documented By: Admin: 04/02/24 13:48 Dose: 100 mls/hr Documented By: MAHAD Magnesium Sulfate/Dextrose (Magnesium Sulfate / D5w) 1 gm in 100 mls @ 100 mls/hr IV Q1H [facility] Stop: 04/02/24 15:39 Last Infusion: 04/02/24 16:13 Dose: Infused Documented By: Admin: 04/02/24 15:05 Dose: 100 mls/hr Documented By: Infusion: 04/02/24 14:56 Dose: Infused Documented By: Admin: 04/02/24 13:56 Dose: 100 mls/hr Documented By: MAHAD Multivitamins 10 ml/ Thiamine HCl 100 mg/ Folic Acid 1 mg/Potassium Chloride 20 meq/Sodium Chloride 1,021.2 mls @ 500 mls/hr IV .Q2H3M ONE Stop: 04/02/24 20:32 Last Infusion: 04/02/24 20:43 Dose: Infused Documented By: Admin: 04/02/24 18:40 Dose: 500 mls/hr Documented By: [id number] Ketorolac Tromethamine (Ketorolac Tromethamine 15 Mg/Ml Vial) 15 mg IV NOW ONE Stop: 04/02/24 14:55 Last Admin: 04/02/24 14:59 Dose: 15 mg Documented By: MAHAD Lorazepam (Lorazepam 0.5 Mg Tab) 0.25 mg PO NOW STA Stop: 04/02/24 14:56 Last Admin: 04/02/24 15:00 Dose: 0.25 mg Documented By: MAHAD Morphine Sulfate (Morphine Sulfate 4 Mg/Ml 1 Ml Carp\Vial) 2 mg IV NOW STA Stop: 04/02/24 16:20 Last Admin: 04/02/24 16:38 Dose: 2 mg Documented By: MAHAD Ondansetron HCl (Ondansetron Inj 2 Mg/Ml 2 Ml Vial) 4 mg IV NOW STA Stop: 04/02/24 13:40 Last Admin: 04/02/24 13:48 Dose: 4 mg Documented By: MAHAD Potassium Chloride (Potassium Chloride Crtab 20 Meq Tabcr) 40 meq PO NOW STA Stop: 04/02/24 13:40 Last Admin: 04/02/24 13:43 Dose: 40 meq Documented By: MAHAD Potassium Chloride (Potassium Chloride Crtab 20 Meq Tabcr) 40 meq PO NOW STA Stop: 04/02/24 18:25 Last Admin: 04/02/24 18:39 Dose: 40 meq Documented By: [id number] Discharge Plan Visit Data Chief Complaint: Detox Request Stated Complaint: DETOX ED Provider: Keke Quinn Discharge Problem: Alcoholic intoxication, Alcohol withdrawal Patient Disposition: Admitted As Inpatient Discharge Instructions Interventions: ED Discharge Assessment Last Done: 04/02/24 17:15
[2024-04-02] MEDS: MoRPHine SULFATE 4 MG/ML 1 ML CARP\\VIAL IV STA (16:38)
--- NOTE | 2024-04-02 17:43 | CT Scan Report ---
CT OF THE ABDOMEN AND PELVIS WITHOUT CONTRAST CLINICAL HISTORY: Lower back pain. COMPARISON STUDY: CT of the abdomen and pelvis May 23, 2022. TECHNIQUE: Axial images of the abdomen and pelvis were obtained without IV contrast. Images were revi ewed in the axial, sagittal, and coronal planes. Automated exposure control was utilized for the mila dy. A dose lowering technique was utilized adhering to the principles of ALARA. FINDINGS: Lung bases are unremarkable. No pneumatosis, free air or portal venous gas is present. Ther e is severe hepatic steatosis. No hepatic lesions are identified although sensitivity is diminished o n this exam. There is layering material within the gallbladder without evidence for acute cholecystit is. No biliary or pancreatic ductal dilatation is present. There is mild stranding adjacent to the pa ncreas as well as minimal stranding within the mesentery. There are no peripancreatic fluid collectio ns. The renal pyramids are slightly dense but there are no discrete calculi. There is no hydronephros is. The appendix is partially obscured but visualized portions are normal. There is mild wall thicken ing of the ascending colon and the transverse colon with subtle pericolonic strandy. No evidence for a bowel obstruction. Intrauterine device is in place. The ovaries are not enlarged. There are no flui d collections. No lumbar spine fractures are present. IMPRESSION: 1. Mild stranding adjacent to the pancreas which may reflect acute pancreatitis. No peripancreatic fl uid collections. 2. Layering material within the gallbladder which could reflect sludge or stones. No evidence for acu te cholecystitis. 3. Severe hepatic steatosis. 4. Mild right colon wall thickening. This may be due to underdistention however a nonspecific colitis could appear similar. No bowel obstruction. 5. Partially obscured appendix but visualized portions normal. ACT 112: Negative or not required by law. Electronically signed by: Sesar Hawthorne M.D. 04/02/2024 5:41 PM
[2024-04-02] MEDS ORDERED: chlordiazePOXIDE ALCOHOL WITHDRAWL 50MG PO STA (18:11)
[2024-04-02] MEDS: PROCHLORPERAZINE 10 MG in SYRINGE 8 ML IV PRN (18:39)
[2024-04-02] MEDS: chlordiazePOXIDE HCl 25 MG CAP PO SCH (18:40)
[2024-04-02] MEDS: MULTI-VITAMIN INFUSION 10 ML, THIAMINE HCL 100 MG, FOLIC ACID 1 MG, POTASSIUM CHLORIDE ... IV ONE (18:40)
[2024-04-02] MEDS: PROPRANOLOL HCL 10 MG TAB PO SCH (21:12)
[2024-04-02] MEDS: PREGABALIN 100 MG CAP PO SCH (21:12)
[2024-04-02] MEDS ORDERED: Ativan IV Alcohol Withdrawal--Active Protocol IV PRN (22:03)
[2024-04-02] MEDS ORDERED: LORazepam 2 MG/1 ML VIAL IV PRN ×2 (22:03)
[2024-04-02] MEDS: LORazepam 2 MG/1 ML VIAL IV PRN (22:59)
[2024-04-03] MEDS: ACETAMINOPHEN 325 MG TAB PO PRN (05:52)
[2024-04-03 06:31] LABS: Alanine Aminotransferase 51 U/L (7-52); Albumin Globulin Ratio 1.9 (0.9-2); Albumin Level 3.4 gm/dl (3.4-5.0); Alkaline Phosphatase 165 U/L (34-104); Anion Gap 5 (3-11); Aspartate Aminotransferase 263 U/L (13-39); BUN Creatinine Ratio 9.8 (10-20); Blood Urea Nitrogen 4 mg/dl (6-23); Carbon Dioxide 25 mmol/L (21-32); Chloride 109 mmol/L (98-107); Creatinine Clr Calc Pharmacy 152.7 ml/min; Est GFR (African American) > 150.0 ml/min; Est GFR (Non-African American) 130.1 ml/min; Globulin 1.8 gm/dl (2.5-4.0); Glucose 96 mg/dl (70-99(Fasting)); Magnesium 1.9 mg/dl (1.7-2.4); Potassium 3.6 mmol/L (3.5-5.1); Sodium 139 mmol/L (136-145); Total Protein 5.2 gm/dl (6.0-8.3)
[2024-04-03] MEDS: FOLIC ACID 1 MG TAB PO SCH (09:39)
[2024-04-03] MEDS: THIAMINE HCL 100 MG TAB PO SCH (09:39)
[2024-04-03 11:59] LABS: Cdiff Toxin B Gene (2yr or >) Positive Cdiff Gene (Neg)
[2024-04-03 13:07] LABS: Cdiff Antigen Negative; Cdiff Toxin A+B Negative Cdiff Toxin (Negative)
--- NOTE | 2024-04-03 14:34 | Hospitalist Progress Note ---
Date of Service April 03, 2024 Assessment & Plan (1) Alcohol abuse: Plan: ETOH Abuse Alcohol intoxication and detox request Elevated LFTs Has been drinking more than usual recently and was sent in by the primary care physician for detoxification No acute confusion/delirium on arrival and alcohol level is high at 342 She was admitted to med/telemetry unit with withdrawal protocol She has nausea and diarrhea but no other acute symptoms Denied to go to inpatient rehab and she plans to follow through with outpatient alcohol Anonymous group to quit drinking (2) Elevated LFTs: Plan: Elevated LFTs include Tbili 1.3, AST 229, ALT 59, Alk phos 197 are consistent with etoh abuse. Would recommend follow up with GI. Secondary to chronic alcoholism Strongly advised to quit drinking and keep up with follow-up appointments with the PCP and [employer] (3) History of posttraumatic stress disorder (PTSD): Plan: PTSD Fibromyalgia - home meds of lyrica ordered, will give 1 x dose of toradol IV now. - Does not follow with psych as outpatient -No psychiatric issue (4) Fibromyalgia: (5) Tobacco abuse: Plan: Tobacco abuse Marijuana Use - Cessation encouraged at bedside, smokes 1.5 ppd, nicotine patch ordered - smokes marijuana daily for PTSD and anxiety, has medical marijuana card. Denies other ilicit drug use. Tox screen pending DVT ppx: ambulatory Lines: PIV x 1 CODE: FULL Diet: Regular as tolerated Admission and Anticipated Discharge Date Admission Date: April 02, 2024 Subjective 04/03/2024 The patient was seen and examined in medical telemetry unit She complains to have nausea and also having diarrhea without any significant abdominal pain Also has tremors involving the outstretched hands No palpitation and no confusion Review of Systems Review of Systems: All systems reviewed and are unremarkable except as noted below Physical Exam Physical Exam: Lying in bed without any acute distress Constitutional: + ill appearing and average body habitus Eyes: PERRL, conjunctivae normal, anicteric sclerae ENMT: external ear and nose normal, oropharynx normal Neck: trachea midline, no thyromegaly Respiratory: no respiratory distress Auscultation: lungs clear to auscultation bilaterally Cardiovascular: Rate/Rhythm: regular rate and regular rhythm; not tachycardic Heart Sounds: normal S1 and normal S2; no murmur Extremities: no edema Gastrointestinal (Abdomen): Inspection/Auscultation: normal bowel sounds; abdomen not distended Percussion/Palpation: abdomen soft; abdomen nontender Musculoskeletal: No acute arthritis involving any of the joint Neurologic: normal touch/pain/proprioception and moves all extremities; no focal motor deficits and not confused Minimal tremors involving the outstretched hands Psychiatric: A+Ox3, euthymic affect Lymphatic: no cervical or axillary lymphadenopathy Results & Data Results & Data Vital Signs (Past 12 Hours) Vital Signs Temp Pulse Pulse Resp BP BP Pulse Ox 04/03/24 11:45 36.9 C 87 18 121/86 97 04/03/24 08:26 36.8 C 79 17 121/84 94 04/03/24 03:28 37.0 C 80 20 119/79 93 O2 Del Method 04/03/24 11:45 Room Air 04/03/24 08:26 Room Air 04/03/24 03:28 Room Air Laboratory Results [facility] 04/03/24 05:57 Sodium 139 Potassium 3.6 D Chloride 109 H Carbon Dioxide 25 BUN 4 L Creatinine 0.41 L Glucose 96 Calcium 8.0 L Liver Function 04/03/24 Range/Units 05:57 Total Bilirubin 2.0 H D (0.2-1.0) mg/dl AST 263 H (13-39) U/L ALT 51 (7-52) U/L Alkaline Phosphatase 165 H (34-104) U/L Albumin 3.4 (3.4-5.0) gm/dl Medications Administered Current Inpatient Medications Acetaminophen (Acetaminophen 325 Mg Tab) 650 mg PO Q4H PRN PRN Reason: Moderate Pain (Scale 4, 5, 6) Stop: 05/02/24 18:10 Last Admin: 04/03/24 05:52 Dose: 650 mg Chlordiazepoxide HCl (Chlordiazepoxide Hcl 25 Mg Cap) 50 mg PO Q8H [facility] Stop: 04/04/24 08:16 Chlordiazepoxide HCl (Chlordiazepoxide Hcl 25 Mg Cap) 25 mg PO Q8H [facility] Stop: 04/05/24 08:16 Chlordiazepoxide HCl (Chlordiazepoxide Hcl 10 Mg Cap) 10 mg PO Q12H [facility] Stop: 04/06/24 08:16 Folic Acid (Folic Acid 1 Mg Tab) 1 mg PO QAM [facility] Stop: 05/03/24 08:59 Last Admin: 04/03/24 09:39 Dose: 1 mg Prochlorperazine 10 mg/ (Syringe) 10 mls @ 5 mls/min IV Q6H PRN PRN Reason: Nausea And Vomiting Stop: 05/02/24 16:10 Last Admin: 04/02/24 18:39 Dose: 5 mls/min Ketorolac Tromethamine (Ketorolac Tromethamine 15 Mg/Ml Vial) 15 mg IV Q6H PRN PRN Reason: Moderate Pain (Scale 4, 5, 6) Stop: 04/07/24 20:59 Lorazepam (Lorazepam 2 Mg/1 Ml Vial) 1 mg IV UD PRN; Protocol PRN Reason: EtOH Withdrawal AWSS Score 6,7 Stop: 05/02/24 22:02 Last Admin: 04/02/24 22:59 Dose: 1 mg Lorazepam (Lorazepam 2 Mg/1 Ml Vial) 2 mg IV UD PRN; Protocol PRN Reason: EtOH Withdrawal AWSS Score 8,9 Stop: 05/02/24 22:02 Lorazepam (Lorazepam 2 Mg/1 Ml Vial) 3 mg IV ONCE PRN; Protocol PRN Reason: EtOH Withdrawal AWSS Score 10+ Miscellaneous (Remove Nicoderm Patch) 1 each N/A DAILY@0859 [facility] Stop: 05/03/24 08:58 Last Admin: 04/03/24 09:43 Dose: 1 each Nicotine (Nicotine 21 Mg/24 Hr Tdsy) 1 patch TD QAM [facility] Stop: 05/02/24 14:44 Last Admin: 04/03/24 10:50 Dose: 1 patch Ondansetron HCl (Ondansetron Inj 2 Mg/Ml 2 Ml Vial) 4 mg IV Q4H PRN PRN Reason: Nausea And Vomiting Stop: 05/02/24 18:10 Pregabalin (Pregabalin 100 Mg Cap) 100 mg PO [facility] Stop: 05/02/24 20:59 Last Admin: 04/03/24 09:41 Dose: 100 mg Propranolol HCl (Propranolol Hcl 10 Mg Tab) 10 mg PO BID [facility] Stop: 05/02/24 20:59 Last Admin: 04/03/24 09:39 Dose: 10 mg Thiamine HCl (Thiamine Hcl 100 Mg Tab) 100 mg PO QAM [facility] Stop: 05/03/24 08:59 Last Admin: 04/03/24 09:39 Dose: 100 mg
[2024-04-03] MEDS: chlordiazePOXIDE HCl 25 MG CAP PO SCH (20:34)
[2024-04-04 06:52] LABS: Albumin Globulin Ratio 1.9 (0.9-2); Albumin Level 3.4 gm/dl (3.4-5.0); BUN Creatinine Ratio 9.1 (10-20); Bilirubin,Total 0.8 mg/dl (0.2-1.0); Calcium 8.4 mg/dl (8.6-10.3); Creatinine Clr Calc Pharmacy 143.4 ml/min; Est GFR (African American) 147.4 ml/min; Est GFR (Non-African American) 127.2 ml/min; Globulin 1.8 gm/dl (2.5-4.0); Magnesium 1.6 mg/dl (1.7-2.4); Phosphorus 2.6 mg/dl (2.5-4.9); Total Protein 5.2 gm/dl (6.0-8.3)
[2024-04-04] MEDS: INFLUENZA VACC TS2024-25(6m+)/PF (IIV3) 0.5mL Syr IM ONE (11:07)
[2024-04-04] MEDS: MAGNESIUM SULFATE / D5W 1 GM/100 ML BAG IV SCH (13:01)
[2024-04-04] MEDS: POTASSIUM CHLORIDE CRTAB 20 MEQ TABCR PO SCH (13:50)
[2024-04-04] MEDS: chlordiazePOXIDE HCl 25 MG CAP PO ONE (13:59)
[2024-04-04] MEDS: KETOROLAC TROMETHAMINE 15 MG/ML VIAL IV PRN (15:02)
--- NOTE | 2024-04-04 15:48 | Hospitalist Progress Note ---
Date of Service April 04, 2024 Assessment & Plan (1) Alcohol withdrawal: (2) Electrolyte abnormality: (3) Alcohol abuse: (4) Alcohol induced liver disorder: (5) Generalized anxiety disorder: (6) Fibromyalgia: (7) Posttraumatic stress disorder: Plan Patient with significant alcohol dependence as a coping mechanism for her mental health issues. Evidence of alcohol induced liver injury and liver disorder. Withdrawal symptoms have stabilized. Patient has plan for Vivitrol injections starting tomorrow afternoon. Patient reports has plans for see psychology counseling, knows of a alcoholic Anonymous meetings near her. Patient reports commitment to using multimodal treatment options for her alcohol dependence. Aggressively replace electrolytes Check labs in a.m. Anticipate probable discharge tomorrow if electrolytes stabilized Admission and Anticipated Discharge Date Admission Date: April 02, 2024 Subjective Patient feeling improved. Requiring minimal as needed Ativan. States that the reason she drinks is that she gets extreme anxiety cannot sleep and alcohol is the only way that she can address that. Outpatient providers she reports have been hesitant to prescribe benzodiazepines. Patient reports that she has tried BuSpar, SSRIs which have not been helpful. Physical Exam Physical Exam: Constitutional: Alert, no acute distress HEENT: Mucous membranes moist. Lungs: Clear to auscultation, decreased, no wheezes rales or rhonchi CV: S1-S2, regular Abdomen: Soft, nontender, nondistended Extremities: No significant edema Neuro: No focal deficits, no tremor, no obvious withdrawal symptoms Psych: Cooperative, normal mood Results & Data Results & Data Vital Signs (Past 12 Hours) Vital Signs Temp Pulse Resp BP Pulse Ox O2 Del Method 04/04/24 15:21 36.6 C 74 18 114/78 96 Room Air 04/04/24 11:34 36.7 C 81 18 116/81 97 Room Air 04/04/24 07:45 36.8 C 77 18 117/81 99 Room Air Diagnostic Findings Reviewed imaging, laboratory and diagnostic studies. Pertinent findings as below. Potassium 3.0 Magnesium 1.6 LFTs stable
[2024-04-04] MEDS: chlordiazePOXIDE HCl 25 MG CAP PO SCH (19:47)
[2024-04-04] MEDS: ONDANSETRON INJ 2 MG/ML 2 ML VIAL IV PRN (21:14)
[2024-04-05] MEDS ORDERED: IBUPROFEN 200 MG TAB PO PRN (01:57)
[2024-04-05 07:55] LABS: BUN Creatinine Ratio 12.8 (10-20); Calcium 8.4 mg/dl (8.6-10.3); Creatinine Clr Calc Pharmacy 161.7 ml/min; Magnesium 2.1 mg/dl (1.7-2.4); Potassium 4.2 mmol/L (3.5-5.1)
[2024-04-05 07:58] VITALS: BP 112/59; RESP 18; TEMP 97.9; O2SAT 97
--- NOTE | 2024-04-05 09:39 | Discharge Summary ---
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 [place] hunter in intoxicated on alcohol with high risk of withdrawal symptoms. Patient was admitted to the hospital. She was placed on alcohol withdrawal protocol. She did well through this. Her electrolytes were replaced as needed. Patient also reported having diarrhea for months. She was tested for C. difficile. She was negative for the toxin but positive for the gene. Her withdrawal symptoms aware fairly mild. During this time she was able to coordinate outpatient follow-up with behavioral health counselor. She also was able to coordinate Vivitrol injections which she is scheduled for this afternoon. She also has known support services and alcoholics anonymous meetings that she can attend. On day of discharge her vital signs are stable. No significant alcohol withdrawal symptomatology. She can be discharged home with outpatient follow- up. She states that she has been having this diarrhea for quite some time. Has followed with GI has both upper and lower endoscopy. She does not test positive for the C. difficile toxin, however it does look like she is a carrier she may be symptomatic nonetheless. I discussed with her the options to empirically treat and see if her diarrhea improves. She was agreeable to this. Send her home with a prescription for oral vancomycin for 10-day course. Also given a small amount of Ativan to take at night. She reports that her anxiety is severe when she tries to go to bed this prevents her from sleeping and she turns alcohol to help her sleep. Review of the PDMP showed that that her last Ativan prescription was over 1 year ago. She says she just use the last pill a couple weeks ago. [place] comfortable giving her a small amount of Ativan so she can use that for sleep as needed and to continue discussing with her mental health pr ofessionals on management of her generalized anxiety disorder. Notes For Next Care Provider Continue to encourage patient to stop all alcohol and decrease her smoking Continue's encouraging patient to use Vivitrol May need additional treatment and interventions on her generalized anxiety and other mental health disorders Medication Changes From Visit Empiric course of vancomycin for C. difficile carrier with symptoms Admission HPI Per Admitting Provider This is a 38 yo F with PMHx of fatty liver disease, IBS, fibromyalgia, anxiety/mood disorder, ongoing alcohol and tobacco abuse. Pt reports drinking 1 5th of whiskey per day, last drink was sometime early this morning. Upon presentation to the ER her alcohol level was 342. She is awake and conversive at present with the ER staff. Pt has previously been admitted for withdrawal from alcohol earlier this year in end of October, where she was treated with a gabapentin taper and did not have interest in alcohol rehab at that time. Today she states that she was drinking half to 1 full fifth of whiskey, fireball every day. Her last drink was this morning around 10 AM. She reports that her last period of sobriety was mid November, 5 weeks after her previous discharge. 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 Her support system includes mom, dad, boyfriend. She also notes that she does not want her boyfriend to know that she is currently admitted. She has a laborer driver who plans to help her with assistance to [facility] after her inpatient hospital stay. She smokes 1.5 packs of cigarettes per day. Patient denies illicit drug use, but does admit to smoking marijuana at least once daily with medical marijuana card. She has been using Ativan from a prescription she was given over 1 year ago to help combat her anxiety/PTSD symptoms. Patient also complains of bilateral lower back pain today, denies any known injury or trauma to this area. 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 Lungs: Clear to auscultation, decreased, no wheezes rales or rhonchi CV: S1-S2, regular Abdomen: Soft, nontender, nondistended Extremities: No significant edema Neuro: No focal deficits Psych: Cooperative, normal mood Updated Medication List Medication Instructions Recorded Confirmed Type pregabalin 100 mg capsule (Lyrica) 100 mg PO AMHS 12/25/19 04/02/24 History propranolol 10 mg tablet 10 mg PO BID 01/28/21 04/02/24 History levonorgestrel 21 mcg/24 hr (up to 0 mcg intrauterine DIRECTED 10/22/23 04/02/24 History 8 years) 52 mg intrauterine device (Mirena) lorazepam 0.5 mg PO DIRECTED 04/02/24 04/02/24 History lorazepam 1 mg tablet (Ativan) 1 mg PO HS PRN sleep #10 tabs 04/05/24 Rx nicotine 21 mg/24 hr daily 1 patch transdermal QAM #28 ea 04/05/24 Rx transdermal patch (Nicoderm CQ) vancomycin 125 mg capsule 125 mg PO QID 10 days #40 caps 04/05/24 Rx Hospital Stay Data Consultations 04/02/24 14:01 ED Decision to Admit Stat Diagnostic Imagining Performed 04/02/24 16:21 CT abd pelvis wo con Stat Reviewed imaging, laboratory and diagnostic studies. Pertinent findings as below. Sodium 141 Potassium 4.2 Chloride 111 Creatinine 0.39 Magnesium 2.1 Pending Results Patient Have Any Pending Studies at Discharge: No Discharge Instructions Given to Patient (Per Discharging Provider) Strongly encourage you to stop all alcohol intake Strongly encourage you to follow-up and keep your appointment for Vivitrol injection Strongly encourage you to attend alcohol Anonymous meetings Strongly encourage you to meet regularly with your psychologist/behavioral health counselor Total Time Total Time Spent Total Time Spent (In Minutes): 34
[2024-04-05 09:59] VITALS: PULSE 75
[2024-04-05 10:28] LABS: Marijuana Quant, GCMS Urine 140 ng/mL (<5)
== END 2024-04-05 10:30 | disposition home or self-care (01) | DRG 897 ==
LOC: ED 11:38 → SUATTDRO 14:13 → 2W 14:13

== ENCOUNTER 2024-08-14 13:00 | Inpatient (IN) ==
[2024-08-14 13:53] LABS: Basophils # (auto) 0.05 K/uL (0.00-0.20); Basophils % (auto) 0.7 %; Eosinophils # (auto) 0.06 K/uL (0.00-0.50); Eosinophils % (auto) 0.9 %; Hematocrit (blood only) 42.8 % (37.0-47.0); Hemoglobin 15.3 g/dl (12.0-16.0); Immature Granulocytes # (auto) 0.01 K/uL (0.01-0.20); Immature Granulocytes % (auto) 0.1 %; Lymphocytes # (auto) 2.27 K/uL (1.20-3.40); Lymphocytes % (auto) 33.3 %; Mean Corpuscular Hemoglobin 31.1 pg (25.0-34.0); Mean Corpuscular Hgb Conc 35.7 g/dL (32.0-36.0); Mean Platelet Volume 9.3 fL (9.4-12.4); Monocytes # (auto) 0.41 K/uL (0.11-0.59); Neutrophils # (auto) 4.02 K/uL (1.40-6.50); Platelet Count 332 K/uL (130-400); RDW Coefficient of Variation 12.3 % (11.5-14.5); RDW Standard Deviation 38.6 fL (36.4-46.3); Red Blood Count 4.92 M/uL (4.20-5.40); White Blood Count 6.82 K/ul (4.8-10.8)
[2024-08-14 14:08] LABS: Acetaminophen < 3 ug/ml (10-30); Salicylate < 3.0 mg/dl (3.0-30)
[2024-08-14 14:08] LABS: Appearance Urine Clear (Clear); Bilirubin Urine Negative (Negative); Blood Urine Negative (Negative); Color Urine Yellow; Glucose Urine UA Negative (Negative); Ketones Urine Trace (Negative); Leukocyte Esterase Urine Negative (Negative); Nitrite Urine Negative (Negative); Protein Urine Negative (Negative); Specific Gravity Urine 1.015 (1.000-1.030); Urobilinogen Urine Negative (Negative)
[2024-08-14 14:10] LABS: Albumin Globulin Ratio 1.8 (0.9-2); Albumin Level 4.3 gm/dl (3.4-5.0); BUN Creatinine Ratio 15.4 (10-20); Bilirubin,Total 0.9 mg/dl (0.2-1.0); Calcium 8.8 mg/dl (8.6-10.3); Creatinine Clr Calc Pharmacy 103.3 ml/min; Globulin 2.4 gm/dl (2.5-4.0); Potassium 3.4 mmol/L (3.5-5.1); Total Protein 6.7 gm/dl (6.0-8.3)
[2024-08-14 14:24] LABS: Thyroid Stimulating Hormone 0.864 uIu/ml (0.300-4.500)
[2024-08-14 15:00] LABS: Amphetamines+Metham, Urine Neg (Neg); Barbiturates, Urine Neg (Neg); Benzodiazepine, Urine Neg (Neg); Cocaine, Urine Neg (Neg); Fentanyl, Urine Neg (Neg); MDMA (Ecstacy), Urine Neg (Neg); Marijuana, Urine Pos (Neg); Methadone, Urine Neg (Neg); Opiate, Urine Neg (Neg); Phencyclidine, Urine Neg (Neg)
[2024-08-14] MEDS: diazePAM 5 MG/ML 10ML VIAL IV STA (17:31)
--- NOTE | 2024-08-14 18:26 | History & Physical Report ---
Date of Service August 14, 2024 Assessment & Plan (1) Alcohol abuse: (2) Alcoholic intoxication: Plan: Daisy Pepper is a 38y/o F with PMHx significant for chronic rhinitis, asthma, IBS, GERD without esophagitis, fatty liver disease, fibromyalgia, MERRY, PTSD, d epression, marijuana use, tobacco use disorder and ongoing alcohol use who presented to the ED for mental health evaluation and alcohol detoxification. EtOH level 178.7 on admission. S/p 10mg IV diazepam in the ED. LFTs WNL. Initiate alcohol withdrawal protocol. Gabapentin taper with PRN Ativan. Psychiatry consulted - patient agreeable. Thiamine/folic acid. Urine tox screen + for marijuana. Additional initial lab evaluation otherwise grossly unremarkable except for hypokalemia noted below. (3) Upper respiratory tract infection: Plan: Ongoing cough since May - now productive of yellow/green sputum. No recorded fevers. Check respiratory BioFire panel. Suspect superimposed bacterial bronchitis component on underlying viral URI. Check CXR. Check procalcitonin. Starting doxycycline. Probiotic added on. (4) IBS (irritable bowel syndrome): Plan: Appears chronic diarrhea at baseline. She was tested for C. difficile during last admission in April 2024. She was negative for the toxin but positive for the gene. 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 Will check C. difficile and stool PCR testing given ongoing diarrhea complaints. (5) Tobacco use disorder: Plan: Currently smoking 1ppd. Encourage smoking cessation. Nicotine patch ordered. (6) Hypokalemia: Plan: K+ 3.4 on admission. Repleted with 40mEq po KCl. Continue to monitor and replete PRN. DVT Prophylaxis: SCDs/TEDs Code Status: FULL CODE PCP: Kishor Lowe, Disposition: Admit to Med/Telemetry for further inpatient evaluation and management. Patient seen in collaboration with Dr. Robles. Please see addendum. I spent a total of 45 minutes coordinating, documenting, and providing care for this patient excluding time spent in the performance of separately billed services or time spent by another provider/QHP. This included personally reviewing all current laboratories and imaging studies, medical reconciliation, outpatient chart review and discussion with specialists. This chart was completed in part utilizing Speech Voice Recognition Software. Grammatical errors, random word insertions, pronoun errors, and incomplete sentences are an occasional consequence of this system due to software limitations, ambient noise, and hardware issues. Any formal questions or concerns about the content, text, or information contained within the body of this dictation should be directly addressed to the provider for clarification. History of Present Illness Chief Complaint: Alcohol Intoxication Primary Care Provider: Kishor Lowe DO Daisy Pepper is a 38y/o F with PMHx significant for chronic rhinitis, asthma, IBS, GERD without esophagitis, fatty liver disease, fibromyalgia, MERRY, PTSD, depression, marijuana use, tobacco use disorder and ongoing alcohol use who presented to the ED for mental health evaluation and alcohol detoxification. History obtained from the patient and associated chart review. Patient seen at bedside with Dr. Robles. Patient reports increasing anxiety over the past week as she ran out of her prescription for Ativan. She reports taking 0.5mg Ativan QHS to help her sleep as she deals with insomnia due to her MERRY and PTSD. Per review of PDMP, patient last filled a prescription for Ativan on 04/10/24. This prescription was for a total of 20 0.5mg tablets of Ativan. Mentions that she has been taking Ativan on and off since she was 15 years old due to her anxiety. She has unfortunately turned to alcohol use since running out of Ativan to help control her anxiety levels. Patient had previously been sober for 120 days up until 1 week ago. She endorses drinking approximately 1/5 of a bottle of hard liquor per day - notably whiskey. Last drink was around 12PM today. Alcohol level upon presentation today is 178.7 and urine toxicity screen is positive for marijuana, which patient endorses using routinely as she has a medical marijuana card. Currently smoking about 1ppd as well. Denies any illicit drug use other than marijuana. She denies any suicidal ideations/plans but mentions that she "wouldn't mind not waking up tomorrow" if that was the case. No homicidal ideations. No reported visual or auditory hallucinations. Denies any SOB or chest pain, however she does mentions she has been experiencing an ongoing cough since May. She has been on 3 different courses of oral antibiotics but the cough persists and now is productive of yellow/green sputum. No recorded fevers however she does mention some episodes of chills. No history of alcohol withdrawal seizures. Allergies Allergy/AdvReac Type Severity Reaction Status Date / Time amitriptyline Allergy Rash Verified 10/22/23 20:53 bee venom protein (honey bee) Allergy Unknown Verified 10/22/23 20:53 benzocaine AdvReac Intermediate GI SYMPTOMS Verified 10/22/23 20:53 bupivacaine AdvReac Intermediate GI SYMPTOMS Verified 10/22/23 20:53 procaine AdvReac Unknown GI SYMPTOMS Verified 10/22/23 20:53 Home Medications Medication Instructions Recorded Confirmed Type pregabalin 100 mg capsule (Lyrica) 100 mg PO AMHS 12/25/19 04/02/24 History propranolol 10 mg tablet 10 mg PO TID 01/28/21 04/02/24 History levonorgestrel 21 mcg/24 hr (up to 0 mcg intrauterine DIRECTED 10/22/23 04/02/24 History 8 years) 52 mg intrauterine device (Mirena) nicotine 21 mg/24 hr daily 1 patch transdermal QAM #28 ea 04/05/24 Rx transdermal patch (Nicoderm CQ) Past Med/Surg History Problem List (Updated 08/14/24 @ 19:41 by Sarah Bansal PA-C) Tobacco use disorder Hypokalemia IBS (irritable bowel syndrome) Upper respiratory tract infection Clostridioides difficile carrier Electrolyte abnormality Alcohol induced liver disorder Generalized anxiety disorder Posttraumatic stress disorder Alcohol withdrawal (Acute) Alcohol abuse (Acute) History of posttraumatic stress disorder (PTSD) Alcohol withdrawal syndrome (Acute) Alcoholic intoxication (Acute) Fibromyalgia (Acute) Medical History (Updated 08/14/24 @ 19:41 by Sarah Bansal PA-C) Elevated LFTs Tobacco abuse Low back pain Acute neck pain Fall Family History Other Family history non-contributory Social History Smoking Status: Current every day smoker Tobacco Type: Cigarettes Cigarettes Per Day: 20; Second Hand Exposure: No; Do You Dip or Chew Tobacco: No; Hx Alcohol Use: Yes Alcohol type: hard liquor Hx Substance Use: Yes Last Used Substance: Just Prior to Arrival Substance Use Type Other:: hx of meth and heroin use Preferred Language: Kiswahili Communication Ability: Effective 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 Physical Exam Physical Exam: Please refer to Dr. Robles's addendum for physical examination findings. Results & Data Results & Data Vital Signs (Past 12 Hours) Vital Signs Temp Pulse Pulse Resp BP BP Pulse Ox 08/14/24 18:00 87 08/14/24 18:00 83 18 117/70 96 08/14/24 16:16 79 18 108/68 97 08/14/24 13:38 95 H 18 102/64 97 08/14/24 13:07 36.8 C 105 H 22 131/100 O2 Del Method 08/14/24 18:00 08/14/24 18:00 Room Air 08/14/24 16:16 Room Air 08/14/24 13:38 Room Air 08/14/24 13:07 Laboratory Results Short CBC 08/14/24 Range/Units 13:25 WBC 6.82 (4.8-10.8) K/ul Hgb 15.3 (12.0-16.0) g/dl Hct 42.8 (37.0-47.0) % Plt Count 332 (130-400) K/uL BMP 08/14/24 13:25 Sodium 137 Potassium 3.4 L Chloride 103 Carbon Dioxide 25 BUN 10 Creatinine 0.65 Glucose 125 H Calcium 8.8 Liver Function 08/14/24 Range/Units 13:25 Total Bilirubin 0.9 (0.2-1.0) mg/dl AST 24 (13-39) U/L ALT 14 (7-52) U/L Alkaline Phosphatase 79 (34-104) U/L Albumin 4.3 (3.4-5.0) gm/dl Urine 08/14/24 Range/Units 13:21 Urine Color Yellow Urine Appearance Clear (Clear) Urine pH 6.0 (4.5-7.5) Ur Specific [place] 1.015 (1.000-1.030) Urine Protein Negative (Negative) Urine Glucose (UA) Negative (Negative) Medications Administered Discontinued Medications Diazepam (Diazepam 5 Mg/Ml 10ml Vial) 10 mg IV NOW STA Stop: 08/14/24 17:16 Last Admin: 08/14/24 17:31 Dose: 10 mg Documented By: [facility] [place] Code Status & VTE Plan Code Status FULL CODE Supervising Physician Co-Signing Physician Notes Patient is a 38-year-old female with history of alcohol use disorder, fibromyalgia, PTSD, MERRY, chronic marijuana use, tobacco use disorder and other medical problems presents with history of worsening anxiety, insomnia. Patient states she has been sober for about 120 days and resorted to restarting alcohol use to help with her anxiety as her psychiatrist refused to continue Ativan. She states that she has been on Ativan for many years to control her anxiety. She restarted drinking about a week ago. She denies any suicidal, homicidal thoughts. Reports using medical marijuana for chronic fibromyalgia pain and admits to smoking 1 pack/day. She also reports having URI symptoms for the last 2 to 3 months and completed 3 courses of oral antibiotics which did not relieve her symptoms. States having nausea, vomiting associate with some diarrhea but denies any abdominal pain. Review [facility] for complete details of presentation. I personally reviewed blood work. Stool studies, chest x-ray, BioFire, procalcitonin currently pending. Normal TSH. Tox screen positive for THC. Alcohol level 178.7. Physical Exam: Vitals signs as noted above General Appearance:Thin, built and nourished, no apparent distress Head: normocephalic, Atraumatic Eyes: normal inspection, EOMI Neck: supple, Trachea midline Respiratory/Chest: Normal breath sounds, CTA, No accessory muscle use Cardiovascular: S1, S2, No murmur Abdomen/GI:Soft, Non tender, Bowel sounds present Extremities/Musculoskeletal:normal inspection, no edema Neurologic/Psych:AAOX3, grossly no focal neurological deficits, tearful Skin: normal color, warm Alcohol use disorder Generalized anxiety disorder PTSD Hypokalemia Tobacco use disorder Acute bronchitis Nausea, vomiting, diarrhea Started on gabapentin protocol, thiamine, folic acid Ativan as needed for withdrawal Psychiatry consulted to help with managing MERRY, PTSD Replete electrolytes as needed Check magnesium levels Nicotine patch while hospitalized counseled to quit THC, alcohol, tobacco use Empirically start on doxycycline Check BioFire, chest x-ray Obtain stool studies I personally interviewed and examined the patient at bedside. I have reviewed the advanced practitioner's documentation on the date of service referred in note and agree with plan. Patient's care is coordinated with Sarah Bansal PA-C. Please refer to the documentation above for details of patient's presentation and for discussion of other issues. I spent a total [id number] coordinating, documenting, and providing care for this patient excluding time spent in the performance of separately billed services or time spent by another provider/QHP. (2) Alcoholic intoxication Complication of substance-induced condition: uncomplicated Qualified Code(s): F10.920 - Alcohol use, unspecified with intoxication, uncomplicated (3) Upper respiratory tract infection URI type: unspecified URI Qualified Code(s): J06.9 - Acute upper respiratory infection, unspecified (4) IBS (irritable bowel syndrome) Irritable bowel syndrome type: unspecified Qualified Code(s): K58.9 - Irritable bowel syndrome, unspecified
--- NOTE | 2024-08-14 19:08 | Emergency Department Note ---
Impression & Plan Alcoholic intoxication, Alcohol withdrawal syndrome ED Provider Note NAME: PARESH CALDERON AGE: 38 SEX: F : 1985 ARRIVES VIA: Walk-In INFORMANT: Patient, ED PROVIDER(S): Keke Quinn MD CHIEF COMPLAINT: Alcohol withdrawal HPI: This is a 38-year-old female presented for alcohol withdrawal. Patient states that she relapsed on alcohol. She was previously suicidal but currently does not have active SI. No HI. She states she was sober for about 4 months and then relapsed about 1 week ago. Drinking significant mount of whiskey/fireball shots. She reports feeling emotional, anxiety and shakes at this time. She is requesting inpatient detox. She wants get sober again. ROS: See above HPI for pertinent positives & negatives. A total of 10 systems reviewed and were otherwise negative. PAST MEDICAL HISTORY: See Below PAST SURGICAL HISTORY: See Below FAMILY HISTORY: See Below SOCIAL HISTORY: See Below HOME MEDICATIONS: See Below ALLERGIES: See Below VITALS: See Below PHYSICAL EXAMINATION: General: resting comfortably in no acute distress Head: Normocephalic and atraumatic Eyes: Normal inspection, extraocular muscles intact Ear, nose, throat: Normal external exam Neck: Normal range of motion Respiratory: speaking in full sentences, symmetric chest rise, no respiratory distress Cardiovascular: Regular rate/rhythm Extremities: moves all extremities Neuro: The patient awake and alert, appropriately conversive, symmetric faces, no focal deficits MEDICAL DECISION MAKING: This is a 38-year-old female present for alcohol withdrawal. Patient did relapse on alcohol about 1 week ago. She is requesting detox at this time. She has tearful, somewhat shaky. Will give IV Valium at this time. -Bloodwork is reviewed showing no significant leukocytosis, anemia, electrolyte or creatinine abnormality. -UDS positive for THC -Alcohol level is 178 -As patient is showing signs of outward withdrawal, will admit for alcohol withdrawal Differential diagnosis: Alcohol withdrawal, alcohol intoxication, suicidality Diagnostics interpreted by me: ECG: None Cardiac Monitoring: An order was placed for continuous cardiac monitoring. The monitor shows a rate of 88 with sinus rhythm. Past Med/Surg History Problem List (Updated 08/14/24 @ 20:42 by Keke Quinn MD) Tobacco use disorder Hypokalemia IBS (irritable bowel syndrome) Upper respiratory tract infection Clostridioides difficile carrier Electrolyte abnormality Alcohol induced liver disorder Generalized anxiety disorder Posttraumatic stress disorder Alcohol withdrawal (Acute) Alcohol abuse (Acute) History of posttraumatic stress disorder (PTSD) Alcohol withdrawal syndrome (Acute) Alcoholic intoxication (Acute) Fibromyalgia (Acute) Medical History (Updated 08/14/24 @ 20:42 by Keke Quinn MD) Elevated LFTs Tobacco abuse Low back pain Acute neck pain Fall Family History Other Family history non-contributory Social History Smoking Status: Current every day smoker Tobacco Type: Cigarettes Cigarettes Per Day: 20; Second Hand Exposure: No; Do You Dip or Chew Tobacco: No; Hx Alcohol Use: Yes Alcohol type: hard liquor Hx Substance Use: Yes Last Used Substance: Just Prior to Arrival Substance Use Type Other:: hx of meth and heroin use Preferred Language: Vietnamese Communication Ability: Effective [employer] Required: No Beliefs That Will Affect Care: None marital status: Current Living Situation: Significant Other Current Living Situation Comment: lives with boyfriend and pets current occupational status: employed Feels Safe at Home: Yes Assistive Devices: Hospital Bed Allergies Allergies Allergy/AdvReac Type Severity Reaction Status Date / Time amitriptyline Allergy Rash Verified 10/22/23 20:53 bee venom protein (honey bee) Allergy Unknown Verified 10/22/23 20:53 benzocaine AdvReac Intermediate GI SYMPTOMS Verified 10/22/23 20:53 bupivacaine AdvReac Intermediate GI SYMPTOMS Verified 10/22/23 20:53 procaine AdvReac Unknown GI SYMPTOMS Verified 10/22/23 20:53 Home Meds Home Medications Medication Instructions Recorded Confirmed pregabalin 100 mg capsule (Lyrica) 100 mg PO AMHS 12/25/19 08/14/24 propranolol 10 mg tablet 10 mg PO BID 01/28/21 08/14/24 Previous Rx's Medication Instructions Recorded nicotine 21 mg/24 hr daily 1 patch transdermal QAM #28 ea 04/05/24 transdermal patch (Nicoderm CQ) Results & Data (ED) Vital Signs Vital Signs - 24 hr 08/14/24 13:07 08/14/24 13:38 08/14/24 16:16 Temperature 36.8 C Temperature Source Temporal Artery Scan Pulse Rate 105 H Pulse Rate [Right Finger] 95 H 79 Pulse Rhythm [Right Finger] Regular Regular Pulse Strength [Right Finger] Normal Respiratory Rate 22 18 18 Respiratory Effort / Characteristics Non-Labored Spontaneous Non-Labored Non-Labored Respiratory Depth Normal Normal Respiratory Pattern Regular Regular Blood Pressure 131/100 Blood Pressure [Right Arm] 102/64 108/68 Blood Pressure Mean 110 Blood Pressure Mean [Right Arm] 76 81 Blood Pressure Position [Right Arm] Lying Lying Pulse Oximetry 97 97 Oxygen Delivery Method Room Air Room Air Sepsis Recent Fever Within 48 Hours No Sepsis New/Unexplained Change in Mental Status No Sepsis Action Taken by Nursing No Action Required 08/14/24 18:00 08/14/24 18:00 08/14/24 18:30 Temperature Temperature Source Pulse Rate 87 80 Pulse Rate [Right Finger] 83 Pulse Rhythm [Right Finger] Regular Pulse Strength [Right Finger] Normal Respiratory Rate 18 18 Respiratory Effort / Characteristics Non-Labored Spontaneous Respiratory Depth Normal Respiratory Pattern Regular Blood Pressure 137/98 Blood Pressure [Right Arm] 117/70 Blood Pressure Mean 111 Blood Pressure Mean [Right Arm] 85 Blood Pressure Position [Right Arm] Sitting Pulse Oximetry 96 99 Oxygen Delivery Method Room Air Room Air Sepsis Recent Fever Within 48 Hours Sepsis New/Unexplained Change in Mental Status Sepsis Action Taken by Nursing Laboratory Data 08/14/24 13:25 08/14/24 13:25 Lab Results 08/14/24 08/14/24 08/14/24 Range/Units 13:21 13:25 13:40 WBC 6.82 (4.8-10.8) K/ul RBC 4.92 (4.20-5.40) M/uL Hgb 15.3 (12.0-16.0) g/dl Hct 42.8 (37.0-47.0) % MCV 87.0 (80.0-100.0) fL MCH 31.1 (25.0-34.0) pg MCHC 35.7 (32.0-36.0) g/dL RDW Std Deviation 38.6 (36.4-46.3) fL RDW Coeff of Kofi 12.3 (11.5-14.5) % Plt Count 332 (130-400) K/uL MPV 9.3 L (9.4-12.4) fL Immature Gran % (Auto) 0.1 % Neut % (Auto) 59.0 % Lymph % (Auto) 33.3 % Wilcox % (Auto) 6.0 % Eos % (Auto) 0.9 % Baso % (Auto) 0.7 % Neut # (Auto) 4.02 (1.40-6.50) K/uL Lymph # (Auto) 2.27 (1.20-3.40) K/uL Wilcox # (Auto) 0.41 (0.11-0.59) K/uL Eos # (Auto) 0.06 (0.00-0.50) K/uL Baso # (Auto) 0.05 (0.00-0.20) K/uL Immature Gran # (Auto) 0.01 (0.01-0.20) K/uL Sodium 137 (136-145) mmol/L Potassium 3.4 L (3.5-5.1) mmol/L Chloride 103 (98-107) mmol/L Carbon Dioxide 25 (21-32) mmol/L Anion Gap 9 (3-11) BUN 10 (6-23) mg/dl Creatinine 0.65 (0.6-1.2) mg/dl Est Cr Clr Drug Dosing 103.3 ml/min eGFR 114.78 BUN/Creatinine Ratio 15.4 (10-20) Glucose 125 H (70-99(Fasting)) mg/dl Calcium 8.8 (8.6-10.3) mg/dl Total Bilirubin 0.9 (0.2-1.0) mg/dl AST 24 (13-39) U/L ALT 14 (7-52) U/L Alkaline Phosphatase 79 (34-104) U/L Total Protein 6.7 (6.0-8.3) gm/dl Albumin 4.3 (3.4-5.0) gm/dl Globulin 2.4 L (2.5-4.0) gm/dl Albumin/Globulin Ratio 1.8 (0.9-2) TSH 0.864 (0.300-4.500) uIu/ml Urine Color Yellow Urine Appearance Clear (Clear) Urine pH 6.0 (4.5-7.5) Ur Specific Ripley 1.015 (1.000-1.030) Urine Protein Negative (Negative) Urine Glucose (UA) Negative (Negative) Urine Ketones Trace H (Negative) Urine Blood Negative (Negative) Urine Nitrite Negative (Negative) Urine Bilirubin Negative (Negative) Urine Urobilinogen Negative (Negative) Ur Leukocyte Esterase Negative (Negative) Salicylates < 3.0 L (3.0-30) mg/dl Urine Opiates Screen Neg (Neg) Ur Methadone, Qual Neg (Neg) Urine Fentanyl Screen Neg (Neg) Acetaminophen < 3 L (10-30) ug/ml Urine Barbiturates Neg (Neg) Ur Phencyclidine (PCP) Neg (Neg) U Amphetamin/Meth Scrn Neg (Neg) MDMA (Ecstasy) Screen Neg (Neg) U Benzodiazepines Scrn Neg (Neg) Ur Cocaine Metabolite Neg (Neg) U Marijuana (THC) Screen Pos H (Neg) Ethyl Alcohol mg/dL 178.7 H (<10.0) mg/dl SARS-CoV-2, RNA, NAAT NEGATIVE (NEGATIVE) Administered Medications Discontinued Medications Diazepam (Diazepam 5 Mg/Ml 10ml Vial) 10 mg IV NOW STA Stop: 08/14/24 17:16 Last Admin: 08/14/24 17:31 Dose: 10 mg [place]ed [place] [facility] [place] Chloride (Potassium Chloride Crtab 20 Meq Tabcr) 40 meq PO ONE ONE Stop: 08/14/24 18:34 Last Admin: 08/14/24 19:18 Dose: 40 meq Documented By: MMF Discharge Plan Visit Data Chief Complaint: Mental Health Evaluation Stated Complaint: MENTAL HEALTH EVAL, ALC DETOX ED Provider: Keke Quinn Discharge Problem: Alcoholic intoxication, Alcohol withdrawal syndrome Patient Disposition: Admitted As Inpatient Discharge Instructions Interventions: ED Discharge Assessment Last Done: 08/14/24 20:21
[2024-08-14] MEDS: POTASSIUM CHLORIDE CRTAB 20 MEQ TABCR PO ONE (19:18)
[2024-08-14] MEDS ORDERED: LORazepam 1 MG TAB PO PRN (20:17)
[2024-08-14] MEDS ORDERED: GABAPENTIN 1200MG ALCOHOL WITHDRAWAL LOAD PO STA (20:17)
[2024-08-14] MEDS ORDERED: Ativan PO Alcohol Withdrawal--Active Protocol PO PRN (20:17)
[2024-08-14 20:38] LABS: Adenovirus PCR Not Detected (NotDetected); Bordetella parapertussis PCR Not Detected (NotDetected); Bordetella pertussis PCR Not Detected (NotDetected); Chlamydia pneumoniae PCR Not Detected (NotDetected); Coronavirus 229E PCR Not Detected (NotDetected); Coronavirus CoV-2 (COVID19)PCR Not Detected (NotDetected); Coronavirus HKU1 PCR Not Detected (NotDetected); Coronavirus NL63 PCR Not Detected (NotDetected); Coronavirus OC43PCR Not Detected (NotDetected); Human Metapneumovirus PCR Not Detected (NotDetected); Influenza A PCR Not Detected (NotDetected); Influenza B PCR Not Detected (NotDetected); Mycoplasma pneumoniae PCR Not Detected (NotDetected); Parainfluenza Virus 1 PCR Not Detected (NotDetected); Parainfluenza Virus 2 PCR Not Detected (NotDetected); Parainfluenza Virus 3 PCR Not Detected (NotDetected); Parainfluenza Virus 4 PCR Not Detected (NotDetected); Respiratory Syncytial VirusPCR Not Detected (NotDetected); Rhinovirus/Enterovirus PCR Not Detected (NotDetected)
[2024-08-14] MEDS: THIAMINE HCL 100 MG TAB PO SCH (21:05)
[2024-08-14] MEDS: PROPRANOLOL HCL 10 MG TAB PO SCH (21:05)
[2024-08-14] MEDS: NICOTINE 21 MG/24 HR TDSY TD SCH (21:05)
[2024-08-14] MEDS: DOXYCYCLINE HYCLATE 100 MG CAP PO SCH (21:05)
[2024-08-14] MEDS: FOLIC ACID 1 MG TAB PO SCH (21:06)
[2024-08-14] MEDS: LACTATED RINGER'S 1,000 ML IV ONE (21:06)
[2024-08-14] MEDS: PREGABALIN 100 MG CAP PO SCH (21:19)
[2024-08-14] MEDS: GABAPENTIN 600 MG TAB PO ONE (21:20)
--- NOTE | 2024-08-14 21:57 | XRay Report ---
Exam(s): XR CXR 1 VIEW EXAM: XR Chest, 1 View CLINICAL HISTORY: Cough. TECHNIQUE: Frontal view of the chest. COMPARISON: 08/28/2015. FINDINGS: Lungs: No infiltrate. No atelectasis. No CHF. Pleural space: No pleural effusion. No pneumothorax. Heart: Unremarkable. No cardiomegaly. Mediastinum: Unremarkable. Normal mediastinal contour. Bones/joints: Unremarkable. No acute fracture. IMPRESSION: No acute abnormality. Electronically signed by: Jessee Hoffmann M.D. 08/14/24 21:56 PM
--- OUTSIDE RECORDS SUMMARY | 2024-08-14 23:10 | External Medical Summary | Summary of Care ---
Author Name Unknown Organization [facility] Address [address] [facility] [place] [address] Phone [phone] Care Team Providers Care Coil Binder Name Role Phone Kishor Lowe DO Primary Care Provider Reason for Visit * Reason Comments eRx-Medication Refill Encounter Details Date Type Department Care Team (Late st Contact Info) Description 07/05/2024 Refill Family Practice [facility] [address] [place] [address] Kishor Lowe DO [address] [place] [address] Fibromyalgia Allergies Active Allergy Reactions Criticality Noted Date Comments Amitriptyline Rash 09/30/2021 Bee Pollen 01/01/2019 Aluminum Chloride Rash 09/30/2021 Other Allergy (See Comments) Itching 020 Black rubber Bupivacaine Hcl 08/05/2010 Montelukast Rash 01/25/2023 On face documented as of this encounter (statuses as of 07/06/2024) Medications NATURAL SUPPLEMENTIndicati ons:CBD oil at bedtime Take by mouth daily . CBD oil. Pt uses 1 dropper at bedtime. Active Multiple Vitamins-Minerals (MULTIVITAMIN ADULTS) TABS Take by mouth. Ac tive Levonorgestrel 20 MCG/24HR Intrauterine Intrauterine Device (Mirena) Insert 1 Each into uterus once. Active Albuterol Sulfate HFA 108 (90 Base) MCG/ACT Inhalation Aerosol SolutionIndication s:Mild intermittent asthma without complication Inhale 2 Puffs by mouth every 6 hours as needed for Cough, Shortness of Breath or Wheezing. 18 g 2 11/09/19 23 Active Additional Information Patient not taking.Reported on 06/21/2024 Benzonatate 100 MG Oral Capsule Take 1 Capsule by mouth 3 times a day as needed for Cough. 30 Capsule 1 06/29/20 23 Active Additional Information Patient not taking.Reported on 06/21/2024 Ventolin HFA 108 (90 Base) MCG/ACT Inhalation Aerosol Solution Inhale 2 Puffs by mouth every 4 hours as needed for Wheezing. 18 g 3 06/29/20 23 Active Additional Information Patient not taking.Reported on 06/21/2024 Azelastine HCl 0.1 % Nasal Solution (Astelin) Administer 2 Sprays into nostril in the morning and 2 Sprays before bedtime. 90 mL 3 08/01/19 24 Active Additional Information Patient not taking.Reported on 06/21/2024 Fluticasone Propionate 50 MCG/ACT Nasal Suspension (Flonase) Administer 2 Sprays into each nostril in the morning. 48 g 3 08/01/19 24 Active Additional Information Patient not taking.Reported on 06/21/2024 Pregabalin 100 MG Oral Capsule (Lyrica)Indication s:Fibromyalgia TAKE ONE CAPSULE BY MOUTH IN THE MORNING AND ONE AT BEDTIME 180 Capsule 08/08/19 24 Active Omeprazole 20 MG Oral Capsule Delayed Release (PriLOSEC)Indicati ons:Gastro-esophag eal reflux disease without esophagitis Take 1 Capsule by mouth in the morning. 90 Capsule 3 09/26/19 24 Active Propranolol HCl 10 MG Oral Tablet (Inderal)Indicatio ns:MERRY (generalized anxiety disorder) TAKE 1 TABLET BY MOUTH TWICE DAILY 180 Tablet 2 01/21/20 24 Active LORazepam 0.5 MG Oral Tablet (Ativan)Indication s:Anxiety Take 1 Tablet by mouth daily as needed for Anxiety. 20 Tablet 04/10/20 24 Active Ondansetron 4 MG Oral Tablet Disintegrating (Zofran) Place 1 Tablet on tongue every 8 hours as needed for Nausea or Vomiting. 180 Tablet 06/08/20 24 Active documented as of this encounter (statuses as of 07/06/2024) Active Problems Problem Noted Date Diagnosed Date MDD (major depressive disord er), recurrent episode, moderate 09/26/2023 Mild intermittent asthma with exacerbation 06/29 Upper respiratory tract infection 06/29/2023 Mild intermittent asthma without complication Seasonal allergic rhinitis due to pollen 023 Ecobjxa-dl-wgr 05/04/2022 Gastro-esophageal reflux disease without esophag itis 02/02/2022 Posttraumatic stress disorder 02/02/2022 Tobacco use 11/21/2020 Chronic rhinitis 09/17/2019 Fibromyalgia 08/15/2019 Other irritable bowel syndrome 08/15/2019 Slow transit constipation 08/05/2010 Presence of intrauterine contraceptive device Generalized anxiety disorder documented as of this encounter (statuses as of 07/06/2024) Resolved Problems Problem Noted Date Diagnosed Date Resolved Date Urge incontinence of urine 02/02/2022 0 11/08/2022 ADVANCE DIRECTIVE INFORMATION 11/21/2020 05/07/2024 Overview (09/05/2006): No, Advance Directive brochure offered , patient declined. Antepartum abnormal glucose tolerance of mother 05/09/2007 02/12/2011 Normal , first 04/10/200708/05 HBPNORMAL FIRST 10/28/2005 07/25/2006 ACUTE SINUSITIS NOS 02/05/19 99 Major depressive disorder Overview (04/26/2017): ICD-10 update of inactive term documented as of this encounter (statuses as of 07/06/2024) Immunizations Name Administration Dates Next Due Pneumococcal Conjugate Vacci ne, 20-valent ([id number]) 09/26/2023 Pneumococcal Polysaccharide PPV23 (Pneumovax) 08/19/2009,08/15/2009 Seasonal Influenza Vac., MDV , IM, 0.5 mL (Fluzone) 08/12/2010,08/19/2009,08/15/2009,04/26 Seasonal Influenza, PF, 6 M & above, IM , (FluLaval or Fluzone) 07/07/2017 Seasonal Influenza, Quadriva lent, No Preserve, IM 06/07/2016 TD - Tetanus/Diptheria (ADULT) 04/03/2003 TDAP (age 10 and older)(Boostrix) 02/02/2022 TDAP, Age 7 and older, IM (Adacel) 08/12/2010 documented as of this encounter Social History Tobacco Use Types Packs/Day Years Used Date Smoking Tobacco: Every Day Cigarettes 1 25.6 Started: 1998 Smokeless Tobacco: Never Comments:age 13 Alcohol Use Standard Drinks/Week Comments Yes 4 (1 standard drink = 0.6 oz pur e alcohol) 3-4 beers a night PHQ-2 Answer Date Recorded PHQ Adult Total Score 1 06/14/2024 Hunger Vital Sign Answer Date Recorded Within the past 12 months, y ou worried that your food would run out before you got the money to buy more. Never true 11/02/19 24 Within the past 12 months, t he food you bought just didn't last and you didn't have money to get more. Never true 11/02/2023 Childcare Answer Date Recorded Do you feel overwhelmed with taking care of a child, family member or friend? No 11/02/2023 Does your family need help f inding childcare? (Household - for ages 0-17 years) Not on file 11/02/2023 Clothing Answer Date Recorded Have you been unable to get clothing when it was really needed? No 11/02/2023 Is your family able to get c lothes or diapers when needed? (Household - for ages 0-17 years) Not on file 11/02/2023 Personal Safety Answer Date Recorded Do you feel unsafe or have concerns for your saf ety? No 11/02/2023 Do you have concerns for you r family's safety? (Household - for ages 0-17 years) Not on file 11/02/2023 Utilities Answer Date Recorded Do you have trouble paying y our heating, water, or electric bill? No 11/02/2023 Is your family able to pay t he heat, water, or electric bill? (Household - for ages 0-17 years) Not on file 11/02/2023 Does your family have access to good internet? (Household - for ages 0-17 years) Not on file 11/02/2023 Employment Status Answer Date Recorded Are you unemployed or without regular income? No 11/02/2023 Does the household have a re gular source of income? (Household - for ages 0-17 years) Not on file 11/02/2023 Social Connections Answer Date Recorded How often do you feel lonely or isolated from th ose around you? Never 11/02/2023 Financial Resource Strain Answer Date R ecorded Do you have any trouble payi ng for your medications, or do you think you might in the future? No 11/02/2023 Does your family have troubl e paying for medicine? (Household - for ages 0-17 years) Not on file 11/02/2023 Transportation Needs Answer Date Record ed READ ONLY Do you have troubl e getting a ride to medical visits or work? Never True 11/02/2023 Does your family have a hard time getting a ride to doctors visits? (Household - for ages 0-17 years) Not on file 11/02/2023 Has lack of transportation k ept you from medical appointments, meetings, work, or from getting things needed for daily living? Check all that apply. (Adult - for ages 18 years and over) Not on file 11/02/2023 Do you (or your family) have trouble finding or paying for a ride (transportation)? (Household - for ages 0-17 years) Not on file 11/02/2023 Housing Stability Answer Date Recorded Do you currently live in a s helter or have no steady place to sleep at night? No 11/02/2023 READ ONLY Do you think you a re at risk of becoming homeless? No 11/02/2023 Does your family worry about paying for your home or becoming homeless? (Household - for ages 0-17 years) Not on file 0 11/02/2023 Are you homeless or worried that you might be in the future? (Adult - for ages 18 years and over) Not on file Are you (or your family) griffin eless or worried that you might be in the future? (Household - for ages 0-17 years) Not on file Food Insecurity Answer Date Recorded Do you need food for this week? No 11/02/2023 Are you able to get enough f ood for your family? (Household - for ages 0-17 years) Not on file 11/02/2023 Does your family need food t his week? (Household - for ages 0-17 years) Not on file 11/02/2023 Do you always have enough fo od for your family? (Household - for ages 0-17 years) Not on file 11/02/2023 Education Answer Date Recorded What is the highest level of school you have completed or the highest degree you have received? High school graduate 03/11/2023 Comments No Sex and Gender Information Value Date Recorded Sex Assigned at Female 08/15/2019 9:02 AM EST Legal Sex Female 6:11 AM EST Gender Identity Female 08/15/2019 9:02 AM EST Sexual Orientation Bisexual 03/01/2023 2: 31 PM EDT Occupation Industry Job Start Date Job End Date [employer] Not on file Not on file Not on file [employer] Not on file Not on file Not on f ile [employer] Not on file Not on file Not on f ile documented as of this encounter Miscellaneous Notes * Telephone Encounter - Jessica Mcmillan [facility] - 07/06/2024 4:08 PM ESTRefused Prescriptions: Disp Refills Pregabalin 100 MG Oral Capsule (Lyrica) 180 Ca*0 Sig: TAKE 1 CAPSULE BY MOUTH TWICE DAILY every morning and at bedtimeRefused By: JESSICA MCMILLAN for Refusal: Managed by another physicianReason for Refusal Comment: filled by Dr. Fitz Jimenez - outside Clem[place] rob documented in this encounter Plan of Treatment Upcoming Encounters Date Type Department Care Team (Late st Contact Info) Description 07/23/2024 2:30 PM EST [facility] [address] [place] [address] Samantha Campbell RDN [address] [place] [id number] 09/25/2024 11:40 AM EDT Office Visit Family Practice [facility] [address] [place] [address] Kishor Lowe DO [address] [place] [address] Health Maintenance Due Date Last Done Comments DISCUSS TOBACCO CESSATION (REFER TO SMARTSET #2634) 1985 HPV/Co-Test 2014 *SPIROMETRY ONCE FOR ASTHMA-ADULT 11/11/2022 Cervical Cancer Screening 09/23/2023 Pap Smear 09/23/2023 09/22/2020, 11/02, 03/03/2011, Additional history exists COVID-19 Vaccine ( season) 2024 Influenza Vaccine (FLU shot) (#1) 2024 07/07/2017, 06/07/2016, 08/12/2010, Additional history exists Depression Monitoring 06/14/2025 06/14/2024 DTap/Tdap Vaccines (4 - Td or Tdap) 02/03/2032 02/02/2022, 08/12/2010, 04/03/2003 Hepatitis B Vaccine Completed 02/20/2004, 02/20/2004, 11/13/2001, Additional history exists Pneumococcal Vaccine: Pediatrics (0 to 5 Years) and At-Risk Patients (6 to 18 Years and 19+ Years) Completed 09/26/2023, 08/19/2009, 08/15/2009 HPV (Gardasil) Vaccine Aged Out No lo nger eligible based on patient's age to complete this topic MENINGOCOCCAL (MENACTRA/MENVEO) Aged Out No longer eligible based on patient's age to complete this topic documented as of this encounter Medical Devices Not on filedocumented as of this encounter Visit Diagnoses Diagnosis Fibromyalgia Mylagia and myositis, unspecified documented in this encounter Advance Directives * Full Code (Latest Code Status on File) Date Activated Date Inactivated Comments 05/04/2022 12:19 PM 05/04/2022 7:48 PM This order reflects the patients wishes and were consensually agreed upon. Question Answer Comments Discussion of Advance Directives occurred with: Patient Care Teams Coil Binder Relationship Specialty Start Date End Date Kishor Lowe DO [address] [place] [id number] PCP - General Family Medicine 09/05/19 documented as of this encounter
--- OUTSIDE RECORDS SUMMARY | 2024-08-14 23:10 | External Medical Summary | Summary of Care ---
Author Name Unknown Organization [facility] Address [address] [facility] [place] [address] Phone [phone] Care Team Providers Care Director Of Restaurants Name Role Phone Kishor Lowe Primary Care Provider Reason for Visit * Reason Comments Acute Pt here for c/o a co ld for the last month. Pt has been having a cough, body aches, chills, right ear pain and sinus pressure. Pt has been taking tylenol (last at 4am). Pt reports that she not take OTC meds without effecting her anxiety. Encounter Details Date Type Department Care Team (Late st Contact Info) Description 07/12/2024 8:00 AM EST Office Visit Family Practice [facility] [address] [facility] [place] [address] Efe Varela MD [address] [facility] [place] [address] Atypical pneumonia*; Subacute frontal sinusitis Allergies Active Allergy Reactions Criticality Noted Date Comments Amitriptyline Rash 09/30/2021 Bee Pollen 01/01/2019 Aluminum Chloride Rash 09/30/2021 Other Allergy (See Comments) Itching 020 Black rubber Bupivacaine Hcl 08/05/2010 Montelukast Rash 01/25/2023 On face documented as of this encounter (statuses as of 07/12/2024) Medications NATURAL SUPPLEMENTIndicat ions:CBD oil at bedtime Take by mouth daily . CBD oil. Pt uses 1 dropper at bedtime. Active Multiple Vitamins-Minerals (MULTIVITAMIN ADULTS) TABS Take by mouth. Ac tive Levonorgestrel 20 MCG/24HR Intrauterine Intrauterine Device (Mirena) Insert 1 Each into uterus once. Active Albuterol Sulfate HFA 108 (90 Base) MCG/ACT Inhalation Aerosol SolutionIndicatio ns:Mild intermittent asthma without complication Inhale 2 Puffs by mouth every 6 hours as needed for Cough, Shortness of Breath or Wheezing. 18 g 2 023 Active Additional Information Patient not taking.Reported on 06/21/2024 Benzonatate 100 MG Oral Capsule Take 1 Capsule by mouth 3 times a day as needed for Cough. 30 Capsule 1 023 Active Additional Information Patient not taking.Reported on 06/21/2024 Ventolin HFA 108 (90 Base) MCG/ACT Inhalation Aerosol Solution Inhale 2 Puffs by mouth every 4 hours as needed for Wheezing. 18 g 3 023 Active Additional Information Patient not taking.Reported on 06/21/2024 Azelastine HCl 0.1 % Nasal Solution (Astelin) Administer 2 Sprays into nostril in the morning and 2 Sprays before bedtime. 90 mL 3 024 Active Additional Information Patient not taking.Reported on 06/21/2024 Fluticasone Propionate 50 MCG/ACT Nasal Suspension (Flonase) Administer 2 Sprays into each nostril in the morning. 48 g 3 024 Active Additional Information Patient not taking.Reported on 06/21/2024 Pregabalin 100 MG Oral Capsule (Lyrica)Indicatio ns:Fibromyalgia TAKE ONE CAPSULE BY MOUTH IN THE MORNING AND ONE AT BEDTIME 180 Capsule 024 Active Omeprazole 20 MG Oral Capsule Delayed Release (PriLOSEC)Indicat ions:Gastro-esoph ageal reflux disease without esophagitis Take 1 Capsule by mouth in the morning. 90 Capsule 3 024 Active Propranolol HCl 10 MG Oral Tablet (Inderal)Indicati ons:MERRY (generalized anxiety disorder) TAKE 1 TABLET BY MOUTH TWICE DAILY 180 Tablet 2 024 Active LORazepam 0.5 MG Oral Tablet (Ativan)Indicatio ns:Anxiety Take 1 Tablet by mouth daily as needed for Anxiety. 20 Tablet 024 Active Ondansetron 4 MG Oral Tablet Disintegrating (Zofran) Place 1 Tablet on tongue every 8 hours as needed for Nausea or Vomiting. 180 Tablet Active Azithromycin 250 MG Oral Tablet (Zithromax) 2 tabs daily for 5 days 10 Tablet Active Fluconazole 150 MG Oral Tablet (Diflucan) Take 1 Tablet by mouth once for 1 dose. 1 Tablet 025 2024 Active dexAMETHasone 4 MG Oral Tablet (Decadron) Take 1 Tablet by mouth once for 1 dose. 1 Tablet 025 2024 Active Amoxicillin-Pot Clavulanate 875-125 MG Oral Tablet (Augmentin)Indica tions:Acute maxillary sinusitis, recurrence not specified Take 1 Tablet by mouth in the morning and 1 Tablet before bedtime. Do all this for 7 days. 14 Tablet 024 2024 Discontinued documented as of this encounter (statuses as of 07/12/2024) Active Problems Problem Noted Date Diagnosed Date MDD (major depressive disord er), recurrent episode, moderate 09/26/2023 Mild intermittent asthma with exacerbation 06/29 Upper respiratory tract infection 06/29/2023 Mild intermittent asthma without complication Seasonal allergic rhinitis due to pollen 023 [id number] 05/04/2022 Gastro-esophageal reflux disease without esophag itis 02/02/2022 Posttraumatic stress disorder 02/02/2022 Tobacco use 11/21/2020 Chronic rhinitis 09/17/2019 Fibromyalgia 08/15/2019 Other irritable bowel syndrome 08/15/2019 Slow transit constipation 08/05/2010 Presence of intrauterine contraceptive device Generalized anxiety disorder documented as of this encounter (statuses as of 07/12/2024) Resolved Problems Problem Noted Date Diagnosed Date Resolved Date Urge incontinence of urine 02/02/2022 0 11/08/2022 ADVANCE DIRECTIVE INFORMATION 11/21/2020 05/07/2024 Overview (09/05/2006): No, Advance Directive brochure offered , patient declined. Antepartum abnormal glucose tolerance of mother 05/09/2007 02/12/2011 Normal , first 04/10/2007/12/2007 HBPNORMAL FIRST 10/28/2005 07/25/2006 ACUTE SINUSITIS NOS 02/05/19 99 Major depressive disorder Overview (04/26/2017): ICD-10 update of inactive term documented as of this encounter (statuses as of 07/12/2024) Immunizations Name Administration Dates Next Due Pneumococcal Conjugate Vacci ne, 20-valent ([id number]) 09/26/2023 Pneumococcal Polysaccharide PPV23 (Pneumovax) 08/19/2009,08/15/2009 Seasonal [...] 1 25.6 Started: 1998 Smokeless Tobacco: Never Tobacco Cessation:Ready to Q uit: No; Counseling Given: No Comments:age 13 Alcohol Use Standard Drinks/Week Comments [...] No 11/02/2023 Does the household have a [facility] source of income? (Household - for ages [...] Industry Job Start Date Job End Date [employer] Not on file Not on file Not on file [employer] Not on file Not on file Not on f ile [employer] Not on file Not on file Not on f ile documented as of this encounter Last Filed Vital Signs Vital Sign Reading Time Taken Comments Blood Pressure 104/70 07/12/2024 8:01 AM EST Pulse 103 07/12/2024 8:01 AM EST Temperature 36.2 C (97.1 F) 07/12/2024 8:01 AM ES T Respiratory Rate 16 07/12/2024 8:01 AM EST Oxygen Saturation 99% 07/12/2024 8:01 AM EST Inhaled Oxygen Concentration - - Weight 57.7 kg (127 lb 3.2 oz) 07/12/2024 8:01 A M EST Height 165.1 cm (5' 5") 07/12/2024 8:01 AM EST Body Mass Index 21.17 07/12/2024 8:01 AM EST documented in this encounter Progress Notes * Efe Varela MD - 07/12/2024 8:06 AM EST Images from the original note were not included. History of Present Illness Daisy Pepper is a 38 year old female that presents for Acute (Pt here for c/o a cold for the lastmonth. Pt has been having a cough, body aches, chills, right ear pain and sinus pressure. Pt has been taking tylenol (last at 4am). Pt reports that she not take OTC meds without effecting her anxiety.) Physical Exam BP 104/70 (BP Site: Left Arm, BP Position: Sitting, BP Cuff Size: Regular) | Pulse 103 | Temp 97.1 F (36.2 C) (Tympanic) | Resp 16 | Ht 5' 5" (1.651 m) | Wt 127 lb 3.2 oz (57.7 kg) | SpO2 99% | BMI 21.17 kg/m | BSA 1.63 m AAOx3 Normal affect NCAT/ PERRL Neck supple Throat clear RRR Lungs CTABL Abd soft +BS Ext warm and well perfused No gross neuro deficits Normal gait I have reviewed most recent labs None Assessment and Plan Atypical pneumonia - will treat - son had same. Azithro x 5 days, single dose steroid. She requests diflucan single dose. - RETURN TO WORK OR SCHOOL Subacute frontal sinusitis - ongoing sx, sinus rinse. - RETURN TO WORK OR SCHOOL Wrap-Up Prn.scheduled Time: I spent a total of 10-19 minutes (exact time 15 mins) on the date of service in preparation, delivery, and documentation of the care provided to Daisy Pepper excluding any time spent in the performance of separately billed services. documented in this encounter Plan of Treatment Upcoming Encounters Date Type Department Care Team (Late st Contact Info) Description 07/23/2024 2:30 PM EST Nutrition Services Nutrition, [facility] [address] [place] [address] Samantha Campbell, RDN [address] [place] [address] 09/25/2024 11:40 AM EDT Office Visit Family Practice [facility] [address] [place] [address] Kishor Lowe, [address] [place] [id number] Health Maintenance Due Date Last Done Comments DISCUSS TOBACCO CESSATION (REFER TO SMARTSET #4524) 1984 HPV/Co-Test 2014 *SPIROMETRY ONCE FOR ASTHMA-ADULT 11/11/2022 Cervical Cancer Screening 09/23/2023 Pap Smear 09/23/2023 09/22/2020, 11/02, 03/03/2011, Additional history exists Influenza Vaccine (FLU shot) (#1) 2024 07/07/2017, 06/07/2016, 08/12/2010, Additional history exists Depression Monitoring 06/14/2025 06/14/2024 DTap/Tdap Vaccines (4 - Td or Tdap) 02/03/2032 02/02/2022, 08/12/2010, 04/03/2003 Hepatitis B Vaccine Completed 02/20/2004, 02/20/2004, 11/13/2001, Additional history exists Pneumococcal Vaccine: Pediatrics (0 to 5 Years) and At-Risk Patients (6 to 18 Years and 19+ Years) Completed 09/26/2023, 08/19/2009, 08/15/2009 COVID-19 Vaccine Discontinued HPV (Gardasil) Vaccine Aged Out No lo nger eligible based on patient's age to complete this topic MENINGOCOCCAL (MENACTRA/MENVEO) Aged Out No longer eligible based on patient's age to complete this topic documented as of this encounter Medical Devices Not on filedocumented as of this encounter Visit Diagnoses Diagnosis Atypical pneumonia- Primary Pneumonia, organism unspecified Subacute frontal sinusitis Acute frontal sinusitis documented in this encounter Advance Directives * Full Code (Latest Code Status on File) Date Activated Date Inactivated Comments 05/04/2022 12:19 PM 05/04/2022 7:48 PM This order reflects the patients wishes and were consensually agreed upon. Question Answer Comments Discussion of Advance Directives occurred with: Patient Care Teams Director Of Restaurants Relationship Specialty Start Date End Date Kishor Lowe DO [address] [place] [address] PCP - General Family Medicine 09/05/19 documented as of this encounter
--- OUTSIDE RECORDS SUMMARY | 2024-08-14 23:10 | External Medical Summary | Summary of Care ---
Author Name Unknown Organization [facility] Address [address] [place] [address] Phone [phone] Care Team Providers Care Copy Holder Name Role Phone Kishor Lowe Primary Care Provider Reason for Visit * Reason Comments Acute Patient is here with complaints of being sick since May despite doing two rounds of antibiotics. She has had a cough, sneezing, headaches, body aches, and congestion. She was seen 06/21 and 07/12. Encounter Details Date Type Department Care Team (Late st Contact Info) Description 07/20/2024 8:20 AM EST Office Visit [facility] [address] [place] [phone] Klaus Chappell PA-C [address] [place] [address] Sinobronchitis*; Antibiotic-induced yeast infection; H/O alcohol abuse; Elevated LFTs; Lipid screening Allergies Active Allergy Reactions Criticality Noted Date Comments Amitriptyline Rash 09/30/2021 Bee Pollen 01/01/2019 Aluminum Chloride Rash 09/30/2021 Other Allergy (See Comments) Itching 020 Black rubber Bupivacaine Hcl 08/05/2010 Montelukast Rash 01/25/2023 On face documented as of this encounter (statuses as of 07/20/2024) Medications NATURAL SUPPLEMENTIndicati ons:CBD oil at bedtime [...] Active Additional Information Patient not taking.Reported on 07/20/2024 Benzonatate 100 MG Oral Capsule Take 1 Capsule by mouth 3 times a day as needed for Cough. 30 Capsule 1 06/29/20 23 Active Ventolin HFA 108 (90 Base) MCG/ACT Inhalation Aerosol Solution Inhale 2 Puffs by mouth every 4 hours as needed for Wheezing. 18 g 3 06/29/20 23 Active Azelastine HCl 0.1 % Nasal Solution (Astelin) Administer 2 Sprays into nostril in the morning and 2 Sprays before bedtime. 90 mL 3 08/01/19 24 Active Additional Information Patient not taking.Reported on 07/20/2024 Fluticasone Propionate 50 MCG/ACT Nasal Suspension (Flonase) Administer 2 Sprays into each nostril in the morning. 48 g 3 08/01/19 24 Active Pregabalin 100 MG Oral Capsule (Lyrica)Indication s:Fibromyalgia [...] or Vomiting. 180 Tablet 06/08/20 24 Active Doxycycline Hyclate 100 MG Oral CapsuleIndications :Sinobronchitis Take 1 Capsule by mouth in the morning and 1 Capsule before bedtime. Do all this for 10 days. Until gone.. 20 Capsule 07/20/19 25 025 Active methylPREDNISolone 4 MG Oral Tablet Therapy Pack (Medrol Dosepack)Indicatio ns:Sinobronchitis follow package directions 21 Tablet 07/20/19 25 Active ProAir HFA 108 (90 Base) MCG/ACT Inhalation Aerosol SolutionIndication s:Sinobronchitis Inhale 2 Puffs by mouth every 4 hours as needed for Wheezing. 18 g 07/20/19 25 Active Fluconazole 150 MG Oral Tablet (Diflucan)Indicati ons:Antibiotic-ind uced yeast infection Take 1 Tablet by mouth once for 1 dose. 1 Tablet 07/20/19 25 025 Active Azithromycin 250 MG Oral Tablet (Zithromax) 2 tabs daily for 5 days 10 Tablet 07/12/19 25 025 Discontin ued(Medic ation List Clean Up) documented as of this encounter (statuses as of 07/20/2024) Active Problems Problem Noted Date Diagnosed Date MDD (major depressive disord er), recurrent episode, moderate 09/26/2023 Mild intermittent asthma with exacerbation 06/29 Mild intermittent asthma without complication Seasonal allergic rhinitis due to pollen 023 [id number] 05/04/2022 Gastro-esophageal reflux disease without esophag itis 02/02/2022 Posttraumatic stress disorder 02/02/2022 Tobacco use 11/21/2020 Chronic rhinitis 09/17/2019 Fibromyalgia 08/15/2019 Other irritable bowel syndrome 08/15/2019 Slow transit constipation 08/05/2010 Presence of intrauterine contraceptive device Generalized anxiety disorder documented as of this encounter (statuses as of 07/20/2024) Resolved Problems Problem Noted Date Diagnosed Date Resolved Date Upper respiratory tract infection 06/29/2023 07/20/2024 Urge incontinence of urine 02/02/2022 0 11/08/2022 ADVANCE DIRECTIVE INFORMATION 11/21/2020 05/07/2024 Overview (09/05/2006): No, Advance Directive brochure offered , patient declined. Antepartum abnormal glucose tolerance of mother 05/09/2007 02/12/2011 Normal , first 04/10/2007/12/2007 HBPNORMAL FIRST 10/28/2005 07/25/2006 ACUTE SINUSITIS NOS 02/05/19 99 Major depressive disorder Overview (04/26/2017): ICD-10 update of inactive term documented as of this encounter (statuses as of 07/20/2024) Immunizations Name Administration Dates Next Due Pneumococcal Conjugate Vacci ne, 20-valent ([id number]) 09/26/2023 Pneumococcal Polysaccharide PPV23 (Pneumovax) 08/19/2009,08/15/2009 Seasonal [...] No 11/02/2023 Does the household have a [facility] [employer] [facility] source of income? (Household - for ages [...] Not on file Not on f ile [employer], [employer] Sm[employer] Not on file Not on file Not on f ile documented as of this encounter Last Filed Vital Signs Vital Sign Reading Time Taken Comments Blood Pressure 106/72 07/20/2024 8:26 AM EST Pulse 84 07/20/2024 8:26 AM EST Temperature 36.6 C (97.8 F) 07/20/2024 8:26 AM ES T Respiratory Rate 16 07/20/2024 8:26 AM EST Oxygen Saturation 95% 07/20/2024 8:26 AM EST Inhaled Oxygen Concentration - - Weight 59.6 kg (131 lb 8 oz) 07/20/2024 8:26 AM EST Height - - Body Mass Index 21.88 07/12/2024 8:01 AM EST documented in this encounter Progress Notes * Klaus Chappell PA-C - 07/20/2024 8:29 AM EST Images from the original note were not included. History of Present Illness Daisy Pepper is a 38 year old female that presents for Acute (Patient is here with complaints of being sick since May despite doing two rounds of antibiotics. She has had a cough, sneezing, headaches, body aches, and congestion. She was seen 06/21 and 07/12. ) Sinus and chest congestion waxing and waning over past 2 months. Has been treated with Azithromycinand Augmentin without resolution. Sweats/chills at times, no recorded fever. +chest tightness. PMH asthma, no recent albuterol inhaler use. History of alcohol abuse, now sober. LFTs elevated in the past, requesting orders for recheck. Agreeable to lipid screening. Physical Exam Vitals: 07/20/24 0826 Temp: 97.8 F (36.6 C) Pulse: 84 Resp: 16 SpO2: 95% BP: 106/72 Wt Readings from Last 3 Encounters: 07/20/24 131 lb 8 oz (59.6 kg) 07/12/24 127 lb 3.2 oz (57.7 kg) 06/21/24 129 lb (58.5 kg) Physical Exam Vitals and nursing note reviewed. Constitutional: General: She is not in acute distress. Comments: Nasal voice HENT: Head: Normocephalic and atraumatic. Right Ear: Tympanic membrane, ear canal and external ear normal. Left Ear: Tympanic membrane, ear canal and external ear normal. Nose: Congestion present. Mouth/Throat: Mouth: Mucous membranes are moist. Pharynx: Oropharynx is clear. Cardiovascular: Rate and Rhythm: Normal rate and regular rhythm. Pulmonary: Effort: Pulmonary effort is normal. Breath sounds: No wheezing. Comments: Diminished breath sounds throughout. Musculoskeletal: General: No swelling. Cervical back: Neck supple. Lymphadenopathy: Cervical: No cervical adenopathy. Neurological: Mental Status: She is alert and oriented to person, place, and time. Psychiatric: Mood and Affect: Mood normal. Assessment and Plan Sinobronchitis (Primary) - Doxycycline Hyclate 100 MG Oral Capsule; Take 1 Capsule by mouth in the morning and 1 Capsule before bedtime. Do all this for 10 days. Until gone.. - methylPREDNISolone 4 MG Oral Tablet Therapy Pack (Medrol Dosepack); follow package directions - ProAir HFA 108 (90 Base) MCG/ACT Inhalation Aerosol Solution; Inhale 2 Puffs by mouth every 4 hours as needed for Wheezing. Antibiotic-induced yeast infection - Fluconazole 150 MG Oral Tablet (Diflucan); Take 1 Tablet by mouth once for 1 dose. H/O alcohol abuse Elevated LFTs - CBC WITH WBC DIFFERENTIAL; Future; Expected date: 07/20/2024 - COMPREHENSIVE METABOLIC PANEL; Future; Expected date: 07/20/2024 Lipid screening - LIPID PANEL WITH DIRECT LDL IF TG IS HIGH; Future; Expected date: 07/20/2024 Wrap-Up Follow Up: Return if symptoms worsen or fail to improve, for Fasting Labs Soon. | For: Fasting LabsSoon Time: I spent a total of 30-39 minutes (exact time 30 mins) on the date of service in preparation, delivery, and documentation of the care provided to Daisy Pepper excluding any time spent in the performance of separately billed services. documented in this encounter Nursing Notes * Sary Srivastava LPN - 07/20/2024 8:26 AM EST The patient has been properly identified by confirmation of name and date of . Chief Complaint Patient presents with Acute Patient is here with complaints of being sick since May despite doing two rounds of antibiotics. She has had a cough, sneezing, headaches, body aches, and congestion. She was seen 06/21 and 07/12. documented in this encounter Plan of Treatment Upcoming Encounters Date Type Department Care Team (Late st Contact Info) Description 09/25/2024 11:40 AM EDT Office Visit Family [facility] [address] [place] [address] Kishor Lowe DO [address] [place] [address] Scheduled Orders Name Type Priority Associated Diagnoses Orde r Schedule CBC WITH WBC DIFFERENTIAL Lab Routine Elevated LFTs Expected: 07/20/2024 (Approximate), Expires: 07/20/2025 COMPREHENSIVE METABOLIC PANEL Lab Routine Elevated LFTs Expected: 07/20/2024 (Approximate), Expires: 07/20/2025 LIPID PANEL WITH DIRECT LDL IF TG IS HIGH Lab Routine Lipid screening Expected: 07/20/2024, Expires: 07/20/2025 Health Maintenance Due Date Last Done Comments DISCUSS TOBACCO CESSATION (REFER TO SMARTSET #9138) 1984 HPV/Co-Test 2014 *SPIROMETRY ONCE FOR ASTHMA-ADULT [...] as of this encounter Visit Diagnoses Diagnosis Sinobronchitis- Primary Unspecified sinusitis (chronic) Antibiotic-induced yeast infection Other and unspecified mycoses H/O alcohol abuse Nondependent alcohol abuse, in remission Elevated LFTs Other abnormal blood chemistry Lipid screening Screening for lipoid disorders documented in this encounter Advance Directives * Full Code (Latest Code Status on File) Date Activated Date Inactivated Comments 05/04/2022 12:19 PM 05/04/2022 7:48 PM This order reflects the patients wishes and were consensually agreed upon. Question Answer Comments Discussion of Advance Directives occurred with: Patient Care Teams Copy Holder Relationship Specialty Start Date End Date Kishor Lwoe DO [address] [place] [address] PCP - General Family Medicine 09/05/19 documented as of this encounter"
--- OUTSIDE RECORDS SUMMARY | 2024-08-14 23:10 | External Medical Summary | Summary of Care ---
Author Name Unknown Organization [facility] Address [address] [place] [address] Phone [phone] Care Team Providers Care Fun House Attendant Name Role Phone Kishor Lowe DO Primary Care Provider Reason for Referral * Evaluate & Treat - Unlimited Visits (Within 30 days (routine)) - Pending Review Specialty Diagnoses / Procedures Referred By Contjorge rodriguez Referred To Contact Dietitian Diagnoses Other irritable bowel syndrome Slow transit constipation Kishor Lowe DO [address] [place] [address] Phone: tel: fax: Samantha Campbell RDN [address] [place] [address] Phone: tel: fax: Referral ID Status Reason Start Date Expiration Date Visits Requested Visits Authorized [id number] Pending Review Specialty Services Required 07/10/[phone] Question Answer Referral Priority Within 30 days (routine) Where should this appointment be scheduled? Anna Comments This referral/annual renewal order is for Medical Nutrition Therapy (MNT) or Diabetes Self-Management Training (DSMT). MNT is provided by a Registered Dietitian Billing Auditor. MNT is an evidence-based medical approach to treating certain chronic conditions through the use of an individually-tailored nutrition, lifestyle changes and behavior modification plan. Diabetes Self-Management Training (DSMT) is provided by a recognized [place] [employer] (ADA) peer educator: Nurse (RN), Registered Dietitian Billing Auditor (RDN), and/or Diabetes Medical Nutrition Therapy (MNT) Management (dietitian only). Diabetes educators are responsible for assessing the participant's diabetes education needs, and providing diabetes self-management training in accordance with the standards set by the ADA for DSMT. Any adjustment in diabetes therapy will be made within the guidelines of standards of practice and [facility] approved policies and procedures. I understand that the peer educator will keep me informed. Areas of Education: Pathophysiology Nutrition Physical Activity Medications Monitoring Acute Complications Chronic Complications Psychosocial Management Promote Health/Behavior Change Participant will be offered 1:1 education training if there is a lack of classes available within 2 months. Providers can also order 1:1 training if indicated for participant for the following reasons: 1:1 Training for Insulin Initiation Participant Inappropriate for Class Setting By my electronic signature, I understand that my patient will be offered the comprehensive ADA content area above unless deemed not appropriate of I specify otherwise here: Reason for Visit * Reason Onset Date Comments Referral Requested by Specialist 07/09/2024 [facility] referral request Encounter Details Date Type Department Care Team (Late st Contact Info) Description 07/09/[address] [facility] [address] [facility] [place] [address] Kishor Lowe DO [address] [facility] [place] [address] Referral Requested by Specialist ([facility] refe... Allergies Active Allergy Reactions Criticality Noted Date Comments Amitriptyline Rash 09/30/2021 Bee Pollen 01/01/2019 Aluminum Chloride Rash 09/30/2021 Other Allergy (See Comments) Itching 020 Black rubber Bupivacaine Hcl 08/05/2010 Montelukast Rash 01/25/2023 On face documented as of this encounter (statuses as of 07/10/2024) Medications NATURAL SUPPLEMENTIndicati ons:CBD oil at bedtime [...] as of this encounter (statuses as of 07/10/2024) Active Problems Problem Noted Date Diagnosed Date MDD (major depressive disord er), recurrent episode, moderate 09/26/2023 Mild intermittent asthma with exacerbation 06/29 Upper respiratory tract infection 06/29/2023 Mild intermittent asthma without complication Seasonal allergic rhinitis due to pollen 023 [id number] 05/04/2022 Gastro-esophageal reflux disease without esophag itis 02/02/2022 Posttraumatic stress disorder 02/02/2022 Tobacco use 11/21/2020 Chronic rhinitis 09/17/2019 Fibromyalgia 08/15/2019 Other irritable bowel syndrome 08/15/2019 Slow transit constipation 08/05/2010 Presence of intrauterine contraceptive device Generalized anxiety disorder documented as of this encounter (statuses as of 07/10/2024) Resolved Problems Problem Noted Date Diagnosed Date [...] as of this encounter (statuses as of 07/10/2024) Immunizations Name Administration Dates Next Due Pneumococcal Conjugate Vacci ne, 20-valent ([id number]) 09/26/2023 Pneumococcal Polysaccharide PPV23 (Pneumovax) 08/19/2009,08/15/2009 Seasonal [...] Not on file Not on f ile 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 Their insurance requires an active referral be on file. Please sign pended referral order to ensure we comply with insurance requirements. Please do not reply to sender. This is an automated message, and the in-basket is not monitored. documented in this encounter Plan of Treatment Upcoming Encounters Date Type Department Care Team (Late st Contact Info) Description 07/23/2024 2:30 PM EST Nutrition Services [place], [facility] [address] [facility] [place] [address] Samantha Campbell RDN [address] [facility] [place] [address] 09/25/2024 11:40 AM EDT Office Visit Family Practice [facility] [address] [place] [address] Kishor Lowe DO [address] [place] [address] Scheduled Referrals Name Type Priority Associated Diagnoses Orde r Schedule CLINICAL NUTRITION AND DIABETES EDUCATION ANNUAL RENEWAL Referral Within 30 days (routine) Other irritable bowel syndrome Slow transit constipation Ordered: 07/10/2024 Health Maintenance Due Date Last Done Comments DISCUSS TOBACCO CESSATION (REFER TO SMARTSET #3299) 1984 HPV/Co-Test 2014 *SPIROMETRY ONCE FOR ASTHMA-ADULT [...] as of this encounter Visit Diagnoses Diagnosis Other irritable bowel syndrome- Primary Slow transit constipation documented in this encounter Advance Directives * Full Code (Latest Code Status on File) Date Activated Date Inactivated Comments 05/04/2022 12:19 PM 05/04/2022 7:48 PM This order reflects the patients wishes and were consensually agreed upon. Question Answer Comments Discussion of Advance Directives occurred with: Patient Care Teams Fun House Attendant Relationship Specialty Start Date End Date Kishor Lowe DO [address] [place] [address] PCP - General Family Medicine 09/05/19 documented as of this encounter
--- OUTSIDE RECORDS SUMMARY | 2024-08-14 23:10 | External Medical Summary | Summary of Care ---
Author Name Unknown Organization [facility] Address [address] [place] [facility] [place] [place] [address] Phone [phone] Care Team Providers Care Corporate Director Name Role Phone Kishor Lowe DO Primary Care Provider Reason for Visit * Reason Onset Date Comments Encounter Created in Error 08/08/2024 Encounter Details Date Type Department Care Team (Late st Contact Info) Description 08/08/2024 Telephone Family Practice [facility] [address] [place] [address] Kishor Lowe DO [address] [place] [address] Encounter Created in Error (/) Allergies Active Allergy Reactions Criticality Noted Date Comments Amitriptyline Rash 09/30/2021 Bee Pollen 01/01/2019 Aluminum Chloride Rash 09/30/2021 Other Allergy (See Comments) Itching 020 Black rubber Bupivacaine Hcl 08/05/2010 Montelukast Rash 01/25/2023 On face documented as of this encounter (statuses as of 08/08/2024) Medications NATURAL SUPPLEMENTIndicati ons:CBD oil at bedtime [...] or Vomiting. 180 Tablet 06/08/20 24 Active methylPREDNISolone 4 MG Oral Tablet Therapy Pack (Medrol Dosepack)Indicatio ns:Sinobronchitis follow package directions 21 Tablet 07/20/19 25 Active ProAir HFA 108 (90 Base) MCG/ACT Inhalation Aerosol SolutionIndication s:Sinobronchitis Inhale 2 Puffs by mouth every 4 hours as needed for Wheezing. 18 g 07/20/19 25 Active documented as of this encounter (statuses as of 08/08/2024) Active Problems Problem Noted Date Diagnosed Date MDD (major depressive disord er), recurrent episode, moderate 09/26/2023 Mild intermittent asthma with exacerbation 06/29 Mild intermittent asthma without complication Seasonal allergic rhinitis due to pollen 023 Avprzhe-bx-dee 05/04/2022 Gastro-esophageal reflux disease without esophag itis 02/02/2022 Posttraumatic stress disorder 02/02/2022 Tobacco use 11/21/2020 Chronic rhinitis 09/17/2019 Fibromyalgia 08/15/2019 Other irritable bowel syndrome 08/15/2019 Slow transit constipation 08/05/2010 Presence of intrauterine contraceptive device Generalized anxiety disorder documented as of this encounter (statuses as of 08/08/2024) Resolved Problems Problem Noted Date Diagnosed Date [...] as of this encounter (statuses as of 08/08/2024) Immunizations Name Administration Dates Next Due Pneumococcal Conjugate Vacci ne, 20-valent ([id number]) 09/26/2023 Pneumococcal Polysaccharide PPV23 (Pneumovax) 08/19/2009,08/15/2009 Seasonal [...] Date Smoking Tobacco: Every Day Cigarettes 1 25.7 Started: 1998 Smokeless Tobacco: Never Comments:age 13 [...] Industry Job Start Date Job End Date [employer] Not on file Not on file Not on file [employer] Not on file Not on file Not on f ile [employer]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 [address] [place] [phone] Klaus Chappell PA-C [address] [place] [address] 09/25/2024 11:40 AM EDT Office Visit Family [facility] [address] [place] [address] Kishor Lowe DO [address] [place] [address] Health Maintenance Due Date Last Done Comments DISCUSS TOBACCO CESSATION (REFER TO SMARTSET #9988) 1984 HPV/Co-Test 2014 *SPIROMETRY ONCE FOR ASTHMA-ADULT [...] filedocumented as of this encounter Advance Directives * Full Code (Latest Code Status on File) Date Activated Date Inactivated Comments 05/04/2022 12:19 PM 05/04/2022 7:48 PM This order reflects the patients wishes and were consensually agreed upon. Question Answer Comments Discussion of Advance Directives occurred with: Patient Care Teams Corporate Director Relationship Specialty Start Date End Date Kishor Lowe DO [address] [place] [address] PCP - General Family Medicine 09/05/19 documented as of this encounter
--- OUTSIDE RECORDS SUMMARY | 2024-08-14 23:10 | External Medical Summary | Summary of Care ---
Author Name Unknown Organization [facility] Address [address] [place] [address] Phone [phone] Care Team Providers Care Cabinet Worker Name Role Phone Jack Lowevoanaly Smith Primary Care Provider Encounter Details Date Type Department Care Team (Late st Contact Info) Description 07/24/2024 Orders Only PATIENT PORTAL DO NOT DELETE THIS DEPT USED BY [place] [id number] Allergies Active Allergy Reactions Criticality Noted Date Comments Amitriptyline Rash 09/30/2021 Bee Pollen 01/01/2019 Aluminum Chloride Rash 09/30/2021 Other Allergy (See Comments) Itching 020 Black rubber Bupivacaine Hcl 08/05/2010 Montelukast Rash 01/25/2023 On face documented as of this encounter (statuses as of 07/24/2024) Medications NATURAL SUPPLEMENTIndicati ons:CBD oil at bedtime [...] as of this encounter (statuses as of 07/24/2024) Active Problems Problem Noted Date Diagnosed Date MDD (major depressive disord er), recurrent episode, moderate 09/26/2023 Mild intermittent asthma with exacerbation 06/29 Mild intermittent asthma without complication Seasonal allergic rhinitis due to pollen 023 Ncrvreo-wr-yfj 05/04/2022 Gastro-esophageal reflux disease without esophag itis 02/02/2022 Posttraumatic stress disorder 02/02/2022 Tobacco use 11/21/2020 Chronic rhinitis 09/17/2019 Fibromyalgia 08/15/2019 Other irritable bowel syndrome 08/15/2019 Slow transit constipation 08/05/2010 Presence of intrauterine contraceptive device Generalized anxiety disorder documented as of this encounter (statuses as of 07/24/2024) Resolved Problems Problem Noted Date Diagnosed Date [...] as of this encounter (statuses as of 07/24/2024) Immunizations Name Administration Dates Next Due Pneumococcal Conjugate Vacci ne, 20-valent ([id number]) 09/26/2023 Pneumococcal Polysaccharide PPV23 (Pneumovax) 08/19/2009,08/15/2009 Seasonal [...] Not on file Not on f ile 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 [address] [place] [address] Kishor Lowe, [address] [place] [address] Health Maintenance Due Date Last Done Comments [...] Advance Directives occurred with: Patient Care Teams Cabinet Worker Relationship Specialty Start Date End Date Kishor Lowe DO [address] [facility] [place] [address] PCP - General Family Medicine 09/05/19 documented as of this encounter
--- OUTSIDE RECORDS SUMMARY | 2024-08-14 23:10 | External Medical Summary | Summary of Care ---
Author Name Unknown Organization [facility] Address [address] [place] [address] Phone [phone] Care Team Providers Care Support Representative Name Role Phone Kishor Lowe Primary Care Provider Encounter Details Date Type Department Care Team (Late st Contact Info) Description 07/23/2024 Population Health External Data Unspecified Department Allergies Active Allergy Reactions Criticality Noted Date Comments Amitriptyline Rash 09/30/2021 Bee Pollen 01/01/2019 Aluminum Chloride Rash 09/30/2021 Other Allergy (See Comments) Itching 020 Black rubber Bupivacaine Hcl 08/05/2010 Montelukast Rash 01/25/2023 On face documented as of this encounter (statuses as of 07/23/2024) Medications NATURAL SUPPLEMENTIndicati ons:CBD oil at bedtime [...] as of this encounter (statuses as of 07/23/2024) Active Problems Problem Noted Date Diagnosed Date MDD (major depressive disord er), recurrent episode, moderate 09/26/2023 Mild intermittent asthma with exacerbation 06/29 Mild intermittent asthma without complication Seasonal allergic rhinitis due to pollen 023 Gwzqnho-og-sod 05/04/2022 Gastro-esophageal reflux disease without esophag itis 02/02/2022 Posttraumatic stress disorder 02/02/2022 Tobacco use 11/21/2020 Chronic rhinitis 09/17/2019 Fibromyalgia 08/15/2019 Other irritable bowel syndrome 08/15/2019 Slow transit constipation 08/05/2010 Presence of intrauterine contraceptive device Generalized anxiety disorder documented as of this encounter (statuses as of 07/23/2024) Resolved Problems Problem Noted Date Diagnosed Date [...] as of this encounter (statuses as of 07/23/2024) Immunizations Name Administration Dates Next Due Pneumococcal Conjugate Vacci ne, 20-valent ([id number]) 09/26/2023 Pneumococcal Polysaccharide PPV23 (Pneumovax) 08/19/2009,08/15/2009 Seasonal [...] Not on file Not on f ile 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, 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 Not on file Not on file Not on f ile documented as of this encounter Plan of Treatment Upcoming Encounters Date Type Department Care Team (Late st Contact Info) Description 09/25/2024 11:40 AM EDT Office Visit Family Practice [facility] [address] [place] [address] Kishor Lowe, [address] [place] [address] Health Maintenance Due Date Last Done Comments DISCUSS TOBACCO CESSATION (REFER TO SMARTSET #8370) 1984 HPV/Co-Test 2014 *SPIROMETRY ONCE FOR ASTHMA-ADULT [...] Advance Directives occurred with: Patient Care Teams Support Representative Relationship Specialty Start Date End Date Kishor Lowe DO [address] [place] [address] PCP - General Family Medicine 09/05/19 documented as of this encounter
--- OUTSIDE RECORDS SUMMARY | 2024-08-14 23:11 | External Medical Summary | Summary of Care ---
Author Name Unknown Organization [facility] Address [address] [facility] [place] [address] Phone [phone] Care Team Providers Care Testing Tech Name Role Phone Sara Tripp Primary Care Provider [phone] Reason for Visit * Reason Onset Date Comments No Show 04/09/2024 [facility] No Show Auto mation Encounter Details Date Type Department Care Team (Late st Contact Info) Description 04/09/2024 Telephone Family Practice [facility] [address] [facility] [place] [address] Sara Tripp CRNP [address] [facility] [place] [id number] No Show ([place] No Show Automation) Allergies Active Allergy Reactions Criticality Noted Date Comments Amitriptyline Rash 09/30/2021 Bee Pollen 01/01/2019 Aluminum Chloride Rash 09/30/2021 Other Allergy (See Comments) Itching 020 Black rubber Bupivacaine Hcl 08/05/2010 Montelukast Rash 01/25/2023 On face documented as of this encounter (statuses as of 04/09/2024) Medications Medication Sig Dispensed Refills Start Date End Date Status NATURAL SUPPLEMENTIndication s:CBD oil at bedtime Take by mouth daily . CBD oil. Pt uses 1 dropper at bedtime. Active Multiple Vitamins-Minerals (MULTIVITAMIN ADULTS) TABS Take by mouth. Active Levonorgestrel 20 MCG/24HR Intrauterine Intrauterine Device [...] daily as needed for Anxiety. 20 Tablet 03/01/2023 Active Ondansetron 4 MG Oral Tablet Disintegrating [...] 1 Tablet by mouth as needed (Gerd). 07/16/2023 Active Azelastine HCl 0.1 % Nasal [...] MORNING AND ONE AT BEDTIME 180 Capsule 08/08/2023 Active Omeprazole 20 MG Oral Capsule Delayed Release (PriLOSEC)Indication s:Gastro-esophageal reflux disease without esophagitis Take 1 Capsule by mouth in the morning. 90 Capsule 3 09/26/2023 Active Propranolol HCl 10 MG Oral Tablet (Inderal)Indications :MERRY (generalized anxiety disorder) TAKE 1 TABLET BY MOUTH TWICE DAILY 180 Tablet 2 01/21/2024 Active Azithromycin 250 MG Oral Tablet (Zithromax Z-Vikash)Indications:Ac nivia maxillary sinusitis, recurrence not specified Take two tablets by mouth on first day, then 1 tablet daily until gone 6 Tablet 03/14/2024 Active Fluconazole 150 MG Oral Tablet (Diflucan) Take 1 Tablet by mouth in the morning. 3 Tablet 03/14/2024 Active documented as of this encounter (statuses as of 04/09/2024) Active Problems Problem Noted Date Diagnosed Date MDD (major depressive disord er), recurrent episode, moderate 09/26/2023 Mild intermittent asthma with exacerbation 06/29 Upper respiratory tract infection 06/29/2023 Mild intermittent asthma without complication Seasonal allergic rhinitis due to pollen 023 Hvloqtn-ih-xtc 05/04/2022 Gastro-esophageal reflux disease without esophag itis 02/02/2022 Posttraumatic stress disorder 02/02/2022 ADVANCE DIRECTIVE INFORMATION 11/21/2020 Overview: No, Advance Directive brochure offered , patient declined. Tobacco use 11/21/2020 Chronic rhinitis 09/17/2019 Fibromyalgia 08/15/2019 Other irritable bowel syndrome 08/15/2019 Slow transit constipation 08/05/2010 Presence of intrauterine contraceptive device Generalized anxiety disorder documented as of this encounter (statuses as of 04/09/2024) Resolved Problems Problem Noted Date Diagnosed Date Resolved Date Urge incontinence of urine 02/02/2022 0 11/08/2022 Antepartum abnormal glucose tolerance of mother 05/09/2007 02/12/2011 Normal , first 04/10/200708/05 HBPNORMAL FIRST 10/28/2005 07/25/2006 ACUTE SINUSITIS NOS 02/05/19 99 Major depressive disorder Overview: ICD-10 update of inactive term documented as of this encounter (statuses as of 04/09/2024) Immunizations Name Administration Dates Next Due Pneumococcal Conjugate Vacci ne, 20-valent ([id number]) 09/26/2023 Pneumococcal Polysaccharide PPV23 (Pneumovax) 08/19/2009,08/15/2009 Seasonal [...] Date Smoking Tobacco: Every Day Cigarettes 1 25.4 Started: 1998 Smokeless Tobacco: Never Comments:age 13 Alcohol Use Standard Drinks/Week Comments Yes 4 (1 standard drink = 0.6 oz pur e alcohol) 3-4 beers a night PHQ-2 Answer Date Recorded PHQ Adult Total Score 13 04/02/2024 Hunger Vital Sign Answer Date Recorded Within [...] encounter Miscellaneous Notes * Telephone Encounter - Noemy Messer Show - 04/09/2024 3:30 PM EDT Dear Daisy Pepper, Looks like you missed an appointment with SARA TRIPP on 04/02/2024 at 01:00 PM. If you haven't already rescheduled, you have a couple of options: Reschedule in [email or web address] Call us at [phone] Can't make a future appointment? Cancel and let someone else have your spot! It's easy to do via Tictail or by calling us. [facility]. We hope to see you back in our office soon. Sincerely, SARA TRIPP documented in this encounter Plan of Treatment Upcoming Encounters Date Type Department Care Team (Late st Contact Info) Description 04/10/2024 2:20 PM EDT Office Visit [facility] [address] [place] [address] Kishor Lowe, [address] [place] [address] 09/25/2024 11:40 AM EDT Office Visit [facility] [address] [place] [address] Kishor Lowe DO [address] [place] [address] Health Maintenance Due Date Last Done Comments DISCUSS TOBACCO CESSATION (REFER TO SMARTSET #8226) 1984 HPV/Co-Test 2014 *SPIROMETRY ONCE FOR ASTHMA-ADULT 11/11/2022 Cervical Cancer Screening 09/23/2023 Pap Smear 09/23/2023 09/22/2020, 11/02, 03/03/2011, Additional history exists COVID-19 Vaccine ( season) 2024 Influenza Vaccine (FLU shot) (#1) 2024 07/07/2017, 06/07/2016, 08/12/2010, Additional history exists Depression Monitoring 04/02/2025 04/02/2024 DTap/Tdap Vaccines (4 - Td or Tdap) 02/03/2032 02/02/2022, 08/12/2010, 04/03/2003 Hepatitis B Vaccine Completed 02/20/2004, 02/20/2004, 11/13/2001, Additional history exists Pneumococcal Vaccine: Pediatrics (0 to 5 Years) and At-Risk Patients (6 to 64 Years) Completed 09/26/2023, 08/19/2009, 08/15/2009 HPV (Gardasil) [...] Advance Directives occurred with: Patient Care Teams Testing Tech Relationship Specialty Start Date End Date Sara Tripp CRNP [address] [place] [address] PCP - General Nurse Practitioner 01/13/24 documented as of this encounter
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
--- OUTSIDE RECORDS SUMMARY | 2024-08-14 23:11 | External Medical Summary | Summary of Care ---
Author Name Unknown Organization [facility] Address [address] [place] [address] Phone [phone] Care Team Providers Care Dance Costume Designer Name Role Phone Sara Blackmon Primary Care Provider [phone] Encounter Details Date Type Department Care Team (Late st Contact Info) Description 04/05/2024 Population Health External Data Unspecified Department Allergies Active Allergy Reactions Criticality Noted Date Comments Amitriptyline Rash 09/30/2021 Bee Pollen 01/01/2019 Aluminum Chloride Rash 09/30/2021 Other Allergy (See Comments) Itching 020 Black rubber Bupivacaine Hcl 08/05/2010 Montelukast Rash 01/25/2023 On face documented as of this encounter (statuses as of 04/05/2024) Medications Medication Sig Dispensed Refills Start Date [...] Azithromycin 250 MG Oral Tablet (Zithromax Z-Vikash)Indications:Ac eek maxillary sinusitis, recurrence not specified Take two tablets by mouth on first day, then 1 tablet daily until gone 6 Tablet 03/14/2024 Active Fluconazole 150 MG Oral Tablet (Diflucan) Take 1 Tablet by mouth in the morning. 3 Tablet 03/14/2024 Active documented as of this encounter (statuses as of 04/05/2024) Active Problems Problem Noted Date Diagnosed Date MDD (major depressive disord er), recurrent episode, moderate 09/26/2023 Mild intermittent asthma with exacerbation 06/29 Upper respiratory tract infection 06/29/2023 Mild intermittent asthma without complication Seasonal allergic rhinitis due to pollen 023 [id number] 05/04/2022 Gastro-esophageal reflux disease without esophag itis 02/02/2022 Posttraumatic stress disorder 02/02/2022 ADVANCE DIRECTIVE INFORMATION 11/21/2020 Overview: No, Advance Directive brochure offered , patient declined. Tobacco use 11/21/2020 Chronic rhinitis 09/17/2019 Fibromyalgia 08/15/2019 Other irritable bowel syndrome 08/15/2019 Slow transit constipation 08/05/2010 Presence of intrauterine contraceptive device Generalized anxiety disorder documented as of this encounter (statuses as of 04/05/2024) Resolved Problems Problem Noted Date Diagnosed Date Resolved Date Urge incontinence of urine 02/02/2022 0 11/08/2022 Antepartum abnormal glucose tolerance of mother 05/09/2007 02/12/2011 Normal , first 04/10/200708/05 HBPNORMAL FIRST 10/28/2005 07/25/2006 ACUTE SINUSITIS NOS 02/05/19 99 Major depressive disorder Overview: ICD-10 update of inactive term documented as of this encounter (statuses as of 04/05/2024) Immunizations Name Administration Dates Next Due Pneumococcal Conjugate Vacci ne, 20-valent ([id number]) 09/26/2023 Pneumococcal Polysaccharide PPV23 (Pneumovax) 08/19/2009,08/15/2009 Seasonal [...] on file documented as of this encounter Plan of Treatment Upcoming Encounters Date Type Department Care Team (Late st Contact Info) Description 09/25/2024 11:40 AM EDT Office Visit [facility] [address] [place] [address] Kishor Lowe, [address] [place] [address] Health Maintenance Due Date Last Done Comments DISCUSS TOBACCO CESSATION (REFER TO SMARTSET #8406) 1984 HPV/Co-Test 2014 *SPIROMETRY ONCE FOR ASTHMA-ADULT [...] Advance Directives occurred with: Patient Care Teams Dance Costume Designer Relationship Specialty Start Date End Date Sara Blackmon CRNP [address] [place] [address] PCP - General Nurse Practitioner 01/13/24 documented as of this encounter
--- OUTSIDE RECORDS SUMMARY | 2024-08-14 23:11 | External Medical Summary | Summary of Care ---
Author Name Unknown Organization [facility] Address [address] [place] [address] Phone [phone] Care Team Providers Care Exercise Manager Name Role Phone Jack Lowevoanaly Smith Primary Care Provider Reason for Visit * Reason Comments eRx-Medication Refill Encounter Details Date Type Department Care Team (Late st Contact Info) Description 06/05/2024 Refill Gastroenterology, [facility] [address] [place] [address] Alfredo Apodaca CRNP [address] [place] [address] Allergies Active Allergy Reactions Criticality Noted Date Comments Amitriptyline Rash 09/30/2021 Bee Pollen 01/01/2019 Aluminum Chloride Rash 09/30/2021 Other Allergy (See Comments) Itching 020 Black rubber Bupivacaine Hcl 08/05/2010 Montelukast Rash 01/25/2023 On face documented as of this encounter (statuses as of 06/08/2024) Medications NATURAL SUPPLEMENTIndicat ions:CBD oil at bedtime [...] Active Additional Information Patient not taking.Reported on 04/10/2024 Benzonatate 100 MG Oral Capsule Take 1 Capsule by mouth 3 times a day as needed for Cough. 30 Capsule 1 023 Active Ventolin HFA 108 (90 Base) MCG/ACT Inhalation Aerosol Solution Inhale 2 Puffs by mouth every 4 hours as needed for Wheezing. 18 g 3 023 Active Additional Information Patient not taking.Reported on 04/10/2024 Azelastine HCl 0.1 % Nasal Solution (Astelin) Administer 2 Sprays into nostril in the morning and 2 Sprays before bedtime. 90 mL 3 024 Active Fluticasone Propionate 50 MCG/ACT Nasal Suspension (Flonase) Administer 2 Sprays into each nostril in the morning. 48 g 3 024 Active Pregabalin 100 MG Oral Capsule (Lyrica)Indicatio ns:Fibromyalgia TAKE ONE CAPSULE BY MOUTH IN THE MORNING AND ONE AT BEDTIME 180 Capsule Active Omeprazole 20 MG Oral Capsule Delayed Release (PriLOSEC)Indicat ions:Gastro-esoph ageal reflux disease without esophagitis Take 1 Capsule by mouth in the morning. 90 Capsule 3 024 Active Propranolol HCl 10 MG Oral Tablet (Inderal)Indicati ons:MERRY (generalized anxiety disorder) TAKE 1 TABLET BY MOUTH TWICE DAILY 180 Tablet 2 024 Active Vancomycin HCl 125 MG Oral Capsule (Vancocin) Take 1 Capsule by mouth every 6 hours. 024 Active Naltrexone HCl 50 MG Oral Tablet (Revia) Take 1 Tablet by mouth in the morning. 024 Active LORazepam 0.5 MG Oral Tablet (Ativan)Indicatio ns:Anxiety Take 1 Tablet by mouth daily as needed for Anxiety. 20 Tablet 024 Active Ondansetron 4 MG Oral Tablet Disintegrating (Zofran) Place 1 Tablet on tongue every 8 hours as needed for Nausea or Vomiting. 180 Tablet 024 Active Ondansetron 4 MG Oral Tablet Disintegrating (Zofran) Place 1 Tablet on tongue every 8 hours as needed for Nausea or Vomiting. 180 Tablet 4 023 2023 Discontinued documented as of this encounter (statuses as of 06/08/2024) Active Problems Problem Noted Date Diagnosed Date MDD (major depressive disord er), recurrent episode, moderate 09/26/2023 Mild intermittent asthma with exacerbation 06/29 Upper respiratory tract infection 06/29/2023 Mild intermittent asthma without complication Seasonal allergic rhinitis due to pollen 023 [id number] 05/04/2022 Gastro-esophageal reflux disease without esophag itis 02/02/2022 Posttraumatic stress disorder 02/02/2022 Tobacco use 11/21/2020 Chronic rhinitis 09/17/2019 Fibromyalgia 08/15/2019 Other irritable bowel syndrome 08/15/2019 Slow transit constipation 08/05/2010 Presence of intrauterine contraceptive device Generalized anxiety disorder documented as of this encounter (statuses as of 06/08/2024) Resolved Problems Problem Noted Date Diagnosed Date [...] as of this encounter (statuses as of 06/08/2024) Immunizations Name Administration Dates Next Due Pneumococcal Conjugate Vacci ne, 20-valent ([id number]) 09/26/2023 Pneumococcal Polysaccharide PPV23 (Pneumovax) 08/19/2009,08/15/2009 Seasonal Influenza Vac., MDV , IM, 0.5 mL (Fluzone) 08/12/2010,08/19/2009,08/15/2009,10/24 /2007 Seasonal Influenza, PF, 6 M & above, IM , (FluLaval or Fluzone) 07/07/2017 Seasonal Influenza, Quadriva lent, No Preserve, IM 06/07/2016 TD - Tetanus/Diptheria (ADULT) 04/03/2003 TDAP (age 10 and older)(Boostrix) 02/02/2022 TDAP, Age 7 and older, IM (Adacel) 08/12/2010 documented as of this encounter Social History Tobacco Use Types Packs/Day Years Used Date Smoking Tobacco: Every Day Cigarettes 1 25.5 Started: 1998 Smokeless Tobacco: Never Comments:age 13 [...] Industry Job Start Date Job End Date [employer] Not on file Not on file Not on file [employer] Not on file Not on file Not on f ile [employer] P[employer] 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 Authorizing Provider: ALFREDO APODACA * Telephone Encounter - Edel Manzo, stiff leg derrick operator - 06/07/2024 5:14 PM EST Pending Prescriptions: Disp Refills Ondansetron 4 MG Oral Tablet Disintegratin*180 Ta*0 Sig: Place 1 Tablet on tongue every 8 hours as needed for Nausea or Vomiting. * Telephone Encounter - Edel Manzo PHARM Tech - 06/07/2024 5:13 PM EST Received message from [facility] regarding patient needing an appointment. Call Placed pt no longer needs gastro appt She is feeling fine and will have her pcp approve the zofran Thank you for your assistance Edel Manzo Ground Hand II [facility] 06/07/2024,5:13 PM * Telephone Encounter - Interface, E-Rx Ss Inbound - 06/07/2024 6:03 AM EST Pending Prescriptions: Disp Refills Ondansetron 4 MG Oral Tablet Disintegratin*180 Ta*0 Sig: Place 1 Tablet on tongue every 8 hours as needed for Nausea or Vomiting. * Telephone Encounter - Valentín Murdock RPh - 06/06/2024 8:04 AM ESTPending Prescriptions: Disp Refills Ondansetron 4 MG Oral Tablet Disintegratin*180 Ta*0 Sig: Place 1 Tablet on tongue every 8 hours as needed for Nausea or Vomiting. * Telephone Encounter - Valentín Murdock RPh - 06/06/2024 8:02 AM EST Please contact patient so that an appointment can be scheduled with her GASTROENTEROLOGY provider before this refill can be authorized. After contacting patient, please forward request to Alfredo Apodaca. Last Visit: 05/19/2023 (in office), 12/17/2019 (telemedicine) Next Visit: Visit date not found Bill Richard, PharmD Clinical Pharmacist [facility] [phone] 06/06/2024 8:03 AM documented in this encounter Plan of Treatment Upcoming Encounters Date Type Department Care Team (Late st Contact Info) Description 07/23/2024 2:30 PM EST Nutrition Services Nutrition, [facility] [address] [place] [address] Samantha Campbell RDN [address] [place] [address] 09/25/2024 11:40 AM EDT Office Visit Family Practice [facility] [address] [place] [address] Kishor Lowe DO [address] [place] [address] Health Maintenance Due Date Last Done Comments [...] Advance Directives occurred with: Patient Care Teams Exercise Manager Relationship Specialty Start Date End Date Kishor Lowe DO [address] [place] [address] PCP - General Family Medicine 09/05/19 documented as of this encounter
--- OUTSIDE RECORDS SUMMARY | 2024-08-14 23:11 | External Medical Summary | Summary of Care ---
Author Name Unknown Organization [facility] Address [address] [place] [address] Phone [phone] Care Team Providers Care Court Assistant Name Role Phone Kishor Lowe DO Primary Care Provider Reason for Referral * Evaluate & Treat - Unlimited Visits (Within 10 days (routine)) - Pending Review Specialty Diagnoses / Procedures Referred By Mercedes rodriguez Referred To Contact Dietitian / Nutrition Services Diagnoses Malnutrition, unspecified type (HCC) Kishor Lowe DO [address] [place] [address] Referral ID Status Reason Start Date Expiration Date Visits Requested Visits Authorized [id number] Pending Review Specialty Services Required 04/10/[phone] Question Answer Referral Priority Within 10 days (routine) Where should this appointment be scheduled? [facility] What condition is the patient being seen for? All other conditions Other: Malnutrition/ Increase nutrient intake Comments Medical Nutrition Therapy Reason for Visit * Reason Comments Emergency Department Follow-Up Pt seen a michael Yañez on 04/02/2024 for alcohol withdraw and possible C diff, continues Vanc. Encounter Details Date Type Department Care Team (Late st Contact Info) Description 04/10/2024 2:20 PM EDT Office Visit Family [facility] [address] [place] [address] Kishor Lowe DO [address] [place] [address] Alcohol abuse*; Posttraumatic stress disorder; MDD (major depressive disorder), recurrent episode, moderate (HCC); Fibromyalgia; Malnutrition, unspecified type (HCC); Anxiety Allergies Active Allergy Reactions Criticality Noted Date Comments Amitriptyline Rash 09/30/2021 Bee Pollen 01/01/2019 Aluminum Chloride Rash 09/30/2021 Other Allergy (See Comments) Itching 020 Black rubber Bupivacaine Hcl 08/05/2010 Montelukast Rash 01/25/2023 On face documented as of this encounter (statuses as of 04/10/2024) Medications Medication Sig Dispensed Refills Start Date [...] or Wheezing. 18 g 2 11/08/2022 Active Additional Information Patient not taking.Reported on 04/10/2024 Ondansetron 4 MG Oral Tablet Disintegrating (Zofran) [...] for Wheezing. 18 g 3 06/29/2023 Active Additional Information Patient not taking.Reported on [...] TWICE DAILY 180 Tablet 2 01/21/2024 Active Vancomycin HCl 125 MG Oral Capsule (Vancocin) Take 1 Capsule by mouth every 6 hours. 04/05/2024 Active Naltrexone HCl 50 MG Oral Tablet (Revia) Take 1 Tablet by mouth in the morning. 04/05/2024 Active LORazepam 0.5 MG Oral Tablet (Ativan)Indications :Anxiety Take 1 Tablet by mouth daily as needed for Anxiety. 20 Tablet 04/10/2024 Active LORazepam 0.5 MG Oral Tablet (Ativan)Indications :Anxiety Take 1 Tablet by mouth daily as needed for Anxiety. 20 Tablet 03/01/2023 04/10/20 24 Discontinu ed(Refill) Sucralfate 1 GM Oral Tablet (Carafate) Take 1 Tablet by mouth as needed (Gerd). 07/16/2023 04/10/20 24 Discontinu ed(Medicat ion List Clean Up) Azithromycin 250 MG Oral Tablet (Zithromax Z-Vikash)Indications:A cute maxillary sinusitis, recurrence not specified Take two tablets by mouth on first day, then 1 tablet daily until gone 6 Tablet 03/14/2024 04/10/20 24 Discontinu ed(Medicat ion List Clean Up) Fluconazole 150 MG Oral Tablet (Diflucan) Take 1 Tablet by mouth in the morning. 3 Tablet 03/14/2024 04/10/20 24 Discontinu ed(Medicat ion List Clean Up) documented as of this encounter (statuses as of 04/10/2024) Active Problems Problem Noted Date Diagnosed Date MDD (major depressive disord er), recurrent episode, moderate 09/26/2023 Mild intermittent asthma with exacerbation 06/29 Upper respiratory tract infection 06/29/2023 Mild intermittent asthma without complication Seasonal allergic rhinitis due to pollen 023 [id number] 05/04/2022 Gastro-esophageal reflux disease without esophag itis 02/02/2022 Posttraumatic stress disorder 02/02/2022 ADVANCE DIRECTIVE INFORMATION 11/21/2020 Overview: No, Advance Directive brochure offered , patient declined. Tobacco use 11/21/2020 Chronic rhinitis 09/17/2019 Fibromyalgia 08/15/2019 Other irritable bowel syndrome 08/15/2019 Slow transit constipation 08/05/2010 Presence of intrauterine contraceptive device Generalized anxiety disorder documented as of this encounter (statuses as of 04/10/2024) Resolved Problems Problem Noted Date Diagnosed Date Resolved Date Urge incontinence of urine 02/02/2022 0 11/08/2022 Antepartum abnormal glucose tolerance of mother 05/09/2007 02/12/2011 Normal , first 04/10/200708/05 HBPNORMAL FIRST 10/28/2005 07/25/2006 ACUTE SINUSITIS NOS 02/05/19 99 Major depressive disorder Overview: ICD-10 update of inactive term documented as of this encounter (statuses as of 04/10/2024) Immunizations Name Administration Dates Next Due Pneumococcal Conjugate Vacci ne, 20-valent ([id number]) 09/26/2023 Pneumococcal Polysaccharide PPV23 (Pneumovax) 08/19/2009,08/15/2009 Seasonal [...] Sign Reading Time Taken Comments Blood Pressure 122/72 04/10/2024 2:16 PM EDT Pulse 94 04/10/2024 2:16 PM EDT Temperature 36.3 C (97.3 F) 04/10/2024 2:16 PM ED T Respiratory Rate 16 04/10/2024 2:16 PM EDT Oxygen Saturation 97% 04/10/2024 2:16 PM EDT Inhaled Oxygen Concentration - - Weight 54.6 kg (120 lb 6 oz) 04/10/2024 2:16 PM EDT Height - - Body Mass Index 20.03 10/14/2023 11:39 AM EDT documented in this encounter Progress Notes * Kishor Lowe, - 04/10/2024 2:26 PM EDT Images from the original note were not included. Assessment and Plan Alcohol abuse Sober now and will be seeing [facility] - starting Vivitrol And will be set up on psych-medication through them Will cover with ativan bridge until that visit Posttraumatic stress disorder Establishing with psychiatry MDD (major depressive disorder), recurrent episode, moderate (HCC) As above Fibromyalgia ongoign Malnutrition, unspecified type (HCC) Due to poor nutrition and historical struggle with alcoholism - has need for proper dietary advice - NUTRITION-CLINICAL DIETITIAN REFERRAL OP Anxiety - LORazepam 0.5 MG Oral Tablet (Ativan); Take 1 Tablet by mouth daily as needed for Anxiety. History of Present Illness Daisy Pepper is a 38 year old female that presents for Emergency Department Follow-Up (Pt seen Tevin Yañez on 04/02/2024 for alcohol withdraw and possible C diff, continues Vanc.) Historical struggle with anxiety, PTSD, depression And struggled recently with alcohol abuse - hospitalized for withdrawal And has been sober now since her hospitalization Doing much better physically - feels much better off alcohol And is establishing with [facility] next week Physical Exam Vitals: 04/10/24 1416 Temp: 36.3 C (97.3 F) Pulse: 94 Resp: 16 SpO2: 97% BP: 122/72 Physical Exam Constitutional: Appearance: Normal appearance. HENT: Head: Normocephalic and atraumatic. Eyes: Extraocular Movements: Extraocular movements intact. Pupils: Pupils are equal, round, and reactive to light. Neurological: General: No focal deficit present. Mental Status: She is alert and oriented to person, place, and time. Psychiatric: Mood and Affect: Mood normal. Behavior: Behavior normal. Wrap-Up Time: Total time today was 44 minutes excluding any time spent in the performance of separately billed services. documented in this encounter Plan of Treatment Upcoming Encounters Date Type Department Care Team (Late st Contact Info) Description 04/18/2024 10:00 AM EDT [facility] [address] [place] [address] Samantha Campbell RDN [address] [facility] [place] [address] 09/25/2024 11:40 AM EDT Office Visit Family Practice [facility] [address] [place] [address] Kishor Lowe DO [address] [place] [address] Scheduled Referrals Name Type Priority Associated Diagnoses Orde r Schedule NUTRITION-CLINICAL DIETITIAN REFERRAL OP Referral Within 10 days (routine) Malnutrition, unspecified type (HCC) Ordered: 04/10/2024 Health Maintenance Due Date Last Done Comments DISCUSS TOBACCO CESSATION (REFER TO SMARTSET #1868) 1984 HPV/Co-Test 2014 *SPIROMETRY ONCE FOR ASTHMA-ADULT [...] as of this encounter Visit Diagnoses Diagnosis Alcohol abuse- Primary Alcohol abuse, unspecified Posttraumatic stress disorder MDD (major depressive disorder), recurrent episode, moderate (HCC) Major depressive disorder, recurrent episode, moderate Fibromyalgia Mylagia and myositis, unspecified Malnutrition, unspecified type (HCC) Anxiety Anxiety state, unspecified documented in this encounter Advance Directives * Full Code (Latest Code Status on File) Date Activated Date Inactivated Comments 05/04/2022 12:19 PM 05/04/2022 7:48 PM This order reflects the patients wishes and were consensually agreed upon. Question Answer Comments Discussion of Advance Directives occurred with: Patient Care Teams Court Assistant Relationship Specialty Start Date End Date Kishor Lowe DO [address] [place] [address] PCP - General Family Medicine 09/05/19 documented as of this encounter
--- OUTSIDE RECORDS SUMMARY | 2024-08-14 23:11 | External Medical Summary | Summary of Care ---
Author Name Unknown Organization [facility] Address [address] [facility] [place] [address] Phone [phone] Care Team Providers Care Quarter Section Ironer Name Role Phone Lowe Kishor Payanlynn Primary Care Provider Reason for Visit * Reason Onset Date Comments Medical Nutrition Therapy 06/18/2024 Encounter Details Date Type Department Care Team (Late st Contact Info) Description 06/18/2024 8:00 AM EST Scheduled Telephone Myra Cottrell [address] [place] [address] Samantha Campbell, JARRELL [address] [place] [address] Allergies Active Allergy Reactions Criticality Noted Date Comments Amitriptyline Rash 09/30/2021 Bee Pollen 01/01/2019 Aluminum Chloride Rash 09/30/2021 Other Allergy (See Comments) Itching 020 Black rubber Bupivacaine Hcl 08/05/2010 Montelukast Rash 01/25/2023 On face documented as of this encounter (statuses as of 06/18/2024) Medications NATURAL SUPPLEMENTIndicati ons:CBD oil at bedtime [...] bedtime. 90 mL 3 08/01/19 24 Active Fluticasone Propionate 50 MCG/ACT Nasal Suspension [...] DAILY 180 Tablet 2 01/21/20 24 Active Vancomycin HCl 125 MG Oral Capsule (Vancocin) Take 1 Capsule by mouth every 6 hours. 04/05/20 24 Active Naltrexone HCl 50 MG Oral Tablet (Revia) Take 1 Tablet by mouth in the morning. 04/05/20 24 Active LORazepam 0.5 MG Oral Tablet (Ativan)Indication s:Anxiety Take 1 Tablet by mouth daily as needed for Anxiety. 20 Tablet 04/10/20 24 Active Ondansetron 4 MG Oral Tablet Disintegrating (Zofran) Place 1 Tablet on tongue every 8 hours as needed for Nausea or Vomiting. 180 Tablet 06/08/20 24 Active documented as of this encounter (statuses as of 06/18/2024) Active Problems Problem Noted Date Diagnosed Date MDD (major depressive disord er), recurrent episode, moderate 09/26/2023 Mild intermittent asthma with exacerbation 06/29 Upper respiratory tract infection 06/29/2023 Mild intermittent asthma without complication Seasonal allergic rhinitis due to pollen 023 [id number] 05/04/2022 Gastro-esophageal reflux disease without esophag itis 02/02/2022 Posttraumatic stress disorder 02/02/2022 Tobacco use 11/21/2020 Chronic rhinitis 09/17/2019 Fibromyalgia 08/15/2019 Other irritable bowel syndrome 08/15/2019 Slow transit constipation 08/05/2010 Presence of intrauterine contraceptive device Generalized anxiety disorder documented as of this encounter (statuses as of 06/18/2024) Resolved Problems Problem Noted Date Diagnosed Date [...] as of this encounter (statuses as of 06/18/2024) Immunizations Name Administration Dates Next Due Pneumococcal Conjugate Vacci ne, 20-valent ([id number]) 09/26/2023 Pneumococcal Polysaccharide PPV23 (Pneumovax) 08/19/2009,08/15/2009 Seasonal [...] Not on file Not on f ile 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 Patient reports she is doing well; states she gained 8 lbs since our visit. Reminded her of goal for using My Plate model forplanning meals and choosing healthy foods for snacks. She verbalizes no concerns or questions at this time. Reminded her of upcoming appointment on July 23. Encouraged her to contact me via My Gportal if any questions or concerns arise before then. Samantha Campbell RDN, Clinical Dietitian II, [facility] Clinical Nutrition Services [facility] [address] [place] [address] Available via [employer] documented in this encounter Plan of Treatment Upcoming Encounters Date Type Department Care Team (Late st Contact Info) Description 07/23/2024 2:30 PM EST Nutrition Services Nutrition, [facility] [address] [place] [address] Samantha Campbell RDN [address] [place] [address] 09/25/2024 11:40 AM EDT Office Visit Family [facility] [address] [place] [address] Kishor Lowe DO [address] [place] [address] Health Maintenance Due Date Last Done Comments DISCUSS TOBACCO CESSATION (REFER TO SMARTSET #2532) 1984 HPV/Co-Test 2014 *SPIROMETRY ONCE FOR ASTHMA-ADULT [...] Advance Directives occurred with: Patient Care Teams Quarter Section Ironer Relationship Specialty Start Date End Date Kishor Lowe DO [address] [place] [address] PCP - General Family Medicine 09/05/19 documented as of this encounter
--- OUTSIDE RECORDS SUMMARY | 2024-08-14 23:11 | External Medical Summary | Summary of Care ---
Author Name Unknown Organization [facility] Address [address] [address] Phone [phone] Care Team Providers Care Pin Sticker Name Role Phone Kishor Lowe DO Primary Care Provider Reason for Visit * Reason Comments Medical Nutrition Therapy * Evaluate & Treat - Unlimited Visits (Within 10 days (routine)) - Authorized Specialty Diagnoses / Procedures Referred By Mercedes rodriguez Referred To Contact Dietitian / Nutrition Services Diagnoses Malnutrition, unspecified type (HCC) Kishor Lwoe DO [address] [place] [address] Referral ID Status Reason Start Date Expiration Date Visits Requested Visits Authorized [id number] Authorized Specialty Services Required 04/10/2024 04/13/[phone] Encounter Details Date Type Department Care Team (Latest Contact Info) Description 04/18/2024 10:00 AM EDT Nutrition Services Myra Cottrell Cobb [address] [place] [address] Samantha Campbell RDN [address] [place] [address] Dietary counseling and surveillance* Allergies Active Allergy Reactions Criticality Noted Date Comments Amitriptyline Rash 09/30/2021 Bee Pollen 01/01/2019 Aluminum Chloride Rash 09/30/2021 Other Allergy (See Comments) Itching 020 Black rubber Bupivacaine Hcl 08/05/2010 Montelukast Rash 01/25/2023 On face documented as of this encounter (statuses as of 04/18/2024) Medications Medication Sig Dispensed Refills Start Date [...] 04/05/2024 Active LORazepam 0.5 MG Oral Tablet (Ativan)Indications: Anxiety Take 1 Tablet by mouth daily as needed for Anxiety. 20 Tablet 04/10/2024 Active documented as of this encounter (statuses as of 04/18/2024) Active Problems Problem Noted Date Diagnosed Date MDD (major depressive disord er), recurrent episode, moderate 09/26/2023 Mild intermittent asthma with exacerbation 06/29 Upper respiratory tract infection 06/29/2023 Mild intermittent asthma without complication Seasonal allergic rhinitis due to pollen 023 [id number] 05/04/2022 Gastro-esophageal reflux disease without esophag itis 02/02/2022 Posttraumatic stress disorder 02/02/2022 ADVANCE DIRECTIVE INFORMATION 11/21/2020 Overview: No, Advance Directive brochure offered , patient declined. Tobacco use 11/21/2020 Chronic rhinitis 09/17/2019 Fibromyalgia 08/15/2019 Other irritable bowel syndrome 08/15/2019 Slow transit constipation 08/05/2010 Presence of intrauterine contraceptive device Generalized anxiety disorder documented as of this encounter (statuses as of 04/18/2024) Resolved Problems Problem Noted Date Diagnosed Date Resolved Date Urge incontinence of urine 02/02/2022 0 11/08/2022 Antepartum abnormal glucose tolerance of mother 05/09/2007 02/12/2011 Normal , first 04/10/200708/05 HBPNORMAL FIRST 10/28/2005 07/25/2006 ACUTE SINUSITIS NOS 02/05/19 99 Major depressive disorder Overview: ICD-10 update of inactive term documented as of this encounter (statuses as of 04/18/2024) Immunizations Name Administration Dates Next Due Pneumococcal Conjugate Vacci ne, 20-valent ([id number]) 09/26/2023 Pneumococcal Polysaccharide PPV23 (Pneumovax) 08/19/2009,08/15/2009 Seasonal [...] Sign Reading Time Taken Comments Blood Pressure - - Pulse - - Temperature - - Respiratory Rate - - Oxygen Saturation - - Inhaled Oxygen Concentration - - Weight 57.9 kg (127 lb 9.6 oz) 04/18/2024 10:03 AM EDT Height 165.1 cm (5' 5") 04/18/2024 10:03 AM EDT Body Mass Index 21.23 04/18/2024 10:03 AM EDT documented in this encounter Patient Instructions * Patient Instructions* Samantha Campbell RDN - 04/18/2024 10:50 AM EDT On days, you come home in mid afternoon, pt will follow My Plate model when planning evening meal at least 5 times a week. On days of work, pt will use My Plate model for eating at least 3 times a week. Patient will choose a healthy meal or snack for meals or snacks earlier in the day, such as fruit and PB or whole grain crackers & cheese. Continue Ensure for now. If weight continues to increase, will consider discontinuing. documented in this encounter Progress Notes * Samantha Campbell, MAHENDRAN - 04/18/2024 10:03 AM EDT NUTRITION CONSULT - OUTPATIENT [facility] Name: Daisy Pepper Location: [facility] Date: 04/18/2024 Time: 10:03 AM Patient was identified by name and date. Patient was seen [id number] in the clinic. Reason for Referral: Malnutrition. General nutrition advice. NUTRITION ASSESSMENT: Client History Patient is a 38 year old female being seen for above issue. 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 Patient reports she has a history of fibromyalgia. Support System: Significant other, son Barriers To Learning: None Special Education Needs: None Food/Nutrition-Related History Describes typical diet history/24 hr recall Breakfast: 11 AM-1 PM 15-20 pizza rolls or leftovers, sometimes black coffee, Ensure, water Snacks: chips or grapes Lunch: ~3 PM pizza rolls or leftovers, water Snacks: none Dinner: 4-6:30 PM stuffed pepper soup or taco stuffed peppers or [place] pot roast, bread, broccoli, Ensure, water Snacks: in late AM-scoop of PB sometimes with aretha syrup or cookies and milk or aretha milk Drinks: water-80 ounces+ Restaurant meals: eats daily at restaurant, otherwise eats out once or twice a week Alcohol: None Tobacco Use: Yes, smokes 1 pack per day Diet Recall/Food Logs Indicate: AREAS FOR IMPROVEMENT: High calorie, high fat and/or high sugar selections Poor meal distribution Inadequate fiber intake Inadequate fruit and vegetable intake Significant sodium intake POSITIVE: Uses calorie free beverages Adequate fluid intake Food and Nutrient Intake and other pertinent information: Patient reports she was eating poorly while drinking alcohol, but her appetite has improved in the last 2 weeks. She reports that she feels hungry all the time and craves sweets and soda. Her meals are inconsistent due to her work schedule. Patient wants to gain weight but in a healthy way. Food allergies and/or food intolerances: bee products and honey. Uses agave nectar Pertinent Medications (Current): Current Outpatient Medications Medication Sig Dispense Refill NATURAL SUPPLEMENT Take by mouth daily . CBD oil. Pt uses 1 dropper at bedtime. Multiple Vitamins-Minerals (MULTIVITAMIN ADULTS) TABS Take by mouth. Levonorgestrel 20 MCG/24HR Intrauterine Intrauterine Device (Mirena) Insert 1 Each into uterus once. Albuterol Sulfate HFA 108 (90 Base) MCG/ACT Inhalation Aerosol Solution Inhale 2 Puffs by mouth every 6 hours as needed for Cough, Shortness of Breath or Wheezing. (Patient not taking: Reported on 04/10/2024) 18 g 2 Ondansetron 4 MG Oral Tablet Disintegrating (Zofran) [...] for Wheezing. (Patient not taking: Reported on 04/10/2024) 18 g 3 Azelastine HCl 0.1 % Nasal Solution (Astelin) Administer 2 Sprays into nostril in the morning and 2Sprays before bedtime. 90 mL 3 Fluticasone Propionate 50 MCG/ACT Nasal Suspension (Flonase) Administer 2 Sprays into each nostril in the morning. 48 g 3 Pregabalin 100 MG Oral Capsule (Lyrica) TAKE ONE CAPSULE BY MOUTH IN THE MORNING AND ONE AT [id number] Capsule 0 Omeprazole 20 MG Oral Capsule Delayed Release (PriLOSEC) Take 1 Capsule by mouth in the morning. 90Capsule 3 Propranolol HCl 10 MG Oral Tablet (Inderal) TAKE 1 TABLET BY MOUTH TWICE DAILY 180 Tablet 2 Vancomycin HCl 125 MG Oral Capsule (Vancocin) Take 1 Capsule by mouth every 6 hours. Naltrexone HCl 50 MG Oral Tablet (Revia) Take 1 Tablet by mouth in the morning. LORazepam 0.5 MG Oral Tablet (Ativan) Take 1 Tablet by mouth daily as needed for Anxiety. 20 Tablet0 No current facility-administered medications for this visit. Also taking Lyrica, ativan PRN, Naltrexone Supplements: Multivitamin with minerals. 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 Interpretation of weight change: Intentional weight change, gained. BMI: BMI Readings from Last 1 Encounters: 04/18/24 21.23 kg/m Nutrition-Focused Physical Findings Overall appearance: WNWD Deferred Biochemical Data, Medical Tests, and Procedures No current pertinent labs NUTRITION DIAGNOSIS Food and nutrition-related knowledge deficit related to High calorie, high fat and/or high sugar selections, Poor meal distribution, Inadequate fiber intake, Inadequate fruit and vegetable intake, Significant sodium intake as evidenced by Reported diet and/or activity recall NUTRITION INTERVENTION: NUTRITION EDUCATION Initial/brief nutrition education NUTRITION COUNSELING Strategies Other Education Material: Academy of [employer] and Dietetics Nutrition Care Manual Handout General Healthful Nutrition Therapy and Krames Education Materials Understanding My Plate Nutrition Prescription: Diet: Good Nutrition Daily Calorie Needs: 5026-9053 Kcals Daily Protein Needs: 60 Grams protein Goals: On days, you come home in mid afternoon, pt will follow My Plate model when planning eveningmeal at least 5 times a week. On days of work, pt will use My Plate model for eating at least 3 times a week. Patient will choose a healthy meal or snack for meals or snacks earlier in the day, such as fruit and PB or whole grain crackers & cheese. Dietitian Action: Encouraged patient to eat consistent meals and eat out of each of the food groups. Reviewed the MyPlate model with her. Discussed choosing lean meats and increasing fiber to help curb hunger. Talked about decreasing fat overall and increasing intake of fruits and vegetables. Discussed recommended portion sizes for meats and high carb foods. Also discussed the benefit of different colored fruits and vegetables specifically antioxidants to decrease overall inflammation. Patient asked about checking labs. Checking nutrient labs is not indicated at this time. Recommendations to Ordering Provider: Continue current plan of nutrition care. NUTRITION MONITORING AND EVALUATION: The following will be monitored and evaluated at the next visit: Monitor weight. Monitor goals and progress. Plan:Patient scheduled to return in 3 months; dietitian phone # given for future reference. 60 minutes Medical Nutrition Therapy 15 min (8-22 min) 30 min (23-37 min) 45 min (38-52 min) 60 min (53-67 min) 75 min (68-82 min) 90 min (83-97 min) 105 min (98-113 min) Time In: 1001 (04/18/24 1131) Time Out: 1054 (04/18/24 1131) Samantha Campbell RDN [facility] documented in this encounter Miscellaneous Notes * Pt Handout (on AVS) - Samantha Campbell RDN - 04/18/2024 10:28 AM EDT Images from the original note were not included. [id number] Understanding USDA MyPlate The USDA has guidelines to help you make healthy food choices. These are called MyPlate. MyPlate shows the food groups that make up healthy meals using the image of a place setting. Before you eat, think about the healthiest choices for what to put on your plate or in your cup or bowl. To learn more about building a healthy plate, visit www.myplate.gov. The food groups Fruits. Any fruit or 100% fruit juice counts as part of the Fruit Group. Fruits may be fresh, canned, frozen, or dried, and may be whole, cut-up, or pureed. Make 1/2 of your plate fruits and vegetables. Vegetables. Any vegetable or 100% vegetable juice counts as a member of the Vegetable Group. Vegetables may be fresh, frozen, canned, or dried. They can be served raw or cooked and may be whole, cut-up, or mashed. Make 1/2 of your plate fruits and vegetables. Grains. All foods made from grains are part of the Grains Group. These include wheat, rice, oats, cornmeal, and barley. Grains are often used to make foods such as bread, pasta, oatmeal, cereal, tortillas, and grits. Grains should be no more than 1/4 of your plate. At least half of your grains should be whole grains. Protein. This group includes meat, poultry, seafood, beans and peas, eggs, processed soy products (such as tofu), nuts (including nut butters), and seeds. Make protein choices no more than 1/4 of your plate. Meat and poultry choices should be lean or low fat. Dairy. The Dairy Group includes all fluid milk products and foods made from milk that contain calcium, such as yogurt and cheese. (Foods that have little calcium, such as cream, butter, and cream cheese, are not part of this group.) Most dairy choices should be low-fat or fat-free. Things to limit Eating healthy also means limiting these things in your diet: Oils. Oils aren't a food group, but they do contain essential nutrients. These are fats that areliquid at room temperature. Including small amounts of oils in your diet is fine and can even be good for you. But it's important to watch how much oil you include in your diet. Oils include avocado,canola, corn, olive, soybean, vegetable, and sunflower. Foods that are mainly oil include mayonnaise, certain salad dressings, and soft margarines. You likely already get your daily oil allowance from the foods you eat. Salt (sodium). Many processed foods have a lot of sodium. To keep sodium intake down, eat fresh vegetables, meats, poultry, and seafood when possible. Buy low-sodium, reduced-sodium, or pq-kjgx-tmwyy food products at the store. And don't add salt to your meals at home. Instead, season them with herbs and spices such as dill, oregano, cumin, and paprika. Or try adding flavor with vinegar, onion, garlic, or lemon or confederated goshute zest and juice. Saturated fat . Saturated fats are most often found in animal products such as beef, pork, and chicken. They are often solid at room temperature, such as butter. To reduce your saturated fat intake, choose leaner cuts of meat and poultry. And try healthier cooking methods such as grilling, broiling, roasting, or baking. For a simple lower-fat swap, use plain nonfat yogurt instead of mayonnaisewhen making potato salad or macaroni salad. Added sugars. These are sugars added to foods. They are in foods such as ice cream, candy, soda,fruit drinks, sports drinks, energy drinks, cookies, pastries, jams, and syrups. Cut down on added sugars by sharing sweet treats with a family member or friend. You can also choose fruit for dessert, and drink water or other unsweetened beverages. Alcohol. Alcohol contains calories but few nutrients. If you don't drink alcohol, don't start drinking for any reason. But if you do choose to drink alcohol, do so only in moderation. This means no more than 2 drinks in a day for men and no more than 1 drink per day for women, on days when you have alcohol. Last Reviewed Date: 2022 00:00:00 4769-8497 [employer]. All rights reserved. This information is not intended as a substitute for professional medical care. Always follow your healthcare professional's instructions. documented in this encounter Plan of Treatment Upcoming Encounters Date Type Department Care Team (Late st Contact Info) Description 07/23/2024 2:30 PM [facility] [address] [place] [address] Samantha Campbell RDN [address] [place] [address] 09/25/2024 11:40 AM EDT Office Visit Family Practice [facility] [address] [place] [address] Kishor Lowe DO [address] [place] [address] Scheduled Referrals Name Type Priority Associated Diagnoses Orde r Schedule NUTRITION-CLINICAL DIETITIAN REFERRAL OP Referral Within 10 days (routine) Malnutrition, unspecified type (HCC) Ordered: 04/10/2024 Health Maintenance Due Date Last Done Comments DISCUSS TOBACCO CESSATION (REFER TO SMARTSET #1211) 1984 HPV/Co-Test 2014 *SPIROMETRY ONCE FOR ASTHMA-ADULT [...] as of this encounter Visit Diagnoses Diagnosis Dietary counseling and surveillance- Primary Dietary surveillance and counseling documented in this encounter Advance Directives * Full Code (Latest Code Status on File) Date Activated Date Inactivated Comments 05/04/2022 12:19 PM 05/04/2022 7:48 PM This order reflects the patients wishes and were consensually agreed upon. Question Answer Comments Discussion of Advance Directives occurred with: Patient Care Teams Pin Sticker Relationship Specialty Start Date End Date Kishor Lowe DO [address] [place] [address] PCP - General Family Medicine 09/05/19 documented as of this encounter
[2024-08-14] MEDS: ACETAMINOPHEN 325 MG TAB PO PRN (23:28)
[2024-08-15] MEDS: GABAPENTIN 600 MG TAB PO SCH ×2 (01:29→15:18)
[2024-08-15 08:00] LABS: Hemoglobin 13.4 g/dl (12.0-16.0); Mean Corpuscular Hemoglobin 31.1 pg (25.0-34.0); Mean Corpuscular Hgb Conc 35.3 g/dL (32.0-36.0); Mean Corpuscular Volume 88.2 fL (80.0-100.0); Mean Platelet Volume 9.7 fL (9.4-12.4); Platelet Count 236 K/uL (130-400); RDW Coefficient of Variation 12.1 % (11.5-14.5); RDW Standard Deviation 38.8 fL (36.4-46.3); Red Blood Count 4.31 M/uL (4.20-5.40); White Blood Count 5.47 K/ul (4.8-10.8)
[2024-08-15] MEDS: PROPRANOLOL HCL 10 MG TAB PO STA (08:25)
[2024-08-15 08:37] LABS: Albumin Globulin Ratio 1.8 (0.9-2); Albumin Level 3.4 gm/dl (3.4-5.0); BUN Creatinine Ratio 14.3 (10-20); Bilirubin,Total 1.8 mg/dl (0.2-1.0); Calcium 8.3 mg/dl (8.6-10.3); Creatinine Clr Calc Pharmacy 95.9 ml/min; Globulin 1.9 gm/dl (2.5-4.0); Magnesium 1.6 mg/dl (1.7-2.4); Potassium 3.5 mmol/L (3.5-5.1); Total Protein 5.3 gm/dl (6.0-8.3)
[2024-08-15] MEDS: ONDANSETRON INJ 2 MG/ML 2 ML VIAL IV PRN (12:32)
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
--- NOTE | 2024-08-15 14:55 | Hospitalist Progress Note ---
Date of Service August 15, 2024 Assessment & Plan (1) Generalized anxiety disorder: (2) Alcohol abuse: (3) Alcoholic intoxication: Plan: 38y/o F with PMHx significant for chronic rhinitis, asthma, IBS, GERD without esophagitis, fatty liver disease, fibromyalgia, MERRY, PTSD, depression, marijuana use, tobacco use disorder and ongoing alcohol use who presented to the ED for mental health evaluation and alcohol detoxification. EtOH level 178.7 on admission. Urine tox screen + for marijuana. Additional initial lab evaluation otherwise grossly unremarkable except for hypokalemia noted below. Counseled regarding alcohol cessation Continue [facility] protocol Psych eval noted and recs noted Started on zoloft 50mg daily and naltrexone 50mg daily per Psych CM c/s for inpatient D&A rehab (4) Upper respiratory tract infection: Plan: Ongoing cough since May - now productive of yellow/green sputum. Resp panel negative XR did not show any acute abnormalities Symptomatic treatment (5) IBS (irritable bowel syndrome): Plan: Appears chronic diarrhea at baseline. She was tested for C. difficile during last admission in April 2024. She was negative for the toxin but positive for the gene. 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 Check C. difficile and stool PCR testing given ongoing diarrhea complaints. (6) Tobacco use disorder: Plan: Currently smoking 1ppd. Counseled regarding smoking cessation (7) Hypokalemia: Plan: K+ 3.4 on admission. Repleted. Monitor Mag is 1.6 today. Replete and monitor DVT Prophylaxis: SCDs/TEDs Code Status: FULL CODE PCP: Kishor Lowe, I spent a total of 50 minutes coordinating, documenting and providing care for this patient excluding time spent in performance of separately billed services Admission and Anticipated Discharge Date Admission Date: August 14, 2024 Subjective Patient seen and examined Reports feeling anxious and low back muscle pains Denied suicidal or homicidal ideation Denied any other complaints Physical Exam Constitutional: + well hydrated; no acute distress Eyes: PERRL, conjunctivae normal, anicteric sclerae ENMT: external ear and nose normal, oropharynx normal Respiratory: normal respiratory effort, lungs clear to auscultation Cardiovascular: Rate/Rhythm: regular rate and regular rhythm Gastrointestinal (Abdomen): normal bowel sounds, soft, nontender, no hepatosplenomegaly Musculoskeletal: No pedal edema Neurologic: PERRL, EOMI, accommodation nl, no face palsy, no dysarthria Psychiatric: Orientation: alert and oriented x 3 Tearful Results & Data Results & Data Vital Signs (Past 12 Hours) Vital Signs Temp Pulse Pulse Resp BP BP BP 08/15/24 14:10 72 08/15/24 12:17 36.8 C 67 160/104 H 152/101 H 08/15/24 11:17 63 17 153/110 H 08/15/24 09:24 72 18 08/15/24 08:12 84 15 08/15/24 08:00 125/80 08/15/24 08:00 125/80 08/15/24 07:57 72 17 08/15/24 07:02 65 08/15/24 07:00 66 21 08/15/24 07:00 123/83 08/15/24 07:00 123/83 08/15/24 07:00 123/83 08/15/24 06:06 80 22 08/15/24 06:00 80 15 108/82 08/15/24 05:03 72 15 08/15/24 05:00 117/82 08/15/24 05:00 117/82 08/15/24 04:51 67 21 08/15/24 04:42 70 08/15/24 04:17 133/106 H 08/15/24 04:16 37.2 C 75 19 133/106 H 08/15/24 04:15 73 21 08/15/24 04:09 74 19 08/15/24 03:18 77 18 Pulse Ox O2 Del Method 08/15/24 14:10 08/15/24 12:17 Room Air 08/15/24 11:17 98 Room Air 08/15/24 09:24 08/15/24 08:12 95 08/15/24 08:00 08/15/24 08:00 08/15/24 07:57 96 08/15/24 07:02 08/15/24 07:00 97 08/15/24 07:00 08/15/24 07:00 08/15/24 07:00 08/15/24 06:06 08/15/24 06:00 98 Room Air 08/15/24 05:03 08/15/24 05:00 08/15/24 05:00 08/15/24 04:51 08/15/24 04:42 08/15/24 04:17 08/15/24 04:16 99 Room Air 08/15/24 04:15 100 08/15/24 04:09 100 08/15/24 03:18 100 Laboratory Results Abnormal lab results 08/15/24 Range/Units 07:16 Sodium 135 L (136-145) mmol/L Glucose 117 H (70-99(Fasting)) mg/dl Calcium 8.3 L (8.6-10.3) mg/dl Magnesium 1.6 L (1.7-2.4) mg/dl Total Bilirubin 1.8 H D (0.2-1.0) mg/dl Total Protein 5.3 L D (6.0-8.3) gm/dl Globulin 1.9 L (2.5-4.0) gm/dl (4) Upper respiratory tract infection URI type: unspecified URI Qualified Code(s): J06.9 - Acute upper respiratory infection, unspecified (5) IBS (irritable bowel syndrome) Irritable bowel syndrome type: unspecified Qualified Code(s): K58.9 - Irritable bowel syndrome, unspecified
[2024-08-15] MEDS: IBUPROFEN 200 MG TAB PO PRN (15:05)
[2024-08-15] MEDS: MAGNESIUM SULFATE / D5W 1 GM/100 ML BAG IV ONE (15:05)
[2024-08-15] MEDS: LORazepam 1 MG TAB PO PRN (20:12)
[2024-08-16] MEDS: NALTREXONE HCL 50 MG TAB PO SCH (08:07)
[2024-08-16] MEDS: SERTRALINE HCL 50 MG TABLET PO SCH (08:07)
[2024-08-16 08:36] LABS: Hematocrit (blood only) 42.4 % (37.0-47.0); Hemoglobin 14.9 g/dl (12.0-16.0); Mean Corpuscular Hemoglobin 31.2 pg (25.0-34.0); Mean Corpuscular Hgb Conc 35.1 g/dL (32.0-36.0); Mean Corpuscular Volume 88.7 fL (80.0-100.0); Mean Platelet Volume 9.7 fL (9.4-12.4); Platelet Count 277 K/uL (130-400); RDW Coefficient of Variation 12.1 % (11.5-14.5); RDW Standard Deviation 39.3 fL (36.4-46.3); Red Blood Count 4.78 M/uL (4.20-5.40); White Blood Count 6.57 K/ul (4.8-10.8)
[2024-08-16 09:08] LABS: Albumin Level 3.8 gm/dl (3.4-5.0); BUN Creatinine Ratio 14.3 (10-20); Bilirubin Direct 0.3 mg/dl (0-0.2); Bilirubin,Total 1.6 mg/dl (0.2-1.0); Creatinine Clr Calc Pharmacy 121.4 ml/min; Magnesium 1.9 mg/dl (1.7-2.4); Phosphorus 3.2 mg/dl (2.5-4.9); Potassium 4.3 mmol/L (3.5-5.1); Total Protein 5.9 gm/dl (6.0-8.3)
--- NOTE | 2024-08-16 10:38 | Hospitalist Progress Note ---
Date of Service August 16, 2024 Assessment & Plan (1) Generalized anxiety disorder: (2) Alcohol abuse: (3) Alcoholic intoxication: Plan: 38y/o F with PMHx significant for chronic rhinitis, asthma, IBS, GERD without esophagitis, fatty liver disease, fibromyalgia, MERRY, PTSD, depression, marijuana use, tobacco use disorder and ongoing alcohol use who presented to the ED for mental health evaluation and alcohol detoxification. EtOH level 178.7 on admission. Urine tox screen + for marijuana. Additional initial lab evaluation otherwise grossly unremarkable except for hypokalemia noted below. Counseled regarding alcohol cessation Continue CIWA protocol Psych eval noted and recs noted Continue zoloft 50mg daily and naltrexone 50mg daily started inpatient CM c/s for inpatient D&A rehab (4) Upper respiratory tract infection: Plan: Ongoing cough since May - now productive of yellow/green sputum. Resp panel negative XR did not show any acute abnormalities Symptomatic treatment (5) IBS (irritable bowel syndrome): Plan: Appears chronic diarrhea at baseline. She was tested for C. difficile during last admission in April 2024. She was negative for the toxin but positive for the gene. 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 (6) Tobacco use disorder: Plan: Currently smoking 1ppd. Counseled regarding smoking cessation (7) Hypokalemia: Plan: K+ 3.4 on admission. Repleted. Monitor DVT Prophylaxis: SCDs/TEDs Code Status: FULL CODE PCP: Kishor Lowe DO I spent a total of 45 minutes coordinating, documenting and providing care for this patient excluding time spent in performance of separately billed services Admission and Anticipated Discharge Date Admission Date: August 14, 2024 Subjective Patient seen and examined Reports feeling slightly better today Reports some anxiety No new complaints Physical Exam Constitutional: + well hydrated; no acute distress Eyes: PERRL, conjunctivae normal, anicteric sclerae ENMT: external ear and nose normal, oropharynx normal Respiratory: normal respiratory effort, lungs clear to auscultation Cardiovascular: Rate/Rhythm: regular rate and regular rhythm Gastrointestinal (Abdomen): normal bowel sounds, soft, nontender, no hepatosplenomegaly Musculoskeletal: no cyanosis or clubbing, extremities motor strength 5/5 Neurologic: PERRL, EOMI, accommodation nl, no face palsy, no dysarthria Psychiatric: Orientation: alert and oriented x 3 Results & Data Results & Data Vital Signs (Past 12 Hours) Vital Signs Temp Pulse Pulse Resp BP BP Pulse Ox 08/16/24 07:31 36.4 C L 74 18 123/75 97 08/16/24 07:10 74 08/16/24 04:33 77 08/16/24 02:00 36.5 C 76 16 114/79 96 O2 Del Method 08/16/24 07:31 Room Air 08/16/24 07:10 08/16/24 04:33 08/16/24 02:00 Room Air Laboratory Results Abnormal lab results 08/16/24 Range/Units 08:03 Creatinine 0.56 L (0.6-1.2) mg/dl Glucose 100 H (70-99(Fasting)) mg/dl Total Bilirubin 1.6 H (0.2-1.0) mg/dl Direct Bilirubin 0.3 H (0-0.2) mg/dl Total Protein 5.9 L (6.0-8.3) gm/dl (4) Upper respiratory tract infection URI type: unspecified URI Qualified Code(s): J06.9 - Acute upper respiratory infection, unspecified (5) IBS (irritable bowel syndrome) Irritable bowel syndrome type: unspecified Qualified Code(s): K58.9 - Irritable bowel syndrome, unspecified
[2024-08-16] MEDS: LORazepam 1 MG TAB PO STA (11:00)
[2024-08-16] MEDS: GABAPENTIN 600 MG TAB PO SCH (20:02)
[2024-08-17 01:27] LABS: Marijuana Quant, GCMS Urine 746 ng/mL (<5)
[2024-08-17] MEDS: KETOROLAC TROMETHAMINE 15 MG/ML VIAL IV ONE (01:57)
--- NOTE | 2024-08-17 10:48 | Hospitalist Progress Note ---
Date of Service August 17, 2024 Assessment & Plan (1) Generalized anxiety disorder: (2) Alcohol abuse: (3) Alcoholic intoxication: Plan: 38y/o F with PMHx significant for chronic rhinitis, asthma, IBS, GERD without esophagitis, fatty liver disease, fibromyalgia, MERRY, PTSD, depression, marijuana use, tobacco use disorder and ongoing alcohol use who presented to the ED for mental health evaluation and alcohol detoxification. EtOH level 178.7 on admission. Urine tox screen + for marijuana. Additional initial lab evaluation otherwise grossly unremarkable except for hypokalemia noted below. Counseled regarding alcohol cessation Continue CIWA protocol Psych eval noted and recs noted Continue zoloft 50mg daily and naltrexone 50mg daily started inpatient Patient reports she will prefer outpatient rehab. She already have resources (4) Upper respiratory tract infection: Plan: Ongoing cough since May - now productive of yellow/green sputum. Resp panel negative XR did not show any acute abnormalities Symptomatic treatment (5) IBS (irritable bowel syndrome): Plan: Appears chronic diarrhea at baseline. She was tested for C. difficile during last admission in April 2024. She was negative for the toxin but positive for the gene. 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 (6) Tobacco use disorder: Plan: Currently smoking 1ppd. Counseled regarding smoking cessation (7) Hypokalemia: Plan: K+ 3.4 on admission. Awaiting AM labs DVT Prophylaxis: SCDs/TEDs Code Status: FULL CODE PCP: Kishor Lowe DO I spent a total of 40 minutes coordinating, documenting and providing care for this patient excluding time spent in performance of separately billed services Admission and Anticipated Discharge Date Admission Date: August 14, 2024 Subjective Patient seen and examined Reported tactile hallucinations yesterday/overnight Feeling better this AM No other new complaints Physical Exam Constitutional: + well hydrated; no acute distress Eyes: PERRL, conjunctivae normal, anicteric sclerae ENMT: external ear and nose normal, oropharynx normal Respiratory: normal respiratory effort, lungs clear to auscultation Cardiovascular: Rate/Rhythm: regular rate and regular rhythm Gastrointestinal (Abdomen): normal bowel sounds, soft, nontender, no hepatosplenomegaly Musculoskeletal: no cyanosis or clubbing, extremities motor strength 5/5 Neurologic: PERRL, EOMI, accommodation nl, no face palsy, no dysarthria Psychiatric: Orientation: alert and oriented x 3 Results & Data Results & Data Vital Signs (Past 12 Hours) Vital Signs Temp Pulse Pulse Resp BP BP Pulse Ox 08/17/24 07:54 08/17/24 07:42 36.5 C 84 16 124/79 96 08/17/24 06:54 81 08/17/24 04:07 36.5 C 70 16 112/70 98 08/17/24 01:40 36.5 C 16 134/93 98 08/17/24 01:04 72 O2 Del Method 08/17/24 07:54 Room Air 08/17/24 07:42 Room Air 08/17/24 06:54 08/17/24 04:07 Room Air 08/17/24 01:40 Room Air 08/17/24 01:04 Laboratory Results Abnormal lab results 08/14/24 Range/Units 13:21 U Marijuana THC Carboxy 746 H (<5) ng/mL (4) Upper respiratory tract infection URI type: unspecified URI Qualified Code(s): J06.9 - Acute upper respiratory infection, unspecified (5) IBS (irritable bowel syndrome) Irritable bowel syndrome type: unspecified Qualified Code(s): K58.9 - Irritable bowel syndrome, unspecified
[2024-08-17 10:57] LABS: BUN Creatinine Ratio 16.7 (10-20); Calcium 9.4 mg/dl (8.6-10.3); Magnesium 1.9 mg/dl (1.7-2.4); Phosphorus 3.7 mg/dl (2.5-4.9); Potassium 4.7 mmol/L (3.5-5.1)
[2024-08-17] MEDS: POLYETHYLENE (MIRALAX) 17 GM PACK PO PRN (18:21)
[2024-08-17 21:54] LABS: Adenovirus F 40/41 PCR Not Detected (NotDetected); Astrovirus PCR Not Detected (NotDetected); Campylobacter PCR Not Detected (NotDetected); Cryptosporidium PCR Not Detected (NotDetected); Cyclospora cayetanensis PCR Not Detected (NotDetected); Entamoeba histolytica PCR Not Detected (NotDetected); Enteroaggregative E.coli(EAEC) Not Detected (NotDetected); Enteropathogenic E.coli (EPEC) Not Detected (NotDetected); Enterotoxigenic E.coli (ETEC) Not Detected (NotDetected); Giardia lamblia PCR Not Detected (NotDetected); Plesiomonas shigelloides PCR Not Detected (NotDetected); Rotavirus A PCR Not Detected (NotDetected); Salmonella PCR Not Detected (NotDetected); Sapovirus PCR Not Detected (NotDetected); Shiga-like Toxin E.coli (STEC) Not Detected (NotDetected); Shigella/Enteroinvasive E.coli Not Detected (NotDetected); Vibrio cholerae PCR Not Detected (NotDetected); Vibrio species PCR Not Detected (NotDetected); Yersinia enterocolitica PCR Not Detected (NotDetected)
[2024-08-17 22:31] LABS: Norovirus GI/GII PCR DETECTED (NotDetected)
[2024-08-17] MEDS: LORazepam 1 MG TAB PO PRN (23:06)
[2024-08-17] MEDS: FIRST - Mouthwash BLM 5 ML UDP PO ONE (23:36)
[2024-08-18 07:26] LABS: Calcium 8.3 mg/dl (8.6-10.3); Creatinine Clr Calc Pharmacy 111.4 ml/min; Magnesium 1.9 mg/dl (1.7-2.4); Phosphorus 4.2 mg/dl (2.5-4.9)
[2024-08-18 07:51] VITALS: PULSE 69; RESP 18; TEMP 98.2; O2SAT 97
[2024-08-18] MEDS: GABAPENTIN 600 MG TAB PO SCH (08:47)
--- NOTE | 2024-08-18 09:14 | Discharge Summary ---
Date of Service August 18, 2024 Admission HPI Per Admitting Provider Daisy Pepper is a 38y/o F with PMHx significant for chronic rhinitis, asthma, IBS, GERD without esophagitis, fatty liver disease, fibromyalgia, MERRY, PTSD, depression, marijuana use, tobacco use disorder and ongoing alcohol use who presented to the ED for mental health evaluation and alcohol detoxification. History obtained from the patient and associated chart review. Patient seen at bedside with Dr. Robles. Patient reports increasing anxiety over the past week as she ran out of her prescription for Ativan. She reports taking 0.5mg Ativan QHS to help her sleep as she deals with insomnia due to her MERRY and PTSD. Per review of PDMP, patient last filled a prescription for Ativan on 04/10/24. This prescription was for a total of 20 0.5mg tablets of Ativan. Mentions that she has been taking Ativan on and off since she was 15 years old due to her anxiety. She has unfortunately turned to alcohol use since running out of Ativan to help control her anxiety levels. Patient had previously been sober for 120 days up until 1 week ago. She endorses drinking approximately 1/5 of a bottle of hard liquor per day - notably whiskey. Last drink was around 12PM today. Alcohol level upon presentation today is 178.7 and urine toxicity screen is positive for marijuana, which patient endorses using routinely as she has a medical marijuana card. Currently smoking about 1ppd as well. Denies any illicit drug use other than marijuana. She denies any suicidal ideations/plans but mentions that she "wouldn't mind not waking up tomorrow" if that was the case. No homicidal ideations. No reported visual or auditory hallucinations. Denies any SOB or chest pain, however she does mentions she has been experiencing an ongoing cough since May. She has been on 3 different courses of oral antibiotics but the cough persists and now is productive of yellow/green sputum. No recorded fevers however she does mention some episodes of chills. No history of alcohol withdrawal seizures. Admission Exam Per Admitting Provider General Appearance:Thin, built and nourished, no apparent distress Head: normocephalic, Atraumatic Eyes: normal inspection, EOMI Neck: supple, Trachea midline Respiratory/Chest: Normal breath sounds, CTA, No accessory muscle use Cardiovascular: S1, S2, No murmur Abdomen/GI:Soft, Non tender, Bowel sounds present Extremities/Musculoskeletal:normal inspection, no edema Neurologic/Psych:AAOX3, grossly no focal neurological deficits, tearful Skin: normal color, warm Principal Diagnosis Alcohol withdrawal Generalized anxiety disorder Norovirus infection Discharge Exam Constitutional + well hydrated; no acute distress Eyes PERRL, conjunctivae normal, anicteric sclerae ENMT external ear and nose normal, oropharynx normal Respiratory normal respiratory effort, lungs clear to auscultation Cardiovascular Rate/Rhythm: regular rate and regular rhythm Gastrointestinal (Abdomen) normal bowel sounds, soft, nontender, no hepatosplenomegaly Musculoskeletal no cyanosis or clubbing, extremities motor strength 5/5 Neurologic PERRL, EOMI, accommodation nl, no face palsy, no dysarthria Psychiatric Orientation: alert and oriented x 3 Discharge Data Allergies Allergy/AdvReac Type Severity Reaction Status Date / Time amitriptyline Allergy Rash Verified 10/22/23 20:53 bee venom protein (honey bee) Allergy Unknown Verified 10/22/23 20:53 benzocaine AdvReac Intermediate GI SYMPTOMS Verified 10/22/23 20:53 bupivacaine AdvReac Intermediate GI SYMPTOMS Verified 10/22/23 20:53 procaine AdvReac Unknown GI SYMPTOMS Verified 10/22/23 20:53 Consultations 08/14/24 19:06 ED Decision to Admit Stat 08/14/24 19:23 Consult Psychiatry Routine Hospital Course (1) Generalized anxiety disorder: (2) Alcohol abuse: (3) Alcoholic intoxication: 38y/o F with PMHx significant for chronic rhinitis, asthma, IBS, GERD without esophagitis, fatty liver disease, fibromyalgia, MERRY, PTSD, depression, marijuana use, tobacco use disorder and ongoing alcohol use who presented to the ED for mental health evaluation and alcohol detoxification. EtOH level 178.7 on admission. Urine tox screen + for marijuana. Counseled regarding alcohol cessation Was managed per [facility] protocol Psych evaluated and recommended starting zoloft 50mg daily and naltrexone 50mg daily Psych also recommended changing her lyrica to gabapentin. This was started at 300mg BID on discharge Patient reports she will prefer outpatient rehab. (4) Upper respiratory tract infection: Ongoing cough since May - now productive of yellow/green sputum. Resp panel negative XR did not show any acute abnormalities Symptomatic treatment (5) IBS (irritable bowel syndrome): Appears chronic diarrhea at baseline. Reported increased diarrhea and stool test was positive for norovirus (6) Tobacco use disorder: Currently smoking 1ppd. Counseled regarding smoking cessation (7) Hypokalemia: K+ 3.4 on admission. Repleted and resolved. K is 4 this AM Total Time Total Time Spent Total Time Spent (In Minutes): 35 Total Time Includes: Examination of the Patient, Discharge Planning and Medication Reconciliation Discharge Plan Discharge Items Patient Disposition: Home - Self-Care Reason For Visit: ALCOHOL WITHDRAWAL Discharge Diagnosis: Alcohol withdrawal Generalized anxiety disorder Norovirus infection Activity: Resume your previous activity Non-emergency contact: Primary Care Provider and Psychiatrist Call non-emergency contact if: you have any medication questions and your symptoms worsen Follow-up/Referrals: Kishor Lowe DO [Primary Care Provider] - (Date & Time 08/23/2024 9:00 AM Provider: Kishor Lowe DO [facility] ) Diet: Regular Addtl Attending Provider Instructions: Ms Pepper You were hospitalized and managed for the above listed diagnoses. You are being discharged on zoloft and naltrexone. Your lyrica was changed to gabapentin Please ensure follow up with your Primary Doctor and Psychiatrist who will continue to adjust medications as needed. It was a pleasure taking care of you. Pending Studies at Discharge: No Stand-Alone Forms: My [facility], Work/School Release, Smoking Cessation Medications and DC Order Prescriptions: New naltrexone 50 mg Tablet 50 mg PO DAILY Qty: 30 0RF thiamine HCl (vitamin B1) 100 mg Tablet 100 mg PO QAM Qty: 30 0RF folic acid 1 mg Tablet 1 mg PO QAM Qty: 30 0RF sertraline 50 mg Tablet 50 mg PO QAM Qty: 30 0RF gabapentin 300 mg capsule 300 mg PO BID Qty: 60 0RF ondansetron 4 mg tablet,disintegrating 4 mg PO TID PRN (Reason: nausea and vomiting) Qty: 20 0RF Continued propranolol 10 mg tablet 10 mg PO BID 30 Days Qty: 60 0RF nicotine [Nicoderm CQ] 21 mg/24 hr Patch 24 Hour 1 patch transdermal QAM Qty: 28 0RF Discontinued pregabalin [Lyrica] 100 mg Capsule 100 mg PO [facility] Discharge Orders: Discharge Order (Routine); Ordered 08/18/24 Ordered By: Stefany Carcamo Admission Data Admit Date/Time: 08/14/24 18:37 Attending Provider: Stefany Carcamo I. Admit Provider: Mamadou Robles Primary Care Provider: Kishor Lowe Other Providers: Nancy Mast; Fitz Alejandro; Katie Hooks; Aury Grey; Rich Gray; Adrian Marcum; Kalie Luevano; Mamadou Ruth Other Interventions: Discharge Summary Assessment (RN) Last Done: 08/18/24 09:41
[2024-08-18 09:42] VITALS: BP 124/79
[2024-08-20 12:37] LABS: C.diff Toxin B, Qual RT-PCR NOT DETECTED (NOT DETECTED)
== END 2024-08-18 10:40 | disposition home or self-care (01) | DRG 897 ==
LOC: ED 13:00 → EDINP 18:37 → SUATTDRO 18:37 → 2N 20:21